=== PATIENT | female | born 1965 | race Caucasian/White ===

== ENCOUNTER 2023-02-23 15:08 | Emergency (ER) | payer OTHER, SELFPAY ==
[2023-02-23 15:14] VITALS: BP 124/83; PULSE 71; RESP 16; TEMP 36.9; O2SAT 97
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
[2023-02-23 16:08] LABS: Internal Control Within Normal Limits; Strep A Antigen Screen Negative
[2023-02-23 16:13] LABS: SARS-CoV-2 Ag NEGATIVE (NEGATIVE)
[2023-02-23 17:42] VITALS: BP 152/71; PULSE 68; RESP 16; TEMP 36.9; O2SAT 96
[2023-02-25 15:36] LABS: SARS-CoV-2 NAA NOT DETECTED (NOT DETECTE)
== END 2023-02-23 17:51 | disposition home or self-care (01) ==
PROVIDERS: Emergency Provider Emergency Medicine Emergency Medical Services; PCP Family Medicine
DX: J02.9 Acute pharyngitis, unspecified (principal); Z20.822 Contact with and (suspected) exposure to COVID-19
CPT/HCPCS: 87070; 87635; 87811; 87880; 99285; U0003

== ENCOUNTER 2023-03-25 10:05 | Outpatient (OUT) | payer OTHER, SELFPAY ==
--- NOTE | 2023-03-25 10:11 | US_ITS ---
The [address] [address] Patient Name: SHIRAZ HENSON MRN: [id number] date: 1965 Sex: F Assigned Patient Location: [place] Current Patient Location: [place] Accession/Order Number: [id number] Exam Date: 03/25/2023 10:20 Report Date: 03/25/2023 12:19 At the request of: SHARAN HERNDON Procedure: US pelvis w/ transvaginal EXAMINATION: US pelvis w/ transvaginal HISTORY: Ovarian Cyst N83.209 COMPARISON: No relevant comparison available. FINDINGS: The uterus is normal in size, contour and echotexture measuring 8.7 x 5.4 x 4.0 cm. Area of hypoechogenicity in the anterior myometrium measuring 1.7 cm. Anteverted. Endometrium measures 1.2 cm The ovaries are not visualized No free fluid US/US pelvis w/ transvaginal IMPRESSION: 1.7 cm anterior myometrial mass, a fibroid is favored The endometrial stripe measures 1.2 cm, thickened for postmenopausal patient Electronically authenticated by: MARIA DE JESUS MARSH Date: 03/25/2023 12:19
== END 2023-03-25 10:06 | disposition home or self-care (01) ==
LOC: US 10:05
PROVIDERS: PCP Family Medicine; Visit Provider Family Medicine
DX: N83.209 Unspecified ovarian cyst, unspecified side (principal); N85.8 Other specified noninflammatory disorders of uterus; R93.89 Abnormal findings on diagnostic imaging of other specified body structures
CPT/HCPCS: 76830; 76856

== ENCOUNTER 2023-03-25 10:58 | Outpatient (OUT) | payer OTHER, SELFPAY ==
[2023-03-26 05:07] LABS: Cancer Antigen (CA) 125 13.2 U/mL (0.0-38.1)
== END 2023-03-25 10:59 | disposition home or self-care (01) ==
LOC: LAB 10:59
PROVIDERS: PCP Family Medicine; Visit Provider Family Medicine
DX: N83.209 Unspecified ovarian cyst, unspecified side (principal)
CPT/HCPCS: 36415; 76830; 76856; 86304

== ENCOUNTER 2023-07-02 13:20 | Outpatient (OUT) | payer OTHER, SELFPAY ==
[2023-07-02 13:41] LABS: Basophils Percent Auto 0.7 % (0.2-2.0); Eosinophils Absolute Auto 0.2 10^3/uL (0.0-0.7); Eosinophils Percent Auto 2.5 % (0.9-7.0); Hematocrit 40.9 % (36.0-48.0); Immature Granulocytes Abs Auto 0.01 10^3/uL (0.00-0.03); Immature Granulocytes Pct Auto 0.2 % (0.0-0.5); Lymphocytes Absolute Auto 1.3 10^3/uL (1.2-3.8); Mean Corpuscular HGB Conc 31.8 g/dL (29.9-35.2); Mean Corpuscular Volume 91.3 fL (81.0-99.0); Mean Platelet Volume 11.9 fL (9.5-13.5); Monocytes Absolute Auto 0.5 10^3/uL (0.3-0.8); Monocytes Percent Auto 7.9 % (1.7-12.0); Neutrophils Percent Auto 66.7 % (43.0-75.0); Platelet Count 164 10^3/uL (150-450); Red Blood Count 4.48 10^6/uL (4.20-5.40); Red Cell Distribution Width 13.1 % (11.0-15.0)
[2023-07-02 14:04] LABS: Estimated Average Glucose 126 mg/dL
[2023-07-02 14:35] LABS: Alanine Aminotransferase 32 U/L (14-59); Albumin Globulin Ratio 0.9; Albumin Level 3.7 g/dL (3.4-5.0); Alkaline Phosphatase 74 U/L (46-116); Anion Gap 9.5; Aspartate Amino Transferase 18 U/L (15-37); BUN Creatinine Ratio 30.8; Bilirubin Direct 0.1 mg/dL (0.0-0.2); Bilirubin Total 0.5 mg/dL (0.2-1.0); Calcium 8.9 mg/dL (8.5-10.1); Carbon Dioxide 31.5 mmol/L (21.0-32.0); Chloride 106 mmol/L (98-107); Chol HDL Ratio 3.4; Cholesterol 171 mg/dL (<=200); Estimated GFR (African America >60 (>=60); Estimated GFR (Non-African Ame >60 (>=60); Globulin 3.9 g/dL; Glucose 139 mg/dL (74-106); HDL Cholesterol 51 mg/dL (40-60); LDL Cholesterol Calculated 108.2 mg/dL; Sodium 143 mmol/L (136-145); Thyroid Stimulating Hormone 2.365 uIU/mL (0.358-3.740); Total Protein 7.6 g/dL (6.4-8.2); Triglycerides 59 mg/dL (<=150); VLDL CHOLESTEROL 11.8 mg/dL
== END 2023-07-02 13:21 | disposition home or self-care (01) ==
LOC: LAB 13:23
PROVIDERS: PCP Family Medicine; Visit Provider Family Medicine
DX: Z00.00 Encounter for general adult medical examination without abnormal findings (principal)
CPT/HCPCS: 36415; 80048; 80061; 80076; 83036; 84443; 85025

== ENCOUNTER 2023-12-10 13:46 | Outpatient (OUT) | payer BC, SELFPAY ==
[2023-12-10 14:48] LABS: Microalbumin Urine Random 5.4 mg/dL (<=30.0)
[2023-12-10 16:09] LABS: Estimated Average Glucose 134 mg/dL; Glycohemoglobin A1C 6.3 % (4.5-6.2)
== END 2023-12-10 13:47 | disposition home or self-care (01) ==
LOC: LAB 13:48
PROVIDERS: PCP Family Medicine; Visit Provider Family Medicine
DX: E11.65 Type 2 diabetes mellitus with hyperglycemia (principal)
CPT/HCPCS: 36415; 82043; 83036

== ENCOUNTER 2024-06-16 14:06 | Outpatient (OUT) | payer BC, SELFPAY ==
[2024-06-16 14:23] LABS: Basophils Percent Auto 0.8 % (0.2-2.0); Eosinophils Absolute Auto 0.2 10^3/uL (0.0-0.7); Eosinophils Percent Auto 2.9 % (0.9-7.0); Hematocrit 43.1 % (36.0-48.0); Hemoglobin 13.9 g/dL (12.0-16.0); Immature Granulocytes Abs Auto 0.02 10^3/uL (0.00-0.03); Immature Granulocytes Pct Auto 0.4 % (0.0-0.5); Lymphocytes Percent Auto 19.5 % (20.5-60.0); Mean Corpuscular HGB Conc 32.3 g/dL (29.9-35.2); Mean Corpuscular Hemoglobin 29.3 pg (26.7-34.0); Mean Corpuscular Volume 90.7 fL (81.0-99.0); Mean Platelet Volume 12.1 fL (9.5-13.5); Monocytes Absolute Auto 0.4 10^3/uL (0.3-0.8); Monocytes Percent Auto 6.9 % (1.7-12.0); Neutrophils Absolute Auto 3.7 10^3/uL (1.4-6.5); Neutrophils Percent Auto 69.5 % (43.0-75.0); Platelet Count 172 10^3/uL (150-450); Red Blood Count 4.75 10^6/uL (4.20-5.40); Red Cell Distribution Width 13.3 % (11.0-15.0); White Blood Count 5.2 10^3/uL (4.0-11.0)
--- OUTSIDE RECORDS SUMMARY | 2024-06-16 14:25 | XMS_ITS | CCD ---
Author Organization [facility] Care Team Providers Care Play Reader Name Role Phone KATHERYN MICHELLE Unavailable Unavailable BRENNAN, ALISHA Unavailable Unavailable BRENNAN, ALISHA Unavailable Unavailable BRENNAN, ALISHA Unavailable Unavailable BRENNAN, ALISHA Unavailable Unavailable BRENNAN, ALISHA Unavailable Unavailable VIMAL SCHULTZ Unavailable Unavaila ble BRENNAN, ALISHA Unavailable Unavailable BRENNAN, ALISHA Unavailable Unavailable BRENNAN, ALISHA Unavailable Unavailable SHANTELLEASHANTI Unavailable Unavailable JOSEKAREN HAMPTON Unavailable Unavailable BRENNAN, ALISHA Unavailable Unavailable SITA JERRY Unavailable Unavailable YONLEY, RACHEL L Unavailable Unavailable HAY ., DR PAIGE Admitting Unavailable NADERER, DR SHARAN Rizvi Primary Care Unavailable HAY ., DR PAIGE Attending Unavailable HAY ., DR PAIGE Consulting Unavailable NADERER, DR SHARAN Rizvi Primary Care Unavailable NICOLE JOSEPH Consulting Unavailable KATTODD CLARKE Admitting Unavailable KATTODD CLARKE Attending Unavailable EUFEMIA GARBER Consulting Unavailable NADERER, DR SHARAN Rizvi Attending Unavailable NADERER, DR SHARAN Rizvi Consulting Unavailable NADERER, DR SHARAN Rizvi Primary Care Unavailable NADERER, DR SHARAN Rizvi Admitting Unavailable NADERER, DR SHARAN Rizvi Admitting Unavailable NADERER, DR SHARAN Rizvi Attending Unavailable NADERER, DR SHARAN Rizvi Primary Care Unavailable MAXIMO, DR MARIA DE JESUS Christensen Consulting Unavailable NADEREJamal, DR SHARAN Rizvi Consulting Unavailable WEST, DR MARIA DE JESUS Christensen Admitting Unavailable NADERER, DR SHARAN Rizvi Primary Care Unavailable WEST, DR MARIA DE JESUS Christensen Attending Unavailable WEST, DR MARIA DE JESUS Christensen Consulting Unavailable MARKER ., DR PRECIADO Admitting Unavailable NADERER, DR SHARAN Rizvi Primary Care Unavailable GRECHNY ., STAR MENJIVAR Consulting Unavailabl e MARKER ., DR PRECIADO Attending Unavailable MARKER ., DR PRECIADO Consulting Unavailable ROX APARICIO Consulting Unavailable DR DON CHACON Admitting Unavailable DR SHARAN HERNDON Primary Care Unavailable NICOLE JOSEPH Consulting Unavailable DR DON CHACON Attending Unavailable DR SHARAN HERNDON Primary Care Unavailable GABRIELLA DELANEY Admitting Unavailable GABRIELLA DELANEY Attending Unavailable GABRIELLA DELANEY Consulting Unavailable Jimmy VELASCO Attending Unavailable SHARAN HERNDON Attending Unavailable Problems Active Problems Problem Classification Problem Date Documented Da te Episodic/Chronic Diabetes mellitus without complication (1 source) Type 2 diabetes mellitus without complications; Translations: [TYPE 2 DM WITHOUT COMPLICATIONS] Onset: 08-10-2022 Chronic Gout and other crystal arthropathies (1 source) Gout, unspecified; Translations: [Gout, unspecified] Onset: 05-26-2017 Chronic Menstrual disorders (3 sources) Irregular menstruation, unspecified; Translations: [Irregular menstruation, unspecified] Onset: 10-02-2017 Chronic Nonspecific chest pain (4 sources) Chest pain, unspecified; Translations: [Other chest pain] Onset: 12-23-2022 Episodic Nutritional deficiencies (1 source) Vitamin D deficiency, unspecified; Translations: [VITAMIN D DEFICIENCY UNSPECIFIED] Onset: 08-10-2022 Chronic Other aftercare (1 source) Other termite treater helper (current) drug therapy; Translations: [OTH ALF CURRENT DRUG THERAPY] Onset: 11-18-2022 Episodic Other ear and sense organ disorders (1 source) Unspecified otitis externa, right ear; Translations: [UNS OTITIS EXTERNA RT EAR] Onset: 11-18-2022 Chronic Other ear and sense organ disorders (3 sources) Otalgia, right ear; Translations: [OTALGIA RIGHT EAR] Onset: 11-16-2022 Episodic Spondylosis; intervertebral disc disorders; other back problems (1 source) Spondylosis without myelopathy or radiculopathy, cervical region; Translations: [SPONDYLS W/O MYELO-/RADICULOP CERV] Onset: 10-18-2022 Chronic Spondylosis; intervertebral disc disorders; other back problems (1 source) Cervicalgia; Translations: [CERVICALGIA] Onset: 10-18-2022 Episodic Thyroid disorders (4 sources) Hypothyroidism, unspecified; Translations: [HYPOTHYROIDISM UNSPECIFIED] Onset: 10-16-2022 Chronic Unclassified (1 source) LOW BACK PAIN, UNSPECIFIED; Translations: [LOW BACK PAIN, UNSPECIFIED] Onset: 10-18-2022 Unclassified (1 source) CONTACT W/AND (SUSP) EXPOS COVID-19; Translations: [CONTACT W/AND (SUSP) EXPOS COVID-19] Onset: 08-15-2022 Unclassified (2 sources) COUGH, UNSPECIFIED; Translations: [COUGH, UNSPECIFIED] Onset: 05-14-2022 Varicose veins of lower extremity (4 sources) Varicose veins of bilateral lower extremities with pain; Translations: [VARICOSE VNS JAJA LOW EXTREM W/PAIN] Onset: 10-04-2022 Episodic Past or Other Problems Problem Classification Problem Date Documented Da te Episodic/Chronic Abdominal pain (1 source) Unspecified abdominal pain; Translations: [UNSPECIFIED ABDOMINAL PAIN] Onset: 08-15-2022 Episodic Contraceptive and procreative management (1 source) Tubal ligation status; Translations: [TUBAL LIGATION STATUS] Onset: 08-15-2022 Episodic Inflammation, infection of eye (1 source) Allergic dermatitis of left eye, unspecified eyelid; Translations: [Allergic dermatitis of left eye, unspecified eyelid] Onset: 04-26-2017 Episodic Nausea and vomiting (1 source) Vomiting, unspecified; Translations: [VOMITING UNSPECIFIED] Onset: 08-15-2022 Episodic Other gastrointestinal disorders (4 sources) Diarrhea, unspecified; Translations: [DIARRHEA UNSPECIFIED] Onset: 08-13-2022 Episodic Other skin disorders (3 sources) Localized swelling, mass and lump, right upper limb; Translations: [Localized swelling, mass and lump, right upper limb] Onset: 04-30-2017 Episodic Other upper respiratory infections (2 sources) Acute upper respiratory infection, unspecified; Translations: [Acute upper respiratory infection, unspecified] Onset: 05-08-2017 Episodic Poisoning by nonmedicinal substances (4 sources) Toxic effect of venom of bees, accidental (unintentional), initial encounter; Translations: [TOXIC EFF VENOM BEES ACC INIT ENC] Onset: 04-18-2022 Episodic Residual codes; unclassified (1 source) Acquired absence of other specified parts of digestive tract; Translations: [ACQ ABSENCE OTH PART DIGESTV TRACT] Onset: 08-15-2022 Episodic Superficial injury; contusion (1 source) Contusion of left lesser toe(s) with damage to nail, initial encounter; Translations: [Contusion of left lesser toe(s) with damage to nail, initial encounter] Onset: 09-29-2017 Episodic Unclassified (2 sources) Encounter for screening for nutritional disorder; Translations: [Encounter for screening for nutritional disorder] Onset: 10-02-2017 Episodic Unclassified (1 source) COUGH, UNSPECIFIED; Translations: [COUGH, UNSPECIFIED] Onset: 05-13-2022 Urinary tract infections (1 source) Urinary tract infection, site not specified; Translations: [UTI SITE NOT SPECIFIED] Onset: 08-15-2022 Episodic Viral infection (1 source) Other viral agents as the cause of diseases classified elsewhere; Translations: [Other viral agents as the cause of diseases classified elsewhere] Onset: 05-08-2017 Episodic Results Test Name Value Interpretation Reference Range Facility [facility] 11-28-2023 Consent [id number] Normal [facility] Registrationon 11-28-2023 Registration [id number] Normal [facility] CBC AUTO DIFFon 12-23-2022 BASO # 0.0 103/ul Normal 0.0-0.1 [facility] Comment on above: Performed By: #### L IPA, CMP #### [facility] [address] [place] [address] Dr. Chantel Rand Basophils/100 WBC (Bld) 0.5 % Normal 0.2-2.0 [facility] Comment on above: Performed By: #### L IPA, CMP #### [facility] [address] [place] [address] Dr. Chantel Rand EO # 0.2 103/ul Normal 0.0-0.7 [facility] Comment on above: Performed By: #### L IPA, CMP #### [facility] [address] [place] [address] Dr. Chantel Rand Eosinophils/100 WBC (Bld) 3.5 % Normal 0.9-7.0 [facility] Comment on above: Performed By: #### L IPA, CMP #### [facility] [address] [place] [address] Dr. Chantel Rand Erythrocyte distribution width (RBC) [Ratio] 13.1 % Normal 11.0-15.0 [facility] Comment on above: Performed By: #### L IPA, CMP #### [facility] [address] [place] [address] Dr. Chantel Rand Hematocrit (Bld) [Volume fraction] 42.6 % Normal 36.0-48.0 [facility] Comment on above: Performed By: #### L IPA, CMP #### [facility] [address] [place] [address] Dr. Chantel Rand Hemoglobin (Bld) [Mass/Vol] 14.0 g/dL Normal 12.0-16.0 [facility] Comment on above: Performed By: #### L IPA, CMP #### [facility] [address] [place] [address] Dr. Chantel Rand IG # 0.02 10e3/ul Normal 0.00-0.03 [facility] Comment on above: Performed By: #### L IPA, CMP #### [facility] [address] [place] [address] Dr. Chantel Rand IG % 0.4 % Normal 0.0-0.5 [facility] Comment on above: Performed By: #### L IPA, CMP #### [facility] [address] [place] [address] Dr. Chantel Rand LYMPH # 1.4 103/ul Normal 1.2-3.8 [facility] Comment on above: Performed By: #### L IPA, CMP #### [facility] [address] [place] [address] Dr. Chantel Rand Lymphocytes/100 WBC (Bld) 23.7 % Normal 20.5-60.0 [facility] Comment on above: Performed By: #### L IPA, CMP #### [facility] [address] [place] [address] Dr. Chantel Rand MANUAL DIFF REQ NO Normal [facility] Comment on above: Performed By: #### L IPA, CMP #### [facility] [address] [address] [address] Chantel Rand MCH (RBC) [Entitic mass] 28.6 pg Normal 26.7-34.0 [facility] Comment on above: Performed By: #### L IPA, CMP #### [facility] [address] [place] [address] Dr. Chantel Rand MCHC (RBC) [Mass/Vol] 32.9 g/dL Normal 29.9-35.2 [facility] Comment on above: Performed By: #### L IPA, CMP #### [facility] [address] [place] [address] Dr. Chantel Rand MCV (RBC) [Entitic vol] 86.9 fL Normal 81.0-99.0 [facility] Comment on above: Performed By: #### L IPA, CMP #### [facility] [address] [place] [address] Dr. Chantel Rand MONO # 0.5 103/ul Normal 0.3-0.8 [facility] Comment on above: Performed By: #### L IPA, CMP #### [facility] [address] [place] [address] Dr. Chantel Rand Monocytes/100 WBC (Bld) 7.9 % Normal 1.7-12.0 [facility] Comment on above: Performed By: #### L IPA, CMP #### [facility] [address] [place] [address] Dr. Chantel Rand NEUT # 3.6 103/ul Normal 1.4-6.5 [facility] Comment on above: Performed By: #### L IPA, CMP #### [facility] [address] [place] [address] Dr. Chantel Rand Neutrophils/100 WBC (Bld) 64.0 % Normal 43.0-75.0 [facility] Comment on above: Performed By: #### L IPA, CMP #### [facility] [address] [place] [address] Dr. Chantel Rand Platelet mean volume (Bld) [Entitic vol] 11.5 fL Normal 9.5-13.5 [facility] Comment on above: Performed By: #### L IPA, CMP #### [facility] [address] [address] [address] Chantel Rand PLT 179 103/ul Normal 150-450 [facility] Comment on above: Performed By: #### L IPA, CMP #### [facility] [address] [address] [address] Chantel Rand RBC 4.90 106/ul Normal 4.20-5.40 [facility] Comment on above: Performed By: #### L IPA, CMP #### [facility] [address] [address] [address] Chantel Rand WBC 5.7 103/ul Normal 4.0-11.0 [facility] Comment on above: Performed By: #### L IPA, CMP #### [facility] [address] [place] [address] Dr. Chantel Rand LIPASEon 12-23-2022 Lipase [Catalytic activity/Vol] 150.0 U/L Normal 73.0-393.0 [facility] Comment on above: Performed By: #### L IPA, LIVER, HSTROPN, BMP #### [facility] [address] [address] [address] Chantel Rand LIVER PROFILEon 12-23-2022 Albumin [Mass/Vol] 3.8 g/dL Normal 3.4-5.0 [facility] Comment on above: Performed By: #### L IPA, CMP #### [facility] [address] [place] [address] Dr. Chantel Rand Albumin/Globulin [Mass ratio] 0.9 {ratio} Normal [facility] Comment on above: Performed By: #### L IPA, CMP #### [facility] [address] [place] [address] Dr. Chantel Rand ALP [Catalytic activity/Vol] 76 U/L Normal 46-116 [facility] Comment on above: Performed By: #### L IPA, CMP #### [facility] [address] [address] [address] Chantel Rand ALT [Catalytic activity/Vol] 31 U/L Normal 14-59 [facility] Comment on above: Performed By: #### L IPA, CMP #### [facility] [address] [place] [address] Dr. Chantel Rand AST [Catalytic activity/Vol] 17 U/L Normal 15-37 [facility] Comment on above: Performed By: #### L IPA, CMP #### [facility] [address] [place] [address] Dr. Chantel Rand BILI, CONJUGATED 0.1 mg/dL Normal 0.0-0.2 [facility] Comment on above: Performed By: #### L IPA, CMP #### [facility] [address] [place] [address] Dr. Chantel Rand Bilirubin [Mass/Vol] 0.4 mg/dL Normal 0.2-1.0 [facility] Comment on above: Performed By: #### L IPA, CMP #### [facility] [address] [place] [address] Dr. Chantel Rand Globulin (S) [Mass/Vol] 4.0 g/dL Normal [facility] Comment on above: Performed By: #### L IPA, CMP #### [facility] [address] [place] [address] Dr. Chantel Rand Protein [Mass/Vol] 7.8 g/dL Normal 6.4-8.2 [facility] Comment on above: Performed By: #### L IPA, CMP #### [facility] [address] [place] [address] Dr. Chantel Rand PROF CHEM 8 (BAS METB)on Anion gap [Moles/Vol] 13.1 mmol/L Normal [facility] Comment on above: Performed By: #### L IPA, CMP #### [facility] [address] [place] [address] Dr. Chantel Rand Calcium [Mass/Vol] 9.3 mg/dL Normal 8.5-10.1 [facility] Comment on above: Performed By: #### L IPA, CMP #### [facility] [address] [place] [address] Dr. Chantel Rand Chloride [Moles/Vol] 104 mmol/L Normal 98-107 [facility] Comment on above: Performed By: #### L IPA, CMP #### [facility] [address] [place] [address] Dr. Chantel Rand CO2 [Moles/Vol] 28.9 mmol/L Normal 21.0-32.0 [facility] Comment on above: Performed By: #### L IPA, CMP #### [facility] [address] [address] [address] Chantel Rand Creatinine [Mass/Vol] 0.70 mg/dL Normal 0.55-1.02 [facility] Comment on above: Performed By: #### L IPA, CMP #### [facility] [address] [place] [address] Dr. Chantel Rand EGFR-AF DOMINICAN >60 Normal >=60 [facility] Comment on above: Performed By: #### L IPA, CMP #### [facility] [address] [place] [address] Dr. Chantel Rand EGFR-NON AF DOMINICAN >60 Normal >=60 [facility] Comment on above: Performed By: #### L IPA, CMP #### [facility] [address] [place] [address] Dr. Chantel Rand Glucose [Mass/Vol] 148 mg/dL Critically high 74-106 [facility] Comment on above: Performed By: #### L IPA, CMP #### [facility] [address] [place] [address] Dr. Chantel Rand Potassium [Moles/Vol] 4.0 mmol/L Normal 3.5-5.1 [facility] Comment on above: Performed By: #### L IPA, CMP #### [facility] [address] [place] [address] Dr. Chantel Rand Sodium [Moles/Vol] 142 mmol/L Normal 136-145 [facility] Comment on above: Performed By: #### L IPA, CMP #### [facility] [address] [place] [address] Dr. Chantel Rand Urea nitrogen [Mass/Vol] 17.0 mg/dL Normal 7.0-18.0 [facility] Comment on above: Performed By: #### L IPA, CMP #### [facility] [address] [place] [address] Dr. Chantel Rand Urea nitrogen/Creatinine [Mass ratio] 24.3 mg/mg Normal [facility] Comment on above: Performed By: #### L IPA, CMP #### [facility] [address] [place] [address] Dr. Chantel Rand TROPONIN, HIGH SENSITIVITYon 12-23-2022 HSTROP 6.6 pg/mL Normal 4.0-51.3 [facility] Comment on above: Result Comment: CUT- OFF POINTS HAVE BEEN ESTABLISHED BASED ON THE FOURTH UNIVERSAL DEFINITIONS OF MYOCARDIAL INFARCTION. THE UPPER REFERENCE LIMIT (URL) OF TROPONIN, DEFINED THE 99TH PERCENTILE OF cTnI DISTRIBUTION IN A REFERENCE POPULATION, HAS BEEN CONFIRMED THE DECISION THRESHOLD FOR HI DIAGNOSIS. Performed By: #### L IPA, CMP #### [facility] [address] [place] [address] Dr. Chantel Rand XR CSPINE 2_3 VIEWSon 2022 XR CSPINE 2_3 VIEWS EXAMINATION: XR CSPI NE 2_3 VIEWS HISTORY: Neck pain COMPARISON: No relevant comparison available. FINDINGS: BONES: Normal alignment with no acute fracture or spondylolisthesis. Moderate to severe degenerative spondylosis. [id number] facet osteoarthropathy. DISC SPACES: Normal. No significant disc height narrowing, subluxation, or endplate abnormality. PARASPINOUS: Negative. No paraspinous abnormality is seen. OTHER: C7 is not visualized on the lateral projection IMPRESSION: Moderate to severe degenerative spondylosis Electronically authenticated by: MARIA DE JESUS MARSH Date: 2022-10-17 07:42 Normal [facility] XR LSPINE 2_3 VIEWSon 2022 XR LSPINE 2_3 VIEWS EXAMINATION: XR LSPI NE 2_3 VIEWS HISTORY: Low back pain COMPARISON: No relevant comparison available. FINDINGS: BONES: 2 mm anterolisthesis of L4 in relation L5. Mild spondylosis. Moderate facet osteoarthropathy most significant L4-S1 DISC SPACES: Mild multilevel disc space narrowing PARASPINOUS: Negative. No paraspinous abnormality is seen. OTHER: Negative. IMPRESSION: Mild to moderate degenerative changes Electronically authenticated by: MARIA DE JESUS MARSH Date: 2022-10-17 07:49 Normal [facility] FREE T3on 10-16-2022 FREE T3 3.25 pg/mlL Normal 2.18-3.98 [facility] Comment on above: Performed By: #### L IPA, CMP #### [facility] [address] [place] [address] Dr. Chantel Rand FREE T4on 10-16-2022 Free T4 [Mass/Vol] 0.96 ng/dL Normal 0.76-1.46 [facility] Comment on above: Performed By: #### F T4 #### [facility] [address] [place] [address] Dr. Chantel Rand TSHon 10-16-2022 TSH 2.190 uIU/mL Normal 0.358-3.740 [facility] Comment on above: Performed By: #### L IPA, CMP #### [facility] [address] [place] [address] Dr. Chantel Rand CULTURE URINEon 08-16-2022 CULTURE URINE Isolate 1 Klebsiella pneumoniae 15,000 cfu/mL of ORGANISM 1 Klebsiella pneumoniae ANTIBIOTIC M.I.C RX STATUS Ampicillin 16 R F Ampicillin/Sulbactam 4 S F Piperacillin/Tazobacta m <=4 S F Cefazolin <=4 S F Ceftazidime <=1 S F Ceftriaxone <=1 S F Ertapenem <=0.5 S F Imipenem <=0.25 S F Amikacin <=2 S F Gentamicin <=1 S F Tobramycin <=1 S F Ciprofloxacin <=0.25 S F Levofloxacin <=0.12 S F Nitrofurantoin 64 I F Trimethoprim/Sulfameth oxazole <=20 S F Normal [facility] Comment on above: Performed By: #### L IPA, CMP #### [facility] [address] [place] [address] Dr. Chantel Rand CBC W MANUAL DIFFon 08-13-20 22 ATYPICAL LYMPH # 0.07 103/ul Normal [facility] Comment on above: Performed By: #### L IPA, CMP #### [facility] [address] [place] [address] Dr. Chantel Rand ATYPICAL LYMPH % 1 % Normal [facility] Comment on above: Performed By: #### L IPA, CMP #### [facility] [address] [place] [address] Dr. Chantel Rand BAND # 0.0 103/ul Normal 0.0-0.3 [facility] Comment on above: Performed By: #### L IPA, CMP #### [facility] [address] [place] [address] Dr. Chantel Rand BAND % 0 % Normal 0-5 [facility] Comment on above: Performed By: #### L IPA, CMP #### [facility] [address] [place] [address] Dr. Chantel Rand BASOM # 0.00 103/ul Normal 0.00-0.10 [facility] Comment on above: Performed By: #### L IPA, CMP #### [facility] [address] [place] [address] Dr. Chantel Rand BASOM % 0.0 % Critically low 0.2-2.0 [facility] Comment on above: Performed By: #### L IPA, CMP #### [facility] [address] [place] [address] Dr. Chantel Rand BLAST # Normal [facility] Comment on above: Performed By: #### L IPA, CMP #### [facility] [address] [place] [address] Dr. Chantel Rand BLAST % Normal [facility] Comment on above: Performed By: #### L IPA, CMP #### [facility] [address] [place] [address] Dr. Chantel Rand CORRECTED WBC Normal 4.0-11.0 [facility] Comment on above: Performed By: #### L IPA, CMP #### [facility] [address] [place] [address] Dr. Chantel Rand EOS # 0.00 103/ul Normal 0.00-0.70 [facility] Comment on above: Performed By: #### L IPA, CMP #### [facility] [address] [address] [address] Chantel Rand EOS% 0.0 % Critically low 0.9-7.0 [facility] Comment on above: Performed By: #### L IPA, CMP #### [facility] [address] [place] [address] Dr. Chantel Rand HCT 43.5 % Normal 36.0-48.0 [facility] Comment on above: Performed By: #### L IPA, CMP #### [facility] [address] [place] [address] Dr. Chantel Rand HGB 14.0 g/dl Normal 12.0-16.0 [facility] Comment on above: Performed By: #### L IPA, CMP #### [facility] [address] [place] [address] Dr. Chantel Rand LYMPHM # 0.47 103/ul Critically low 1.20-3.80 [facility] Comment on above: Performed By: #### L IPA, CMP #### [facility] [address] [place] [address] Dr. Chantel Rand LYMPHM% 7.0 % Critically low 20.5-60.0 [facility] Comment on above: Performed By: #### L IPA, CMP #### [facility] [address] [place] [address] Dr. Chantel Rand MCH 28.5 pg Normal 26.7-34.0 [facility] Comment on above: Performed By: #### L IPA, CMP #### [facility] [address] [place] [address] Dr. Chantel Rand MCHC 32.2 g/dl Normal 29.9-35.2 [facility] Comment on above: Performed By: #### L IPA, CMP #### [facility] [address] [place] [address] Dr. Chantel Rand MCV 88.4 fL Normal 81.0-99.0 [facility] Comment on above: Performed By: #### L IPA, CMP #### [facility] [address] [place] [address] Dr. Chantel Rand METAMYELOCYTE # Normal [facility] Comment on above: Performed By: #### L IPA, CMP #### [facility] [address] [address] [address] Chantel Rand METAMYELOCYTE % Normal [facility] Comment on above: Performed By: #### L IPA, CMP #### [facility] [address] [address] [address] Chantel Rand MONOM# 0.67 103/ul Normal 0.30-0.80 [facility] Comment on above: Performed By: #### L IPA, CMP #### [facility] [address] [address] [address] Chantel Rand MONOM% 10.0 % Normal 1.7-12.0 [facility] Comment on above: Performed By: #### L IPA, CMP #### [facility] [address] [place] [address] Dr. Chantel Rand MPV 11.4 fL Normal 9.5-13.5 [facility] Comment on above: Performed By: #### L IPA, CMP #### [facility] [address] [address] [address] Chantel Rand MYELOCYTE # Normal [facility] Comment on above: Performed By: #### L IPA, CMP #### [facility] [address] [address] [address] Chantel Rand MYELOCYTE % Normal [facility] Comment on above: Performed By: #### L IPA, CMP #### [facility] [address] [address] [address] Chantel Rand NRBC Normal [facility] Comment on above: Performed By: #### L IPA, CMP #### [facility] [address] [address] [address] Chantel Rand PLT 142 103/ul Critically low 150-450 [facility] Comment on above: Performed By: #### L IPA, CMP #### [facility] [address] [address] [address] Chantel Rand RBC 4.92 106/ul Normal 4.20-5.40 [facility] Comment on above: Performed By: #### L IPA, CMP #### [facility] [address] [address] [address] Chantel Rand RDW 12.9 % Normal 11.0-15.0 [facility] Comment on above: Performed By: #### L IPA, CMP #### [facility] [address] [place], [place] [address] Dr. Chantel Rand SEG # 5.49 103/ul Normal 1.40-6.50 [facility] Comment on above: Performed By: #### L IPA, CMP #### [facility] [address] [address] [address] Chantel Rand SEG % 82.0 % Critically high 43.0-75.0 [facility] Comment on above: Performed By: #### L IPA, CMP #### [facility] [address] [address] [address] Chantel Rand WBC 6.7 103/ul Normal 4.0-11.0 [facility] Comment on above: Performed By: #### L IPA, CMP #### [facility] [address] [place], [place] [address] Dr. Chantel Rand Covid-19 PCR ([facility])on SARS-CoV-2 (COVID-19) RNA ROMANA+probe Ql (Unsp spec) Not detected Normal NOT DETECTED [facility] Comment on above: Result Comment: When diagnostic testing is negative, the possibility of a false negative should be considered in the context of a patient's recent exposures and the presence of clinical signs and symptoms consistent with SARS-CoV-2. This test is not yet approved or cleared by the [place] FDA. When there are no FDA-approved or cleared tests available, and other criteria are met, FDA can make tests available under an emergency access mechanism called an Emergency Use Authorization (EUA). The EUA for this test is supported by the [employer] Operator of Health and Human Service's declaration that circumstances exist to justify the emergency use of in vitro diagnostics for the detection and/or diagnosis of the virus that causes COVID-19. This EUA will remain in effect for the duration of the COVID-19 declaration justifying emergency of IVDs, unless it is terminated or revoked by the FDA (after which the test may no longer be used). Performed By: #### L IPA, CMP #### [facility] [address] [place] [address] Dr. Chantel IGLESIAS URINE PROFILEon 2 Bilirubin Ql (U) SMALL Abnormal NEGATIVE [facility] Comment on above: Performed By: #### L IPA, CMP #### [facility] [address] [place] [address] Dr. Chantel Rand Clarity (U) CLEAR Normal CLEAR [facility] Comment on above: Performed By: #### L IPA, CMP #### [facility] [address] [place] [address] Dr. Chantel Rand Color (U) DK. YELLOW Normal YELLOW [facility] Comment on above: Performed By: #### L IPA, CMP #### [facility] [address] [place] [address] Dr. Chantel Rand ERUAHTayla A micrscopic examination will be performed if indicated. Normal [facility] Comment on above: Performed By: #### L IPA, CMP #### [facility] [address] [place] [address] Dr. Chantel Rand Glucose Ql (U) Negative Normal NEGATIVE [facility] Comment on above: Performed By: #### L IPA, CMP #### [facility] [address] [place] [address] Dr. Chantel Rand Hemoglobin Ql (U) Negative Normal NEGATIVE [facility] Comment on above: Performed By: #### L IPA, CMP #### [facility] [address] [place] [address] Dr. Chantel Rand Ketones Ql (U) TRACE Abnormal NEGATIVE [facility] Comment on above: Performed By: #### L IPA, CMP #### [facility] [address] [place] [address] Dr. Chantel Rand LEUKOCYTES Negative Normal NEGATIVE [facility] Comment on above: Performed By: #### L IPA, CMP #### [facility] [address] [place] [address] Dr. Chantel Rand Nitrite Ql (U) Negative Normal NEGATIVE [facility] Comment on above: Performed By: #### L IPA, CMP #### [facility] [address] [place] [address] Dr. Chantel Rand pH (U) 5.0 [pH] Normal 5-9 [facility] Comment on above: Performed By: #### L IPA, CMP #### [facility] [address] [place] [address] Dr. Chantel Rand Protein (U) [Mass/Vol] 30 mg/dL Abnormal NEGATIVE/ TRACE [facility] Comment on above: Performed By: #### L IPA, CMP #### [facility] [address] [place] [address] Dr. Chantel Rand SPEC GRAVITY >=1.030 Abnormal 1.005-<=1.025 [facility] Comment on above: Performed By: #### L IPA, CMP #### [facility] [address] [place] [address] Dr. Chantel Rand UR MICRO IND INDICATED Normal [facility] Comment on above: Performed By: #### L IPA, CMP #### [facility] [address] [place] [address] Dr. Chantel Rand Urobilinogen Qn (U) 1.0 {Nahun'U}/dL Normal 0.2 - 1. 0 [facility] Comment on above: Performed By: #### L IPA, CMP #### [facility] [address] [place] [address] Dr. Chantel Rand INFLUENZA A AND B AGon 08-13 INFLUANEGH SEE BELOW Normal [facility] Comment on above: Result Comment: Nega tive for Flu A protein angiten. Infection due to Flu A cannot be ruled out. Flu A angiten in the sample may be below the detection limit of the test. Performed By: #### L IPA, CMP #### [facility] [address] [place] [address] Dr. Chantel Rand INFLUBNEGH SEE BELOW Normal [facility] Comment on above: Result Comment: Nega tive for Flu B protein antigen. Infection due to Flu B cannot be ruled out. Flu B antigen in the sample may be below the detection limit of the test. Performed By: #### L IPA, CMP #### [facility] [address] [place] [address] Dr. Chantel Rand INFLUENZA A AG Negative Normal NEGATIVE SEE COMMENT [facility] Comment on above: Performed By: #### L IPA, CMP #### [facility] [address] [place] [address] Dr. Chantel Rand INFLUENZA B AG Negative Normal NEGATIVE SEE COMMENT [facility] Comment on above: Performed By: #### L IPA, CMP #### [facility] [address] [place] [address] Dr. Chantel Rand INTERNAL CONTROLS Within Normal Limits Normal Wi thin Normal Limits [facility] Comment on above: Performed By: #### L IPA, CMP #### [facility] [address] [place] [address] Dr. Chantel Rand LACTATE/LACTIC ACIDon 2021 Lactate [Moles/Vol] 0.9 mmol/L Normal 0.4-1.[address] [facility] Comment on above: Performed By: #### L ACT #### [facility] [address] [place] [address] Dr. Chantel Rand LIPASEon 08-13-2022 Lipase [Catalytic activity/Vol] 294.0 U/L Normal 73.0-393.0 [facility] Comment on above: Performed By: #### L IPA, CMP #### [facility] [address] [place] [address] Dr. Chantel Rand PROF 14(COMP METB)on 022 Albumin [Mass/Vol] 3.5 g/dL Normal 3.4-5.0 [facility] Comment on above: Performed By: #### L IPA, CMP #### [facility] [address] [place] [address] Dr. Chantel Rand Albumin/Globulin [Mass ratio] 0.8 {ratio} Normal [facility] Comment on above: Performed By: #### L IPA, CMP #### [facility] [address] [address] [address] Chantel Rand ALP [Catalytic activity/Vol] 89 U/L Normal 46-116 [facility] Comment on above: Performed By: #### L IPA, CMP #### [facility] [address] [address] [address] Chantel Rand ALT [Catalytic activity/Vol] 54 U/L Normal 14-59 [facility] Comment on above: Performed By: #### L IPA, CMP #### [facility] [address] [address] [address] Chantel Rand Anion gap [Moles/Vol] 8.1 mmol/L Normal [facility] Comment on above: Performed By: #### L IPA, CMP #### [facility] [address] [place] [address] Dr. Chantel Rand AST [Catalytic activity/Vol] 64 U/L Critically high 15-37 [facility] Comment on above: Performed By: #### L IPA, CMP #### [facility] [address] [place] [address] Dr. Chantel Rand Bilirubin [Mass/Vol] 0.6 mg/dL Normal 0.2-1.0 [facility] Comment on above: Performed By: #### L IPA, CMP #### [facility] [address] [place] [address] Dr. Chantel Rand Calcium [Mass/Vol] 8.7 mg/dL Normal 8.5-10.1 [facility] Comment on above: Performed By: #### L IPA, CMP #### [facility] [address] [place] [address] Dr. Chantel Rand Chloride [Moles/Vol] 102 mmol/L Normal 98-107 [facility] Comment on above: Performed By: #### L IPA, CMP #### [facility] [address] [address] [address] Chantel Rand CO2 [Moles/Vol] 31.6 mmol/L Normal 21.0-32.0 [facility] Comment on above: Performed By: #### L IPA, CMP #### [facility] [address] [place], [place] [id number] Dr. Chantel Rand Creatinine [Mass/Vol] 0.71 mg/dL Normal 0.55-1.02 [facility] Comment on above: Performed By: #### L IPA, CMP #### [facility] [address] [place] [address] Dr. Chantel Rand EGFR-AF DOMINICAN >60 Normal >=60 [facility] Comment on above: Performed By: #### L IPA, CMP #### [facility] [address] [place] [address] Dr. Chantel Rand EGFR-NON AF DOMINICAN >60 Normal >=60 [facility] Comment on above: Performed By: #### L IPA, CMP #### [facility] [address] [place] [address] Dr. Chantel Rand Globulin (S) [Mass/Vol] 4.2 g/dL Normal [facility] Comment on above: Performed By: #### L IPA, CMP #### [facility] [address] [place] [address] Dr. Chantel Rand Glucose [Mass/Vol] 165 mg/dL Critically high 74-106 [facility] Comment on above: Performed By: #### L IPA, CMP #### [facility] [address] [place] [address] Dr. Chantel Rand Potassium [Moles/Vol] 3.7 mmol/L Normal 3.5-5.1 [facility] Comment on above: Performed By: #### L IPA, CMP #### [facility] [address] [place] [address] Dr. Chantel Rand Protein [Mass/Vol] 7.7 g/dL Normal 6.4-8.2 [facility] Comment on above: Performed By: #### L IPA, CMP #### [facility] [address] [place] [address] Dr. Chantel Rand Sodium [Moles/Vol] 138 mmol/L Normal 136-145 [facility] Comment on above: Performed By: #### L IPA, CMP #### [facility] [address] [place] [address] Dr. Chantel Rand Urea nitrogen [Mass/Vol] 26.0 mg/dL Critically high 7.0-18.0 [facility] Comment on above: Performed By: #### L IPA, CMP #### [facility] [address] [place] [address] Dr. Chantel Rand Urea nitrogen/Creatinine [Mass ratio] 36.6 mg/mg Normal [facility] Comment on above: Performed By: #### L IPA, CMP #### [facility] [address] [address] [address] Chantel Rand URINE MICROSCOPIC ONLYon BACTERIA MODERATE Abnormal NONE SEEN [facility] Comment on above: Performed By: #### L IPA, CMP #### [facility] [address] [place] [address] Dr. Cahntel Rand Bacteria identified Cx Nom (U) INDICATED Normal [facility] Comment on above: Performed By: #### L IPA, CMP #### [facility] [address] [place] [address] Dr. Chantel Rand CA OX CRYSTALS MANY Normal [facility] Comment on above: Performed By: #### L IPA, CMP #### [facility] [address] [place] [address] Dr. Chantel Rand CAST NONE SEEN Normal NONE SEEN [facility] Comment on above: Performed By: #### L IPA, CMP #### [facility] [address] [place] [address] Dr. Chantel Rand Crystals LM Nom (Urine sed) SEEN Abnormal NONE SEEN [facility] Comment on above: Performed By: #### L IPA, CMP #### [facility] [address] [place] [address] Dr. Chantel Rand Epithelial cells LM Ql (Urine sed) MODERATE Abnormal NONE SEEN /RARE [facility] Comment on above: Performed By: #### L IPA, CMP #### [facility] [address] [place] [address] Dr. Chantel Rand MUCOUS NONE SEEN Normal NONE SEEN [facility] Comment on above: Performed By: #### L IPA, CMP #### [facility] [address] [place], [place] [id number] Dr. Chantel Rand RBC 0-2 Normal 0-2 [facility] Comment on above: Performed By: #### L IPA, CMP #### [facility] [address] [place] [address] Dr. Chantel Rand WBC 5-10 Abnormal NONE SEEN [facility] Comment on above: Performed By: #### L IPA, CMP #### [facility] [address] [place] [address] Dr. Chantel Rand XR ABD FLAT UP_PA Jayden 08-13 XR ABD FLAT UP_PA CH EXAM: XR ABD FLAT UP_PA CH HISTORY: Nausea, vomiting and diarrhea beginning this morning. COMPARISON: CT abdomen pelvis, 12/10/2011. TECHNIQUE: PA chest with supine and upright frontal views of the abdomen. FINDINGS: The heart, mediastinum and pulmonary vascularity are within normal limits. The lungs and pleural spaces appear clear. The bowel gas pattern is unremarkable. A normal volume of stool is seen throughout the colon. No urinary tract calculi are identified. Cholecystectomy clips are noted. The imaged axial skeleton appears intact. IMPRESSION: 1. No acute findings in the chest or abdomen. 2. Normal volume of formed stool throughout the colon, with no air-fluid levels to correlate with the patient's provided history of diarrhea. Negative for bowel obstruction. Electronically authenticated by: ROX APARICIO Date: 2022-08-13 19:54 Normal [facility] CBC AUTO DIFFon 08-07-2022 BASO # 0.0 103/ul Normal 0.0-0.1 [facility] Comment on above: Performed By: #### L IPA, CMP #### [facility] [address] [place] [address] Dr. Chantel Rand Basophils/100 WBC (Bld) 0.4 % Normal 0.2-2.0 [facility] Comment on above: Performed By: #### L IPA, CMP #### [facility] [address] [place] [address] Dr. Chantel Rand EO # 0.2 103/ul Normal 0.0-0.7 [facility] Comment on above: Performed By: #### L IPA, CMP #### [facility] [address] [place] [address] Dr. Chantel Rand Eosinophils/100 WBC (Bld) 3.0 % Normal 0.9-7.0 [facility] Comment on above: Performed By: #### L IPA, CMP #### [facility] [address] [place] [address] Dr. Chantel Rand Erythrocyte distribution width (RBC) [Ratio] 12.9 % Normal 11.0-15.0 [facility] Comment on above: Performed By: #### L IPA, CMP #### [facility] [address] [place] [address] Dr. Chantel Rand Hematocrit (Bld) [Volume fraction] 44.4 % Normal 36.0-48.0 [facility] Comment on above: Performed By: #### L IPA, CMP #### [facility] [address] [place] [address] Dr. Chantel Rand Hemoglobin (Bld) [Mass/Vol] 14.0 g/dL Normal 12.0-16.0 [facility] Comment on above: Performed By: #### L IPA, CMP #### [facility] [address] [place] [address] Dr. Chantel Rand IG # 0.02 10e3/ul Normal 0.00-0.03 [facility] Comment on above: Performed By: #### L IPA, CMP #### [facility] [address] [place] [address] Dr. Chantel Rand IG % 0.3 % Normal 0.0-0.5 [facility] Comment on above: Performed By: #### L IPA, CMP #### [facility] [address] [place] [address] Dr. Chantel Rand LYMPH # 1.9 103/ul Normal 1.2-3.8 [facility] Comment on above: Performed By: #### L IPA, CMP #### [facility] [address] [place] [address] Dr. Chantel Rand Lymphocytes/100 WBC (Bld) 25.8 % Normal 20.5-60.0 [facility] Comment on above: Performed By: #### L IPA, CMP #### [facility] [address] [place] [address] Dr. Chantel Rand MANUAL DIFF REQ NO Normal [facility] Comment on above: Performed By: #### L IPA, CMP #### [facility] [address] [place] [address] Dr. Chantel Rand MCH (RBC) [Entitic mass] 28.2 pg Normal 26.7-34.0 [facility] Comment on above: Performed By: #### L IPA, CMP #### [facility] [address] [place] [address] Dr. Chantel Rand MCHC (RBC) [Mass/Vol] 31.5 g/dL Normal 29.9-35.2 [facility] Comment on above: Performed By: #### L IPA, CMP #### [facility] [address] [place] [address] Dr. Chantel Rand MCV (RBC) [Entitic vol] 89.3 fL Normal 81.0-99.0 [facility] Comment on above: Performed By: #### L IPA, CMP #### [facility] [address] [place] [address] Dr. Chantel Rand MONO # 0.6 103/ul Normal 0.3-0.8 [facility] Comment on above: Performed By: #### L IPA, CMP #### [facility] [address] [place] [address] Dr. Chantel Rand Monocytes/100 WBC (Bld) 7.7 % Normal 1.7-12.0 [facility] Comment on above: Performed By: #### L IPA, CMP #### [facility] [address] [place] [address] Dr. Chantel Rand NEUT # 4.6 103/ul Normal 1.4-6.5 [facility] Comment on above: Performed By: #### L IPA, CMP #### [facility] [address] [place] [address] Dr. Chantel Rand Neutrophils/100 WBC (Bld) 62.8 % Normal 43.0-75.0 [facility] Comment on above: Performed By: #### L IPA, CMP #### [facility] [address] [address] [address] Chantel Rand Platelet mean volume (Bld) [Entitic vol] 13.0 fL Normal 9.5-13.5 [facility] Comment on above: Performed By: #### L IPA, CMP #### [facility] [address] [address] [address] Chantel Rand PLT 190 103/ul Normal 150-450 [facility] Comment on above: Performed By: #### L IPA, CMP #### [facility] [address] [address] [address] Chantel Rand RBC 4.97 106/ul Normal 4.20-5.40 [facility] Comment on above: Performed By: #### L IPA, CMP #### [facility] [address] [place] [address] Dr. Chantel Rand WBC 7.4 103/ul Normal 4.0-11.0 [facility] Comment on above: Performed By: #### L IPA, CMP #### [facility] [address] [place] [address] Dr. Chantel Rand GLYCOHEMOGLOBIN A1Con 2021 ADA RECOMMENDATION SEE BELOW Normal [facility] Comment on above: Result Comment: ADA RECOMMENDED LIMIT 4.0 - 6.0 ADA THERAPEUTIC TARGET < 7.0 ACTION SUGGESTED > 7.0 Performed By: #### A 1C #### [facility] [address] [place] [address] Dr. Chantel Rand Glucose [Mass/Vol] 123 mg/dL Normal [facility] Comment on above: Performed By: #### A 1C #### [facility] [address] [address] [address] Chantel Rand HbA1c (Bld) [Mass fraction] 5.9 % Normal 4.5-6.2 [facility] Comment on above: Performed By: #### A 1C #### [facility] [address] [place] [address] Dr. Chantel Rand LIPID PROFILEon 08-07-2022 CHOL-HDL RATIO NORM SEE BELOW Normal [facility] Comment on above: Result Comment: 3.3 - 4.4 LOW RISK 4.4 - 7.1 AVERAGE RISK 7.1 - 11.0 MODERATE RISK >11.0 HIGH RISK Performed By: #### B MP, LIVER, TSH, LIPID #### [facility] [address] [address] [address] Chantel Rand Cholesterol [Mass/Vol] 161 mg/dL Normal <=200 [facility] Comment on above: Performed By: #### B MP, LIVER, TSH, LIPID #### [facility] [facility] [address] [address] [address] Chantel Rand Cholesterol in HDL [Mass/Vol] 52 mg/dL Normal 40-60 [facility] Comment on above: Performed By: #### B MP, LIVER, TSH, LIPID #### [facility] [address] [address] [address] Chantel Rand Cholesterol in LDL [Mass/Vol] 92.8 mg/dL Normal [facility] Comment on above: Performed By: #### B MP, LIVER, TSH, LIPID #### [facility] [address] [address] [address] Chantel Rand Cholesterol.total/Ch olesterol in HDL [Mass ratio] 3.1 {ratio} Normal [facility] Comment on above: Performed By: #### B MP, LIVER, TSH, LIPID #### [facility] [address] [address] [address] Chantel Rand HDL NORMAL > or = 60 mg/dl - LO W CARDIOVASCULAR RISK <40 mg/dl - HIGH CARDIOVASCULAR RISK Normal [facility] Comment on above: Performed By: #### B MP, LIVER, TSH, LIPID #### [facility] [address] [address] [address] Chantel Rand LDL CALC NORMAL SEE BELOW Normal [facility] Comment on above: Result Comment: <100 mg/dl OPTIMAL 100 - 129 mg/dl NEAR OR ABOVE OPTIMAL 130 - 159 mg/dl BORDERLINE HIGH 160 - 189 mg/dl HIGH >190 mg/dl VERY HIGH Performed By: #### B MP, LIVER, TSH, LIPID #### [facility] [address] [address] [address] Chantel Rand Triglyceride [Mass/Vol] 81 mg/dL Normal <=150 [facility] Comment on above: Performed By: #### B MP, LIVER, TSH, LIPID #### [facility] [address] [address] [address] Chantel Rand VLDL CALC 16.2 mg/dL Normal [facility] Comment on above: Performed By: #### B MP, LIVER, TSH, LIPID #### [facility] [address] [address] [address] Chantel Rand LIVER PROFILEon 08-07-2022 Albumin [Mass/Vol] 4.0 g/dL Normal 3.4-5.0 [facility] Comment on above: Performed By: #### B MP, LIVER, TSH, LIPID #### [facility] [address] [address] [address] Chantel Rand Albumin/Globulin [Mass ratio] 0.9 {ratio} Normal [facility] Comment on above: Performed By: #### B MP, LIVER, TSH, LIPID #### [facility] [address] [address] [address] Chantel Rand ALP [Catalytic activity/Vol] 65 U/L Normal 46-116 [facility] Comment on above: Performed By: #### B MP, LIVER, TSH, LIPID #### [facility] [address] [address] [address] Chantel Rand ALT [Catalytic activity/Vol] 23 U/L Normal 14-59 [facility] Comment on above: Performed By: #### B MP, LIVER, TSH, LIPID #### [facility] [address] [address] [address] Chantel Rand AST [Catalytic activity/Vol] 12 U/L Critically low 15-37 [facility] Comment on above: Performed By: #### B MP, LIVER, TSH, LIPID #### [facility] [address] [address] [address] Chantel Rand BILI, CONJUGATED 0.1 mg/dL Normal 0.0-0.2 [facility] Comment on above: Performed By: #### B MP, LIVER, TSH, LIPID #### [facility] [address] [address] [address] Chantel Rand Bilirubin [Mass/Vol] 0.4 mg/dL Normal 0.2-1.0 [facility] Comment on above: Performed By: #### B MP, LIVER, TSH, LIPID #### [facility] [address] [address] [address] Chantel Rand Globulin (S) [Mass/Vol] 4.3 g/dL Normal [facility] Comment on above: Performed By: #### B MP, LIVER, TSH, LIPID #### [facility] [address] [place] [address] Dr. Chantel Rand Protein [Mass/Vol] 8.3 g/dL Critically high 6.4-8.2 [facility] Comment on above: Performed By: #### B MP, LIVER, TSH, LIPID #### [facility] [address] [place] [address] Dr. Chantel Rand MICROALBUMIN, RAND URon 11-3 mALB 3.5 mg/L Normal <=30.0 [facility] Comment on above: Performed By: #### L IPA, CMP #### [facility] [address] [place] [address] Dr. Chantel Rand PROF CHEM 8 (BAS METB)on Anion gap [Moles/Vol] 12.7 mmol/L Normal [facility] Comment on above: Performed By: #### B MP, LIVER, TSH, LIPID #### [facility] [address] [place] [address] Dr. Chantel Rand Calcium [Mass/Vol] 9.7 mg/dL Normal 8.5-10.1 [facility] Comment on above: Performed By: #### B MP, LIVER, TSH, LIPID #### [facility] [address] [address] [address] Chantel Rand Chloride [Moles/Vol] 103 mmol/L Normal 98-107 [facility] Comment on above: Performed By: #### B MP, LIVER, TSH, LIPID #### [facility] [address] [address] [address] Chantel Rand CO2 [Moles/Vol] 29.7 mmol/L Normal 21.0-32.0 [facility] Comment on above: Performed By: #### B MP, LIVER, TSH, LIPID #### [facility] [address] [address] [address] Chantel Rand Creatinine [Mass/Vol] 0.64 mg/dL Normal 0.55-1.02 [facility] Comment on above: Performed By: #### B MP, LIVER, TSH, LIPID #### [facility] [address] [address] [address] Chantel Rand EGFR-AF DOMINICAN >60 Normal >=60 [facility] Comment on above: Performed By: #### B MP, LIVER, TSH, LIPID #### [facility] [address] [address] [address] Chantel Rand EGFR-NON AF DOMINICAN >60 Normal >=60 [facility] Comment on above: Performed By: #### B MP, LIVER, TSH, LIPID #### [facility] [address] [address] [address] Chantel Rand Glucose [Mass/Vol] 165 mg/dL Critically high 74-106 [facility] Comment on above: Performed By: #### B MP, LIVER, TSH, LIPID #### [facility] [address] [address] [address] Chantel Rand Potassium [Moles/Vol] 4.4 mmol/L Normal 3.5-5.1 [facility] Comment on above: Performed By: #### B MP, LIVER, TSH, LIPID #### [facility] [address] [address] [address] Chantel Rand Sodium [Moles/Vol] 141 mmol/L Normal 136-145 [facility] Comment on above: Performed By: #### B MP, LIVER, TSH, LIPID #### [facility] [address] [address] [address] Chantel Rand Urea nitrogen [Mass/Vol] 27.0 mg/dL Critically high 7.0-18.0 [facility] Comment on above: Performed By: #### B MP, LIVER, TSH, LIPID #### [facility] [address] [place] [address] Dr. Chantel Rand Urea nitrogen/Creatinine [Mass ratio] 42.2 mg/mg Normal [facility] Comment on above: Performed By: #### B MP, LIVER, TSH, LIPID #### [facility] [address] [place] [address] Dr. Chantel Rand TSHon 08-07-2022 TSH 4.404 uIU/mL Critically high 0.358-3.740 [facility] Comment on above: Performed By: #### B MP, LIVER, TSH, LIPID #### [facility] [address] [place] [address] Dr. Chantel Rand VITAMIN D 25 OHon 08-07-2022 VIT D 25-OH 27.0 ng/mL Normal [facility] Comment on above: Performed By: #### L IPA, CMP #### [facility] [address] [place] [address] Dr. Chantel Rand VIT D RANGES SEE BELOW Normal [facility] Comment on above: Result Comment: <20 ng/mL Vit D deficient 20 - <30 ng/mL Vit D insufficient 30 - 100 ng/mL Vit D sufficient >100 ng/mL Potential Toxicity Performed By: #### L IPA, CMP #### [facility] [address] [place] [address] Dr. Chantel Rand Coding Summaryon 01-24-2020 Coding Summary CODING DATE: 01/24/2020 [facility] STATUS: Home PAYOR: Workers Compensation ADMIT DX: REASON FOR VISIT DX: M25.522 Pain in left elbow FINAL DX: PRINCIPAL: S52.125A Nondisplaced fracture of head of left radius, initial encounter for closed fracture SECONDARY: W01.0XXA Fall on same level from slipping, tripping and stumbling without subsequent striking against object, initial encounter PYMT PROC APC STAT DESCRIPTION DOCTOR NAME DATE NOTE: The code number assigned matches the documented diagnosis and / or procedure in the patient's chart. However, the narrative phrase printed from the coding software may appear abbreviated, or result in slightly different terminology. Coded By: Leandra Whitlock Date Saved: 01/24/2020 02:36 pm [facility] Coding Summary CODING DATE: 01/24/2020 [facility] STATUS: Home PAYOR: Workers Compensation APC DESCRIPTION 5521 Level 1 Imaging without Contrast ADMIT DX: REASON FOR VISIT DX: M25.522 Pain in left elbow FINAL DX: PRINCIPAL: S52.125A Nondisplaced fracture of head of left radius, initial encounter for closed fracture SECONDARY: W01.0XXA Fall on same level from slipping, tripping and stumbling without subsequent striking against object, initial encounter PYMT PROC APC STAT DESCRIPTION DOCTOR NAME DATE NOTE: The code number assigned matches the documented diagnosis and / or procedure in the patient's chart. However, the narrative phrase printed from the coding software may appear abbreviated, or result in slightly different terminology. Coded By: Leandra Whitlock Date Saved: 01/24/2020 02:35 pm [facility] Consent Formson 01-24-2020 Consent Forms [id number] [facility] Discharge Instructions [id number] [facility] 2019 ED Clinical Summary [facility] - Emergency Department [address] [place], [place] [id number] ED Clinical Summary PERSON INFORMATION Name: SHIRAZ HENSON Age: 54 Years Sex: FEMALE : 1965 MRN: Acct#: Visit Reason: Arm pain-swelling; Elbow injury - Minor; LEFT ARM PAIN Arrival: 01/22/2020 00:18:40 Discharge: 01/22/2020 02:19:00 LOS: 000 02:01 Check In: 01/22/2020 00:18:40 Checkout:01/22/2020 02:19:00 Address: [address] [place] [id number] PCP: Provider, None PROVIDER INFORMATION Provider Role Assigned Unassigned Vimal Dewitt DO ED Provider 01/22/2020 00:27:27 Amanda Gonzales [employer] Nurse 01/22/2020 00:30:45 VITALS INFORMATION Vital Sign Triage Latest Temperature Tympanic Temperature Temporal Artery Pulse Rate 94 bpm 94 bpm O2 Sat 100 % 100 % Respiratory Rate 16 br/min 16 br/min Blood Pressure /92 mmHg /92 mmHg MEDICAL INFORMATION Medications Given: Medication Dose Route ibuprofen 800 mg PO Allergy Information: No known allergies PHYSICIAN DOCUMENTATION Patient: SHIRAZ HENSON Age: 54 years Sex: FEMALE : 1965 Associated Diagnoses: Arm pain-swelling; Elbow injury - Minor; Strain of left elbow; Radial head fracture Author: Vimal Dewitt DO Basic Information Time seen: Date & time 01/22/2020 00:37:00. History source: Patient. Arrival mode: Private vehicle, walking. History limitation: None. 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 She states that she tripped on something and fell forward injuring her elbow. She has no other injuries. She denies previous elbow problems, she took no medications for this, the discomfort is dull, non-radiating, worse if she tries to straighten up her elbow but she can hold a somewhat flexed and its not so uncomfortable. She denies discomfort to her*hand, she denies numbness or tingling to the hands on the left, she denies any shoulder discomfort. She denies any shortness of breath chest discomfort cough congestion any COVID exposures. She states overall health is good. On exam, she is pleasant alert, sitting at the bedside, holding her elbow flexed about 30 degrees, there appears to be no induration to the elbow, the elbow tissue was normally pliant, the neurovascular distal is normal good pulses good liya distal, she moves her fingers well, no discomfort about her shoulders, skin is closed around the elbow. No no ecchymosis no abrasion: The elbow is uncomfortable if the patient extends it fully. Otherwise, the lungs are clear, there is no expiratory wheeze rales rhonchi Chest motion, heart rate and rhythm regular murmur PMI left wrist.. Medical Decision Making Orders Launch Orders Pharmacy: ibuprofen (Order): 800 mg, PO, Once Radiology: XR Elbow Complete Left (Order): 01/22/2020 0:44 EDT Stat, left elbow trauma, Allow Modification Per Radiologist, Transport Mode: Wheelchair, Launch Orders Radiology: CT Upper Extremity w/o Contrast Left (Order): 01/22/2020 1:21 EDT Stat, Elbow trauma, initial exam, Allow Modification Per Radiologist, Transport Mode: Wheelchair, No, Launch Orders Patient Care: Brace/Splint ED (Order): 01/22/2020 1:32 EDT, Sling. Elbow x-ray findings (+) sts, ant fat pad, and rad dx non-displaced radial head fx. . Reexamination/ Reevaluation Time: 01/22/2020 01:20:00 . Vital signs ER Reading: Plain images shows ant fat pad, non-displaced fx. TRACY Impression and Plan Diagnosis Arm pain-swelling (PNED [id number], Reason For Visit, Emergency medicine, Medical) Strain of left elbow (ARD51-CQ S46.912A, Discharge, Medical) Radial head fracture (GYA99-WU S52.123A, Discharge, Medical) Complaint of Elbow injury - Minor (PNED [id number], Reason For Visit, Medical) Plan Condition: Improved. Disposition: Discharged: time 01/22/2020 01:32:00. Prescriptions: Launch prescriptions Pharmacy: traMADol (Order): 200 mg, PO, Once traMADol 50 mg oral tablet (Prescribe): 50 mg = 1 tab(s), PO, q6hr (int), PRN: as needed for pain, 10 tab(s), 0 Refill(s) Miscellaneous Request: Excuse from Work/School (Order): 01/22/2020 1:42 EDT, Launch prescriptions Miscellaneous Request: Excuse from Work/School (Order): 01/22/2020 1:44 EDT, No work , 23 Jan 2020, and light duty starting 24 Jan 2020. Patient was given the following educational materials: Elbow Sprain, Elbow Sprain, Radial Head Elbow Fracture Rehab-SportsMed. Follow up with: ; Karen Sibley In 3 days 01/25/2020 home cool compresses Tramadol for pain for a couple days ok to work, but light duty, no use of left arm till ok by DR SIBLEY Call Dr Sibley's office on Friday, for a recheck apt this will be sore and tender for several weeks. No cast is required, but rest will be needed cool compresses tonight, tomorrow, and the next day as needed, 20-30 min every couple hours. When you do not feel the cool compresses are helpful, you do not need to use them TRAMADOL: For pain You are welcomed to return anytime. Wiley DEWITT< ER PHYSICIAN< Neema Liao . Counseled: Patient, Regarding diagnosis, Regarding diagnostic results, Regarding treatment plan, Regarding prescription, Patient indicated understanding of instructions. DISCHARGE INFORMATION: Discharge Disposition: Home Discharge Location: Home PATIENT EDUCATION INFORMATION Instructions: Radial Head Elbow Fracture Rehab-SportsMed; Elbow Sprain Follow-Up: With: Address: When: Karen Sibley [address] [place] [address] [employer] In 3 days 01/25/2020 Comments: home cool compresses Tramadol for pain for a couple days ok to work, but light duty, no use of left arm till ok by DR SIBLEY Call Dr Sibley's office on Friday, for a recheck apt this will be sore and tender for several weeks. No cast is required, but rest will be needed cool compresses tonight, tomorrow, and the next day as needed, 20-30 min every couple hours. When you do not feel the cool compresses are helpful, you do not need to use them TRAMADOL: For pain You are welcomed to return anytime. Wiley DEWITT< ER PHYSICIAN< Neema Liao DIAGNOSIS: Radial head fracture; Strain of left elbow Patient Understands: Yes - Patient/family/caregiv er verbalizes understanding of instructions given Comment: [facility] ED Note - Physicianon 2019 ED Note - Physician Patient: SHIRAZ HENSON Age: 54 years Sex: FEMALE : 1965 Associated Diagnoses: Arm pain-swelling; Elbow injury - Minor; Strain of left elbow; Radial head fracture Author: Vimal Dewitt DO Basic Information Time seen: Date & time 01/22/2020 00:37:00. History source: Patient. Arrival mode: Private vehicle, walking. History limitation: None. 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 She states that she tripped on something and fell forward injuring her elbow. She has no other injuries. She denies previous elbow problems, she took no medications for this, the discomfort is dull, non-radiating, worse if she tries to straighten up her elbow but she can hold a somewhat flexed and its not so uncomfortable. She denies discomfort to her*hand, she denies numbness or tingling to the hands on the left, she denies any shoulder discomfort. She denies any shortness of breath chest discomfort cough congestion any COVID exposures. She states overall health is good. On exam, she is pleasant alert, sitting at the bedside, holding her elbow flexed about 30 degrees, there appears to be no induration to the elbow, the elbow tissue was normally pliant, the neurovascular distal is normal good pulses good liya distal, she moves her fingers well, no discomfort about her shoulders, skin is closed around the elbow. No no ecchymosis no abrasion: The elbow is uncomfortable if the patient extends it fully. Otherwise, the lungs are clear, there is no expiratory wheeze rales rhonchi Chest motion, heart rate and rhythm regular murmur PMI left wrist.. Medical Decision Making Orders Launch Orders Pharmacy: ibuprofen (Order): 800 mg, PO, Once Radiology: XR Elbow Complete Left (Order): 01/22/2020 0:44 EDT Stat, left elbow trauma, Allow Modification Per Radiologist, Transport Mode: Wheelchair, Launch Orders Radiology: CT Upper Extremity w/o Contrast Left (Order): 01/22/2020 1:21 EDT Stat, Elbow trauma, initial exam, Allow Modification Per Radiologist, Transport Mode: Wheelchair, No, Launch Orders Patient Care: Brace/Splint ED (Order): 01/22/2020 1:32 EDT, Sling. Elbow x-ray findings (+) sts, ant fat pad, and rad dx non-displaced radial head fx. . Reexamination/ Reevaluation Time: 01/22/2020 01:20:00 . Vital signs ER Reading: Plain images shows ant fat pad, non-displaced fxSusie DEWITT Impression and Plan Diagnosis Arm pain-swelling (PNED [id number], Reason For Visit, Emergency medicine, Medical) Strain of left elbow (QRB04-ZQ S46.912A, Discharge, Medical) Radial head fracture (ZBH51-QD S52.123A, Discharge, Medical) Complaint of Elbow injury - Minor (PNED [id number], Reason For Visit, Medical) Plan Condition: Improved. Disposition: Discharged: time 01/22/2020 01:32:00. Prescriptions: Launch prescriptions Pharmacy: traMADol (Order): 200 mg, PO, Once traMADol 50 mg oral tablet (Prescribe): 50 mg = 1 tab(s), PO, q6hr (int), PRN: as needed for pain, 10 tab(s), 0 Refill(s) Miscellaneous Request: Excuse from Work/School (Order): 01/22/2020 1:42 EDT, Launch prescriptions Miscellaneous Request: Excuse from Work/School (Order): 01/22/2020 1:44 EDT, No work , 23 Jan 2020, and light duty starting 24 Jan 2020. Patient was given the following educational materials: Elbow Sprain, Elbow Sprain, Radial Head Elbow Fracture Rehab-SportsMed. Follow up with: ; Karen Sibley In 3 days 01/25/2020 home cool compresses Tramadol for pain for a couple days ok to work, but light duty, no use of left arm till ok by DR SIBLEY Call Dr Sibley's office on Friday, for a recheck apt this will be sore and tender for several weeks. No cast is required, but rest will be needed cool compresses tonight, tomorrow, and the next day as needed, 20-30 min every couple hours. When you do not feel the cool compresses are helpful, you do not need to use them TRAMADOL: For pain You are welcomed to return anytime. Wiley DEWITT< ER PHYSICIAN< Neema Liao . Counseled: Patient, Regarding diagnosis, Regarding diagnostic results, Regarding treatment plan, Regarding prescription, Patient indicated understanding of instructions. [Electronically Signed on: 01/22/2020 01:57 EDT] Vimal Dewitt DO [Verified on: 01/22/2020 01:57 EDT] Vimal Dewitt DO [facility] ED Note-Nursingon 01-22-2020 ED Note-Nursing Patient presents for left elbow pain after she tripped and fell on a bed post while working. States it happened around 1530 today. 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 Pain worsens with movement. MSP intact [facility] ED Patient Education Noteon 01-22-2020 ED Patient Education Note Education Materials Orthopedics Radial Head Elbow Fracture Rehab Ask your health care provider which exercises are safe for you. Do exercises exactly as told by your health care provider and adjust them as directed. It is normal to feel mild stretching, pulling, tightness, or discomfort as you do these exercises, but you should stop right away if you feel sudden pain or your pain gets worse. Do not begin these exercises until told by your health care provider. Range of motion exercises These exercises warm up your muscles and joints and improve the movement and flexibility of your injured elbow. These exercises also help to relieve pain, numbness, and tingling. These exercises are done using the muscles in your injured elbow. Exercise A: Elbow flexion, active 1. Hold your left / right arm at your side, and bend your elbow as far as you can using your left / right arm muscles. 2. Hold this position for seconds. 3. Slowly return to the starting position. Repeat times. Complete this exercise times a day. Exercise B: Elbow extension, active 1. Hold your left / right arm at your side, and straighten your elbow as much as you can using your left / right arm muscles. 2. Hold this position for seconds. 3. Slowly return to the starting position. Repeat times. Complete this exercise times a day. Exercise C: Forearm rotation, supination, active 1. Stand or sit with your elbows at your sides. 2. Bend your left / right elbow to an L shape (90 degrees). 3. Turn your palm upward until you feel a gentle stretch on the inside of your forearm. 4. Hold this position for seconds. 5. Slowly release, and return to the starting position. Repeat times. Complete this exercise times a day. Exercise D: Forearm rotation, pronation, active 1. Stand or sit with your elbows at your sides. 2. Bend your left / right elbow to an L shape (90 degrees). 3. Turn your left / right palm downward until you feel a gentle stretch on the top of your forearm. 4. Hold this position for seconds. 5. Slowly release, and return to the starting position. Repeat times. Complete this exercise times a day. Stretching exercises These exercises warm up your muscles and joints and improve the movement and flexibility of your injured elbow. These exercises also help to relieve pain, numbness, and tingling. These exercises are done using your healthy elbow to help stretch the muscles in your injured elbow. Exercise E: Elbow flexion, active-assisted 1. Hold your left / right arm at your side, and bend your elbow as much as you can using your left / right arm muscles. 2. Use your other hand to bend your left / right elbow farther. Do this by gently pushing up on your forearm until you feel a gentle stretch on the back of your elbow. 3. Hold this position for seconds. 4. Slowly return to the starting position. Repeat times. Complete this exercise times a day. Exercise F: Elbow extension, active-assisted 1. Hold your left / right arm at your side, and straighten your elbow as much as you can using your left / right arm muscles. 2. Use your other hand to straighten the left / right elbow farther. Do this by gently pushing down on your forearm until you feel a gentle stretch on the inside of your elbow. 3. Hold this position for seconds. 4. Slowly return to the starting position. Repeat times. Complete this exercise times a day. Exercise G: Forearm rotation, supination, active-assisted 1. Sit with your left / right elbow bent to an L shape (90 degrees), with your forearm resting on a table. 2. Keeping your upper body and shoulder still, rotate your forearm so your left / right palm faces upward. 3. Use your other hand to help rotate your forearm further until you feel a gentle to moderate stretch. 4. Hold this position for seconds. 5. Slowly release the stretch and return to the starting position. Repeat times. Complete this exercise times a day. Exercise H: Forearm rotation, pronation, active-assisted 1. Sit with your left / right elbow bent to an L shape (90 degrees), with your forearm resting on a table. 2. Keeping your upper body and shoulder still, rotate your forearm so your palm faces the tabletop. 3. Use your other hand to help rotate your forearm further until you feel a gentle to moderate stretch. 4. Hold this position for seconds. 5. Slowly release the stretch and return to the starting position. Repeat times. Complete this exercise times a day. Exercise I: Elbow flexion, supine, passive 1. Lie on your back. 2. Extend your left / right arm up in the air, bracing it with your other hand. 3. Let your left / right your hand slowly lower toward your shoulder, while your elbow stays pointed toward the ceiling. You should feel a gentle stretch along the back of your upper arm and elbow. 4. If told by your health care provider, you may increase the intensity of your stretch by adding a small wrist weight or hand weight. 5. Hold this position for seconds. 6. Slowly return to the starting position. Repeat times. Complete this exercise times a day. Exercise J: Elbow extension, passive 1. Lie on your back. Make sure that you are in a comfortable position that lets you relax your arm muscles. 2. Place a folded towel under your left / right upper arm so your elbow and shoulder are at the same height. Straighten your left / right arm so your elbow does not rest on the bed or towel. 3. Let the weight of your hand stretch your elbow. Keep your arm and chest muscles relaxed. You should feel a stretch on the inside of your elbow. 4. If told by your health care provider, you may increase the intensity of your stretch by adding a small wrist weight or hand weight. 5. Hold this position for seconds. 6. Slowly release the stretch. Repeat times. Complete this exercise times a day. Strengthening exercises These exercises build strength and endurance in your elbow. Endurance is the ability to use your muscles for a long time, even after they get tired. Exercise K: Elbow flexion, isometric 1. Stand or sit up straight. 2. Bend your left / right elbow to an L shape (90 degrees), and turn your palm up so your forearm is at the height of your waist. 3. Place your other hand on top of your forearm. Gently push down as your left / right arm resists. Push as hard as you can with both arms without causing any pain or movement at your left / right elbow. 4. Hold this position for seconds. 5. Slowly release the tension in both arms. Let your muscles relax completely before repeating. Repeat times. Complete this exercise times a day. Exercise L: Elbow extensors, isometric 1. Stand or sit up straight. 2. Place your left / right arm so your palm faces your abdomen and is at the height of your waist. 3. Place your other hand on the underside of your forearm. Gently push up as your left / right arm resists. Push as hard as you can with both arms, without causing any pain or movement at your left / right elbow. 4. Hold this position for seconds. 5. Slowly release the tension in both arms. Let your muscles relax completely before repeating. Repeat times. Complete this exercise times a day. Exercise M: Elbow flexion with forearm palm up 1. Sit upright on a firm chair without armrests, or stand. 2. Place your left / right arm at your side with your palm facing forward. 3. Holding a weight or gripping a rubber exercise band or tubing, bend your elbow to bring your hand toward your shoulder. 4. Hold this position for seconds. 5. Slowly return to the starting position. Repeat times. Complete this exercise times a day. Exercise N: Elbow extension 1. Sit on a firm chair without armrests, or stand. 2. Keeping your upper arms at your sides, bring both hands up toward your left / right shoulder while gripping a rubber exercise band or tubing. Your left / right hand should be just below the other hand. 3. Straighten your left / right elbow. 4. Hold this position for seconds. 5. Control the resistance as your hand returns to your side. Repeat times. Complete this exercise times a day. Exercise O: Forearm rotation, supination 1. Sit with your left / right forearm supported on a table. Keep your elbow at waist height. 2. Rest your hand over the edge of the table with your palm facing down. 3. Gently hold a lightweight hammer. 4. Without moving your elbow, slowly rotate your forearm to turn your palm and hand upward to a thumbs-up position. 5. Hold this position for seconds. 6. Slowly return to the starting position. Repeat times. Complete this exercise times a day. Exercise P: Forearm rotation, pronation 1. Sit with your left / right forearm supported on a table. Keep your elbow below shoulder height. 2. Rest your hand over the edge of the table with your palm facing up. 3. Gently hold a lightweight hammer. 4. Without moving your elbow, slowly rotate your forearm to turn your palm and hand upward to a thumbs-up position. 5. Hold this position for seconds. 6. Slowly return to the starting position. Repeat times. Complete this exercise times a day. This information is not intended to replace advice given to you by your health care provider. Make sure you discuss any questions you have with your health care provider. Document Released: 08/25/2006 Document Revised: 12/29/2018 Document Reviewed: 05/19/2016 [employer] Patient Education ? 2019 [employer] Elbow Sprain An elbow sprain is an injury to one of the strong bands of tissue (ligaments) that connect the bones of the elbow. Ligaments connect the three bones that make up the elbow joint. This injury usually occurs on the inside of the elbow and rarely on the outside. There are three types of elbow sprains: ? A grade 1 sprain is a stretching of a ligament. This injury causes minor pain and swelling, but the joint remains stable. ? A grade 2 sprain is a partial ligament tear. This injury may cause moderate pain and swelling, and a looseness in the joint that causes it to move more than normal (laxity). ? A grade 3 sprain is a complete ligament tear. This injury will cause severe pain and swelling, and the joint will become unstable. What are the causes? This condition may be caused by: ? A sudden injury (acute sprain). This may result from falling on an outstretched arm or severely twisting or straining your elbow joint. ? An overuse injury. This injury occurs gradually over time from doing activities that involve the same elbow movements over and over again. This type of injury is common in activities that require overhand throwing. What are the signs or symptoms? Symptoms of this condition include: ? Pain. ? Pain that gets worse with elbow movement. ? Swelling. ? Bruising. ? Stiffness of the elbow joint. ? Laxity of the elbow joint. ? Inability to use the elbow joint. ? Tingling or numbness. ? Hearing a pop or feeling a tear at the time of the injury. How is this diagnosed? This condition may be diagnosed based on: ? Your symptoms and history of an injury or activity that puts stress on the elbow. ? A physical exam. The health care provider will check the movement and stability of your elbow. ? Imaging tests, such as an X-ray or MRI. These tests can show how severe the sprain is and can be used to rule out a broken bone or stress fracture. How is this treated? At first, this condition may be treated by protecting, resting, icing, applying pressure (compression), and raising (elevating) the injured elbow above the level of your heart. This is known as BRENNAN therapy. Your health care provider may also recommend taking a nonsteroidal anti-inflammatory drug (NSAID) to reduce pain and swelling. Additional treatment depends on the severity of the sprain. ? A grade 1 sprain may need only BRENNAN therapy. ? A grade 2 sprain may be treated with BRENNAN therapy and an elbow brace. ? A grade 3 sprain usually requires surgery to repair the ligament. You may also need to do certain exercises to maintain full movement and to strengthen the muscles of the shoulder, forearm, and elbow (physical therapy). Follow these instructions at home: If you have a brace: ? Wear the brace as told by your health care provider. Remove it only as told by your health care provider. ? Loosen the brace if your fingers tingle, become numb, or turn cold and blue. ? Keep the brace clean. ? If the brace is not waterproof: ? Do not let it get wet. ? Cover it with a watertight covering when you take a bath or shower. Managing pain, stiffness, and swelling ? If directed, put ice on your elbow: ? Put ice in a plastic bag. ? Place a towel between your skin and the bag. ? Leave the ice on for 20 minutes, 2?3 times a day. ? Move your fingers often to reduce stiffness and swelling. ? Elevate your elbow above the level of your heart while you are sitting or lying down. Activity ? Avoid activities that cause elbow pain. ? Return to your normal activities as told by your health care provider. Ask your health care provider what activities are safe for you. ? Ask your health care provider when it is safe to drive if you have an elbow brace. ? Do exercises as told by your health care provider. General instructions ? Wear an elastic bandage or compression wrap only as told by your health care provider. ? Take czaf-vvl-dhvince and prescription medicines only as told by your health care provider. ? Do not use any products that contain nicotine or tobacco, such as cigarettes, e-cigarettes, and chewing tobacco. These can delay healing. If you need help quitting, ask your health care provider. ? Keep all follow-up visits as told by your health care provider. This is important. Contact a health care provider if: ? Your symptoms get worse. ? You develop new symptoms. ? Your symptoms have not improved with home care after two weeks. Get help right away if: ? You have severe pain. ? Your fingers turn white, very red, or cold and blue. Summary ? An elbow sprain is an injury to a ligament in the elbow. ? An elbow sprain can be from an acute injury or repetitive stress. ? Symptoms include pain, swelling, loss of movement, and bruising. ? At first, this condition may be treated by protecting, resting, icing, applying pressure (compression), and elevating the injured elbow above the level of your heart. This is known as BRENNAN therapy. ? Other treatments depend on the severity of the sprain. This information is not intended to replace advice given to you by your health care provider. Make sure you discuss any questions you have with your health care provider. Document Released: 04/08/2019 Document Revised: 04/08/2019 Document Reviewed: 04/08/2019 [employer] Patient Education ? 2019 [employer] Normal [facility] ED Patient Summaryon 020 ED Patient Summary [facility] - Emergency Department [address] [place] [id number] PATIENT DISCHARGE INSTRUCTIONS Patient Information Name: SHIRAZ HENSON Age: 54 Years Date of : 1965 Reason For Visit: Arm pain-swelling; Elbow injury - Minor; LEFT ARM PAIN Arrival Time: 01/22/2020 00:18:40 Primary Care Physician: Provider, None Attending Physician: Vimal Dewitt DO Comment: Visit Diagnosis: Diagnoses This Visit Arm pain-swelling ([id number]) Elbow injury - Minor ([id number]) Radial head fracture (S52.123A) Strain of left elbow (S46.912A) Prescription Information: If you have been given a prescription for narcotics, seek immediate medical attention if you have any difficulty breathing or any sudden status changes such as confusion and sleepiness. If you or anyone you know is experiencing suicidal thoughts, mental health, alcohol and/or drug addiction problems; contact the [facility] 31/03 Crisis Hotline -Text 4HDIG vp 700601. If you received any narcotics, sedation, or any other medication that causes drowsiness for the next 24 hours, unless otherwise directed: ? Do not drive a car. ? Do not operate machinery such as power tools, lawn mowers, drills, sewing machines, or stoves ? Avoid alcoholic beverages and drugs for allergies, nerves, or sleep ? Do not make important personal or business decisions or sign any legal documents With: Address: When: Karen Sibley [address] [place] [address], [address] [place], [place] Business (2) In 3 days 01/25/2020 Comments: home cool compresses Tramadol for pain for a couple days ok to work, but light duty, no use of left arm till ok by DR SIBLEY Call Dr Sibley's office on Friday, for a recheck apt this will be sore and tender for several weeks. No cast is required, but rest will be needed cool compresses tonight, tomorrow, and the next day as needed, 20-30 min every couple hours. When you do not feel the cool compresses are helpful, you do not need to use them TRAMADOL: For pain You are welcomed to return anytime. T H TRACY< ER PHYSICIAN< H B Keshawn Medication Information: The exam and treatment you received today in the [facility] Emergency Department were for an urgent problem and are not intended as complete care. It is important for you to follow up with a doctor, nurse practitioner, or physician?s clinical trials assistant for ongoing care. If your symptoms become worse or you do not improve as expected and you are unable to reach your usual health care provider, you should return to the Emergency Department, we are available 24 hours a day. For those patients who have received Radiology results, the interpretation of your X-ray as given to you by our Emergency Department physician is only a preliminary report. The Radiologist will review your films and if there is a change in the diagnosis you will be notified by phone. Please make sure you have provided a working phone number so we can reach you if necessary. In the event that you had a lab culture while you were a patient in the Emergency Department, you will be notified by phone if there is a need to change your antibiotic. Please make sure you have provided a working phone number so we can reach you if necessary. [facility] Emergency Department has provided you with a complete list of medications post discharge. Please inform your science center display builder/provider of your visit and for further instruction on these medications. Any specific questions regarding your chronic medications and dosages should be discussed with your primary care physician(s) and/or pharmacist. New Medications Printed Prescriptions traMADol (traMADol 50 mg oral tablet) 1 tab(s) Oral every 6 hours as needed as needed for pain. Refills: 0. Visit Information Allergies: Substance Reaction Symptoms Type Comments No known allergies Drug Vital Signs: Vitals and Measurements this Visit (last charted value for your 01/22/2020 visit) Vital Signs This Visit Temperature Oral: 36.8 DegC Peripheral Pulse Rate: 94 bpm Respiratory Rate: 16 br/min Systolic Blood Pressure: 142 mmHg Diastolic Blood Pressure: 92 mmHg SpO2: 100 % Oxygen Therapy: Room air Measurements This Visit Height/Length Dosin.000 cm Height/Length Estimated: 157.000 cm Weight Dosin.800 kg Weight Estimated: 99.800 kg Problems List: Problem Onset Comments No Problems found Patient Education Radial Head Elbow Fracture Rehab Ask your health care provider which exercises are safe for you. Do exercises exactly as told by your health care provider and adjust them as directed. It is normal to feel mild stretching, pulling, tightness, or discomfort as you do these exercises, but you should stop right away if you feel sudden pain or your pain gets worse. Do not begin these exercises until told by your health care provider. Range of motion exercises These exercises warm up your muscles and joints and improve the movement and flexibility of your injured elbow. These exercises also help to relieve pain, numbness, and tingling. These exercises are done using the muscles in your injured elbow. Exercise A: Elbow flexion, active 1. Hold your left / right arm at your side, and bend your elbow as far as you can using your left / right arm muscles. 2. Hold this position for seconds. 3. Slowly return to the starting position. Repeat times. Complete this exercise times a day. Exercise B: Elbow extension, active 1. Hold your left / right arm at your side, and straighten your elbow as much as you can using your left / right arm muscles. 2. Hold this position for seconds. 3. Slowly return to the starting position. Repeat times. Complete this exercise times a day. Exercise C: Forearm rotation, supination, active 1. Stand or sit with your elbows at your sides. 2. Bend your left / right elbow to an L shape (90 degrees). 3. Turn your palm upward until you feel a gentle stretch on the inside of your forearm. 4. Hold this position for seconds. 5. Slowly release, and return to the starting position. Repeat times. Complete this exercise times a day. Exercise D: Forearm rotation, pronation, active 1. Stand or sit with your elbows at your sides. 2. Bend your left / right elbow to an L shape (90 degrees). 3. Turn your left / right palm downward until you feel a gentle stretch on the top of your forearm. 4. Hold this position for seconds. 5. Slowly release, and return to the starting position. Repeat times. Complete this exercise times a day. Stretching exercises These exercises warm up your muscles and joints and improve the movement and flexibility of your injured elbow. These exercises also help to relieve pain, numbness, and tingling. These exercises are done using your healthy elbow to help stretch the muscles in your injured elbow. Exercise E: Elbow flexion, active-assisted 1. Hold your left / right arm at your side, and bend your elbow as much as you can using your left / right arm muscles. 2. Use your other hand to bend your left / right elbow farther. Do this by gently pushing up on your forearm until you feel a gentle stretch on the back of your elbow. 3. Hold this position for seconds. 4. Slowly return to the starting position. Repeat times. Complete this exercise times a day. Exercise F: Elbow extension, active-assisted 1. Hold your left / right arm at your side, and straighten your elbow as much as you can using your left / right arm muscles. 2. Use your other hand to straighten the left / right elbow farther. Do this by gently pushing down on your forearm until you feel a gentle stretch on the inside of your elbow. 3. Hold this position for seconds. 4. Slowly return to the starting position. Repeat times. Complete this exercise times a day. Exercise G: Forearm rotation, supination, active-assisted 1. Sit with your left / right elbow bent to an L shape (90 degrees), with your forearm resting on a table. 2. Keeping your upper body and shoulder still, rotate your forearm so your left / right palm faces upward. 3. Use your other hand to help rotate your forearm further until you feel a gentle to moderate stretch. 4. Hold this position for seconds. 5. Slowly release the stretch and return to the starting position. Repeat times. Complete this exercise times a day. Exercise H: Forearm rotation, pronation, active-assisted 1. Sit with your left / right elbow bent to an L shape (90 degrees), with your forearm resting on a table. 2. Keeping your upper body and shoulder still, rotate your forearm so your palm faces the tabletop. 3. Use your other hand to help rotate your forearm further until you feel a gentle to moderate stretch. 4. Hold this position for seconds. 5. Slowly release the stretch and return to the starting position. Repeat times. Complete this exercise times a day. Exercise I: Elbow flexion, supine, passive 1. Lie on your back. 2. Extend your left / right arm up in the air, bracing it with your other hand. 3. Let your left / right your hand slowly lower toward your shoulder, while your elbow stays pointed toward the ceiling. You should feel a gentle stretch along the back of your upper arm and elbow. 4. If told by your health care provider, you may increase the intensity of your stretch by adding a small wrist weight or hand weight. 5. Hold this position for seconds. 6. Slowly return to the starting position. Repeat times. Complete this exercise times a day. Exercise J: Elbow extension, passive 1. Lie on your back. Make sure that you are in a comfortable position that lets you relax your arm muscles. 2. Place a folded towel under your left / right upper arm so your elbow and shoulder are at the same height. Straighten your left / right arm so your elbow does not rest on the bed or towel. 3. Let the weight of your hand stretch your elbow. Keep your arm and chest muscles relaxed. You should feel a stretch on the inside of your elbow. 4. If told by your health care provider, you may increase the intensity of your stretch by adding a small wrist weight or hand weight. 5. Hold this position for seconds. 6. Slowly release the stretch. Repeat times. Complete this exercise times a day. Strengthening exercises These exercises build strength and endurance in your elbow. Endurance is the ability to use your muscles for a long time, even after they get tired. Exercise K: Elbow flexion, isometric 1. Stand or sit up straight. 2. Bend your left / right elbow to an L shape (90 degrees), and turn your palm up so your forearm is at the height of your waist. 3. Place your other hand on top of your forearm. Gently push down as your left / right arm resists. Push as hard as you can with both arms without causing any pain or movement at your left / right elbow. 4. Hold this position for seconds. 5. Slowly release the tension in both arms. Let your muscles relax completely before repeating. Repeat times. Complete this exercise times a day. Exercise L: Elbow extensors, isometric 1. Stand or sit up straight. 2. Place your left / right arm so your palm faces your abdomen and is at the height of your waist. 3. Place your other hand on the underside of your forearm. Gently push up as your left / right arm resists. Push as hard as you can with both arms, without causing any pain or movement at your left / right elbow. 4. Hold this position for seconds. 5. Slowly release the tension in both arms. Let your muscles relax completely before repeating. Repeat times. Complete this exercise times a day. Exercise M: Elbow flexion with forearm palm up 1. Sit upright on a firm chair without armrests, or stand. 2. Place your left / right arm at your side with your palm facing forward. 3. Holding a weight or gripping a rubber exercise band or tubing, bend your elbow to bring your hand toward your shoulder. 4. Hold this position for seconds. 5. Slowly return to the starting position. Repeat times. Complete this exercise times a day. Exercise N: Elbow extension 1. Sit on a firm chair without armrests, or stand. 2. Keeping your upper arms at your sides, bring both hands up toward your left / right shoulder while gripping a rubber exercise band or tubing. Your left / right hand should be just below the other hand. 3. Straighten your left / right elbow. 4. Hold this position for seconds. 5. Control the resistance as your hand returns to your side. Repeat times. Complete this exercise times a day. Exercise O: Forearm rotation, supination 1. Sit with your left / right forearm supported on a table. Keep your elbow at waist height. 2. Rest your hand over the edge of the table with your palm facing down. 3. Gently hold a lightweight hammer. 4. Without moving your elbow, slowly rotate your forearm to turn your palm and hand upward to a thumbs-up position. 5. Hold this position for seconds. 6. Slowly return to the starting position. Repeat times. Complete this exercise times a day. Exercise P: Forearm rotation, pronation 1. Sit with your left / right forearm supported on a table. Keep your elbow below shoulder height. 2. Rest your hand over the edge of the table with your palm facing up. 3. Gently hold a lightweight hammer. 4. Without moving your elbow, slowly rotate your forearm to turn your palm and hand upward to a thumbs-up position. 5. Hold this position for seconds. 6. Slowly return to the starting position. Repeat times. Complete this exercise times a day. This information is not intended to replace advice given to you by your health care provider. Make sure you discuss any questions you have with your health care provider. Document Released: 08/25/2006 Document Revised: 12/29/2018 Document Reviewed: 05/19/2016 [employer] Patient Education ? 2019 [employer] Elbow Sprain An elbow sprain is an injury to one of the strong bands of tissue (ligaments) that connect the bones of the elbow. Ligaments connect the three bones that make up the elbow joint. This injury usually occurs on the inside of the elbow and rarely on the outside. There are three types of elbow sprains: ? A grade 1 sprain is a stretching of a ligament. This injury causes minor pain and swelling, but the joint remains stable. ? A grade 2 sprain is a partial ligament tear. This injury may cause moderate pain and swelling, and a looseness in the joint that causes it to move more than normal (laxity). ? A grade 3 sprain is a complete ligament tear. This injury will cause severe pain and swelling, and the joint will become unstable. What are the causes? This condition may be caused by: ? A sudden injury (acute sprain). This may result from falling on an outstretched arm or severely twisting or straining your elbow joint. ? An overuse injury. This injury occurs gradually over time from doing activities that involve the same elbow movements over and over again. This type of injury is common in activities that require overhand throwing. What are the signs or symptoms? Symptoms of this condition include: ? Pain. ? Pain that gets worse with elbow movement. ? Swelling. ? Bruising. ? Stiffness of the elbow joint. ? Laxity of the elbow joint. ? Inability to use the elbow joint. ? Tingling or numbness. ? Hearing a pop or feeling a tear at the time of the injury. How is this diagnosed? This condition may be diagnosed based on: ? Your symptoms and history of an injury or activity that puts stress on the elbow. ? A physical exam. The health care provider will check the movement and stability of your elbow. ? Imaging tests, such as an X-ray or MRI. These tests can show how severe the sprain is and can be used to rule out a broken bone or stress fracture. How is this treated? At first, this condition may be treated by protecting, resting, icing, applying pressure (compression), and raising (elevating) the injured elbow above the level of your heart. This is known as BRENNAN therapy. Your health care provider may also recommend taking a nonsteroidal anti-inflammatory drug (NSAID) to reduce pain and swelling. Additional treatment depends on the severity of the sprain. ? A grade 1 sprain may need only BRENNAN therapy. ? A grade 2 sprain may be treated with BRENNAN therapy and an elbow brace. ? A grade 3 sprain usually requires surgery to repair the ligament. You may also need to do certain exercises to maintain full movement and to strengthen the muscles of the shoulder, forearm, and elbow (physical therapy). Follow these instructions at home: If you have a brace: ? Wear the brace as told by your health care provider. Remove it only as told by your health care provider. ? Loosen the brace if your fingers tingle, become numb, or turn cold and blue. ? Keep the brace clean. ? If the brace is not waterproof: ? Do not let it get wet. ? Cover it with a watertight covering when you take a bath or shower. Managing pain, stiffness, and swelling ? If directed, put ice on your elbow: ? Put ice in a plastic bag. ? Place a towel between your skin and the bag. ? Leave the ice on for 20 minutes, 2?3 times a day. ? Move your fingers often to reduce stiffness and swelling. ? Elevate your elbow above the level of your heart while you are sitting or lying down. Activity ? Avoid activities that cause elbow pain. ? Return to your normal activities as told by your health care provider. Ask your health care provider what activities are safe for you. ? Ask your health care provider when it is safe to drive if you have an elbow brace. ? Do exercises as told by your health care provider. General instructions ? Wear an elastic bandage or compression wrap only as told by your health care provider. ? Take twno-zdx-[id number] and prescription medicines only as told by your health care provider. ? Do not use any products that contain nicotine or tobacco, such as cigarettes, e-cigarettes, and chewing tobacco. These can delay healing. If you need help quitting, ask your health care provider. ? Keep all follow-up visits as told by your health care provider. This is important. Contact a health care provider if: ? Your symptoms get worse. ? You develop new symptoms. ? Your symptoms have not improved with home care after two weeks. Get help right away if: ? You have severe pain. ? Your fingers turn white, very red, or cold and blue. Summary ? An elbow sprain is an injury to a ligament in the elbow. ? An elbow sprain can be from an acute injury or repetitive stress. ? Symptoms include pain, swelling, loss of movement, and bruising. ? At first, this condition may be treated by protecting, resting, icing, applying pressure (compression), and elevating the injured elbow above the level of your heart. This is known as BRENNAN therapy. ? Other treatments depend on the severity of the sprain. This information is not intended to replace advice given to you by your health care provider. Make sure you discuss any questions you have with your health care provider. Document Released: 04/08/2019 Document Revised: 04/08/2019 Document Reviewed: 04/08/2019 [employer] Interactive Patient Education ? 2019 [employer]. Viruses or Bacteria What?s got you sick? Antibiotics only treat bacterial infections. Viral illnesses cannot be treated with antibiotics. When an antibiotic is not prescribed, ask your healthcare professional for tips on how to relieve symptoms and feel better. Usual Cause Illness Viruses Bacteria Antibiotic Needed Cold/Runny Nose NO Bronchitis/Chest Cold (in otherwise healthy children and adults) NO Whooping Cough Yes Flu NO Strep Throat Yes Sore Throat (except strep) NO Fluid in the middle ear (otitis media with effusion) NO Urinary Tract Infection Yes Antibiotics Aren?t Always the Answer www.cdc.gov/getsmart GET SMART Know When Antibiotics Work U.S. Department of Health and Human Services Centers for Disease Control and Prevention May 2014 [facility] XR Elbow Complete Lefton XR Elbow Complete Left EXAM: XR Elbow Complete Left HISTORY: Left elbow trauma. COMPARISON: None. TECHNIQUE: 3 views of the left elbow were obtained. FINDINGS: There is a nondisplaced radial head fracture. Elbow joint effusion is present. Osseous structures are well mineralized. There is a small olecranon enthesophyte. No radio opaque foreign body. IMPRESSION: Nondisplaced radial head fracture with elbow joint effusion. Final Dictated by: Gabe Oswald Dictated DT/TM: 01/22/20 1:26 Signed (Electronic Signature): Gabe Oswald 01/22/20 1:34 am Technologist: GUERA [facility] US NON OB TRANSVAGINALon US NON OB TRANSVAGINAL COMPARISON: CT abdomen and pelvis 12/10/2011.HISTORY: Irregular menstrual cycles, 52-year-old female.TECHNIQUE: Transabdominal and transvaginal scan pelvis.FINDINGS: Dominant follicle left ovary 2.4 cm in greatest diameter with no internal septation or nodularity. Left ovary 2.4 x 1.7 x 1.9 cm.Right ovary: 1.7 x 1.5 x 1.7 cm.Uterus 11.3 cm longitudinal by 4.5 x 4.9 cm with endometrial thickness 7 mm.Anterior intramural fibroid 2.6 x 1.4 x 2.3 cm.IMPRESSION: Dominant follicle left ovary, physiologic.2.6 cm in greatest diameter intramural anterior fundic uterine fibroid.Interpreted by:MATILDA Aguilar Jr.igned by:Shun Rojas Jr., MD6/8/18Final result [facility] US PELVIS COMPLETEon 018 US PELVIS COMPLETE COMPARISON: CT abdom en and pelvis 12/10/2011.HISTORY: Irregular menstrual cycles, 52-year-old female.TECHNIQUE: Transabdominal and transvaginal scan pelvis.FINDINGS: Dominant follicle left ovary 2.4 cm in greatest diameter with no internal septation or nodularity. Left ovary 2.4 x 1.7 x 1.9 cm.Right ovary: 1.7 x 1.5 x 1.7 cm.Uterus 11.3 cm longitudinal by 4.5 x 4.9 cm with endometrial thickness 7 mm.Anterior intramural fibroid 2.6 x 1.4 x 2.3 cm.IMPRESSION: Dominant follicle left ovary, physiologic.2.6 cm in greatest diameter intramural anterior fundic uterine fibroid.Interpreted by:MATILDA Aguilar Jr.igned by:Shun Rojas Jr., MD02/13/18Edited Result - FINAL Normal [facility] Progress Noteon 02-09-2018 HIM IP Note OR Emergency Preparedness Manager Normal [facility] Follicle Stim. Hormon 2017 Follicle Stim. Horm 48.9 U/L High 1.7-21.5 [facility] Comment on above: Result Comment: Refe rence Range:Male: 1.5-12.4Ovulating Female: Follicular Phase 3.5-12.5 Ovulation Phase 4.7-21.5 Luteal Phase 1.7-7.7Postmenopausal Female: 25.8-134.8Performed at [address] [id number] ([phone] Performed By: #### Z FAST, GLU, LIPR, FT4, TSH ####[address] [address] #### FSH, LH ####[address] [address] Glucoseon 10-02-2017 Glucose mass conc 106 mg/dL High 70-99 [facility] Comment on above: Result Comment: Perf ormed at [facility] [address] [place], [place] [id number] ([phone] Performed By: #### Z FAST, GLU, LIPR, FT4, TSH ####[address] [place] [address] #### FSH, LH ####[address] [address] Lipid Profileon 10-02-2017 Cholesterol 167 mg/dL Normal <200 [facility] Comment on above: Result Comment: Chol esterol Guidelines: <200 Desirable 200-240 Borderline >240 Undesirable Performed By: #### Z FAST, GLU, LIPR, FT4, TSH ####[address] [place] [address] #### FSH, LH ####[facility] [place] [address] Cholesterol to HDL Ratio 3.2 {ratio} Normal <5 [facility] Comment on above: Performed By: #### Z FAST, GLU, LIPR, FT4, TSH ####[facility] [place] [address] #### FSH, LH ####[address] [address] HDL Cholesterol 53 mg/dL Normal >[address] [facility] [place] [facility] Comment on above: Result Comment: HDL Guidelines: <40 Undesirable 40-59 Borderline >59 Desirable Performed By: #### Z FAST, GLU, LIPR, FT4, TSH ####[address] [place], [place] [id number] #### FSH, LH ####[address] [address] LDL Cholesterol 103 mg/dL Normal 0-[address] [facility] [place] [facility] Comment on above: Result Comment: LDL Guidelines: <100 Desirable 100-129 Near to/above Desirable 130-159 Borderline >159 UndesirableDirect (measured) LDL and calculated LDL are not interchangeable tests. Performed By: #### Z FAST, GLU, LIPR, FT4, TSH ####[facility] [place] [address] #### FSH, LH ####[facility] [place] [address] Triglyceride 53 mg/dL Normal <150 [facility] Comment on above: Result Comment: Trig lyceride Guidelines: <150 Desirable 150- 199 Borderline 200-499 High >499 Very high Based on AHA Guidelines for fasting triglyceride, June 2012.Performed at [facility] [address] [place] [address] Performed By: #### Z FAST, GLU, LIPR, FT4, TSH ####[facility] [place] [address] #### FSH, LH ####[address] [address] Cholesterol in VLDL mass conc NOT REPORTED Normal 10-07 [facility] Comment on above: Performed By: #### Z FAST, GLU, LIPR, FT4, TSH ####[address] [place] [address] #### FSH, LH ####[address] [address] Luteinizing Hormoneon 2017 Luteinizing Hormone 40.8 U/L Normal 1.0-95.6 [facility] Comment on above: Result Comment: Refe rence Range:Male: 1.7-8.6Ovulating Female: Follicular Phase 2.4-12.6 Ovulation Phase 14.0-95.6 Luteal Phase 1.0-11.4Postmenopausal Female: 7.7-58.5Performed at [address] [place] [address] Performed By: #### Z FAST, GLU, LIPR, FT4, TSH ####[address] [place] [address] #### FSH, LH ####[address] [address] Patient fasting?on 8 Patient fasting? YES Normal [facility] Comment on above: Result Comment: Perf ormed at [facility] [address] [place] [address] Performed By: #### Z FAST, GLU, LIPR, FT4, TSH ####[address] [place] [address] #### FSH, LH ####[address] [address] Thyroid Stim. Horm.on 2017 Thyroid stimulating hormone (TSH) 2.42 m[IU]/L Normal 0.30-5.00 [facility] Comment on above: Result Comment: Perf ormed at [facility] [address] [place] [address] Performed By: #### Z FAST, GLU, LIPR, FT4, TSH ####[facility] [place] [address] #### FSH, LH ####[facility] [id number] [place] [address] Thyroxine, Freeon 10-02-2017 Thyroxine, Free 1.01 ng/dL Normal 0.93-1.[address] [facility] [place] [facility] Comment on above: Result Comment: Perf ormed at [facility] [address] [facility] [place] [address] Performed By: #### Z FAST, GLU, LIPR, FT4, TSH ####[facility] [place] [address] #### FSH, LH ####[facility] [id number] [place] [address] XR FOOT RIGHT STANDARDon XR FOOT RIGHT STANDARD IMAGES REVIEWED: XR FOOT RIGHT STANDARDCOMPARISON: None available.CLINICAL INDICATION: Right foot pain after an injury.FINDINGS: No acute fracture or dislocation of the right foot is seen. There are mild scattered degenerative changes. There are moderate Achilles and small plantar calcaneal enthesophytes. There is no significant right ankle joint effusion.IMPRESSION: No acute fracture or dislocation of the right foot is seen. If pain persists, repeat radiographs are recommended in 7 to 10 days.Interpreted by:MATILDA Dennisigned by:Chad Malave MD09/30/17inal result Normal [facility] ED Provider Noteon 8 HIM IP Note OR Emergency Preparedness Manager Normal [facility] Uric Acidon 05-26-2017 Urate 5.9 mg/dL High 2.4-5.7 [facility] Comment on above: Result Comment: Perf ormed at [facility] [address] [place] [address] ([phone] Performed By: #### U RI ####[address] [address] Group A Strep DNAon 05-09-20 17 Group A Strep DNA Specimen Description .THROAT SWAB Performed at [facility] [address] [place] [address] ([phone] Special Requests NOT REPORTEDDirect Exam Negative: Specimen negative for Streptococcus pyogenes by DNA amplification. Performed at [address] [address] Report Status FINAL 05/09/2017 Normal [facility] Comment on above: Performed By: #### G ASDNA ####[address] [phone] [address] ED Noteon 05-08-2017 HIM IP Note OR Emergency Preparedness Manager Normal [facility] ED Provider Noteon 7 HIM IP Note OR Emergency Preparedness Manager Normal [facility] Strep Gr A Direct Agon 05-08 Rapid strep test Specimen Description .THROATSpecial Requests NOT REPORTEDDirect Exam Rapid Strep A negative. A negative Rapid Group A Strep Screen result does not rule out the possibility of Group A Streptococci in the specimen. A Group A strep DNA test will be performed. Performed at [facility] [address] [place] [address] ([phone] Report Status FINAL 05/08/2017 [facility] Comment on above: Performed By: #### S GPA ####[address] [address] XR FINGER RIGHT STANDARDon 0 04-30-2017 INR Coag RelTime (Bld) EXAMINATION: 3 views of the right small finger.CLINICAL INFORMATION: Mass in right fifth digit proximal interphalangeal joint, pain.COMPARISON: None.FINDINGS: On the oblique view, there appears to be mild periarticular erosion at the distal aspect of the fifth proximal fillings. This may be related to gout. No additional acute bony abnormality is present. Degenerative changes are present at the proximal interphalangeal joint. Mild soft tissue swelling is present. The bones are osteopenic.IMPRESSION: There appears to the mild periarticular erosion at the distal aspect of the proximal fifth phalanx, which may be related to gout. Correlation with history and uric acid level would be beneficial.Degenerativ e changes at the proximal interphalangeal joint.Interpreted by:MATILDA Mckeonigned by:Kwasi Cantu MD04/30/17Final result Normal [facility] ED Provider Noteon 7 HIM IP Note OR Emergency Preparedness Manager Normal [facility] Encounters Encounter Date Encounter Type Care Provider Facility Start: 12-10-2023 End: 12-10-2023 ambulatory SHARAN HERNDON Not Available Start: 11-28-2023 End: 11-29-2023 ambulatory Jimmy VELASCO Facility:[facility] Start: 12-23-2022 End: 12-23-[address] SHARAN HERNDON Facility:[facility] Start: 11-16-2022 End: 11-17-[address] GRECIA SY . Facility:[facility] Start: 10-16-2022 End: 10-17-[address] SHARAN HERNDON Facility:[facility] Start: 10-04-2022 End: 10-05-[address] MARIA DE JESUS MARSH Facility:[facility] Start: 08-13-2022 End: 08-13-[address] OZZY PECK . Facility:[facility] Start: 08-10-2022 Encounter for genera l adult medical examination without abnormal findings DR SHARAN HERNDON [facility] Start: 08-07-2022 End: 08-08-[address] SHARAN HERNDON Facility:[facility] Start: 08-07-2022 End: 08-08-2022 Encounter for general adult medical examination without abnormal findings DR SHARAN HERNDON Facility:[facility] Start: 05-13-2022 End: 05-13-[address] SHARAN HERNDON Facility:[facility] Start: 04-18-2022 End: 04-18-[address] DON CHACON Facility:[facility] Start: 02-13-2018 End: 02-16-2018 Ambulatory SITA JERRY [facility] Start: 10-02-2017 End: 10-03-2017 Ambulatory KAREN GARCIA [facility] Start: 09-29-2017 End: 09-29-2017 Emergency department patient visit [facility] Start: 05-26-2017 End: 05-27-2017 [facility] Start: 05-08-2017 End: 05-08-2017 Emergency department patient visit [facility] Start: 04-30-2017 End: 05-01-2017 [facility] Start: 04-26-2017 End: 04-26-2017 Emergency department patient visit KATHERYN MICHELLE [facility] Procedures Date Procedure Procedure Detail Performing Clinician Start: 02-13-2018 Us pelvic nonobstetr ic real-time image complete KATHERYN MICHELLE Start: 02-13-2018 Us transvaginal KATHERYN MICHELLE Start: 10-02-2017 FOLLICLE STIMULATING HORMONE KATHERYN MICHELLE Start: 10-02-2017 GLUCOSE, RANDOM KATHERYN MICHELLE Start: 10-02-2017 Lipid panel KATHERYN [facility] Start: 10-02-2017 LUTEINIZING HORMONE THORSachin KAY VIVIANA Start: 10-02-2017 PATIENT FASTING? KATHERYN MICHELLE Start: 10-02-2017 T4, FREE KATHERYN HITCHCOCK Start: 10-02-2017 TSH WITHOUT REFLEX [facility] Start: 09-29-2017 BANDAGE ALFREDO 4 KATHERYN MUSTAFA Start: 09-29-2017 Radex foot complete minimum 3 views KATHERYN MICHELLE Start: 05-26-2017 URIC ACID KATHERYN HITCHCOCK Start: 05-08-2017 STREP A DNA PROBE, AMPLIFICATION [facility] Start: 05-08-2017 STREP SCREEN GROUP A THROAT KATHERYN MICHELLE Start: 04-30-2017 Radex fingr minimum 2 views KATHERYN MICHELLE Payers Date Payer Category Payer Unknown [id number] 2017 Unknown [id number] 2017 Self-pay 2014 Unknown [id number] 1967 Unknown [id number] 2.16.84 [id number] 1967 Unknown [id number] 2.16.84 [id number] 1967 Unknown [id number] 2.16.84 [id number] 1967 Unknown [id number] 2.16.84 [id number] 1967 Unknown [id number] 2.16.84 [id number] 1967 Unknown [id number] 2.16.84 [id number] 1967 Unknown [id number] 2.16.84 [id number] 1967 Unknown [id number] 2.16.84 [id number] 1967 Unknown [id number] 2.16.8 [id number] 1967 Unknown [id number] 2.16.84 [id number] 1959 Unknown [id number] Unknown [id number] Clinical Note 12-23-2022 Note Date & Type Note Facility 12-23-2022 Note PROCEDURE: XR CHEST 1 V DATE: 12/23/2022 12:48 PM CDT COMPARISONS: 05/27/2019 CLINICAL INDICATION: 57 years Female CHEST PAIN, UNSPECIFIED FINDINGS: The heart is upper normal and stable. The pulmonary vasculature is upper normal and stable. There is slight scattered increased interstitial markings possibly representing a small amount of interstitial fluid with the lungs otherwise clear. No consolidating infiltrates to suggest pneumonia. There is no evidence of pleural effusion or pneumothorax. IMPRESSION: Stable chest. Electronically authenticated by: EUFEMIA GARBER Date: 2022-12-23 14:47 [facility] Summary Purpose Family History No Family History Records FoundNo Family History Records FoundNo Family History Records FoundNo Family History Records FoundNo Family History Records FoundNo Family History Records Found Advance Directives No Advanced Directives Records FoundNo Advanced Directives Records FoundNo Advanced Directives Records FoundNo Advanced Directives Records FoundNo Advanced Directives Records FoundNo Advanced Directives Records Found Additional Source Comments INFORMATION SOURCE (unrecogn ized section and content) DATE CREATED AUTHOR 02/24/2018 [facility] DATE CREATED AUTHOR AUTHOR'S ORGANIZ ATION 02/25/2018 [facility] DATE CREATED AUTHOR AUTHOR'S ORGANIZ ATION [facility] DATE CREATED AUTHOR AUTHOR'S ORGANIZ ATION 12/25/2022 [facility] DATE CREATED AUTHOR AUTHOR'S ORGANIZ ATION 11/30/2023 [facility] DATE CREATED AUTHOR AUTHOR'S ORGANIZ ATION 12/11/2023 [facility] FOR RECORDS PERTAINING TO PATIENTS WHO ARE OR HAVE BEEN ENROLLED IN A CHEMICAL DEPENDENCY/SUBSTANCEABUSE PROGRAM, SOME INFORMATION MAY BE OMITTED. This clinical summary was aggregated from multiple sources. Caution should be exercised in using it in the provision of clinical care. This summary normalizes information from multiple sources, and as a consequence, information in this document may materially change the coding, format and clinical context of patient data. In addition, data may be omitted in some cases. CLINICAL DECISIONS SHOULD BE BASED ON THE PRIMARY CLINICAL RECORDS. [facility] [address] [facility]. provides no warranty or guarantee of the accuracy or completeness of information in this document.
[2024-06-16 14:30] LABS: Estimated Average Glucose 134 mg/dL; Glycohemoglobin A1C 6.3 % (4.5-6.2)
[2024-06-16 15:23] LABS: Free T4 1.02 ng/dL (0.76-1.46)
[2024-06-16 15:29] LABS: Alanine Aminotransferase 36 U/L (14-59); Albumin Globulin Ratio 0.9; Albumin Level 3.7 g/dL (3.4-5.0); Alkaline Phosphatase 79 U/L (46-116); Anion Gap 9.5; Aspartate Amino Transferase 17 U/L (15-37); BUN Creatinine Ratio 22.9; Bilirubin Direct 0.1 mg/dL (0.0-0.2); Bilirubin Total 0.4 mg/dL (0.2-1.0); Calcium 9.7 mg/dL (8.5-10.1); Carbon Dioxide 31.6 mmol/L (21.0-32.0); Chloride 101 mmol/L (98-107); Chol HDL Ratio 2.8; Cholesterol 147 mg/dL (<=200); Estimated GFR (African America >60 (>=60 mL/min/1.73m^2); Estimated GFR (Non-African Ame >60 (>=60 mL/min/1.73m^2); Free T3 2.67 pg/mL (2.18-3.98); Globulin 3.9 g/dL; Glucose 160 mg/dL (74-106); HDL Cholesterol 52 mg/dL (40-60); Potassium 4.1 mmol/L (3.5-5.1); Sodium 138 mmol/L (136-145); Thyroid Stimulating Hormone 1.397 uIU/mL (0.358-3.740); Total Protein 7.6 g/dL (6.4-8.2); Triglycerides 85 mg/dL (<=150)
== END 2024-06-16 14:07 | disposition home or self-care (01) ==
LOC: LAB 14:07
PROVIDERS: PCP Family Medicine; Visit Provider Family Medicine
DX: Z00.00 Encounter for general adult medical examination without abnormal findings (principal); E03.9 Hypothyroidism, unspecified
CPT/HCPCS: 36415; 80048; 80061; 80076; 83036; 84439; 84443; 84481; 85025

== ENCOUNTER 2024-07-07 19:41 | Outpatient (OUT) | payer BC, SELFPAY ==
--- OUTSIDE RECORDS SUMMARY | 2024-07-07 19:52 | XMS_ITS | CCD ---
Author Organization [facility] Care Team Providers Care Farm Rancher Name Role Phone KATHERYN MICHELLE Unavailable Unavailable BRENNAN, ALISHA Unavailable Unavailable BRENNAN, ALISHA Unavailable Unavailable BRENNAN, ALISHA Unavailable Unavailable BRENNAN, ALISHA Unavailable Unavailable BRENNAN, ALISHA Unavailable Unavailable VIMAL SCUHLTZ Unavailable Unavaila ble BRENNAN, ALISHA Unavailable Unavailable BRENNAN, ALISHA Unavailable Unavailable BRENNAN, ALISHA Unavailable Unavailable SHANTELLE, VESDARRELL Unavailable Unavailable JOSEKAREN HAMPTON Unavailable Unavailable BRENNAN, ALISHA Unavailable Unavailable SITA JERRY Unavailable Unavailable YONLEY, RACHEL L Unavailable Unavailable HAY ., DR PAIGE Admitting Unavailable NADERER, DR JORGE LUIS Rizvi Primary Care Unavailable HAY ., DR PAIGE Attending Unavailable HAY ., DR PAIGE Consulting Unavailable NADERER, DR JORGE LUIS Rizvi Primary Care Unavailable OPALNICOLE NI Consulting Unavailable KATKOTODD Admitting Unavailable KATTODD CLARKE Attending Unavailable EUFEMIA GARBER Consulting Unavailable NADERER, DR JORGE LUIS Rizvi Attending Unavailable NADERER, DR JORGE LUIS Rizvi Consulting Unavailable NADERER, DR JORGE LUIS Rizvi Primary Care Unavailable NADERER, DR JORGE LUIS Rizvi Admitting Unavailable NADERER, DR JORGE LUIS Rizvi Admitting Unavailable NADERER, DR JORGE LUIS Rizvi Attending Unavailable NADERER, DR JORGE LUIS Rizvi Primary Care Unavailable MAXIMO, DR MARIA DE JESUS Christensen Consulting Unavailable NADEREJamal, DR JORGE LUIS Rizvi Consulting Unavailable WEST, DR MARIA DE JESUS Christensen Admitting Unavailable NADERER, DR JORGE LUIS Rizvi Primary Care Unavailable WEST, DR MARIA DE JESUS Christensen Attending Unavailable WEST, DR MARIA DE JESUS Christensen Consulting Unavailable MARKER ., DR PRECIADO Admitting Unavailable NADERER, DR JORGE LUIS Rizvi Primary Care Unavailable GRECHNY ., STAR MENJIVAR Consulting Unavailabl e MARKER ., DR PRECIADO Attending Unavailable MARKER ., DR PRECIADO Consulting Unavailable ROX APARICIO Consulting Unavailable DR DON CHACON Admitting Unavailable DR JORGE LUIS HERNDON Primary Care Unavailable NICOLE JOSEPH Consulting Unavailable DR DON CHACON Attending Unavailable KATRINA, DR JORGE LUIS Rizvi Primary Care Unavailable GABRIELLA DELANEY Admitting Unavailable GABRIELLA DELANEY Attending Unavailable GABRIELLA DELANEY Consulting Unavailable Jimmy VELASCO Attending Unavailable JORGE LUIS HERNDON Attending Unavailable JORGE LUIS HERNDON Attending Unavailable Jorge Luis Herndon MD Primary Care Provider Jorge Luis Herndon MD Unavailable Medications Current Medications Medication Drug Class(es) Dates Sig (Normalized) Sig (Original) atorvastatin 20 mg oral tablet (4 sources) HMG-CoA Reductase Inhibitor Start: 12-10-2023 take 1 tablet by mouth at bedtime atorvastatin (Lipitor) 20 MG tablet Indications: Type 2 diabetes mellitus with hyperglycemia, without long-term current use of insulin (CMS/HCC) Take 1 tablet (20 mg) by mouth at bedtime 30 tablet 5 12/10/2023 Active Blood Glucose Monitoring Suppl (Blood Glucose Monitor System) w/Device kit (3 sources) Start: 06-16-2024 Blood Glucose Monitoring Suppl (Blood Glucose Monitor System) w/Device kit Indications: Type 2 diabetes mellitus with hyperglycemia, without long-term current use of insulin (CMS/HCC) 1 each Daily 1 kit 06/16/2024 Active cholecalciferol 0.025 mg oral tablet (4 sources) Vitamin D take 1 tablet by mouth once daily cholecalciferol 25 MCG (1000 UT) tablet Take 50 mcg by mouth Daily Active gabapentin 300 mg oral capsule (3 sources) Anti-epileptic Agent Start: 06-16-2024 take 1 capsule by mouth once at bedtime gabapentin (Neurontin) 300 MG capsule Indications: Diabetic polyneuropathy associated with type 2 diabetes mellitus (CMS/HCC) 1 PO at bedtime on day #1, then 1 PO BID on day #2, then 1 PO TID 90 capsule 2 06/16/2024 Active levothyroxine sodium 0.05 mg oral tablet (4 sources) l-Thyroxine Start: 12-10-2023 take 1 tablet by mouth in the morning levothyroxine (Synthroid, Levoxyl) 50 MCG tablet Indications: Adult hypothyroidism (CMS/HCC) Take 1 tablet (50 mcg) by mouth in the morning. 30 tablet 5 12/10/2023 Active omeprazole 40 mg delayed release oral capsule (4 sources) Proton Pump Inhibitor Start: 03-29-2024 take 1 capsule by mouth once daily omeprazole (PriLOSEC) [address] capsule Indications: Gastro-esophageal reflux disease without esophagitis TAKE 1 CAPSULE BY MOUTH DAILY 30 capsule 5 03/29/2024 Active rifAXIMin 550 mg oral tablet (3 sources) Rifamycin Antibacterial Start: 06-16-2024 End: 06-30-2024 take 1 tablet by mouth in the morning, then take 1 tablet by mouth in the evening, then take 1 tablet by mouth at bedtime rifAXIMin (Xifaxan) 550 MG tablet Indications: Irritable bowel syndrome with diarrhea Take 1 tablet (550 mg) by mouth in the morning and 1 tablet (550 mg) in the evening and 1 tablet (550 mg) before bedtime. Do all this for 14 days. 42 tablet 06/16/2024 06/30/2024 Active 0.25 mg, 0.5 mg dose 1.5 ml semaglutide 1.34 mg/ml pen injector (3 sources) Start: 06-16-2024 semaglutide (Ozempic, 0.25 or 0.5 MG/DOSE,) 2 MG/1.5ML solution pen-injector Indications: Type 2 diabetes mellitus with hyperglycemia, without long-term current use of insulin (CMS/HCC) 0.25 mg SC weekly x 4 weeks, then 0.5 mg weekly 1 each 3 06/16/2024 Active sertraline 50 mg oral tablet (4 sources) Serotonin Reuptake Inhibitor Start: 06-08-2024 take 1 tablet by mouth once daily sertraline (Zoloft) 50 MG tablet Indications: Generalized anxiety disorder (CMS/HCC) TAKE 1 TABLET BY MOUTH ONCE DAILY 30 tablet 2 06/08/2024 Active traZODone hydrochloride 50 mg oral tablet (4 sources) Serotonin Reuptake Inhibitor Start: 12-10-2023 take 1 tablet by mouth at bedtime traZODone (Desyrel) 50 MG tablet Indications: Primary insomnia Take 1 tablet (50 mg) by mouth at bedtime 30 tablet 5 12/10/2023 Active Problems Active Problems Problem Classification Problem Date Documented Da te Episodic/Chronic Anxiety disorders (4 sources) Generalized anxiety disorder; Translations: [Generalized anxiety disorder] Onset: 4 12-10-2023 Chronic Diabetes mellitus with complications (11 sources) Hyperglycemia due to type 2 diabetes mellitus; Translations: [Type 2 diabetes mellitus with hyperglycemia] Onset: 4 12-10-2023 Chronic Diabetes mellitus without complication (1 source) Type 2 diabetes mellitus without complications; Translations: [TYPE 2 DM WITHOUT COMPLICATIONS] Onset: 2 Chronic Esophageal disorders (4 sources) Gastroesophageal reflux disease; Translations: [Gastro-esophageal reflux disease without esophagitis] Onset: 4 12-10-2023 Chronic Gout and other crystal arthropathies (1 source) Gout, unspecified; Translations: [Gout, unspecified] Onset: 7 Chronic Menstrual disorders (3 sources) Irregular menstruation, unspecified; Translations: [Irregular menstruation, unspecified] Onset: 8 Chronic Miscellaneous mental health disorders (4 sources) Primary insomnia; Translations: [Primary insomnia] Onset: 4 12-10-2023 Chronic Mood disorders (4 sources) Recurrent major depressive episodes, mild ; Translations: [Major depressive disorder, recurrent, mild] Onset: 4 12-10-2023 Chronic Nonspecific chest pain (4 sources) Chest pain, unspecified; Translations: [Other chest pain] Onset: 3 Episodic Nutritional deficiencies (5 sources) Vitamin D deficiency, unspecified; Translations: [Vitamin D deficiency] Onset: 2 12-10-2023 Chronic Osteoarthritis (4 sources) Primary gonarthrosis, bilateral; Translations: [Bilateral primary osteoarthritis of knee] Onset: 4 12-10-2023 Chronic Other aftercare (1 source) Other halfway (current) drug therapy; Translations: [OTH SPEECH LANGUAGE PATHOLOGIST PRN CURRENT DRUG THERAPY] Onset: 3 Episodic Other ear and sense organ disorders (1 source) Unspecified otitis externa, right ear; Translations: [UNS OTITIS EXTERNA RT EAR] Onset: 3 Chronic Other ear and sense organ disorders (3 sources) Otalgia, right ear; Translations: [OTALGIA RIGHT EAR] Onset: 3 Episodic Other gastrointestinal disorders (6 sources) Irritable bowel syndrome with diarrhea; Translations: [Irritable bowel syndrome with diarrhea] Onset: 4 12-10-2023 Chronic Other nutritional; endocrine; and metabolic disorders (6 sources) Morbid obesity; Translations: [Morbid (severe) obesity due to excess calories] Onset: 4 12-10-2023 Chronic Other nutritional; endocrine; and metabolic disorders (2 sources) Body mass index 40+ - severely obese; Translations: [Body mass index (BMI) 40.0-44.9, adult] 06-16-2024 Chronic Residual codes; unclassified (6 sources) Obstructive sleep apnea syndrome; Translations: [Obstructive sleep apnea (adult) (pediatric)] Onset: 4 12-10-2023 Chronic Spondylosis; intervertebral disc disorders; other back problems (9 sources) Spondylosis without myelopathy or radiculopathy, cervical region; Translations: [Cervical spondylosis] Onset: 3 12-10-2023 Chronic Spondylosis; intervertebral disc disorders; other back problems (1 source) Cervicalgia; Translations: [CERVICALGIA] Onset: 3 Episodic Thyroid disorders (10 sources) Hypothyroidism, unspecified; Translations: [Hypothyroidism] Onset: 3 Chronic Unclassified (4 sources) Encounter for screening for nutritional disorder; Translations: [Patient encounter status] Onset: 8 06-16-2024 Episodic Unclassified (1 source) LOW BACK PAIN, UNSPECIFIED; Translations: [LOW BACK PAIN, UNSPECIFIED] Onset: 3 Unclassified (1 source) CONTACT W/AND (SUSP) EXPOS COVID-19; Translations: [CONTACT W/AND (SUSP) EXPOS COVID-19] Onset: 2 Unclassified (2 sources) COUGH, UNSPECIFIED; Translations: [COUGH, UNSPECIFIED] Onset: 2 Past or Other Problems Problem Classification Problem [...] Translations: [VOMITING UNSPECIFIED] Onset: 08-15-2022 Episodic Other circulatory disease (4 sources) Elevated blood-pressure reading without diagnosis of hypertension; Translations: [Elevated blood-pressure reading, without diagnosis of hypertension] Onset: 12-10-2023 12-10-2023 Episodic Other gastrointestinal disorders (4 sources) Diarrhea, [...] OTH PART DIGESTV TRACT] Onset: 08-15-2022 Episodic Residual codes; unclassified (4 sources) Bilateral lower limb edema; Translations: [Localized edema] Onset: 12-10-2023 12-10-2023 Episodic Superficial injury; contusion (1 source) Contusion of left lesser toe(s) with damage to nail, initial encounter; Translations: [Contusion of left lesser toe(s) with damage to nail, initial encounter] Onset: 09-29-2017 Episodic Unclassified (1 source) COUGH, UNSPECIFIED; Translations: [COUGH, UNSPECIFIED] Onset: 05-13-2022 Urinary tract infections (1 source) Urinary tract infection, site not specified; Translations: [UTI SITE NOT SPECIFIED] Onset: 08-15-2022 Episodic Varicose veins of lower extremity (8 sources) Varicose veins of bilateral lower extremities with pain; Translations: [Varicose veins of lower extremity] Onset: 10-04-2022 Episodic Viral infection (1 source) Other viral agents as the cause of diseases classified elsewhere; Translations: [Other viral agents as the cause of diseases classified elsewhere] Onset: 05-08-2017 Episodic Results Test Name Value Interpretation Reference Range Facility ALL CBC WITH AUTO DIFFon BASOPHILS ABSOLUTE AUTO 0.0 [facility] Basophils/100 WBC (Bld) 0.8 % 0.2 - 2.0 % [facility] Eosinophils/100 WBC (Bld) 2.9 % 0.9 - 7.0 % [facility] Erythrocyte distribution width (RBC) [Ratio] 13.3 % 11.0 - 15.0 % [facility] Hematocrit (Bld) [Volume fraction] 43.1 % 36.0 - 48.0 % [facility] Hemoglobin (Bld) [Mass/Vol] 13.9 g/dL 12.0 - 16.0 g/dL [facility] IMMATURE GRANULOCYTES ABS AUTO 0.02 [facility] Immature granulocytes/100 WBC (Bld) 0.4 % 0.0 - 0.5 % [facility] Interpretation and review of laboratory results Abnormal [facility] LYMPHOCYTES ABSOLUTE AUTO 1.0 Low [facility] Lymphocytes/100 WBC (Bld) 19.5 % Low 20.5 - 60.0 % [facility] MCH (RBC) [Entitic mass] 29.3 pg 26.7 - 34.0 pg [facility] MCHC (RBC) [Mass/Vol] 32.3 g/dL 29.9 - 35.2 g/dL [facility] MCV (RBC) [Entitic vol] 90.7 fL 81.0 - 99.0 fL [facility] MONOCYTES ABSOLUTE AUTO 0.4 [facility] Monocytes/100 WBC (Bld) 6.9 % 1.7 - 12.0 % [facility] NEUTROPHILS ABSOLUTE AUTO 3.7 [facility] Neutrophils/100 WBC (Bld) 69.5 % 43.0 - 75.0 % [facility] Platelet mean volume (Bld) [Entitic vol] 12.1 fL 9.5 - 13.5 fL [facility] TBH EO # 0.2 [facility] TB PLT 172 [facility] RBC 4.75 [facility] WBC 5.2 [facility] Consenton 11-28-2023 Consent [id number] .[id number] Normal [facility] Registrationon 11-28-2023 Registration [id number] .[id number] Normal [facility] CBC AUTO DIFFon 12-23-2022 BASO # 0.0 103/ul Normal 0.0-0.1 [facility] Comment on above: Performed By: #### L IPA, CMP #### [facility] [address] [place] [address] Dr. Chantel Rand Basophils/100 WBC (Bld) 0.5 % Normal 0.2-2.0 [facility] Comment on above: Performed By: #### L IPA, CMP #### [facility] [address] [place] [address] Dr. Chantel Rand EO # 0.2 103/ul Normal 0.0-0.7 [facility] Comment on above: Performed By: #### L IPA, CMP #### [facility] [address] [place] [address] Dr. Chantel Rand Eosinophils/100 WBC (Bld) 3.5 % Normal 0.9-7.0 [facility] Comment on above: Performed By: #### L IPA, CMP #### [facility] [address] [place] [address] Dr. Chantel Rand Erythrocyte distribution width (RBC) [Ratio] 13.1 % Normal 11.0-15.0 [facility] Comment on above: Performed By: #### L IPA, CMP #### [facility] [address] [place] [address] Dr. Chantel Rand Hematocrit (Bld) [Volume fraction] 42.6 % Normal 36.0-48.0 [facility] Comment on above: Performed By: #### L IPA, CMP #### [facility] [address] [place] [address] Dr. Chantel Rand Hemoglobin (Bld) [Mass/Vol] 14.0 g/dL Normal 12.0-16.0 [facility] Comment on above: Performed By: #### L IPA, CMP #### [facility] [address] [place] [address] Dr. Chantel Rand IG # 0.02 10e3/ul Normal 0.00-0.03 [facility] Comment on above: Performed By: #### L IPA, CMP #### [facility] [address] [place] [address] Dr. Chantel Rand IG % 0.4 % Normal 0.0-0.5 [facility] Comment on above: Performed By: #### L IPA, CMP #### [facility] [address] [place] [address] Dr. Chantel Rand LYMPH # 1.4 103/ul Normal 1.2-3.8 [facility] Comment on above: Performed By: #### L IPA, CMP #### [facility] [address] [place] [address] Dr. Chantel Rand Lymphocytes/100 WBC (Bld) 23.7 % Normal 20.5-60.0 [facility] Comment on above: Performed By: #### L IPA, CMP #### [facility] [address] [place] [address] Dr. Chantel Rand MANUAL DIFF REQ NO Normal [facility] Comment on above: Performed By: #### L IPA, CMP #### [facility] [address] [place] [address] Dr. Chantel Rand MCH (RBC) [Entitic mass] 28.6 pg Normal 26.7-34.0 [facility] Comment on above: Performed By: #### L IPA, CMP #### [facility] [address] [place] [address] Dr. Chantel Rand MCHC (RBC) [Mass/Vol] 32.9 g/dL Normal 29.9-35.2 [facility] Comment on above: Performed By: #### L IPA, CMP #### [facility] [address] [place] [address] Dr. Chantel Rand MCV (RBC) [Entitic vol] 86.9 fL Normal 81.0-99.0 [facility] Comment on above: Performed By: #### L IPA, CMP #### [facility] [address] [place] [address] Dr. Chantel Rand MONO # 0.5 103/ul Normal 0.3-0.8 [facility] Comment on above: Performed By: #### L IPA, CMP #### [facility] [address] [place] [address] Dr. Chantel Rand Monocytes/100 WBC (Bld) 7.9 % Normal 1.7-12.0 [facility] Comment on above: Performed By: #### L IPA, CMP #### [facility] [address] [place] [address] Dr. Chantel Rand NEUT # 3.6 103/ul Normal 1.4-6.5 [facility] Comment on above: Performed By: #### L IPA, CMP #### [facility] [address] [place] [address] Dr. Chantel Rand Neutrophils/100 WBC (Bld) 64.0 % Normal 43.0-75.0 [facility] Comment on above: Performed By: #### L IPA, CMP #### [facility] [address] [place] [address] Dr. Chantel Rand Platelet mean volume (Bld) [Entitic vol] 11.5 fL Normal 9.5-13.5 [facility] Comment on above: Performed By: #### L IPA, CMP #### [facility] [address] [place] [address] Dr. Chantel Rand PLT 179 103/ul Normal 150-450 [facility] Comment on above: Performed By: #### L IPA, CMP #### [facility] [address] [place] [address] Dr. Chantel Rand RBC 4.90 106/ul Normal 4.20-5.40 [facility] Comment on above: Performed By: #### L IPA, CMP #### [facility] [address] [place] [address] Dr. Chantel Rand WBC 5.7 103/ul Normal 4.0-11.0 [facility] Comment on above: Performed By: #### L IPA, CMP #### [facility] [address] [place] [address] Dr. Chantel Rand LIPASEon 12-23-2022 Lipase [Catalytic activity/Vol] 150.0 U/L Normal 73.0-393.0 [facility] Comment on above: Performed By: #### L IPA, LIVER, HSTROPN, BMP #### [facility] [address] [address] [address] Chantel Rand LIVER PROFILEon 12-23-2022 Albumin [Mass/Vol] 3.8 g/dL Normal 3.4-5.0 [facility] Comment on above: Performed By: #### L IPA, CMP #### [facility] [address] [address] [address] Chantel Rand Albumin/Globulin [Mass ratio] 0.9 {ratio} Normal [facility] Comment on above: Performed By: #### L IPA, CMP #### [facility] [address] [place] [address] Dr. Chantel Rand ALP [Catalytic activity/Vol] 76 U/L Normal 46-116 [facility] Comment on above: Performed By: #### L IPA, CMP #### [facility] [address] [place] [address] Dr. Chantel Rand ALT [Catalytic activity/Vol] 31 U/L Normal 14-59 [facility] Comment on above: Performed By: #### L IPA, CMP #### [facility] [address] [place] [address] Dr. Chantel Rand AST [Catalytic activity/Vol] 17 U/L Normal 15-37 [facility] Comment on above: Performed By: #### L IPA, CMP #### [facility] [address] [place] [address] Dr. Chantel Rand BILI, CONJUGATED 0.1 mg/dL Normal 0.0-0.2 [facility] Comment on above: Performed By: #### L IPA, CMP #### [facility] [address] [address] [address] Chantel Rand Bilirubin [Mass/Vol] 0.4 mg/dL Normal 0.2-1.0 [facility] Comment on above: Performed By: #### L IPA, CMP #### [facility] [address] [address] [address] Chantel Rand Globulin (S) [Mass/Vol] 4.0 g/dL Normal [facility] Comment on above: Performed By: #### L IPA, CMP #### [facility] [address] [place] [address] Dr. Chantel Rand Protein [Mass/Vol] 7.8 g/dL Normal 6.4-8.2 [facility] Comment on above: Performed By: #### L IPA, CMP #### [facility] [address] [place] [address] Dr. Chantel Rand PROF CHEM 8 (BAS METB)on Anion gap [Moles/Vol] 13.1 mmol/L Normal [facility] Comment on above: Performed By: #### L IPA, CMP #### [facility] [address] [place] [address] Dr. Chantel Rand Calcium [Mass/Vol] 9.3 mg/dL Normal 8.5-10.1 [facility] Comment on above: Performed By: #### L IPA, CMP #### [facility] [address] [place] [address] Dr. Chantel Rand Chloride [Moles/Vol] 104 mmol/L Normal 98-107 [facility] Comment on above: Performed By: #### L IPA, CMP #### [facility] [address] [place] [address] Dr. Chantel Rand CO2 [Moles/Vol] 28.9 mmol/L Normal 21.0-32.0 [facility] Comment on above: Performed By: #### L IPA, CMP #### [facility] [address] [place] [address] Dr. Chantel Rand Creatinine [Mass/Vol] 0.70 mg/dL Normal 0.55-1.02 [facility] Comment on above: Performed By: #### L IPA, CMP #### [facility] [address] [place] [address] Dr. Chantel Rand EGFR-AF [place] >60 Normal >=60 [facility] Comment on above: Performed By: #### L IPA, CMP #### [facility] [address] [address] [address] Chantel Rand EGFR-NON AF [place] >60 Normal >=60 [facility] Comment on above: Performed By: #### L IPA, CMP #### [facility] [address] [address] [address] Chantel Rand Glucose [Mass/Vol] 148 mg/dL Critically high 74-106 [facility] Comment on above: Performed By: #### L IPA, CMP #### [facility] [address] [address] [address] Chantel Rand Potassium [Moles/Vol] 4.0 mmol/L Normal 3.5-5.1 [facility] Comment on above: Performed By: #### L IPA, CMP #### [facility] [address] [address] [address] Chantel Rand Sodium [Moles/Vol] 142 mmol/L Normal 136-145 [facility] Comment on above: Performed By: #### L IPA, CMP #### [facility] [address] [address] [address] Chantel Rand Urea nitrogen [Mass/Vol] 17.0 mg/dL Normal 7.0-18.0 [facility] Comment on above: Performed By: #### L IPA, CMP #### [facility] [address] [address] [address] Chantel Rand Urea nitrogen/Creatinine [Mass ratio] 24.3 mg/mg Normal [facility] Comment on above: Performed By: #### L IPA, CMP #### [facility] [address] [address] [address] Chantel Rand TROPONIN, HIGH SENSITIVITYon 12-23-2022 HSTROP 6.6 pg/mL Normal 4.0-51.3 [facility] Comment on above: Result Comment: CUT- OFF POINTS HAVE BEEN ESTABLISHED BASED ON THE FOURTH UNIVERSAL DEFINITIONS OF MYOCARDIAL INFARCTION. THE UPPER REFERENCE LIMIT (URL) OF TROPONIN, DEFINED THE 99TH PERCENTILE OF cTnI DISTRIBUTION IN A REFERENCE POPULATION, HAS BEEN CONFIRMED THE DECISION THRESHOLD FOR VA DIAGNOSIS. Performed By: #### L IPA, CMP #### [facility] [address] [address] [address] Chantel Rand XR CSPINE 2_3 VIEWSon 2022 XR CSPINE 2_3 VIEWS EXAMINATION: XR CSPI NE 2_3 VIEWS HISTORY: Neck pain COMPARISON: No relevant comparison available. FINDINGS: BONES: Normal alignment with no acute fracture or spondylolisthesis. Moderate to severe degenerative spondylosis. [id number] facet osteoarthropathy. DISC SPACES: Normal. No significant disc height narrowing, subluxation, or endplate abnormality. PARASPINOUS: Negative. No paraspinous abnormality is seen. OTHER: C7 is not visualized on the lateral projection IMPRESSION: Moderate to severe degenerative spondylosis Electronically authenticated by: MARIA DE JESUS MARSH Date: 2022-10-17 07:42 Normal [facility] XR LSPINE 2_3 VIEWSon 2022 XR [...] DE JESUS MARSH Date: 2022-10-17 07:49 Normal [facility] FREE T3on 10-16-2022 FREE T3 3.25 pg/mlL Normal 2.18-3.98 [facility] Comment on above: Performed By: #### L IPA, CMP #### [facility] [address] [address] [address] Chantel Rand FREE T4on 10-16-2022 Free T4 [Mass/Vol] 0.96 ng/dL Normal 0.76-1.46 [facility] Comment on above: Performed By: #### F T4 #### [facility] [address] [address] [address] Chantel Rand TSHon 10-16-2022 TSH 2.190 uIU/mL Normal 0.358-3.740 [facility] Comment on above: Performed By: #### L IPA, CMP #### [facility] [address] [place] [address] Dr. Chantel Rand CULTURE URINEon 08-16-2022 CULTURE [...] F Trimethoprim/Sulfameth oxazole <=20 S F Normal [facility] Comment on above: Performed By: #### L IPA, CMP #### [facility] [address] [place] [address] Dr. Chantel Rand CBC W MANUAL DIFFon 08-13-20 22 ATYPICAL LYMPH # 0.07 103/ul Normal [facility] Comment on above: Performed By: #### L IPA, CMP #### [facility] [address] [place] [address] Dr. Chantel Rand ATYPICAL LYMPH % 1 % Normal [facility] Comment on above: Performed By: #### L IPA, CMP #### [facility] [address] [place] [address] Dr. Chantel Rand BAND # 0.0 103/ul Normal 0.0-0.3 [facility] Comment on above: Performed By: #### L IPA, CMP #### [facility] [address] [place] [address] Dr. Chantel Rand BAND % 0 % Normal 0-5 [facility] Comment on above: Performed By: #### L IPA, CMP #### [facility] [address] [place] [address] Dr. Chantel Rand BASOM # 0.00 103/ul Normal 0.00-0.10 [facility] Comment on above: Performed By: #### L IPA, CMP #### [facility] [address] [place] [address] Dr. Chantel Rand BASOM % 0.0 % Critically low 0.2-2.0 [facility] Comment on above: Performed By: #### L IPA, CMP #### [facility] [address] [place] [address] Dr. Chantel Rand BLAST # Normal [facility] Comment on above: Performed By: #### L IPA, CMP #### [facility] [address] [place] [address] Dr. Chantel Rand BLAST % Normal [facility] Comment on above: Performed By: #### L IPA, CMP #### [facility] [address] [place] [address] Dr. Chantel Rand CORRECTED WBC Normal 4.0-11.0 [facility] Comment on above: Performed By: #### L IPA, CMP #### [facility] [address] [place] [address] Dr. Chantel Rand EOS # 0.00 103/ul Normal 0.00-0.70 [facility] Comment on above: Performed By: #### L IPA, CMP #### [facility] [address] [place] [address] Dr. Chantel Rand EOS% 0.0 % Critically low 0.9-7.0 [facility] Comment on above: Performed By: #### L IPA, CMP #### [facility] [address] [place] [address] Dr. Chantel Rand HCT 43.5 % Normal 36.0-48.0 [facility] Comment on above: Performed By: #### L IPA, CMP #### [facility] [address] [place] [address] Dr. Chantel Rand HGB 14.0 g/dl Normal 12.0-16.0 [facility] Comment on above: Performed By: #### L IPA, CMP #### [facility] [address] [place] [address] Dr. Chantel Rand LYMPHM # 0.47 103/ul Critically low 1.20-3.80 [facility] Comment on above: Performed By: #### L IPA, CMP #### [facility] [address] [place] [address] Dr. Chantel Rand LYMPHM% 7.0 % Critically low 20.5-60.0 [facility] Comment on above: Performed By: #### L IPA, CMP #### [facility] [address] [place] [address] Dr. Chantel Rand MCH 28.5 pg Normal 26.7-34.0 [facility] Comment on above: Performed By: #### L IPA, CMP #### [facility] [address] [place] [address] Dr. Chantel Rand MCHC 32.2 g/dl Normal 29.9-35.2 [facility] Comment on above: Performed By: #### L IPA, CMP #### [facility] [address] [place] [address] Dr. Chantel Rand MCV 88.4 fL Normal 81.0-99.0 [facility] Comment on above: Performed By: #### L IPA, CMP #### [facility] [address] [place] [address] Dr. Chantel Rand METAMYELOCYTE # Normal [facility] Comment on above: Performed By: #### L IPA, CMP #### [facility] [address] [place] [address] Dr. Chantel Rand METAMYELOCYTE % Normal [facility] Comment on above: Performed By: #### L IPA, CMP #### [facility] [address] [place] [address] Dr. Chantel Rand MONOM# 0.67 103/ul Normal 0.30-0.80 [facility] Comment on above: Performed By: #### L IPA, CMP #### [facility] [address] [place] [address] Dr. Chantel Rand MONOM% 10.0 % Normal 1.7-12.0 [facility] Comment on above: Performed By: #### L IPA, CMP #### [facility] [address] [address] [address] Chantel Rand MPV 11.4 fL Normal 9.5-13.5 [facility] Comment on above: Performed By: #### L IPA, CMP #### [facility] [address] [address] [address] Chantel Rand MYELOCYTE # Normal [facility] Comment on above: Performed By: #### L IPA, CMP #### [facility] [address] [address] [address] Chantel Rand MYELOCYTE % Normal [facility] Comment on above: Performed By: #### L IPA, CMP #### [facility] [address] [place] [address] Dr. Chantel Rand NRBC Normal [facility] Comment on above: Performed By: #### L IPA, CMP #### [facility] [address] [address] [address] Chantel Rand PLT 142 103/ul Critically low 150-450 [facility] Comment on above: Performed By: #### L IPA, CMP #### [facility] [address] [address] [address] Chantel Rand RBC 4.92 106/ul Normal 4.20-5.40 [facility] Comment on above: Performed By: #### L IPA, CMP #### [facility] [address] [place] [address] Dr. Chantel Rand RDW 12.9 % Normal 11.0-15.0 [facility] Comment on above: Performed By: #### L IPA, CMP #### [facility] [address] [place] [address] Dr. Chantel Rand SEG # 5.49 103/ul Normal 1.40-6.50 [facility] Comment on above: Performed By: #### L IPA, CMP #### [facility] [address] [address] [address] Chantel Rand SEG % 82.0 % Critically high 43.0-75.0 [facility] Comment on above: Performed By: #### L IPA, CMP #### [facility] [address] [place] [address] Dr. Chantel Rand WBC 6.7 103/ul Normal 4.0-11.0 [facility] Comment on above: Performed By: #### L IPA, CMP #### [facility] [address] [place] [address] Dr. Chantel Rand Covid-19 PCR ([facility])on SARS-CoV-2 (COVID-19) RNA ROMANA+probe Ql (Unsp spec) Not detected Normal NOT DETECTED [facility] Comment on above: Result Comment: When [...] for this test is supported by the [place] of Health and Human Service's declaration that [...] Performed By: #### L IPA, CMP #### [facility] [address] [place] [address] Dr. Chantel Rand ER URINE PROFILEon 2 Bilirubin Ql (U) SMALL Abnormal NEGATIVE [facility] Comment on above: Performed By: #### L IPA, CMP #### [facility] [address] [place] [address] Dr. Chantel Rand Clarity (U) CLEAR Normal CLEAR [facility] Comment on above: Performed By: #### L IPA, CMP #### [facility] [address] [place] [address] Dr. Chantel Rand Color (U) DK. YELLOW Normal YELLOW [facility] Comment on above: Performed By: #### L IPA, CMP #### [facility] [address] [place] [address] Dr. Chantel MCINTYRE A micrscopic examination will be performed if indicated. Normal [facility] Comment on above: Performed By: #### L IPA, CMP #### [facility] [address] [place] [address] Dr. Chantel Rand Glucose Ql (U) Negative Normal NEGATIVE [facility] Comment on above: Performed By: #### L IPA, CMP #### [facility] [address] [place] [address] Dr. Chantel Rand Hemoglobin Ql (U) Negative Normal NEGATIVE [facility] Comment on above: Performed By: #### L IPA, CMP #### [facility] [address] [place] [address] Dr. Chantel Rand Ketones Ql (U) TRACE Abnormal NEGATIVE [facility] Comment on above: Performed By: #### L IPA, CMP #### [facility] [address] [place] [address] Dr. Chanetl Rand LEUKOCYTES Negative Normal NEGATIVE [facility] Comment on above: Performed By: #### L IPA, CMP #### [facility] [address] [place] [address] Dr. Chantel Rand Nitrite Ql (U) Negative Normal NEGATIVE [facility] Comment on above: Performed By: #### L IPA, CMP #### [facility] [address] [place] [address] Dr. Chantel Rand pH (U) 5.0 [pH] Normal 5-9 [facility] Comment on above: Performed By: #### L IPA, CMP #### [facility] [address] [place] [address] Dr. Chantel Rand Protein (U) [Mass/Vol] 30 mg/dL Abnormal NEGATIVE/ TRACE [facility] Comment on above: Performed By: #### L IPA, CMP #### [facility] [address] [place] [address] Dr. Chantel Rand SPEC GRAVITY >=1.030 Abnormal 1.005-<=1.025 [facility] Comment on above: Performed By: #### L IPA, CMP #### [facility] [address] [address] [address] Chantel Rand UR MICRO IND INDICATED Normal [facility] Comment on above: Performed By: #### L IPA, CMP #### [facility] [address] [place] [address] Dr. Chantel Rand Urobilinogen Qn (U) 1.0 {Nahun'U}/dL Normal 0.2 - 1. 0 [facility] Comment on above: Performed By: #### L IPA, CMP #### [facility] [address] [place] [address] Dr. Chantel Rand INFLUENZA A AND B AGon 08-13 [facility] SEE BELOW Normal [facility] Comment on above: Result Comment: Nega tive for Flu A protein angiten. Infection due to Flu A cannot be ruled out. Flu A angiten in the sample may be below the detection limit of the test. Performed By: #### L IPA, CMP #### [facility] [address] [place] [address] Dr. Chantel Rand INFLUBNEGH SEE BELOW Normal [facility] Comment on above: Result Comment: Nega tive for Flu B protein antigen. Infection due to Flu B cannot be ruled out. Flu B antigen in the sample may be below the detection limit of the test. Performed By: #### L IPA, CMP #### [facility] [address] [place] [address] Dr. Chantel Rand INFLUENZA A AG Negative Normal NEGATIVE SEE COMMENT [facility] Comment on above: Performed By: #### L IPA, CMP #### [facility] [address] [place] [address] Dr. Chantel Rand INFLUENZA B AG Negative Normal NEGATIVE SEE COMMENT [facility] Comment on above: Performed By: #### L IPA, CMP #### [facility] [address] [place] [address] Dr. Chantel Rand INTERNAL CONTROLS Within Normal Limits Normal Wi thin Normal Limits [facility] Comment on above: Performed By: #### L IPA, CMP #### [facility] [address] [place] [address] Dr. Chantel Rand LACTATE/LACTIC ACIDon 2021 Lactate [Moles/Vol] 0.9 mmol/L Normal 0.4-1.9 [facility] Comment on above: Performed By: #### L ACT #### [facility] [address] [place] [address] Dr. Chantel Rand LIPASEon 08-13-2022 Lipase [Catalytic activity/Vol] 294.0 U/L Normal 73.0-393.0 [facility] Comment on above: Performed By: #### L IPA, CMP #### [facility] [address] [place] [address] Dr. Chantel Rand PROF 14(COMP METB)on 022 Albumin [Mass/Vol] 3.5 g/dL Normal 3.4-5.0 [facility] Comment on above: Performed By: #### L IPA, CMP #### [facility] [address] [place] [address] Dr. Chantel Rand Albumin/Globulin [Mass ratio] 0.8 {ratio} Normal [facility] Comment on above: Performed By: #### L IPA, CMP #### [facility] [address] [place] [address] Dr. Chantel Rand ALP [Catalytic activity/Vol] 89 U/L Normal 46-116 [facility] Comment on above: Performed By: #### L IPA, CMP #### [facility] [address] [place] [address] Dr. Chantel Rand ALT [Catalytic activity/Vol] 54 U/L Normal 14-59 [facility] Comment on above: Performed By: #### L IPA, CMP #### [facility] [address] [place] [address] Dr. Chantel Rand Anion gap [Moles/Vol] 8.1 mmol/L Normal [facility] Comment on above: Performed By: #### L IPA, CMP #### [facility] [address] [place] [address] Dr. Chantel Rand AST [Catalytic activity/Vol] 64 U/L Critically high 15-37 [facility] Comment on above: Performed By: #### L IPA, CMP #### [facility] [address] [address] [address] Chantel Rand Bilirubin [Mass/Vol] 0.6 mg/dL Normal 0.2-1.0 [facility] Comment on above: Performed By: #### L IPA, CMP #### [facility] [address] [place] [address] Dr. Chantel Rand Calcium [Mass/Vol] 8.7 mg/dL Normal 8.5-10.1 [facility] Comment on above: Performed By: #### L IPA, CMP #### [facility] [address] [place] [address] Dr. Chantel Rand Chloride [Moles/Vol] 102 mmol/L Normal 98-107 [facility] Comment on above: Performed By: #### L IPA, CMP #### [facility] [address] [place] [address] Dr. Chantel Rand CO2 [Moles/Vol] 31.6 mmol/L Normal 21.0-32.0 [facility] Comment on above: Performed By: #### L IPA, CMP #### [facility] [address] [place] [address] Dr. Chantel Rand Creatinine [Mass/Vol] 0.71 mg/dL Normal 0.55-1.02 [facility] Comment on above: Performed By: #### L IPA, CMP #### [facility] [address] [place] [address] Dr. Chantel Rand EGFR-AF [place] >60 Normal >=60 [facility] Comment on above: Performed By: #### L IPA, CMP #### [facility] [address] [place] [address] Dr. Chantel Rand EGFR-NON AF [place] >60 Normal >=60 [facility] Comment on above: Performed By: #### L IPA, CMP #### [facility] [address] [place] [address] Dr. Chantel Rand Globulin (S) [Mass/Vol] 4.2 g/dL Normal [facility] Comment on above: Performed By: #### L IPA, CMP #### [facility] [address] [address] [address] Chantel Rand Glucose [Mass/Vol] 165 mg/dL Critically high 74-106 [facility] Comment on above: Performed By: #### L IPA, CMP #### [facility] [address] [address] [address] Chantel Rand Potassium [Moles/Vol] 3.7 mmol/L Normal 3.5-5.1 [facility] Comment on above: Performed By: #### L IPA, CMP #### [facility] [address] [place] [address] Dr. Chantel Rand Protein [Mass/Vol] 7.7 g/dL Normal 6.4-8.2 [facility] Comment on above: Performed By: #### L IPA, CMP #### [facility] [address] [place] [address] Dr. Chantel Rand Sodium [Moles/Vol] 138 mmol/L Normal 136-145 [facility] Comment on above: Performed By: #### L IPA, CMP #### [facility] [address] [place] [address] Dr. Chantel Rand Urea nitrogen [Mass/Vol] 26.0 mg/dL Critically high 7.0-18.0 [facility] Comment on above: Performed By: #### L IPA, CMP #### [facility] [address] [place] [address] Dr. Chantel Rand Urea nitrogen/Creatinine [Mass ratio] 36.6 mg/mg Normal [facility] Comment on above: Performed By: #### L IPA, CMP #### [facility] [address] [place] [address] Dr. Chantel Rand URINE MICROSCOPIC ONLYon BACTERIA MODERATE Abnormal NONE SEEN [facility] Comment on above: Performed By: #### L IPA, CMP #### [facility] [address] [place] [address] Dr. Chantel Rand Bacteria identified Cx Nom (U) INDICATED Normal [facility] Comment on above: Performed By: #### L IPA, CMP #### [facility] [address] [place] [address] Dr. Chantel Rand CA OX CRYSTALS MANY Normal [facility] Comment on above: Performed By: #### L IPA, CMP #### [facility] [address] [place] [address] Dr. Chantel Rand CAST NONE SEEN Normal NONE SEEN [facility] Comment on above: Performed By: #### L IPA, CMP #### [facility] [address] [place] [address] Dr. Chantel Rand Crystals LM Nom (Urine sed) SEEN Abnormal NONE SEEN [facility] Comment on above: Performed By: #### L IPA, CMP #### [facility] [address] [place] [address] Dr. Chantel Rand Epithelial cells LM Ql (Urine sed) MODERATE Abnormal NONE SEEN /RARE [facility] Comment on above: Performed By: #### L IPA, CMP #### [facility] [address] [place] [address] Dr. Chantel Rand MUCOUS NONE SEEN Normal NONE SEEN [facility] Comment on above: Performed By: #### L IPA, CMP #### [facility] [address] [place] [address] Dr. Chantel Rand RBC 0-2 Normal 0-2 [facility] Comment on above: Performed By: #### L IPA, CMP #### [facility] [address] [place] [address] Dr. Chantel Rand WBC 5-10 Abnormal NONE SEEN [facility] Comment on above: Performed By: #### L IPA, CMP #### [facility] [address] [place] [address] Dr. Chantel Rand XR ABD FLAT UP_PA [...] ROX APARICIO Date: 2022-08-13 19:54 Normal [facility] CBC AUTO DIFFon 08-07-2022 BASO # 0.0 103/ul Normal 0.0-0.1 [facility] Comment on above: Performed By: #### L IPA, CMP #### [facility] [address] [place] [address] Dr. Chantel Rand Basophils/100 WBC (Bld) 0.4 % Normal 0.2-2.0 [facility] Comment on above: Performed By: #### L IPA, CMP #### [facility] [address] [address] [address] Chantel Rand EO # 0.2 103/ul Normal 0.0-0.7 [facility] Comment on above: Performed By: #### L IPA, CMP #### [facility] [address] [place] [address] Dr. Chantel Rand Eosinophils/100 WBC (Bld) 3.0 % Normal 0.9-7.0 [facility] Comment on above: Performed By: #### L IPA, CMP #### [facility] [address] [address] [address] Chantel Rand Erythrocyte distribution width (RBC) [Ratio] 12.9 % Normal 11.0-15.0 [facility] Comment on above: Performed By: #### L IPA, CMP #### [facility] [address] [place] [address] Dr. Chantel Rand Hematocrit (Bld) [Volume fraction] 44.4 % Normal 36.0-48.0 [facility] Comment on above: Performed By: #### L IPA, CMP #### [facility] [address] [place], [place] [id number] Dr. Chantel Rand Hemoglobin (Bld) [Mass/Vol] 14.0 g/dL Normal 12.0-16.0 [facility] Comment on above: Performed By: #### L IPA, CMP #### [facility] [address] [place] [address] Dr. Chantel Rand IG # 0.02 10e3/ul Normal 0.00-0.03 [facility] Comment on above: Performed By: #### L IPA, CMP #### [facility] [address] [place] [address] Dr. Chantel Rand IG % 0.3 % Normal 0.0-0.5 [facility] Comment on above: Performed By: #### L IPA, CMP #### [facility] [address] [place] [address] Dr. Chantel Rand LYMPH # 1.9 103/ul Normal 1.2-3.8 [facility] Comment on above: Performed By: #### L IPA, CMP #### [facility] [address] [place] [address] Dr. Chantel Rand Lymphocytes/100 WBC (Bld) 25.8 % Normal 20.5-60.0 [facility] Comment on above: Performed By: #### L IPA, CMP #### [facility] [address] [place] [address] Dr. Chantel Rand MANUAL DIFF REQ NO Normal [facility] Comment on above: Performed By: #### L IPA, CMP #### [facility] [address] [place] [address] Dr. Chantel Rand MCH (RBC) [Entitic mass] 28.2 pg Normal 26.7-34.0 [facility] Comment on above: Performed By: #### L IPA, CMP #### [facility] [address] [place] [address] Dr. Chantel Rand MCHC (RBC) [Mass/Vol] 31.5 g/dL Normal 29.9-35.2 [facility] Comment on above: Performed By: #### L IPA, CMP #### [facility] [address] [address] [address] Chantel Rand MCV (RBC) [Entitic vol] 89.3 fL Normal 81.0-99.0 [facility] Comment on above: Performed By: #### L IPA, CMP #### [facility] [address] [place] [address] Dr. Chantel Rand MONO # 0.6 103/ul Normal 0.3-0.8 [facility] Comment on above: Performed By: #### L IPA, CMP #### [facility] [address] [place] [address] Dr. Chantel Rand Monocytes/100 WBC (Bld) 7.7 % Normal 1.7-12.0 [facility] Comment on above: Performed By: #### L IPA, CMP #### [facility] [address] [place] [address] Dr. Chantel Rand NEUT # 4.6 103/ul Normal 1.4-6.5 [facility] Comment on above: Performed By: #### L IPA, CMP #### [facility] [address] [place] [address] Dr. Chantel Rand Neutrophils/100 WBC (Bld) 62.8 % Normal 43.0-75.0 [facility] Comment on above: Performed By: #### L IPA, CMP #### [facility] [address] [place] [address] Dr. Chantel Rand Platelet mean volume (Bld) [Entitic vol] 13.0 fL Normal 9.5-13.5 [facility] Comment on above: Performed By: #### L IPA, CMP #### [facility] [address] [place] [address] Dr. Chantel Rand PLT 190 103/ul Normal 150-450 [facility] Comment on above: Performed By: #### L IPA, CMP #### [facility] [address] [place] [address] Dr. Chantel Rand RBC 4.97 106/ul Normal 4.20-5.40 [facility] Comment on above: Performed By: #### L IPA, CMP #### [facility] [address] [address] [address] Chantel Rand WBC 7.4 103/ul Normal 4.0-11.0 [facility] Comment on above: Performed By: #### L IPA, CMP #### [facility] [address] [place] [address] Dr. Chantel Rand GLYCOHEMOGLOBIN A1Con 2021 ADA RECOMMENDATION SEE BELOW Normal [facility] Comment on above: Result Comment: ADA RECOMMENDED LIMIT 4.0 - 6.0 ADA THERAPEUTIC TARGET < 7.0 ACTION SUGGESTED > 7.0 Performed By: #### A 1C #### [facility] [address] [place] [address] Dr. Chantel Rand Glucose [Mass/Vol] 123 mg/dL Normal [facility] Comment on above: Performed By: #### A 1C #### [facility] [address] [place] [address] Dr. Chantel Rand HbA1c (Bld) [Mass fraction] 5.9 % Normal 4.5-6.2 [facility] Comment on above: Performed By: #### A 1C #### [facility] [address] [place] [address] Dr. Chantel Rand LIPID PROFILEon 08-07-2022 CHOL-HDL RATIO NORM SEE BELOW Normal [facility] Comment on above: Result Comment: 3.3 - 4.4 LOW RISK 4.4 - 7.1 AVERAGE RISK 7.1 - 11.0 MODERATE RISK >11.0 HIGH RISK Performed By: #### B MP, LIVER, TSH, LIPID #### [facility] [address] [place] [address] Dr. Chantel Rand Cholesterol [Mass/Vol] 161 mg/dL Normal <=200 [facility] Comment on above: Performed By: #### B MP, LIVER, TSH, LIPID #### [facility] [address] [place] [address] Dr. Chantel Rand Cholesterol in HDL [Mass/Vol] 52 mg/dL Normal 40-60 [facility] Comment on above: Performed By: #### B MP, LIVER, TSH, LIPID #### [facility] [address] [address] [address] Chantel Rand Cholesterol in LDL [Mass/Vol] 92.8 mg/dL Normal [facility] Comment on above: Performed By: #### B MP, LIVER, TSH, LIPID #### [facility] [address] [place] [address] Dr. Chantel Rand Cholesterol.total/Ch olesterol in HDL [Mass ratio] 3.1 {ratio} Normal [facility] Comment on above: Performed By: #### B MP, LIVER, TSH, LIPID #### [facility] [address] [address] [address] Chantel Rand HDL NORMAL > or = 60 mg/dl - LO W CARDIOVASCULAR RISK <40 mg/dl - HIGH CARDIOVASCULAR RISK Normal [facility] Comment on above: Performed By: #### B MP, LIVER, TSH, LIPID #### [facility] [address] [place] [address] Dr. Chantel Rand LDL CALC NORMAL SEE BELOW Normal [facility] Comment on above: Result Comment: <100 mg/dl OPTIMAL 100 - 129 mg/dl NEAR OR ABOVE OPTIMAL 130 - 159 mg/dl BORDERLINE HIGH 160 - 189 mg/dl HIGH >190 mg/dl VERY HIGH Performed By: #### B MP, LIVER, TSH, LIPID #### [facility] [address] [place] [address] Dr. Chantel Rand Triglyceride [Mass/Vol] 81 mg/dL Normal <=150 [facility] Comment on above: Performed By: #### B MP, LIVER, TSH, LIPID #### [facility] [address] [place] [address] Dr. Chantel Rand VLDL CALC 16.2 mg/dL Normal [facility] Comment on above: Performed By: #### B MP, LIVER, TSH, LIPID #### [facility] [address] [place] [address] Dr. Chantel Rand LIVER PROFILEon 08-07-2022 Albumin [Mass/Vol] 4.0 g/dL Normal 3.4-5.0 [facility] Comment on above: Performed By: #### B MP, LIVER, TSH, LIPID #### [facility] [address] [address] [address] Chantel Rand Albumin/Globulin [Mass ratio] 0.9 {ratio} Normal [facility] Comment on above: Performed By: #### B MP, LIVER, TSH, LIPID #### [facility] [address] [address] [address] Chantel Rand ALP [Catalytic activity/Vol] 65 U/L Normal 46-116 [facility] Comment on above: Performed By: #### B MP, LIVER, TSH, LIPID #### [facility] [address] [place] [address] Dr. Chantel Rand ALT [Catalytic activity/Vol] 23 U/L Normal 14-59 [facility] Comment on above: Performed By: #### B MP, LIVER, TSH, LIPID #### [facility] [address] [place] [address] Dr. Chantel Rand AST [Catalytic activity/Vol] 12 U/L Critically low 15-37 [facility] Comment on above: Performed By: #### B MP, LIVER, TSH, LIPID #### [facility] [address] [place] [address] Dr. Chnatel Rand BILI, CONJUGATED 0.1 mg/dL Normal 0.0-0.2 [facility] Comment on above: Performed By: #### B MP, LIVER, TSH, LIPID #### [facility] [address] [place] [address] Dr. Chantel Rand Bilirubin [Mass/Vol] 0.4 mg/dL Normal 0.2-1.0 [facility] Comment on above: Performed By: #### B MP, LIVER, TSH, LIPID #### [facility] [address] [place] [address] Dr. Chantel Rand Globulin (S) [Mass/Vol] 4.3 g/dL Normal [facility] Comment on above: Performed By: #### B MP, LIVER, TSH, LIPID #### [facility] [address] [place] [address] Dr. Chantel Rand Protein [Mass/Vol] 8.3 g/dL Critically high 6.4-8.2 [facility] Comment on above: Performed By: #### B MP, LIVER, TSH, LIPID #### [facility] [address] [address] [address] Chantel Rand MICROALBUMIN, RAND URon 11-3 mALB 3.5 mg/L Normal <=30.0 [facility] Comment on above: Performed By: #### L IPA, CMP #### [facility] [address] [address] [address] Chantel Rand PROF CHEM 8 (BAS METB)on Anion gap [Moles/Vol] 12.7 mmol/L Normal [facility] Comment on above: Performed By: #### B MP, LIVER, TSH, LIPID #### [facility] [address] [place] [address] Dr. Chantel Rand Calcium [Mass/Vol] 9.7 mg/dL Normal 8.5-10.1 [facility] Comment on above: Performed By: #### B MP, LIVER, TSH, LIPID #### [facility] [address] [address] [address] Chantel Rand Chloride [Moles/Vol] 103 mmol/L Normal 98-107 [facility] Comment on above: Performed By: #### B MP, LIVER, TSH, LIPID #### [facility] [address] [place] [address] Dr. Chantel Rand CO2 [Moles/Vol] 29.7 mmol/L Normal 21.0-32.0 [facility] Comment on above: Performed By: #### B MP, LIVER, TSH, LIPID #### [facility] [address] [place] [address] Dr. Chantel Rand Creatinine [Mass/Vol] 0.64 mg/dL Normal 0.55-1.02 [facility] Comment on above: Performed By: #### B MP, LIVER, TSH, LIPID #### [facility] [address] [address] [address] Chantel Rand EGFR-AF [place] >60 Normal >=60 [facility] Comment on above: Performed By: #### B MP, LIVER, TSH, LIPID #### [facility] [address] [address] [address] Chantel Rand EGFR-NON AF [place] >60 Normal >=60 [facility] Comment on above: Performed By: #### B MP, LIVER, TSH, LIPID #### [facility] [address] [address] [address] Chantel Rand Glucose [Mass/Vol] 165 mg/dL Critically high 74-106 [facility] Comment on above: Performed By: #### B MP, LIVER, TSH, LIPID #### [facility] [address] [address] [address] Chantel Rand Potassium [Moles/Vol] 4.4 mmol/L Normal 3.5-5.1 [facility] Comment on above: Performed By: #### B MP, LIVER, TSH, LIPID #### [facility] [address] [address] [address] Chantel Rand Sodium [Moles/Vol] 141 mmol/L Normal 136-145 [facility] Comment on above: Performed By: #### B MP, LIVER, TSH, LIPID #### [facility] [address] [address] [address] Chantel Rand Urea nitrogen [Mass/Vol] 27.0 mg/dL Critically high 7.0-18.0 [facility] Comment on above: Performed By: #### B MP, LIVER, TSH, LIPID #### [facility] [address] [address] [address] Chantel Rand Urea nitrogen/Creatinine [Mass ratio] 42.2 mg/mg Normal [facility] Comment on above: Performed By: #### B MP, LIVER, TSH, LIPID #### [facility] [address] [address] [address] Chantel Rand TSHon 08-07-2022 TSH 4.404 uIU/mL Critically high 0.358-3.740 [facility] Comment on above: Performed By: #### B MP, LIVER, TSH, LIPID #### [facility] [address] [address] [address] Chantel Rand VITAMIN D 25 OHon 11-30-2022 VIT D 25-OH 27.0 ng/mL Normal [facility] Comment on above: Performed By: #### L IPA, CMP #### [facility] [address] [place], [place] [address] Dr. Chantel Rand VIT D RANGES SEE BELOW Normal [facility] Comment on above: Result Comment: <20 ng/mL Vit D deficient 20 - <30 ng/mL Vit D insufficient 30 - 100 ng/mL Vit D sufficient >100 ng/mL Potential Toxicity Performed By: #### L IPA, CMP #### [facility] [address] [place], [place] [address] Dr. Chantel Rand Coding Summaryon 01-24-2020 Coding Summary CODING DATE: 01/24/2020 [facility] STATUS: Home PAYOR: Workers Compensation ADMIT DX: [...] result in slightly different terminology. Coded By: Geovanny Whitlock' Date Saved: 01/24/2020 02:36 pm [facility] Coding Summary CODING DATE: 01/24/2020 [facility] STATUS: Home PAYOR: Workers Compensation APC DESCRIPTION [...] Leandra Whitlock Date Saved: 01/24/2020 02:35 pm [facility] Consent Formson 01-24-2020 Consent Forms [id number] [facility] Discharge Instructions [id number] [facility] Summary[facility] 2019 ED Clinical Summary [facility] - Emergency Department [address] [place], [place] [id number] ED Clinical Summary PERSON INFORMATION Name: TALYA OJEDA Age: 54 Years Sex: FEMALE : 1965 MRN: Acct#: Visit Reason: Arm pain-swelling; Elbow injury - Minor; LEFT ARM PAIN Arrival: 01/22/2020 00:18:40 Discharge: 01/22/2020 02:19:00 LOS: 000 02:01 Check In: 01/22/2020 00:18:40 Checkout:01/22/2020 02:19:00 Address: [address] [place] [address] PCP: Provider, None PROVIDER INFORMATION Provider Role Assigned Unassigned Vimal Dewitt DO ED Provider 01/22/2020 00:27:27 Amanda Gonzales UTILITY TECH Nurse 01/22/2020 00:30:45 VITALS INFORMATION Vital Sign Triage Latest Temperature Tympanic Temperature Temporal Artery Pulse Rate 94 bpm 94 bpm O2 Sat 100 % 100 % Respiratory Rate 16 br/min 16 br/min Blood Pressure /92 mmHg /92 mmHg MEDICAL INFORMATION Medications Given: Medication Dose Route ibuprofen 800 mg PO Allergy Information: No known allergies PHYSICIAN DOCUMENTATION Patient: TALYA OJEDA Age: 54 years Sex: FEMALE : 1965 [...] Impression and Plan Diagnosis Arm pain-swelling (PNED [id number], Reason For Visit, Emergency medicine, Medical) Strain of left elbow (MKY27-JE S46.912A, Discharge, Medical) Radial head fracture (EDC30-PQ S52.123A, Discharge, Medical) Complaint of Elbow injury - Minor (PNED [id number], Reason For Visit, Medical) Plan Condition: Improved. [...] You are welcomed to return anytime. T Neema DEWITT< ER PHYSICIAN< Neema Liao . Counseled: Patient, Regarding diagnosis, Regarding diagnostic results, Regarding treatment plan, Regarding prescription, Patient indicated understanding of instructions. DISCHARGE INFORMATION: Discharge Disposition: Home Discharge Location: Home PATIENT EDUCATION INFORMATION Instructions: Radial Head Elbow Fracture Rehab-SportsMed; Elbow Sprain Follow-Up: With: Address: When: Karen Sibley [address] [place] [address], [address] [place], [place] Business (2) In 3 days 01/25/2020 [...] return anytime. Wiley DEWITT< ER PHYSICIAN< Neema Dietrich Keshawn DIAGNOSIS: Radial head fracture; Strain of left elbow Patient Understands: Yes - Patient/family/caregiv er verbalizes understanding of instructions given Comment: [facility] ED Note - Physicianon 2019 ED Note - Physician Patient: TALYA OJEDA Age: 54 years Sex: FEMALE : 1965 [...] Impression and Plan Diagnosis Arm pain-swelling (PNED [id number], Reason For Visit, Emergency medicine, Medical) Strain of left elbow (KJC61-VC S46.912A, Discharge, Medical) Radial head fracture (ZZC01-VQ S52.123A, Discharge, Medical) Complaint of Elbow injury - Minor (PNED [id number], Reason For Visit, Medical) Plan Condition: Improved. [...] on: 01/22/2020 01:57 EDT] Vimal Dewitt DO [facility] ED Note-Nursingon 01-22-2020 ED Note-Nursing Patient presents for left elbow pain after she tripped and fell on a bed post while working. States it happened around 1530 today. 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 MSP intact Normal [facility] ED Patient Education Noteon 01-22-2020 ED [...] 08/25/2006 Document Revised: 12/29/2018 Document Reviewed: 05/19/2016 [employer] Patient Education ? 2019 [employer] Elbow Sprain An elbow sprain is [...] by your health care provider. ? Take zzcm-acn-fwaqzhz and prescription medicines only as told by [...] 04/08/2019 Document Revised: 04/08/2019 Document Reviewed: 04/08/2019 [employer] Patient Education ? 2019 [employer]. Normal [facility] ED Patient Summaryon 020 ED Patient Summary [facility] - Emergency Department [address] [place] [address] PATIENT DISCHARGE INSTRUCTIONS Patient Information Name: TALYA OJEDA Age: 54 Years Date of : 1965 Reason For Visit: Arm pain-swelling; Elbow injury - Minor; LEFT ARM PAIN Arrival Time: 01/22/2020 00:18:40 Primary Care Physician: Provider, None Attending Physician: Vimal Dewitt DO Comment: Visit Diagnosis: Diagnoses This Visit Arm pain-swelling ([id number]) Elbow injury - Minor ([id number]) Radial head fracture (S52.123A) Strain of left elbow (S42.859D) Prescription Information: If you have been given a prescription for narcotics, seek immediate medical attention if you have any difficulty breathing or any sudden status changes such as confusion and sleepiness. If you or anyone you know is experiencing suicidal thoughts, mental health, alcohol and/or drug addiction problems; contact the [facility] 31/03 Crisis Hotline -Text 4HZZN to 932436. If you received any narcotics, sedation, or [...] legal documents With: Address: When: Karen Sibley [address] [place] [address], [address] [place], [place] Business (2) In 3 days 01/25/2020 [...] T H TRACY< ER PHYSICIAN< H B [facility] Medication Information: The exam and treatment you received today in the [facility] Emergency Department were for an urgent problem and are not intended as complete care. It is important for you to follow up with a doctor, nurse practitioner, or physician?s speech and language assistant for ongoing care. If your symptoms [...] so we can reach you if necessary. [facility] Emergency Department has provided you with a complete list of medications post discharge. Please inform your record press supervisor/provider of your visit and for further instruction [...] 08/25/2006 Document Revised: 12/29/2018 Document Reviewed: 05/19/2016 [employer] Interactive Patient Education ? 2019 [employer] Elbow Sprain An elbow sprain is [...] by your health care provider. ? Take xiug-pjn-tukwjal and prescription medicines only as told by [...] 04/08/2019 Document Revised: 04/08/2019 Document Reviewed: 04/08/2019 [employer] Patient Education ? 2019 [employer] Viruses or Bacteria What?s got you sick? [...] for Disease Control and Prevention May 2014 [facility] XR Elbow Complete Lefton XR Elbow [...] Gabe Oswald 01/22/20 1:34 am Technologist: GUERA [facility] US NON OB TRANSVAGINALon US NON [...] greatest diameter intramural anterior fundic uterine fibroid.Interpreted by:Shun Rojas Jr. MDSigned by:Shun Rojas Jr., MD02/13/18inal result Normal [facility] US PELVIS COMPLETEon 018 US PELVIS COMPLETE [...] greatest diameter intramural anterior fundic uterine fibroid.Interpreted by:Shun Rojas Jr. MDSigned by:Shun Rojas Jr., MD02/13/18Edited Result - FINAL Normal [facility] Progress Noteon 02-09-2018 HIM IP Note OR Aircraft Servicer Normal [facility] Follicle Stim. Hormon 2017 Follicle Stim. Horm 48.9 U/L High 1.7-21.5 [facility] Comment on above: Result Comment: Refe rence Range:Male: 1.5-12.4Ovulating Female: Follicular Phase 3.5-12.5 Ovulation Phase 4.7-21.5 Luteal Phase 1.7-7.7Postmenopausal Female: 25.8-134.8Performed at [facility] [address] [place] [phone] ([phone] Performed By: #### Z FAST, GLU, LIPR, FT4, TSH ####[facility] [facility] [place] [address] #### FSH, LH ####[facility] [address] [place] [address] Glucoseon 2018 Glucose mass conc 106 mg/dL High 70-99 [facility] Comment on above: Result Comment: Perf ormed at [facility] [address] [facility] [place] [address] ([phone]) Performed By: #### Z FAST, GLU, LIPR, FT4, TSH ####[address] [address] #### FSH, LH ####[address] [address] Lipid Profileon 2018 Cholesterol 167 mg/dL Normal <200 [facility] Comment on above: Result Comment: Chol esterol Guidelines: <200 Desirable 200-240 Borderline >240 Undesirable Performed By: #### Z FAST, GLU, LIPR, FT4, TSH ####[address] [address] #### FSH, LH ####[address] [address] Cholesterol to HDL Ratio 3.2 {ratio} Normal <5 [facility] Comment on above: Performed By: #### Z FAST, GLU, LIPR, FT4, TSH ####[address] [place] [address] #### FSH, LH ####[facility] [address] [place] [address] HDL Cholesterol 53 mg/dL Normal >40 [facility] Comment on above: Result Comment: HDL Guidelines: <40 Undesirable 40-59 Borderline >59 Desirable Performed By: #### Z FAST, GLU, LIPR, FT4, TSH ####[address] [place] [address] #### FSH, LH ####[facility] [address] [place] [address] LDL Cholesterol 103 mg/dL Normal 0-130 [facility] Comment on above: Result Comment: LDL Guidelines: <100 Desirable 100-129 Near to/above Desirable 130-159 Borderline >159 UndesirableDirect (measured) LDL and calculated LDL are not interchangeable tests. Performed By: #### Z FAST, GLU, LIPR, FT4, TSH ####[address] [address] #### FSH, LH ####[address] [place] [address] Triglyceride 53 mg/dL Normal <150 [facility] Comment on above: Result Comment: Trig lyceride Guidelines: <150 Desirable 150- 199 Borderline 200-499 High >499 Very high Based on AHA Guidelines for fasting triglyceride, June 2012.Performed at [facility] [address] [place] [address] Performed By: #### Z FAST, GLU, LIPR, FT4, TSH ####[address] [address] #### FSH, LH ####[address] [place] [address] Cholesterol in VLDL mass conc NOT REPORTED Normal 10-07 [facility] Comment on above: Performed By: #### Z FAST, GLU, LIPR, FT4, TSH ####[address] [place] [address] #### FSH, LH ####[address] [place] [address] Luteinizing Hormoneon 2017 Luteinizing Hormone 40.8 U/L Normal 1.0-95.6 [facility] Comment on above: Result Comment: Refe rence Range:Male: 1.7-8.6Ovulating Female: Follicular Phase 2.4-12.6 Ovulation Phase 14.0-95.6 Luteal Phase 1.0-11.4Postmenopausal Female: 7.7-58.5Performed at [address] [address] Performed By: #### Z FAST, GLU, LIPR, FT4, TSH ####[address] [address] #### FSH, LH ####[address] [address] Patient fasting?on 8 Patient fasting? YES Normal [facility] Comment on above: Result Comment: Perf ormed at [facility] [address] [place] [address] Performed By: #### Z FAST, GLU, LIPR, FT4, TSH ####[address] [address] #### FSH, LH ####[address] [address] Thyroid Stim. Horm.on 2017 Thyroid stimulating hormone (TSH) 2.42 m[IU]/L Normal 0.30-5.00 [facility] Comment on above: Result Comment: Perf ormed at [facility] [address] [place] [address] Performed By: #### Z FAST, GLU, LIPR, FT4, TSH ####[address] [address] #### FSH, LH ####[address] [address] Thyroxine, Freeon 10-02-2017 Thyroxine, Free 1.01 ng/dL Normal 0.93-1.70 [facility] Comment on above: Result Comment: Perf ormed at [facility] [address] [facility] [place] [address] ([phone] Performed By: #### Z FAST, GLU, LIPR, FT4, TSH ####[facility] [facility] [place] [phone] #### FSH, LH ####[address] [id number] XR FOOT RIGHT STANDARDon XR FOOT RIGHT [...] by:MATILDA Dennisigned by:Chad Malave MD09/30/17inal result Normal [facility] ED Provider Noteon 8 HIM IP Note OR Aircraft Servicer Normal [facility] Uric Acidon 05-26-2017 Urate 5.9 mg/dL High 2.4-5.7 [facility] Comment on above: Result Comment: Perf ormed at [facility] [address] [place] [address] ([phone]) Performed By: #### U RI ####[address] [place] [address]([phone]) Group A Strep DNAon 05-09-20 17 Group A Strep DNA Specimen Description .THROAT SWAB Performed at [facility] [address] [place] [address] [phone] Special Requests NOT REPORTEDDirect Exam Negative: Specimen negative for Streptococcus pyogenes by DNA amplification. Performed at [address] [place] [address] Report Status FINAL 05/09/2017 Normal [facility] Comment on above: Performed By: #### G ASDNA ####[facility] [place] [address] [facility] [place] [address] ED Noteon 05-08-2017 HIM IP Note OR Aircraft Servicer Normal [facility] ED Provider Noteon 7 HIM IP Note OR Aircraft Serv[employer] Normal [facility] Strep Gr A Direct Agon 05-08 Rapid strep test Specimen Description .THROATSpecial Requests NOT REPORTEDDirect Exam Rapid Strep A negative. A negative Rapid Group A Strep Screen result does not rule out the possibility of Group A Streptococci in the specimen. A Group A strep DNA test will be performed. Performed at [facility] [address] [place] [address] ([phone] Report Status FINAL 05/08/2017 [facility] Comment on above: Performed By: #### S GPA ####[facility] [place] [address] XR FINGER RIGHT STANDARDon 0 04-30-2017 [...] by:MATILDA Mckeonigned by:Kwasi Cantu MD04/30/17Final result Normal [facility] ED Provider Noteon 7 HIM IP Note OR Aircraft Serv[employer] Normal [facility] Vital Signs Date Time Vital Sign Value Performing Clinician Roel dela cruz 06-16-2024 13:27-0400 Body height 157.5 cm Jorge Luis Herndon MD Work Phone: [facility] 06-16-2024 13:27-0400 Body mass index (BMI) [Ratio] 43.35 kg/m2 Jorge Luis Herndon MD Work Phone: [facility] 06-16-2024 13:27-0400 Body temperature 97.81 [degF] Jorge Luis Herndon MD Work Phone: [facility] 06-16-2024 13:27-0400 Body weight 107.5 kg Jorge Luis Herndon MD Work Phone: [facility] 06-16-2024 13:27-0400 Diastolic blood pressure 68 mm[Hg] Jorge Luis Herndon MD Work Phone: [facility] 06-16-2024 13:27-0400 Heart rate 90 /min Jorge Luis Herndon MD Work Phone: [facility] 06-16-2024 13:27-0400 Respiratory rate 22 /min Jorge Luis Herndon MD Work Phone: [facility] 06-16-2024 13:27-0400 SaO2% (BldA) [Mass fraction] 98 % Jorge Luis Herndon MD Work Phone: [facility] 06-16-2024 13:27-0400 Systolic blood pressure 132 mm[Hg] Jorge Luis Herndon MD Work Phone: [facility] Healthcare Encounters Encounter Date Encounter Type Care Provider Facility Start: 06-16-2024 End: 06-16-2024 Bamboo flowsheet Jorge Luis Herndon MD Work Phone: [facility] Start: 06-16-2024 End: 06-16-2024 Bamboo flowsheet Jorge Luis Herndon MD Work Phone: [facility] Start: 06-16-2024 End: 06-16-2024 Clinisync Result Encounter Jorge Luis Herndon MD Work Phone: [facility] External Department Unsolicited Start: 06-16-2024 End: 06-16-2024 Patient encounter procedure Jorge Luis Herndon MD Work Phone: [facility] Healthcare Start: 06-16-2024 End: 06-16-2024 Periodic preventive med est patient 40-64yrs Jorge Luis Herndon MD Work Phone: [facility] Comment on above: Annual physical exam (Primary Dx); Type 2 diabetes mellitus with hyperglycemia, without long-term current use of insulin (CMS/HCC); Irritable bowel syndrome with diarrhea; Diabetic polyneuropathy associated with type 2 diabetes mellitus (CMS/HCC); Adult hypothyroidism (CMS/HCC); Obstructive sleep apnea; Breast cancer screening by mammogram; Morbid obesity due to excess calories (CMS/HCC); Body mass index (BMI) 40.0-44.9, adult (CMS/HCC) Start: 06-16-2024 End: 06-16-2024 ambulatory JORGE LUIS HERNDON Not Available Start: 12-10-2023 End: 12-10-2023 ambulatory JORGE LUIS HERNDON Not Available Start: 11-28-2023 End: 11-29-2023 ambulatory Jimmy VELASCO Facility:[facility] Start: 12-23-2022 End: 12-23-[address] JORGE LUIS HERNDON Facility:[facility] Start: 11-16-2022 End: 11-17-[address] GRECIA SY . Facility:[facility] Start: 10-16-2022 End: 10-17-[address] JORGE LUIS HERNDON Facility:[facility] Start: 10-04-2022 End: 10-05-[address] MARIA DE JESUS MARSH Facility:[facility] Start: 08-13-2022 End: 08-13-[address] OZZY PECK . Facility:[facility] Start: 08-10-2022 Encounter for genera l adult medical examination without abnormal findings DR JORGE LUIS HERNDON [facility] Start: 08-07-2022 End: 08-08-[address] JORGE LUIS HERNDON Facility:[facility] Start: 08-07-2022 End: 08-08-2022 Encounter for general adult medical examination without abnormal findings DR JORGE LUIS HERNDON Facility:[facility] Start: 05-13-2022 End: 05-13-[address] JORGE LUIS HERNDON Facility:[facility] Start: 04-18-2022 End: 04-18-[address] DON CHACON Facility:[facility] Start: 02-13-2018 End: 02-16-2018 Ambulatory SITA JERRY [facility] Start: 10-02-2017 End: 10-03-2017 Ambulatory KAREN GARCIA [facility] Start: 09-29-2017 End: 09-29-2017 Emergency department patient visit [facility] Start: 05-26-2017 End: 05-27-[address] [facility] Start: 05-08-2017 End: 05-08-2017 Emergency department patient visit [facility] Start: 04-30-2017 End: 05-01-2017 [facility] Start: 04-26-2017 End: 04-26-2017 Emergency department patient visit KATHERYN Rizvi [facility] Procedures Date Procedure Procedure Detail Performing Clinician Start: 06-16-2024 ALL CBC WITH AUTO DIFF Jorge Luis Herndon MD Work Phone: Start: 07-16-2023 Colonoscopy Jorge Luis montes MD Work Phone: Start: 04-30-2023 Mammography Jorge Luis montes MD Work Phone: Start: 02-13-2018 Us pelvic nonobstetr ic real-time image complete KATHERYN MICHELLE Start: 02-13-2018 Us transvaginal KATHERYN MICHELLE Start: 10-02-2017 FOLLICLE STIMULATING HORMONE KATHERYN LYNCHRAIZA Start: 10-02-2017 GLUCOSE, RANDOM KATHERYN MICHELLE Start: 10-02-2017 Lipid panel KATHERYN ANTONIOJim Start: 10-02-2017 LUTEINIZING HORMONE THOR EPH VIVIANA Start: 10-02-2017 PATIENT FASTING? KATHERYN MICHELLE Start: 10-02-2017 T4, FREE KATHERYN ANTONIOJim Start: 10-02-2017 TSH WITHOUT REFLEX MISTI IVORY CRISRAIZA Start: 09-29-2017 BANDAGE ALFREDO 4 KATHERYN ROMINA MUSTAFA Start: 09-29-2017 Radex foot complete minimum 3 views KATHERYN RADERNALDO Start: 05-26-2017 URIC ACID KATHERYN RADER NALDO Start: 05-08-2017 STREP A DNA PROBE, AMPLIFICATION KATHERYN MICHELLE Start: 05-08-2017 STREP SCREEN GROUP A THROAT KATHERYN MICHELLE Start: 04-30-2017 Radex fingr minimum 2 views KATHERYN MICHELLE Plan of Treatment Date Care Activity Detail Author Start: 07-16-2033 Screening for malign ant neoplasm of colon [facility] Start: 04-23-2028 Screening for malign ant neoplasm of cervix [facility] Start: 12-18-2026 Screening for malign ant neoplasm of colon FIT-DNA [facility] Start: 12-09-2024 Urine screening for protein Diabetes: Urine Protein Screening [facility] Start: 09-16-2024 End: 09-16-2024 Patient encounter procedure 09/16/2024 1:30 PM EST Office Visit [facility] [address] [place] [id number] Jorge Luis Herndon MD [address] [place] [phone] [facility] Start: 06-16-2024 End: 06-16-2025 Basic metabolic 1998 panel - Serum or Plasma Basic metabolic panel Lab Routine Annual physical exam Expected: 06/16/2024 (Approximate), Expires: 06/16/2025 [facility] Comment on above: Expected: 06/16/2024 (Approximate), Expires: 06/16/2025 Start: 06-16-2024 End: 06-16-2025 CBC W Auto Differential panel - Blood CBC and differential Lab Routine Annual physical exam Expected: 06/16/2024 (Approximate), Expires: 06/16/2025 [facility] Comment on above: Expected: 06/16/2024 (Approximate), Expires: 06/16/2025 Start: 06-16-2024 End: 06-16-2025 Hemoglobin A1c/Hemoglobin.total in Blood Hemoglobin A1c Lab Routine Annual physical exam Expected: 06/16/2024 (Approximate), Expires: 06/16/2025 [facility] Work Phone: Comment on above: Expected: 06/16/2024 (Approximate), Expires: 06/16/2025 Start: 06-16-2024 End: 06-16-2025 Hepatic function 2000 panel - Serum or Plasma Hepatic function panel Lab Routine Annual physical exam Expected: 06/16/2024 (Approximate), Expires: 06/16/2025 [facility] Comment on above: Expected: 06/16/2024 (Approximate), Expires: 06/16/2025 Start: 06-16-2024 End: 06-16-2025 Lipid 1996 panel - Serum or Plasma Lipid panel Lab Routine Annual physical exam Expected: 06/16/2024 (Approximate), Expires: 06/16/2025 [facility] Comment on above: Expected: 06/16/2024 (Approximate), Expires: 06/16/2025 Start: 06-16-2024 End: 08-16-2025 MG Breast - bilateral Screening Bilateral screening mammogram Imaging Routine Breast cancer screening by mammogram Expected: 06/16/2024, Expires: 08/16/2025 [facility] Comment on above: Expected: 06/16/2024 , Expires: 08/16/2025 Start: 06-16-2024 End: 06-16-2025 Thyrotropin [Units/volume] in Serum or Plasma TSH Lab Routine Adult hypothyroidism (CMS/HCC) Expected: 06/16/2024 (Approximate), Expires: 06/16/2025 [facility] Comment on above: Expected: 06/16/2024 (Approximate), Expires: 06/16/2025 Start: 06-16-2024 End: 06-16-2025 Thyroxine (T4) free [Mass/volume] in Serum or Plasma T4, free Lab Routine Adult hypothyroidism (CMS/HCC) Expected: 06/16/2024 (Approximate), Expires: 06/16/2025 [facility] Comment on above: Expected: 06/16/2024 (Approximate), Expires: 06/16/2025 Start: 06-16-2024 End: 06-16-2025 Triiodothyronine (T3) Free [Mass/volume] in Serum or Plasma T3, free Lab Routine Adult hypothyroidism (CMS/HCC) Expected: 06/16/2024 (Approximate), Expires: 06/16/2025 [facility] Comment on above: Expected: 06/16/2024 (Approximate), Expires: 06/16/2025 Start: 06-16-2024 End: 06-16-2024 Patient encounter procedure 06/16/2024 1:30 PM EDT Office Visit [facility] [address] [place] [address] Jorge Luis Herndon MD [address] [place] [phone] Arrived [facility] Comment on above: Arrived Start: 06-10-2024 Hemoglobin A1c measurement Bridget betes: Hemoglobin A1C [facility] Start: 05-09-2024 Influenza vaccination Influenza Vacc ine (#1) [facility] Start: 04-30-2024 Screening for malign ant neoplasm of breast Mammogram [facility] Start: 1988 Screening for malign ant neoplasm of cervix Pap Smear [facility] Start: 1986 Urine screening for protein Diabetes: Urine Protein Screening [facility] Start: 1977 Glaucoma screening Diabetes: R etinopathy Screening [facility] Start: 1967 Hemoglobin A1c measurement Bridget betes: Hemoglobin A1C [facility] Start: 1967 Screening for malign ant neoplasm of colon [facility] Payers Date Payer Category Payer Unknown BCBS BCBS xxxxxx [id number] 2023-Present [phone] [address] [place] [address] [id number] 2023 Unknown [id number] 2017 Unknown [id number] 2017 Self-pay 2014 Unknown [id number] 1967 Unknown [id number] 1967 Unknown [id number] 1967 Unknown [id number] 1967 Unknown [id number] 1967 Unknown [id number] 1967 Unknown [id number] [id number] 1967 Unknown [id number] 1967 Unknown [id number] [id number] 1967 Unknown [id number] [id number] 1967 Unknown [id number] [id number] 1967 Unknown [id number] 1959 Unknown [id number] Unknown [id number] Social History Date Type Detail Facility Start: 12-10-2023 Tobacco smoking stat [facility] Never smoked tobacco [facility] Start: 12-10-2023 Tobacco use and exposure Smokeless t obacco non-user [facility] Start: 12-10-2023 End: 06-16-2024 History of Social function [facility] Start: 12-10-2023 End: 06-16-[address] [facility] Start: 1965 Sex assigned at Not on file [facility] Medical Equipment Procedure Code Equipment Code Equipment Origin al Text Equipment Identifier Dates 1 each by In Vit ro route Daily [id number] Start: 06-16-2024 1 each Daily [id number] Start: 06-16-2024 History of Present illness Narrative 06-16-2024 Jorge Luis Herndon MD - 06/16/2024 2:30 PM Nancy Herndon MD - 06/16/2024 1:55 PM Nancy Herndon MD - 06/16/2024 1:55 PM Nancy Herndon MD - 06/16/2024 1:52 PM EDT Note Date & Type Note Facility 06-16-2024 History of Presen t illness Narrative Associated Problem(s): Morbid obesity due to excess calories ([facility]) Weight loss indicated. Associated Problem(s): Type 2 diabetes mellitus with hyperglycemia, without long-term current use of insulin ([facility]) Not checking BS and due for A1C. Stick to ADA diet and limit carbs. Associated Problem(s): Obstructive sleep apnea Over 5 years since last sleep study and machine not working properly. Refer for CPAP titration study. Associated Problem(s): Diabetic polyneuropathy associated with type 2 diabetes mellitus ([facility]/HCC) Increased symptoms and start neurontin. Associated Problem(s): Annual physical exam Due for labs. Discussed proper diet and regular aerobic exercise. Need aerobic exercise 5-6 days a week for 30 minutes at a time. Smaller portions and limit total calories. Colonoscopy every 10 years. Tetanus every 10 years. Advised not to smoke. Discussed daily Aspirin therapy. Images from the original note were not included. Subjective Patient ID: Talya Ojeda is a 59 y.o. female who presents for Follow-up (6m) and Leg Pain (Numbness/ tingling). Presents for annual PE. Weight up 9 pounds in past year. Active at work but no regular exercise. Tries to watch diet and eat healthy. Increased fruits and vegetables. Smaller portions and limits snacking. Tries to limit total daily calories. Due for labs. Not checking BS away from office and needs machine. Tries to eat well and stick to ADA diet. Denies signs of elevated BS such as polyuria, polyphagia or polydipsia. C/o numbness and tingling in right leg and foot. Increased pain with walking and standing. Pain worse at bedtime. Requests sleep study. Last sleep study years ago and machine no longer working properly. Snores loudly and wakes up frequently. Not rested in am and tired all day. Leg Pain Review of Systems Respiratory: Negative for cough, shortness of breath and wheezing. Cardiovascular: Negative for chest pain and palpitations. Gastrointestinal: Negative for abdominal pain, diarrhea, nausea and vomiting. Genitourinary: Negative for dysuria. Objective Physical Exam Constitutional: General: She is not in acute distress. Appearance: Normal appearance. HENT: Head: Normocephalic. Right Ear: Tympanic membrane normal. Left Ear: Tympanic membrane normal. Eyes: Extraocular Movements: Extraocular movements intact. Pupils: Pupils are equal, round, and reactive to light. Cardiovascular: Rate and Rhythm: Normal rate and regular rhythm. Heart sounds: No murmur heard. No friction rub. No gallop. Pulmonary: Effort: Pulmonary effort is normal. Breath sounds: Normal breath sounds. No wheezing, rhonchi or rales. Abdominal: General: Bowel sounds are normal. There is no distension. Palpations: Abdomen is soft. Tenderness: There is no abdominal tenderness. There is no guarding or rebound. Musculoskeletal: General: No swelling or tenderness. Cervical back: Neck supple. Right lower leg: No edema. Left lower leg: No edema. Skin: Findings: No erythema or rash. Neurological: General: No focal deficit present. Mental Status: She is alert and oriented to person, place, and time. Cranial Nerves: No cranial nerve deficit. Motor: No weakness. Gait: Gait normal. Assessment/Plan Problem List Items Addressed This Visit Adult hypothyroidism (CMS/HCC) Relevant Orders TSH T4, free T3, free Irritable bowel syndrome with diarrhea Relevant Medications rifAXIMin (Xifaxan) 550 MG tablet Obstructive sleep apnea Over 5 years since last sleep study and machine not working properly. Refer for CPAP titration study. Type 2 diabetes mellitus with hyperglycemia, without long-term current use of insulin ([facility]) Not checking BS and due for A1C. Stick to ADA diet and limit carbs. Relevant Medications semaglutide (Ozempic, 0.25 or 0.5 MG/DOSE,) 2 MG/1.5ML solution pen-injector Blood Glucose Monitoring Suppl (Blood Glucose Monitor System) w/Device kit Glucose Blood (Blood Glucose Test Strips 333) strip Lancets Micro Thin 33G misc Morbid obesity due to excess calories (CMS/HCC) Weight loss indicated. Annual physical exam - Primary Due for labs. Discussed proper diet and regular aerobic exercise. Need aerobic exercise 5-6 days a week for 30 minutes at a time. Smaller portions and limit total calories. Colonoscopy every 10 years. Tetanus every 10 years. Advised not to smoke. Discussed daily Aspirin therapy. Relevant Orders Hemoglobin A1c Basic metabolic panel CBC and differential Hepatic function panel Lipid panel Diabetic polyneuropathy associated with type 2 diabetes mellitus (CMS/HCC) Increased symptoms and start neurontin. Relevant Medications gabapentin (Neurontin) 300 MG capsule Other Visit Diagnoses Breast cancer screening by mammogram Relevant Orders Bilateral screening mammogram documented in this encounter [facility] Clinical Note 12-23-2022 Note Date & Type [...] by: EUFEMIA GARBER Date: 2022-12-23 14:47 [facility] Evaluation note Note Date & Type Note Facility Evaluation note Diagnosis Annual physical exam- Primary Routine general medical examination at a health care facility Type 2 diabetes mellitus with hyperglycemia, without long-term current use of insulin (CMS/HCC) Irritable bowel syndrome with diarrhea Irritable bowel syndrome Diabetic polyneuropathy associated with type 2 diabetes mellitus (CMS/HCC) Adult hypothyroidism (CMS/HCC) Unspecified hypothyroidism Obstructive sleep apnea Obstructive sleep apnea (adult) (pediatric) Breast cancer screening by mammogram Morbid obesity due to excess calories (CMS/HCC) Body mass index (BMI) 40.0-44.9, adult (CMS/HCC) documented in this encounter [facility] Summary Purpose Family History No Family History [...] section and content) DATE CREATED AUTHOR 02/24/2018 [facility] DATE CREATED AUTHOR AUTHOR'S ORGANIZ ATION 02/25/2018 [facility] DATE CREATED AUTHOR AUTHOR'S ORGANIZ ATION 01/24/2020 [facility] DATE CREATED AUTHOR AUTHOR'S ORGANIZ ATION 12/25/2022 [facility] DATE CREATED AUTHOR AUTHOR'S ORGANIZ ATION 11/30/2023 [facility] DATE CREATED AUTHOR AUTHOR'S ORGANIZ ATION 06/18/2024 [facility] EPIC Care Teams (unrecognized sec tion and content) [employer] Relationship Specialty Start Date End Date Jorge Luis Herndon MD [address] [place] [phone] PCP - General Family Medicine 10/30/23 Jorge Luis Herndon MD [address] [place] [phone] PCP [facility] 02/07/24 [employer] Relationship Specialty Start Date End Date Jorge Luis Herndon MD [address] [place] [phone] PCP - General Family Medicine 10/30/23 Jorge Luis Herndon MD [address] [place] [phone] PCP - [employer] 02/07/24 [employer] Relationship Specialty Start Date End Date Jorge Luis Herndon MD [address] [place] [address] PCP - General Family Medicine 10/30/23 Jorge Luis Herndon MD [address] [place] [address] PCP - [employer] 02/07/24 Reason for Visit (unrecogniz ed section and content) Reason Comments Follow-up 6m Leg Pain Numbness/ tingling FOR RECORDS PERTAINING TO PATIENTS WHO ARE [...] BE BASED ON THE PRIMARY CLINICAL RECORDS. [employer] provides no warranty or guarantee of the accuracy or completeness of information in this document.
== END 2024-07-07 19:42 | disposition home or self-care (01) ==
LOC: SLEEP 19:49
PROVIDERS: PCP Family Medicine; Visit Provider Family Medicine
DX: G47.33 Obstructive sleep apnea (adult) (pediatric) (principal)
CPT/HCPCS: 95811

== ENCOUNTER 2025-01-03 13:25 | Outpatient (OUT) | payer OTHER, SELFPAY ==
--- NOTE | 2025-01-03 13:41 | XR_ITS ---
The [address] [address] Patient Name: SHIRAZ HENSON MRN: [id number] date: 1965 Sex: F Assigned Patient Location: LAB Current Patient Location: LAB Accession/Order Number: [id number] Exam Date: 01/03/2025 16:01 Report Date: 01/03/2025 16:02 At the request of: SHARAN HERNDON MD Procedure: XR cervical spine 2-3V CERVICAL SPINE 5 views: CLINICAL HISTORY: Chronic Neck Pain COMPARISON: Cervical spine 10/16/2022 FINDINGS: Vertebral body heights appear maintained. Moderate spondylosis C4-C7. No prevertebral soft tissue swelling. XR/XR cervical spine 2-3V IMPRESSION: MODERATE SPONDYLOSIS C4-C7. Impression dictated by: Jamari Pagan Jr., D.OSusie 01/03/2025 4:02 PM Dictation Location: [place] [address] Electronically authenticated by: [id number] Date: 01/03/2025 16:02
[2025-01-03 14:50] LABS: Creatinine Urine Random 235.31 mg/dL (20.00-300.00); Microalbum Creatinine Ratio Ur 22.5 mg/g (0.0-29.9); Microalbumin Urine Random 5.3 mg/dL (<=30.0)
[2025-01-03 15:31] LABS: Estimated Average Glucose 143 mg/dL; Glycohemoglobin A1C 6.6 % (4.5-6.2)
== END 2025-01-03 13:26 | disposition home or self-care (01) ==
PROVIDERS: PCP Family Medicine; Visit Provider Family Medicine
DX: M54.2 Cervicalgia (principal); E11.65 Type 2 diabetes mellitus with hyperglycemia; G89.29 Other chronic pain; M47.812 Spondylosis without myelopathy or radiculopathy, cervical region
CPT/HCPCS: 36415; 72040; 82043; 82570; 83036

== ENCOUNTER 2025-05-04 18:37 | Emergency (ER) | payer OTHER, SELFPAY ==
[2025-05-04 18:42] VITALS: BP 135/101; PULSE 97; TEMP 36.9; O2SAT 88; BMI 43.9
[2025-05-04 18:48] VITALS: O2SAT 86
[2025-05-04 18:50] VITALS: O2SAT 92
--- OUTSIDE RECORDS SUMMARY | 2025-05-04 18:52 | XMS_ITS | CCD ---
Author Organization [facility] Care Team Providers Care Senior Director Creative Services Name Role Phone JAMARI MICHELLE Belkys Unavailable Unavailable BRENNAN, ALISHA Unavailable Unavailable BRENNAN, ALISHA Unavailable Unavailable BRENNAN, ALISHA Unavailable Unavailable BRENNAN, ALISHA Unavailable Unavailable BRENNAN, ALISHA Unavailable Unavailable KIAN SCHULTZ Unavailable Unavaila ble BRENNAN, ALISHA Unavailable Unavailable BRENNAN, ALISHA Unavailable Unavailable BRENNAN, ALISHA Unavailable Unavailable SHANTELLE, VESELIN Unavailable Unavailable JOSEKAREN HAMPTON Unavailable Unavailable BRENNAN, ALISHA Unavailable Unavailable ROSALINO, SITA J Unavailable Unavailable YONLEY, RACHEL L Unavailable Unavailable HAY ., DR PAIGE Admitting Unavailable NADERER, DR JORGE LUIS Rizvi Primary Care Unavailable HAY ., DR PAIGE Attending Unavailable HAY ., DR PAIGE Consulting Unavailable NADERER, DR JORGE LUIS Rizvi Primary Care Unavailable OPALNICOLE Consulting Unavailable KATKOTODD Admitting Unavailable KATKO, TODD Bourne Attending Unavailable EUFEMIA GARBER Consulting Unavailable NADERER, DR JORGE LUIS Rizvi Attending Unavailable NADERER, DR JORGE LUIS Rizvi Consulting Unavailable NADERER, DR JORGE LUIS Rizvi Primary Care Unavailable NADERER, DR JORGE LUIS Rizvi Admitting Unavailable NADERER, DR JORGE LUIS Rizvi Admitting Unavailable NADERER, DR JORGE LUIS Rizvi Attending Unavailable NADERER, DR JORGE LUIS Rizvi Primary Care Unavailable MAIXMO, DR MARIA DE JESUS Christensen Consulting Unavailable NADRACHEL, DR JORGE LUIS Rizvi Consulting Unavailable MAXIMO, DR MARIA DE JESUS Christensen Admitting Unavailable [...] Unavailable MARKER ., DR PRECIADO Consulting Unavailable MARKUSROX Jama Consulting Unavailable DR DON CHACON Admitting Unavailable KATRINA, DR JORGE LUIS Rizvi Primary Care Unavailable NICOLE JOSEPH Consulting Unavailable DR DON CHACON Attending Unavailable KATRINA, DR JORGE LUIS Rizvi Primary Care Unavailable GABRIELLA DELANEY Admitting Unavailable GABRIELLA DELANEY Attending Unavailable ODILIA Richards, GABRIELLA Consulting Unavailable Jimmy VELASCO Attending Unavailable Jorge Luis Herndon MD Primary Care Provider Jorge Luis Herndon MD Unavailable JORGE LUIS HERNDON Attending Unavailable JORGE LUIS HERNDON Attending Unavailable JORGE LUIS HERNDON Attending Unavailable JORGE LUIS HERNDON Primary Care Unavailable MARTY CARTER Attending Unavailable Allergies Allergy Classification Reported Allergen(s) Allergy Type Date of Onset Reaction(s) Facility (1 source) BEE VENOM PROTEIN (HONEY BEE); Translations: [BEE VENOM PROTEIN (HONEY BEE)] Propensity to adverse reactions to drug (disorder) 3 [facility] Rep[facility] Medications Current Medications Medication Drug Class(es) Dates Sig (Normalized) Sig (Original) atorvastatin 20 mg oral tablet (12 sources) HMG-CoA Reductase Inhibitor Start: 07-29-2024 take 1 tablet by mouth at bedtime atorvastatin (Lipitor) 20 MG tablet Indications: Type 2 diabetes mellitus with hyperglycemia, without long-term current use of insulin ([facility]) TAKE 1 TABLET BY MOUTH AT BEDTIME 30 tablet 5 07/29/2024 Active Start: 12-10-2023 take 1 tablet by laura th at bedtime atorvastatin (Lipitor) 20 MG tablet Indications: Type 2 diabetes mellitus with hyperglycemia, without long-term current use of insulin ([facility]) Take 1 tablet (20 mg) by mouth at bedtime 30 tablet 5 12/10/2023 Active Blood Glucose Monitoring Suppl (Blood Glucose Monitor System) w/Device kit (11 sources) Start: 06-16-2024 Blood Glucose Monitoring Suppl (Blood Glucose Monitor System) w/Device kit Indications: Type 2 diabetes mellitus with hyperglycemia, without long-term current use of insulin ([facility]) 1 each Daily 1 kit 06/16/2024 Active cholecalciferol 0.025 mg oral tablet (12 sources) Vitamin D Start: 08-23-2024 End: 08-23-2025 take 2 tablets by mouth once daily cholecalciferol (Vitamin D-3) 25 MCG (1000 UT) tablet Indications: Vitamin D deficiency Take 2 tablets (50 mcg) by mouth Daily 60 tablet 11 08/23/2024 08/23/2025 Active take 1 tablet by mouth once mora y cholecalciferol 25 MCG (1000 UT) tablet Take 50 mcg by mouth Daily Active gabapentin 300 mg oral capsule (11 sources) Anti-epileptic Agent Start: 06-16-2024 take 1 capsule by mouth once at bedtime gabapentin (Neurontin) 300 MG capsule Indications: Diabetic polyneuropathy associated with type 2 diabetes mellitus (CMS/HCC) 1 PO at bedtime on day #1, then 1 PO BID on day #2, then 1 PO TID 90 capsule 2 06/16/2024 Active levothyroxine sodium 0.05 mg oral tablet (12 sources) l-Thyroxine Start: 08-18-2024 take 1 tablet by mouth in the morning levothyroxine (Synthroid, Levoxyl) 50 MCG tablet Indications: Adult hypothyroidism (CMS/HCC) TAKE 1 TABLET BY MOUTH IN THE MORNING 30 tablet 5 08/18/2024 Active Start: 12-10-2023 take 1 tablet by laura th in the morning levothyroxine (Synthroid, Levoxyl) 50 MCG tablet Indications: Adult hypothyroidism (CMS/HCC) Take 1 tablet (50 mcg) by mouth in the morning. 30 tablet 5 12/10/2023 Active losartan potassium 25 mg oral tablet (7 sources) Angiotensin 2 Receptor Ayush Start: 09-16-2024 take 1 tablet by mouth once daily losartan (Cozaar) 25 MG tablet Indications: Benign essential hypertension (CMS/HCC) Take 1 tablet (25 mg) by mouth Daily 30 tablet 5 09/16/2024 Active methocarbamol 750 mg oral tablet (4 sources) Muscle Relaxant Start: 12-30-2024 take 1 tablet by mouth four times daily as needed for muscle spasms methocarbamol (Robaxin) 750 MG tablet Indications: Cervical spondylosis Take 1 tablet (750 mg) by mouth 4 (four) times a day as needed for muscle spasms 60 tablet 2 12/30/2024 Active nabumetone 500 mg oral tablet (4 sources) Nonsteroidal Anti-inflammatory Drug Start: 12-30-2024 take 1 tablet by mouth twice daily as needed for pain nabumetone (Relafen) 500 MG tablet Indications: Cervical spondylosis Take 1 tablet (500 mg) by mouth 2 (two) times a day as needed for moderate pain 60 tablet 3 12/30/2024 Active omeprazole 40 mg delayed release oral capsule (12 sources) Proton Pump Inhibitor Start: 11-22-2024 take 1 capsule by mouth once daily omeprazole (PriLOSEC) [address] capsule Indications: Gastro-esophageal reflux disease without esophagitis Take 1 capsule (40 mg) by mouth Daily 30 capsule 5 11/22/2024 Active Start: 03-29-2024 take 1 capsule by [facility] once daily omeprazole (PriLOSEC) [address] capsule Indications: Gastro-esophageal reflux disease without esophagitis TAKE 1 CAPSULE BY MOUTH DAILY 30 capsule 5 03/29/2024 Active rifAXIMin 200 mg oral tablet (9 sources) Rifamycin Antibacterial Start: 12-30-2024 End: 01-13-2025 take 1 tablet by mouth in the morning, then take 1 tablet by mouth in the evening, then take 1 tablet by mouth at bedtime rifAXIMin (Xifaxan) 200 MG tablet Indications: Irritable bowel syndrome with diarrhea Take 1 tablet (200 mg) by mouth in the morning and 1 tablet (200 mg) in the evening and 1 tablet (200 mg) before bedtime. Do all this for 14 days. 42 tablet 12/30/2024 01/13/2025 Active Start: 06-16-2024 End: 06-30-2024 take 1 tablet [...] 1.5 ml semaglutide 1.34 mg/ml pen injector (8 sources) Start: 09-16-2024 End: 12-30-2024 semaglutide (Ozempic, 0.25 o r 0.5 MG/DOSE,) 2 MG/1.5ML solution pen-injector Indications: Type 2 diabetes mellitus with hyperglycemia, without long-term current use of insulin ([facility]/HCC) 0.25 mg SC weekly x 4 weeks, then 0.5 mg weekly 1 each 5 09/16/2024 12/30/2024 Discontinued Start: 06-16-2024 semaglutide (O zempic, 0.25 or 0.5 MG/DOSE,) 2 MG/1.5ML solution pen-injector Indications: Type 2 diabetes mellitus with hyperglycemia, without long-term current use of insulin (CMS/HCC) 0.25 mg SC weekly x 4 weeks, then 0.5 mg weekly 1 each 3 06/16/2024 Active sertraline 50 mg oral tablet (12 sources) Serotonin Reuptake Inhibitor Start: 10-21-2024 take 1 tablet by mouth once daily sertraline (Zoloft) 50 MG tablet Indications: Generalized anxiety disorder (CMS/HCC) TAKE 1 TABLET BY MOUTH ONCE DAILY 30 tablet 2 10/21/2024 Active Start: 06-08-2024 take 1 tablet by laura th once daily sertraline (Zoloft) 50 MG tablet Indications: Generalized anxiety disorder (CMS/HCC) TAKE 1 TABLET BY MOUTH ONCE DAILY 30 tablet 2 06/08/2024 Active traZODone hydrochloride 50 mg oral tablet (12 sources) Serotonin Reuptake Inhibitor Start: 12-10-2023 take 1 tablet by mouth at bedtime traZODone (Desyrel) 50 MG tablet Indications: Primary insomnia Take 1 tablet (50 mg) by mouth at bedtime 30 tablet 5 12/10/2023 Active Completed/Discontinued Medications Medication Drug Class(es) Dates Sig (Normalized) Sig (Original) Ozempic, 0.25 or 0.5 MG/DOSE, 2 MG/3ML solution pen-injector (3 sources) Start: 06-17-2024 End: 09-16-2024 inject 0.25 mg by subcutaneous injection every week, then inject 0.5 mg by subcutaneous injection every week Ozempic, 0.25 or 0.5 MG/DOSE, 2 MG/3ML solution pen-injector Indications: Type 2 diabetes mellitus with hyperglycemia, without long-term current use of insulin (CMS/HCC) INJECT 0.25mg SUBCUTANEOUSLY (UNDER THE SKIN) every week for FOUR weeks, then increase to 0.5mg SUBCUTANEOUSLY (UNDER THE SKIN) every week thereafter 3 mL 3 06/17/2024 09/16/2024 Discontinued Start: 06-17-2024 inject 0.25 mg by argueta bcutaneous injection every week, then inject 0.5 mg by subcutaneous injection every week Ozempic, 0.25 or 0.5 MG/DOSE, 2 MG/3ML solution pen-injector Indications: Type 2 diabetes mellitus with hyperglycemia, without long-term current use of insulin (CMS/HCC) INJECT 0.25mg SUBCUTANEOUSLY (UNDER THE SKIN) every week for FOUR weeks, then increase to 0.5mg SUBCUTANEOUSLY (UNDER THE SKIN) every week thereafter 3 mL 3 06/17/2024 Active Problems Active Problems Problem Classification Problem Date Documented Da te Episodic/Chronic Anxiety disorders (16 sources) Generalized anxiety disorder; Translations: [Generalized anxiety disorder] Onset: 4 12-10-2023 Chronic Diabetes mellitus with complications (20 sources) Hyperglycemia due to type 2 diabetes mellitus; Translations: [Type 2 diabetes mellitus with hyperglycemia] Onset: 4 12-10-2023 Chronic Diabetes mellitus without complication (1 source) Type 2 diabetes mellitus without complications; Translations: [TYPE 2 DM WITHOUT COMPLICATIONS] Onset: 2 Chronic Esophageal disorders (12 sources) Gastroesophageal reflux disease; Translations: [Gastro-esophageal reflux disease without esophagitis] Onset: 4 12-10-2023 Chronic Essential hypertension (11 sources) Benign essential hypertension; Translations: [Essential (primary) hypertension] Onset: 4 09-16-2024 Chronic Gout and other crystal arthropathies (1 source) Gout, unspecified; Translations: [Gout, unspecified] Onset: 7 Chronic Menstrual disorders (3 sources) Irregular menstruation, unspecified; Translations: [Irregular menstruation, unspecified] Onset: 8 Chronic Miscellaneous mental health disorders (16 sources) Primary insomnia; Translations: [Primary insomnia] Onset: 4 12-10-2023 Chronic Mood disorders (16 sources) Recurrent major depressive episodes, mild ; Translations: [Major depressive disorder, recurrent, mild] Onset: 4 12-10-2023 Chronic Nonspecific chest pain (8 sources) Chest pain, unspecified; Translations: [Other chest pain] Onset: 3 Episodic Nutritional deficiencies (13 sources) Vitamin D deficiency, unspecified; Translations: [Vitamin D deficiency] Onset: 2 12-10-2023 Chronic Osteoarthritis (12 sources) Primary gonarthrosis, bilateral; Translations: [Bilateral primary osteoarthritis of knee] Onset: 4 12-10-2023 Chronic Other aftercare (1 source) Other [place] (current) drug therapy; Translations: [OTH [facility] CURRENT DRUG THERAPY] Onset: 3 Episodic Other ear and sense organ disorders (1 source) Unspecified otitis externa, right ear; Translations: [UNS OTITIS EXTERNA RT EAR] Onset: 3 Chronic Other ear and sense organ disorders (3 sources) Otalgia, right ear; Translations: [OTALGIA RIGHT EAR] Onset: 3 Episodic Other gastrointestinal disorders (16 sources) Irritable bowel syndrome with diarrhea; Translations: [Irritable bowel syndrome with diarrhea] Onset: 4 12-10-2023 Chronic Other nutritional; endocrine; and metabolic disorders (7 sources) Morbid obesity; Translations: [Morbid (severe) obesity due to excess calories] Onset: 4 12-10-2023 Chronic Other nutritional; endocrine; and metabolic disorders (2 sources) Body mass index 40+ - severely obese; Translations: [Body mass index (BMI) 40.0-44.9, adult] 06-16-2024 Chronic Other nutritional; endocrine; and metabolic disorders (11 sources) Severe obesity; Translations: [Class 3 severe obesity due to excess calories with serious comorbidity and body mass index (BMI) of 40.0 to 44.9 in adult (CMS/[facility])] Onset: 4 09-16-2024 Chronic Residual codes; unclassified (14 sources) Obstructive sleep apnea syndrome; Translations: [Obstructive sleep apnea (adult) (pediatric)] Onset: 4 12-10-2023 Chronic Spondylosis; intervertebral disc disorders; other back problems (20 sources) Spondylosis without myelopathy or radiculopathy, cervical region; Translations: [Cervical spondylosis] Onset: 3 12-10-2023 Chronic Spondylosis; intervertebral disc disorders; other back problems (1 source) Cervicalgia; Translations: [CERVICALGIA] Onset: 3 Episodic Thyroid disorders (18 sources) Hypothyroidism, unspecified; Translations: [Hypothyroidism] Onset: 3 [...] UNSPECIFIED] Onset: 08-15-2022 Episodic Other circulatory disease (5 sources) Elevated blood-pressure reading without diagnosis of [...] TRACT] Onset: 08-15-2022 Episodic Residual codes; unclassified (12 sources) Bilateral lower limb edema; Translations: [Localized [...] 08-15-2022 Episodic Varicose veins of lower extremity (16 sources) Varicose veins of bilateral lower extremities with pain; Translations: [Varicose veins of lower extremity] Onset: 10-04-2022 Episodic Viral infection (1 source) Other viral agents as the cause of diseases classified elsewhere; Translations: [Other viral agents as the cause of diseases classified elsewhere] Onset: 05-08-2017 Episodic Results Test Name Value Interpretation Reference Range Facility BASIC METABOLIC PANELon 08-0 Anion gap [Moles/Vol] 6 mmol/L Normal 5-15 [facility] Comment on above: Performed By: #### B MP #### [facility] ([address] [address] VIR Calcium [Mass/Vol] 8.5 mg/dL Normal 8.5-10.5 [facility] Comment on above: Performed By: #### B MP #### [facility] ([address] [address] VIR Chloride [Moles/Vol] 105 mmol/L Normal 98-109 [facility] Comment on above: Performed By: #### B MP #### [facility] ([address] [place] [address] VIR CO2 [Moles/Vol] 27 mmol/L Normal 22-32 [facility] Comment on above: Performed By: #### B MP #### [facility] ([facility]) [address] [place], [place] [address] [address] VIR Creatinine [Mass/Vol] 0.46 mg/dL Normal 0.40-1.00 [facility] Comment on above: Result Comment: METH OD TRACEABLE TO IDMS STANDARD Performed By: #### B MP #### [facility] ([address] [place] [place] [address] VIR EGFR (CKD-EPI) NON-RACE DEPENDENT >^90 Normal >=60 [facility] Comment on above: Result Comment: eGFR not reported due to non-numeric value for Creatinine. Reported eGFR is based on the CKD-EPI 2020 equation that does not use a race coefficient. Performed By: #### B MP #### [facility] ([address] [place] [address] VIR Glucose [Mass/Vol] 161 mg/dL High 65-99 [facility] Comment on above: Performed By: #### B MP #### [facility] ([address] [place] [address] VIR Potassium [Moles/Vol] 3.9 mmol/L Normal 3.5-5.0 [facility] Comment on above: Performed By: #### B MP #### [facility] ([address] [place] [address] VIR Sodium [Moles/Vol] 138 mmol/L Normal 134-146 [facility] Comment on above: Performed By: #### B MP #### [facility] ([address] [place] [address] VIR Urea nitrogen [Mass/Vol] 20 mg/dL Normal 5-23 [facility] Comment on above: Performed By: #### B MP #### [facility] ([address] [address] VIR CBC WITH AUTO DIFFERENTIALon 04-10-2025 BASOPHILS ABSOLUTE COUNT (10*3/UL) BY AUTOMATED COUNT 0.0 10*3/uL Normal 0.0-0.2 [facility] Comment on above: Performed By: #### C BCA #### [facility] ([address] [address] VIR BASOPHILS RELATIVE PERCENT BY AUTOMATED COUNT 0.2 % Normal [facility] Comment on above: Performed By: #### C BCA #### [facility] ([address] [address] VIR CELLAVISION DIFFERENTIAL TYPE AUTOMATED DIFFERENTIAL Normal [facility] Comment on above: Performed By: #### C BCA #### [facility] ([address] [address] VIR Eosinophils (Bld) [#/Vol] 0.2 10*3/uL Normal 0.0-0.4 [facility] Comment on above: Performed By: #### C BCA #### [address] [address] VIR EOSINOPHILS RELATIVE PERCENT BY AUTOMATED COUNT 2.2 % Normal [facility] Comment on above: Performed By: #### C BCA #### [address] [address] VIR Erythrocyte distribution width (RBC) [Ratio] 13.5 % Normal 11.5-15 [facility] Comment on above: Performed By: #### C BCA #### [address] [address] VIR Hematocrit (Bld) [Volume fraction] 40.6 % Normal 35-47 [facility] Comment on above: Performed By: #### C BCA #### [facility] ([address] [address] VIR Hemoglobin (Bld) [Mass/Vol] 13.7 g/dL Normal 11.7-15.5 [facility] Comment on above: Performed By: #### C BCA #### [facility] ([address] [address] VIR LYMPHOCYTES ABSOLUTE COUNT (10*3/UL) BY AUTOMATED COUNT 1.5 10*3/uL Normal 1.0-3.5 [facility] Comment on above: Performed By: #### C BCA #### [facility] ([address] [address] VIR LYMPHOCYTES RELATIVE PERCENT BY AUTOMATED COUNT 21.6 % Normal [facility] Comment on above: Performed By: #### C BCA #### [facility] ([address] [address] VIR MCH (RBC) [Entitic mass] 29.1 pg Normal 27-34 [facility] Comment on above: Performed By: #### C BCA #### [facility] ([address] [address] VIR MCHC (RBC) [Mass/Vol] 33.7 g/dL Normal 32-36 [facility] Comment on above: Performed By: #### C BCA #### [facility] ([address] [address] VIR MCV (RBC) [Entitic vol] 86 fL Normal 80-100 [facility] Comment on above: Performed By: #### C BCA #### [facility] ([address] [address] VIR MONOCYTES ABSOLUTE COUNT (10*3/UL) BY AUTOMATED COUNT 0.6 10*3/uL Normal 0.0-0.9 [facility] Comment on above: Performed By: #### C BCA #### [facility] ([address] [place] [address] VIR MONOCYTES RELATIVE PERCENT BY AUTOMATED COUNT 8.5 % Normal [facility] Comment on above: Performed By: #### C BCA #### [facility] ([address] [place] [address] VIR NEUTROPHILS ABSOLUTE COUNT BY AUTOMATED COUNT 4.7 10*3/uL Normal 1.5-6.6 [facility] Comment on above: Performed By: #### C BCA #### [facility] ([address] [place] [address] VIR NEUTROPHILS RELATIVE PERCENT BY AUTOMATED COUNT 67.5 % Normal [facility] Comment on above: Performed By: #### C BCA #### [facility] ([address] [place] [address] VIR Platelet mean volume (Bld) [Entitic vol] 10.5 fL Normal 7-12 [facility] Comment on above: Performed By: #### C BCA #### [facility] ([address] [place] [address] VIR Platelets (Bld) [#/Vol] 165 10*3/uL Normal 150-450 [facility] Comment on above: Performed By: #### C BCA #### [facility] ([address] [place] [address] VIR RBC COUNT 4.70 X10E12/L Normal 3.8-5.2 [facility] Comment on above: Performed By: #### C BCA #### [facility] ([address] [place] [address] VIR WBC (Bld) [#/Vol] 6.9 10*3/uL Normal 4-11 [facility] Comment on above: Performed By: #### C BCA #### [facility] ([address] [place] [address] CHEST W CONTon 04-10-[address]25 CT CHEST W CONT CT CHEST W CONT CT CHEST W CONT HISTORY: Right-sided chest pain, elevation of the right hemidiaphragm, follow-up airspace opacity identified on prior chest x-ray. COMPARISON: Chest radiograph 04/10/2025. TECHNIQUE: Multidetector axial CT Chest performed with 100 mL of Omnipaque 300 IV contrast. Sagittal and coronal 2-D reconstructed images were also obtained. Automated exposure control was utilized. All CT scans at this facility use dose modulation, iterative reconstruction, and/or weight based dosing when appropriate to reduce radiation dose to as low as reasonably achievable. FINDINGS: LUNGS/PLEURA: The airways are patent. No pneumothorax or pleural effusion. No focal consolidation or other air space process correlating to prior chest radiograph finding. Minimal bibasilar atelectasis. HEART/VESSELS/MEDIASTI NUM: No cardiomegaly or pericardial effusion. The thoracic aorta is nonaneurysmal. Mild dilatation of the pulmonary trunk up to 3.3 cm. No pulmonary embolus visualized in large branches, within limits of non-dedicated study. Mild coronary artery calcifications. No enlarged mediastinal or hilar lymph nodes. LOWER NECK AND UPPER ABDOMEN: The visualized thyroid is unremarkable. Diffuse hepatic steatosis. Hepatic calcifications, likely sequela of prior granulomatous disease. MUSCULOSKELETAL: No acute osseous abnormality. Multilevel degenerative changes of the thoracic spine. DISH. IMPRESSION: * No air space process corresponding to prior chest radiograph finding or other acute intrathoracic abnormality. * Hepatic steatosis. Approved by Resident Zaid Giraldo MD on 04/10/2025 8:28 PM Payton Good MD have personally reviewed the image(s) and agree with and/or edited the report Finalized by Payton Way MD on 04/10/2025 8:41 PM Normal [facility] D-DIMERon 04-10-2025 D DIMER <^150 Normal 1-255 [facility] Comment on above: Result Comment: Resu lts <255 ng/mL DDU: The presensence of a VTE can safely be excluded with a negative D-Dimer result and Wells score. A negative result doesn't exclude the possibility of DIC. The test should be repeated along with other diagnostic tests if the patient's symptoms persist or worsen. Performed By: #### D DMR #### [facility] ([address] [address] VIR TROP I, HIGH SENSITIVITY 1 H OURon 04-10-2025 TROPONIN I, HIGH SENSITIVITY 3 ng/L Normal <16 [facility] Comment on above: Performed By: #### T [id number] #### [facility] ([address] [place] [address] VIR TROPONIN I, HIGH SENSITIVITY 0 HOURon 04-10-2025 TROPONIN I, HIGH SENSITIVITY 3 ng/L Normal <16 [facility] Comment on above: Performed By: #### T [id number] #### [facility] ([address] [address] VIR XR CHEST 2 VWSon 04-10-2025 XR CHEST 2 VWS XR CHEST 2 VWS PA and lateral chest, 2 views, dated 04/10/2025 at 6:35 PM INDICATION: Chest pain, right-sided. FINDINGS: No comparisons available. Mild elevation of the right hemidiaphragm. Subtle linear opacity in the right midlung, the rest of the lungs are clear. No effusions. No pneumothorax. Cardiac silhouette is at the upper limits of normal. IMPRESSION: 1. Subtle linear opacity in the right midlung, and mild elevation of the right hemidiaphragm. Short-term follow-up recommended. 2. No other abnormality seen. Finalized by Payton Way MD on 04/10/2025 6:49 PM Normal [facility] MICROALB CREAT RATIO RAN DOMon 01-03-2025 CREATININE URINE RANDOM 235.31 mg/dL 20.00 - 300.00 mg/dL [facility] MICROALBUM CREATININE RATIO UR 22.5 mg/g 0.0 - 29.9 mg/g [facility] Comment on above: NO MICROALBUMINURIA 0-29 MG/G CLINICAL MICROALBUMINURIA 30-300 MG/G MACROALBUMINURIA >300 MG/G MICROALBUMIN URINE RANDOM 5.3 mg/dL NINF - 30.0 mg/dL [facility] XR CERVICAL SPINE 2-3Von The [address] [address] XRay Report Signed Patient: TALYA OJEDA MR#: [id number] : 1965 Acct:[id number] Age/Sex: 59 / F ADM Date: 01/03/25 Loc: LAB Attending Dr: Jorge Luis Herndon M.D. Ordering Physician: Jorge Luis Herndon M.D. Date of Service: 01/03/25 Procedure(s): XR cervical spine 2-3V Accession Number(s): [id number] cc: Jorge Luis Herndon M.D. The [address] [address] Patient Name: TALYA OJEDA MRN: [facility]:[id number] date: 1965 Sex: F Assigned Patient Location: LAB Current Patient Location: LAB Accession/Order Number: [id number] Exam Date: 01/03/2025 16:01 Report Date: 01/03/2025 16:02 At the request of: JORGE LUIS HERNDON MD Procedure: XR cervical spine 2-3V CERVICAL SPINE 5 views: CLINICAL HISTORY: Chronic Neck Pain COMPARISON: Cervical spine 10/16/2022 FINDINGS: Vertebral body heights appear maintained. Moderate spondylosis C4-C7. No prevertebral soft tissue swelling. XR/XR cervical spine 2-3V IMPRESSION: MODERATE SPONDYLOSIS C4-C7. Impression dictated by: Jamari Pagan Jr., D.O. 01/03/2025 4:02 PM Dictation Location: [place] [address] Electronically authenticated by: [id number] Y Date: 01/03/2025 16:02 Dictated By: Jamari Pagan M.D. Signed By: 01/03/25 1604 DD/ 160 TD/TT: Machine Plaster Mixer: [facility] Radiology, Radiologist, MD - 01/03/2025 The [place] [id number] XRay Report Signed Patient: TALYA OJEDA MR#: [id number] : 1965 Acct:[id number] Age/Sex: 59 / F ADM Date: 01/03/25 Loc: LAB Attending Dr: Jorge Luis Herndon M.D. Ordering Physician: Jorge Luis Herndon M.D. Date of Service: 01/03/25 Procedure(s): XR cervical spine 2-3V Accession Number(s): [id number] cc: Jorge Luis Herndon M.D. [place] [address] Patient Name: TALYA OJEDA MRN: [id number] date: 1965 Sex: F Assigned Patient Location: LAB Current Patient Location: LAB Accession/Order Number: [id number] Exam Date: 01/03/2025 16:01 Report Date: 01/03/2025 16:02 At the request of: JORGE LUIS HERNDON MD Procedure: XR cervical spine 2-3V CERVICAL SPINE 5 views: CLINICAL HISTORY: Chronic Neck Pain COMPARISON: Cervical spine 10/16/2022 FINDINGS: Vertebral body heights appear maintained. Moderate spondylosis C4-C7. No prevertebral soft tissue swelling. XR/XR cervical spine 2-3V IMPRESSION: MODERATE SPONDYLOSIS C4-C7. Impression dictated by: Jamari Pagan Jr., DSusieOSusie 01/03/2025 4:02 PM Dictation Location: [place] [address] Electronically authenticated by: [id number] Y Date: 01/03/2025 16:02 Dictated By: Jamari Pagan M.D. Signed By: 01/03/25 1604 DD/ 1602 TD/TT: Machine Plaster Mixer: [facility] Radiology Study observation (narrative) [facility] XR CERVICAL SPINE 2-3VOrdere d By: Radiologist Radiology on 01-03-2025 [facility] Work Phone: ALL CBC WITH AUTO DIFFon BASOPHILS ABSOLUTE AUTO 0.0 [facility] Basophils/100 WBC (Bld) 0.8 % 0.2 - 2.0 % [facility] Eosinophils/100 WBC (Bld) 2.9 % 0.9 - 7.0 % [facility] Erythrocyte distribution width (RBC) [Ratio] 13.3 % 11.0 - 15.0 % [facility] Hematocrit (Bld) [Volume fraction] 43.1 % 36.0 - 48.0 % [facility] Hemoglobin (Bld) [Mass/Vol] 13.9 g/dL 12.0 - 16.0 g/dL [facility] IMMATURE GRANULOCYTES ABS AUTO 0.02 [facility] Immature granulocytes/100 WBC (Bld) 0.4 % 0.0 - 0.5 % [facility] Interpretation and review of laboratory results Abnormal [facility] LYMPHOCYTES ABSOLUTE AUTO 1.0 Low [facility] Lymphocytes/100 WBC (Bld) 19.5 % Low 20.5 - 60.0 % [facility] MCH (RBC) [Entitic mass] 29.3 pg 26.7 - 34.0 pg [facility] MCHC (RBC) [Mass/Vol] 32.3 g/dL 29.9 - 35.2 g/dL [facility] MCV (RBC) [Entitic vol] 90.7 fL 81.0 - 99.0 fL [facility] MONOCYTES ABSOLUTE AUTO 0.4 [facility] Monocytes/100 WBC (Bld) 6.9 % 1.7 - 12.0 % [facility] NEUTROPHILS ABSOLUTE AUTO 3.7 [facility] Neutrophils/100 WBC (Bld) 69.5 % 43.0 - 75.0 % [facility] Platelet mean volume (Bld) [Entitic vol] 12.1 fL 9.5 - 13.5 fL [facility] EO # 0.2 [facility] PLT 172 [facility] RBC 4.75 [facility] WBC 5.2 [facility] Consenton 11-28-2023 Consent [id number] .[id number] Normal [facility] Registrationon 11-28-2023 Registration [id number] .[id number] Normal [facility] CBC AUTO DIFFon 12-23-2022 BASO # 0.0 103/ul Normal 0.0-0.1 [facility] Comment on above: Performed By: #### L IPA, CMP #### [facility] [address] [place] [address] Dr. Chantel Rand Basophils/100 WBC (Bld) 0.5 % Normal 0.2-2.0 [facility] Comment on above: Performed By: #### L IPA, CMP #### [facility] [address] [place] [address] Dr. Chantel Rand EO # 0.2 103/ul Normal 0.0-0.7 [facility] Comment on above: Performed By: #### L IPA, CMP #### [facility] [address] [place] [address] Dr. Chantel Rand Eosinophils/100 WBC (Bld) 3.5 % Normal 0.9-7.0 [facility] Comment on above: Performed By: #### L IPA, CMP #### [facility] [address] [place] [address] Dr. Chantel Rand Erythrocyte distribution width (RBC) [Ratio] 13.1 % Normal 11.0-15.0 [facility] Comment on above: Performed By: #### L IPA, CMP #### [facility] [address] [place] [address] Dr. Chantel Rand Hematocrit (Bld) [Volume fraction] 42.6 % Normal 36.0-48.0 [facility] Comment on above: Performed By: #### L IPA, CMP #### [facility] [address] [place] [address] Dr. Chantel Rand Hemoglobin (Bld) [Mass/Vol] 14.0 g/dL Normal 12.0-16.0 [facility] Comment on above: Performed By: #### L IPA, CMP #### [facility] [address] [place] [address] Dr. Chantel Rand IG # 0.02 10e3/ul Normal 0.00-0.03 [facility] Comment on above: Performed By: #### L IPA, CMP #### [facility] [address] [place] [address] Dr. Chantel Rand IG % 0.4 % Normal 0.0-0.5 [facility] Comment on above: Performed By: #### L IPA, CMP #### [facility] [address] [place] [address] [address] Chantel Rand LYMPH # 1.4 103/ul Normal 1.2-3.8 [facility] Comment on above: Performed By: #### L IPA, CMP #### [facility] [address] [place] [address] [address] Chantel Rand Lymphocytes/100 WBC (Bld) 23.7 % Normal 20.5-60.0 [facility] Comment on above: Performed By: #### L IPA, CMP #### [facility] [address] [place] [address] [address] Chantel Rand MANUAL DIFF REQ NO Normal [facility] Comment on above: Performed By: #### L IPA, CMP #### [facility] [address] [place] [address] [address] Chantel Rand MCH (RBC) [Entitic mass] 28.6 pg Normal 26.7-34.0 [facility] Comment on above: Performed By: #### L IPA, CMP #### [facility] [address] [place] [address] [address] Chantel Rand MCHC (RBC) [Mass/Vol] 32.9 g/dL Normal 29.9-35.2 [facility] Comment on above: Performed By: #### L IPA, CMP #### [facility] [address] [place] [address] [address] Chantel Rand MCV (RBC) [Entitic vol] 86.9 fL Normal 81.0-99.0 [facility] Comment on above: Performed By: #### L IPA, CMP #### [facility] [address] [place] [address] [address] Chantel Rand MONO # 0.5 103/ul Normal 0.3-0.8 [facility] Comment on above: Performed By: #### L IPA, CMP #### [facility] [address] [place] [address] [address] Chantel Rand Monocytes/100 WBC (Bld) 7.9 % Normal 1.7-12.0 [facility] Comment on above: Performed By: #### L IPA, CMP #### [facility] [address] [place] [address] Dr. Chantel Rand NEUT # 3.6 103/ul Normal 1.4-6.5 [facility] Comment on above: Performed By: #### L IPA, CMP #### [facility] [address] [place] [address] Dr. Chantel Rand Neutrophils/100 WBC (Bld) 64.0 % Normal 43.0-75.0 [facility] Comment on above: Performed By: #### L IPA, CMP #### [facility] [address] [place] [address] Dr. Chantel Rand Platelet mean volume (Bld) [Entitic vol] 11.5 fL Normal 9.5-13.5 [facility] Comment on above: Performed By: #### L IPA, CMP #### [facility] [address] [place] [address] Dr. Chantel Rand PLT 179 103/ul Normal 150-450 [facility] Comment on above: Performed By: #### L IPA, CMP #### [facility] [address] [place] [address] Dr. Chantel Rand RBC 4.90 106/ul Normal 4.20-5.40 [facility] Comment on above: Performed By: #### L IPA, CMP #### [facility] [address] [place] [address] Dr. Chantel Rand WBC 5.7 103/ul Normal 4.0-11.0 [facility] Comment on above: Performed By: #### L IPA, CMP #### [facility] [address] [place] [address] Dr. Chantel Rand LIPASEon 12-23-2022 Lipase [Catalytic activity/Vol] 150.0 U/L Normal 73.0-393.0 [facility] Comment on above: Performed By: #### L IPA, LIVER, HSTROPN, BMP #### [facility] [address] [place] [address] Dr. Chantel Rand LIVER PROFILEon 12-23-2022 Albumin [Mass/Vol] 3.8 g/dL Normal 3.4-5.0 [facility] Comment on above: Performed By: #### L IPA, CMP #### [facility] [address] [place] [address] Dr. Chantel Rand Albumin/Globulin [Mass ratio] 0.9 {ratio} Normal [facility] Comment on above: Performed By: #### L IPA, CMP #### [facility] [address] [place] [address] Dr. Chantel Rand ALP [Catalytic activity/Vol] 76 U/L Normal 46-116 [facility] Comment on above: Performed By: #### L IPA, CMP #### [facility] [address] [place] [address] Dr. Chantel Rand ALT [Catalytic activity/Vol] 31 U/L Normal 14-59 [facility] Comment on above: Performed By: #### L IPA, CMP #### [facility] [address] [place] [address] Dr. Chantel Rand AST [Catalytic activity/Vol] 17 U/L Normal 15-37 [facility] Comment on above: Performed By: #### L IPA, CMP #### [facility] [address] [place] [address] Dr. Chantel Rand BILI, CONJUGATED 0.1 mg/dL Normal 0.0-0.2 [facility] Comment on above: Performed By: #### L IPA, CMP #### [facility] [address] [place] [address] Dr. Chantel Rand Bilirubin [Mass/Vol] 0.4 mg/dL Normal 0.2-1.0 [facility] Comment on above: Performed By: #### L IPA, CMP #### [facility] [address] [place] [address] Dr. Chantel Rand Globulin (S) [Mass/Vol] 4.0 g/dL Normal [facility] Comment on above: Performed By: #### L IPA, CMP #### [facility] [address] [place] [address] Dr. Chantel Rand Protein [Mass/Vol] 7.8 g/dL Normal 6.4-8.2 [facility] Comment on above: Performed By: #### L IPA, CMP #### [facility] [address] [place] [address] [address] Chantel Rand PROF CHEM 8 (BAS METB)on Anion gap [Moles/Vol] 13.1 mmol/L Normal [facility] Comment on above: Performed By: #### L IPA, CMP #### [facility] [address] [place] [address] [address] Chantel Rand Calcium [Mass/Vol] 9.3 mg/dL Normal 8.5-10.1 [facility] Comment on above: Performed By: #### L IPA, CMP #### [facility] [address] [place] [address] Dr. Chantel Rand Chloride [Moles/Vol] 104 mmol/L Normal 98-107 [facility] Comment on above: Performed By: #### L IPA, CMP #### [facility] [address] [place] [address] Dr. Chantel Rand CO2 [Moles/Vol] 28.9 mmol/L Normal 21.0-32.0 [facility] Comment on above: Performed By: #### L IPA, CMP #### [facility] [address] [place] [address] Dr. Chantel Rand Creatinine [Mass/Vol] 0.70 mg/dL Normal 0.55-1.02 [facility] Comment on above: Performed By: #### L IPA, CMP #### [facility] [address] [place] [address] Dr. Chantel Rand EGFR-AF BANGLADESHI >60 Normal >=60 [facility] Comment on above: Performed By: #### L IPA, CMP #### [facility] [address] [place] [address] Dr. Chantel Rand EGFR-NON AF BANGLADESHI >60 Normal >=60 [facility] Comment on above: Performed By: #### L IPA, CMP #### [facility] [address] [place] [address] [address] Chantel Rand Glucose [Mass/Vol] 148 mg/dL Critically high 74-106 [facility] Comment on above: Performed By: #### L IPA, CMP #### [facility] [address] [place] [address] [address] Chantel Rand Potassium [Moles/Vol] 4.0 mmol/L Normal 3.5-5.1 [facility] Comment on above: Performed By: #### L IPA, CMP #### [facility] [address] [place] [address] [address] Chantel Rand Sodium [Moles/Vol] 142 mmol/L Normal 136-145 [facility] Comment on above: Performed By: #### L IPA, CMP #### [facility] [address] [place] [address] Dr. Chantel Rand Urea nitrogen [Mass/Vol] 17.0 mg/dL Normal 7.0-18.0 [facility] Comment on above: Performed By: #### L IPA, CMP #### [facility] [address] [place] [address] Dr. Chantel Rand Urea nitrogen/Creatinine [Mass ratio] 24.3 mg/mg Normal [facility] Comment on above: Performed By: #### L IPA, CMP #### [facility] [address] [place] [address] Dr. Chantel Rand TROPONIN, HIGH SENSITIVITYon 12-23-2022 HSTROP 6.6 pg/mL Normal 4.0-51.3 [facility] Comment on above: Result Comment: CUT- OFF POINTS HAVE BEEN ESTABLISHED BASED ON THE FOURTH UNIVERSAL DEFINITIONS OF MYOCARDIAL INFARCTION. THE UPPER REFERENCE LIMIT (URL) OF TROPONIN, DEFINED THE 99TH PERCENTILE OF cTnI DISTRIBUTION IN A REFERENCE POPULATION, HAS BEEN CONFIRMED THE DECISION THRESHOLD FOR GA DIAGNOSIS. Performed By: #### L IPA, CMP #### [facility] [address] [place] [address] Dr. Chantel Rand XR CSPINE 2_3 VIEWSon 2022 XR CSPINE 2_3 VIEWS EXAMINATION: XR CSPI NE 2_3 VIEWS HISTORY: Neck pain COMPARISON: No relevant comparison available. FINDINGS: BONES: Normal alignment with no acute fracture or spondylolisthesis. Moderate to severe degenerative spondylosis. Wzcp-[id number] facet osteoarthropathy. DISC SPACES: Normal. No significant disc height narrowing, subluxation, or endplate abnormality. PARASPINOUS: Negative. No paraspinous abnormality is seen. OTHER: C7 is not visualized on the lateral projection IMPRESSION: Moderate to severe degenerative spondylosis Electronically authenticated by: MARIA DE JESUS MARSH Date: 2022-10-17 07:42 Normal [facility] XR LSPINE 2_3 VIEWSon 2022 XR [...] DE JESUS MARSH Date: 2022-10-17 07:49 Normal [facility] FREE T3on 10-16-2022 FREE T3 3.25 pg/mlL Normal 2.18-3.98 [facility] Comment on above: Performed By: #### L IPA, CMP #### [facility] [address] [place] [address] Dr. Chantel Rand FREE T4on 10-16-2022 Free T4 [Mass/Vol] 0.96 ng/dL Normal 0.76-1.46 [facility] Comment on above: Performed By: #### F T4 #### [facility] [address] [place] [address] Dr. Chantel Rand TSHon 10-16-2022 TSH 2.190 uIU/mL Normal 0.358-3.740 [facility] Comment on above: Performed By: #### L IPA, CMP #### [facility] [address] [place] [address] Dr. Chantel Rand CULTURE URINEon 08-16-2022 CULTURE [...] F Trimethoprim/Sulfameth oxazole <=20 S F Normal [facility] Comment on above: Performed By: #### L IPA, CMP #### [facility] [address] [place] [address] Dr. Chantel Rand CBC W MANUAL DIFFon 08-13-20 22 ATYPICAL LYMPH # 0.07 103/ul Normal [facility] Comment on above: Performed By: #### L IPA, CMP #### [facility] [address] [place] [address] Dr. Chantel Rand ATYPICAL LYMPH % 1 % Normal [facility] Comment on above: Performed By: #### L IPA, CMP #### [facility] [address] [place] [address] Dr. Chantel Rand BAND # 0.0 103/ul Normal 0.0-0.3 [facility] Comment on above: Performed By: #### L IPA, CMP #### [facility] [address] [place] [address] Dr. Chantel Rand BAND % 0 % Normal 0-5 [facility] Comment on above: Performed By: #### L IPA, CMP #### [facility] [address] [place] [address] Dr. Chantel Rand BASOM # 0.00 103/ul Normal 0.00-0.10 [facility] Comment on above: Performed By: #### L IPA, CMP #### [facility] [address] [place] [address] Dr. Chantel Rand BASOM % 0.0 % Critically low 0.2-2.0 [facility] Comment on above: Performed By: #### L IPA, CMP #### [facility] [address] [place] [address] [address] Chantel Rand BLAST # Normal [facility] Comment on above: Performed By: #### L IPA, CMP #### [facility] [address] [place] [address] [address] Chantel Rand BLAST % Normal [facility] Comment on above: Performed By: #### L IPA, CMP #### [facility] [address] [place] [address] [address] Chantel Rand CORRECTED WBC Normal 4.0-11.0 [facility] Comment on above: Performed By: #### L IPA, CMP #### [facility] [address] [place] [address] [address] Chantel Rand EOS # 0.00 103/ul Normal 0.00-0.70 [facility] Comment on above: Performed By: #### L IPA, CMP #### [facility] [address] [place] [address] Dr. Chantel Rand EOS% 0.0 % Critically low 0.9-7.0 [facility] Comment on above: Performed By: #### L IPA, CMP #### [facility] [address] [place] [address] Dr. Chantel Rand HCT 43.5 % Normal 36.0-48.0 [facility] Comment on above: Performed By: #### L IPA, CMP #### [facility] [address] [place] [address] Dr. Chantel Rand HGB 14.0 g/dl Normal 12.0-16.0 [facility] Comment on above: Performed By: #### L IPA, CMP #### [facility] [address] [place] [address] Dr. Chantel Rand LYMPHM # 0.47 103/ul Critically low 1.20-3.80 [facility] Comment on above: Performed By: #### L IPA, CMP #### [facility] [address] [place] [address] Dr. Chantel Rand LYMPHM% 7.0 % Critically low 20.5-60.0 [facility] Comment on above: Performed By: #### L IPA, CMP #### [facility] [address] [place] [address] Dr. Chantel Rand MCH 28.5 pg Normal 26.7-34.0 [facility] Comment on above: Performed By: #### L IPA, CMP #### [facility] [address] [place] [address] Dr. Chantel Rand MCHC 32.2 g/dl Normal 29.9-35.2 [facility] Comment on above: Performed By: #### L IPA, CMP #### [facility] [address] [place] [address] Dr. Chantel Rand MCV 88.4 fL Normal 81.0-99.0 [facility] Comment on above: Performed By: #### L IPA, CMP #### [facility] [address] [place] [address] Dr. Chantel Rand METAMYELOCYTE # Normal [facility] Comment on above: Performed By: #### L IPA, CMP #### [facility] [address] [place] [address] Dr. Chantel Rand METAMYELOCYTE % Normal [facility] Comment on above: Performed By: #### L IPA, CMP #### [facility] [address] [place] [address] Dr. Chantel Rand MONOM# 0.67 103/ul Normal 0.30-0.80 [facility] Comment on above: Performed By: #### L IPA, CMP #### [facility] [address] [place] [address] Dr. Chantel Rand MONOM% 10.0 % Normal 1.7-12.0 [facility] Comment on above: Performed By: #### L IPA, CMP #### [facility] [address] [place] [address] Dr. Chantel Rand MPV 11.4 fL Normal 9.5-13.5 [facility] Comment on above: Performed By: #### L IPA, CMP #### [facility] [address] [place] [address] Dr. Chantel Rand MYELOCYTE # Normal [facility] Comment on above: Performed By: #### L IPA, CMP #### [facility] [address] [place] [address] [address] Chantel Rand MYELOCYTE % Normal [facility] Comment on above: Performed By: #### L IPA, CMP #### [facility] [address] [place] [address] [address] Chantel Rand NRBC Normal [facility] Comment on above: Performed By: #### L IPA, CMP #### [facility] [address] [place] [address] Dr. Chantel Rnad PLT 142 103/ul Critically low 150-450 [facility] Comment on above: Performed By: #### L IPA, CMP #### [facility] [address] [place] [address] Dr. Chantel Rand RBC 4.92 106/ul Normal 4.20-5.40 [facility] Comment on above: Performed By: #### L IPA, CMP #### [facility] [address] [place] [address] Dr. Chantel Rand RDW 12.9 % Normal 11.0-15.0 [facility] Comment on above: Performed By: #### L IPA, CMP #### [facility] [address] [place] [address] Dr. Chantel Rand SEG # 5.49 103/ul Normal 1.40-6.50 [facility] Comment on above: Performed By: #### L IPA, CMP #### [facility] [address] [place] [address] Dr. Chantel Rand SEG % 82.0 % Critically high 43.0-75.0 [facility] Comment on above: Performed By: #### L IPA, CMP #### [facility] [address] [place] [address] Dr. Chantel Rand WBC 6.7 103/ul Normal 4.0-11.0 [facility] Comment on above: Performed By: #### L IPA, CMP #### [facility] [address] [place] [address] Dr. Chantel Rand Covid-19 PCR (CVDTB)on SARS-CoV-2 (COVID-19) RNA ROMANA+probe Ql (Unsp spec) Not detected Normal NOT DETECTED [facility] Comment on above: Result Comment: When [...] for this test is supported by the [place] of Health and Human Service's declaration that [...] Performed By: #### L IPA, CMP #### [facility] [address] [place] [address] Dr. Chantel Rand ER URINE PROFILEon 2 Bilirubin Ql (U) SMALL Abnormal NEGATIVE [facility] Comment on above: Performed By: #### L IPA, CMP #### [facility] [address] [place] [address] Dr. Chantel Rand Clarity (U) CLEAR Normal CLEAR [facility] Comment on above: Performed By: #### L IPA, CMP #### [facility] [address] [place] [address] Dr. Chantel Rand Color (U) DK. YELLOW Normal YELLOW [facility] Comment on above: Performed By: #### L IPA, CMP #### [facility] [address] [place] [address] Dr. Chantel Rand ERUAHD A micrscopic examination will be performed if indicated. Normal [facility] Comment on above: Performed By: #### L IPA, CMP #### [facility] [address] [place] [address] Dr. Chantel Rand Glucose Ql (U) Negative Normal NEGATIVE [facility] Comment on above: Performed By: #### L IPA, CMP #### [facility] [address] [address] [address] Chantel Rand Hemoglobin Ql (U) Negative Normal NEGATIVE [facility] Comment on above: Performed By: #### L IPA, CMP #### [facility] [address] [address] [address] Chantel Rand Ketones Ql (U) TRACE Abnormal NEGATIVE [facility] Comment on above: Performed By: #### L IPA, CMP #### [facility] [address] [place] [address] Dr. Chantel Rand LEUKOCYTES Negative Normal NEGATIVE [facility] Comment on above: Performed By: #### L IPA, CMP #### [facility] [address] [place] [address] Dr. Chantel Rand Nitrite Ql (U) Negative Normal NEGATIVE [facility] Comment on above: Performed By: #### L IPA, CMP #### [facility] [address] [place] [address] Dr. Chantel Rand pH (U) 5.0 [pH] Normal 5-9 [facility] Comment on above: Performed By: #### L IPA, CMP #### [facility] [address] [place] [address] Dr. Chantel Rand Protein (U) [Mass/Vol] 30 mg/dL Abnormal NEGATIVE/ TRACE [facility] Comment on above: Performed By: #### L IPA, CMP #### [facility] [address] [place] [address] Dr. Chantel Rand SPEC GRAVITY >=1.030 Abnormal 1.005-<=1.[address] [facility] Comment on above: Performed By: #### L IPA, CMP #### [facility] [address] [place] [address] Dr. Chantel Rand UR MICRO IND INDICATED Normal [facility] Comment on above: Performed By: #### L IPA, CMP #### [facility] [address] [place] [address] Dr. Chantel Rand Urobilinogen Qn (U) 1.0 {Nahun'U}/dL Normal 0.2 - 1. 0 [facility] Comment on above: Performed By: #### L IPA, CMP #### [facility] [address] [place] [address] Dr. Chantel Rand INFLUENZA A AND B AGon 08-13 INFLUANE SEE BELOW Normal [facility] Comment on above: Result Comment: Nega tive for Flu A protein angiten. Infection due to Flu A cannot be ruled out. Flu A angiten in the sample may be below the detection limit of the test. Performed By: #### L IPA, CMP #### [facility] [address] [place] [address] Dr. Chantel Rand INFLUBNEGH SEE BELOW Normal [facility] Comment on above: Result Comment: Nega tive for Flu B protein antigen. Infection due to Flu B cannot be ruled out. Flu B antigen in the sample may be below the detection limit of the test. Performed By: #### L IPA, CMP #### [facility] [address] [place] [address] Dr. Chantel Rand INFLUENZA A AG Negative Normal NEGATIVE SEE COMMENT [facility] Comment on above: Performed By: #### L IPA, CMP #### [facility] [address] [place] [address] Dr. Chantel Rand INFLUENZA B AG Negative Normal NEGATIVE SEE COMMENT [facility] Comment on above: Performed By: #### L IPA, CMP #### [facility] [address] [place] [address] Dr. Chantel Radn INTERNAL CONTROLS Within Normal Limits Normal Wi thin Normal Limits [facility] Comment on above: Performed By: #### L IPA, CMP #### [facility] [address] [place] [address] Dr. Chantel Rand LACTATE/LACTIC ACIDon 2021 Lactate [Moles/Vol] 0.9 mmol/L Normal 0.4-1.9 [facility] Comment on above: Performed By: #### L ACT #### [facility] [address] [place], [place] [id number] Dr. Chantel Rand LIPASEon 08-13-2022 Lipase [Catalytic activity/Vol] 294.0 U/L Normal 73.0-393.0 [facility] Comment on above: Performed By: #### L IPA, CMP #### [facility] [address] [place] [address] Dr. Chantel Rand PROF 14(COMP METB)on 022 Albumin [Mass/Vol] 3.5 g/dL Normal 3.4-5.0 [facility] Comment on above: Performed By: #### L IPA, CMP #### [facility] [address] [place] [address] Dr. Chantel Rand Albumin/Globulin [Mass ratio] 0.8 {ratio} Normal [facility] Comment on above: Performed By: #### L IPA, CMP #### [facility] [address] [place] [address] Dr. Chantel Rand ALP [Catalytic activity/Vol] 89 U/L Normal 46-116 [facility] Comment on above: Performed By: #### L IPA, CMP #### [facility] [address] [place] [address] Dr. Chantel Rand ALT [Catalytic activity/Vol] 54 U/L Normal 14-59 [facility] Comment on above: Performed By: #### L IPA, CMP #### [facility] [address] [place] [address] Dr. Chantel Rand Anion gap [Moles/Vol] 8.1 mmol/L Normal [facility] Comment on above: Performed By: #### L IPA, CMP #### [facility] [address] [place] [address] Dr. Chantel Rand AST [Catalytic activity/Vol] 64 U/L Critically high 15-37 [facility] Comment on above: Performed By: #### L IPA, CMP #### [facility] [address] [place] [address] Dr. Chantel Rand Bilirubin [Mass/Vol] 0.6 mg/dL Normal 0.2-1.0 [facility] Comment on above: Performed By: #### L IPA, CMP #### [facility] [address] [address] [address] Chantel Rand Calcium [Mass/Vol] 8.7 mg/dL Normal 8.5-10.1 [facility] Comment on above: Performed By: #### L IPA, CMP #### [facility] [address] [address] [address] Chantel Rand Chloride [Moles/Vol] 102 mmol/L Normal 98-107 [facility] Comment on above: Performed By: #### L IPA, CMP #### [facility] [address] [address] [address] Chantel Rand CO2 [Moles/Vol] 31.6 mmol/L Normal 21.0-32.0 [facility] Comment on above: Performed By: #### L IPA, CMP #### [facility] [address] [address] [address] Chantel Rand Creatinine [Mass/Vol] 0.71 mg/dL Normal 0.55-1.02 [facility] Comment on above: Performed By: #### L IPA, CMP #### [facility] [address] [address] [address] Chantel Rand EGFR-AF BANGLADESHI >60 Normal >=60 [facility] Comment on above: Performed By: #### L IPA, CMP #### [facility] [address] [address] [address] Chantel Rand EGFR-NON AF BANGLADESHI >60 Normal >=60 [facility] Comment on above: Performed By: #### L IPA, CMP #### [facility] [address] [address] [address] Chantel Rand Globulin (S) [Mass/Vol] 4.2 g/dL Normal [facility] Comment on above: Performed By: #### L IPA, CMP #### [facility] [address] [address] [address] Chantel Rand Glucose [Mass/Vol] 165 mg/dL Critically high 74-106 [facility] Comment on above: Performed By: #### L IPA, CMP #### [facility] [address] [address] [address] Chantel Rand Potassium [Moles/Vol] 3.7 mmol/L Normal 3.5-5.1 [facility] Comment on above: Performed By: #### L IPA, CMP #### [facility] [address] [place] [address] Dr. Chantel Rand Protein [Mass/Vol] 7.7 g/dL Normal 6.4-8.2 [facility] Comment on above: Performed By: #### L IPA, CMP #### [facility] [address] [place] [address] Dr. Chantel Rand Sodium [Moles/Vol] 138 mmol/L Normal 136-145 [facility] Comment on above: Performed By: #### L IPA, CMP #### [facility] [address] [place] [address] Dr. Chantel Rand Urea nitrogen [Mass/Vol] 26.0 mg/dL Critically high 7.0-18.0 [facility] Comment on above: Performed By: #### L IPA, CMP #### [facility] [address] [place] [address] Dr. Chantel Rand Urea nitrogen/Creatinine [Mass ratio] 36.6 mg/mg Normal [facility] Comment on above: Performed By: #### L IPA, CMP #### [facility] [address] [place] [address] Dr. Chantel Rand URINE MICROSCOPIC ONLYon BACTERIA MODERATE Abnormal NONE SEEN [facility] Comment on above: Performed By: #### L IPA, CMP #### [facility] [address] [place] [address] Dr. Chantel Rand Bacteria identified Cx Nom (U) INDICATED Normal [facility] Comment on above: Performed By: #### L IPA, CMP #### [facility] [address] [place] [address] Dr. Chantel Rand CA OX CRYSTALS MANY Normal [facility] Comment on above: Performed By: #### L IPA, CMP #### [facility] [address] [place] [address] Dr. Chantel Rand CAST NONE SEEN Normal NONE SEEN [facility] Comment on above: Performed By: #### L IPA, CMP #### [facility] [address] [place] [address] Dr. Chantel Rand Crystals LM Nom (Urine sed) SEEN Abnormal NONE SEEN [facility] Comment on above: Performed By: #### L IPA, CMP #### [facility] [address] [place] [address] Dr. Chantel Rand Epithelial cells LM Ql (Urine sed) MODERATE Abnormal NONE SEEN /RARE [facility] Comment on above: Performed By: #### L IPA, CMP #### [facility] [address] [place] [address] Dr. Chantel Rand MUCOUS NONE SEEN Normal NONE SEEN [facility] Comment on above: Performed By: #### L IPA, CMP #### [facility] [address] [place] [address] Dr. Chantel Rand RBC 0-2 Normal 0-2 [facility] Comment on above: Performed By: #### L IPA, CMP #### [facility] [address] [place] [address] Dr. Chantel Rand WBC 5-10 Abnormal NONE SEEN [facility] Comment on above: Performed By: #### L IPA, CMP #### [facility] [address] [place] [address] Dr. Chantel Rand XR ABD FLAT UP_PA [...] ROX APARICIO Date: 2022-08-13 19:54 Normal [facility] CBC AUTO DIFFon 08-07-2022 BASO # 0.0 103/ul Normal 0.0-0.1 [facility] Comment on above: Performed By: #### L IPA, CMP #### [facility] [address] [address] [address] Chantel Rand Basophils/100 WBC (Bld) 0.4 % Normal 0.2-2.0 [facility] Comment on above: Performed By: #### L IPA, CMP #### [facility] [address] [address] [address] Chantel Rand EO # 0.2 103/ul Normal 0.0-0.7 [facility] Comment on above: Performed By: #### L IPA, CMP #### [facility] [address] [address] [address] Chantel Rand Eosinophils/100 WBC (Bld) 3.0 % Normal 0.9-7.0 [facility] Comment on above: Performed By: #### L IPA, CMP #### [facility] [address] [address] [address] Chantel Rand Erythrocyte distribution width (RBC) [Ratio] 12.9 % Normal 11.0-15.0 [facility] Comment on above: Performed By: #### L IPA, CMP #### [facility] [address] [address] [address] Chantel Rand Hematocrit (Bld) [Volume fraction] 44.4 % Normal 36.0-48.0 [facility] Comment on above: Performed By: #### L IPA, CMP #### [facility] [address] [address] [address] Chantel Rand Hemoglobin (Bld) [Mass/Vol] 14.0 g/dL Normal 12.0-16.0 [facility] Comment on above: Performed By: #### L IPA, CMP #### [facility] [address] [address] [address] Chantel Rand IG # 0.02 10e3/ul Normal 0.00-0.03 [facility] Comment on above: Performed By: #### L IPA, CMP #### [facility] [address] [place] [address] Dr. Chantel Rand IG % 0.3 % Normal 0.0-0.5 [facility] Comment on above: Performed By: #### L IPA, CMP #### [facility] [address] [address] [address] Chantel Rand LYMPH # 1.9 103/ul Normal 1.2-3.8 [facility] Comment on above: Performed By: #### L IPA, CMP #### [facility] [address] [place] [address] Dr. Chantel Rand Lymphocytes/100 WBC (Bld) 25.8 % Normal 20.5-60.0 [facility] Comment on above: Performed By: #### L IPA, CMP #### [facility] [address] [place] [address] Dr. Chantel Rand MANUAL DIFF REQ NO Normal [facility] Comment on above: Performed By: #### L IPA, CMP #### [facility] [address] [place] [address] Dr. Chantel Rand MCH (RBC) [Entitic mass] 28.2 pg Normal 26.7-34.0 [facility] Comment on above: Performed By: #### L IPA, CMP #### [facility] [address] [place] [address] Dr. Chantel Rand MCHC (RBC) [Mass/Vol] 31.5 g/dL Normal 29.9-35.2 [facility] Comment on above: Performed By: #### L IPA, CMP #### [facility] [address] [place] [address] Dr. Chantel Rand MCV (RBC) [Entitic vol] 89.3 fL Normal 81.0-99.0 [facility] Comment on above: Performed By: #### L IPA, CMP #### [facility] [address] [place] [address] Dr. Chantel Radn MONO # 0.6 103/ul Normal 0.3-0.8 [facility] Comment on above: Performed By: #### L IPA, CMP #### [facility] [address] [place] [address] Dr. Chantel Rand Monocytes/100 WBC (Bld) 7.7 % Normal 1.7-12.0 [facility] Comment on above: Performed By: #### L IPA, CMP #### [facility] [address] [place] [address] Dr. Chantel Rand NEUT # 4.6 103/ul Normal 1.4-6.5 [facility] Comment on above: Performed By: #### L IPA, CMP #### [facility] [address] [place] [address] Dr. Chantel Rand Neutrophils/100 WBC (Bld) 62.8 % Normal 43.0-75.0 [facility] Comment on above: Performed By: #### L IPA, CMP #### [facility] [address] [place] [address] Dr. Chantel Rand Platelet mean volume (Bld) [Entitic vol] 13.0 fL Normal 9.5-13.5 [facility] Comment on above: Performed By: #### L IPA, CMP #### [facility] [address] [place] [address] Dr. Chantel Rand PLT 190 103/ul Normal 150-450 [facility] Comment on above: Performed By: #### L IPA, CMP #### [facility] [address] [place] [address] Dr. Chantel Rand RBC 4.97 106/ul Normal 4.20-5.40 [facility] Comment on above: Performed By: #### L IPA, CMP #### [facility] [address] [place] [address] Dr. Chantel Rand WBC 7.4 103/ul Normal 4.0-11.0 [facility] Comment on above: Performed By: #### L IPA, CMP #### [facility] [address] [place] [address] Dr. Chantel Rand GLYCOHEMOGLOBIN A1Con 2021 ADA RECOMMENDATION SEE BELOW Normal [facility] Comment on above: Result Comment: ADA RECOMMENDED LIMIT 4.0 - 6.0 ADA THERAPEUTIC TARGET < 7.0 ACTION SUGGESTED > 7.0 Performed By: #### A 1C #### [facility] [address] [place] [address] Dr. Chantel Rand Glucose [Mass/Vol] 123 mg/dL Normal [facility] Comment on above: Performed By: #### A 1C #### [facility] [address] [address] [address] Chantel Rand HbA1c (Bld) [Mass fraction] 5.9 % Normal 4.5-6.2 [facility] Comment on above: Performed By: #### A 1C #### [facility] [address] [place] [address] Dr. Chantel Rand LIPID PROFILEon 08-07-2022 CHOL-HDL RATIO NORM SEE BELOW Normal [facility] Comment on above: Result Comment: 3.3 - 4.4 LOW RISK 4.4 - 7.1 AVERAGE RISK 7.1 - 11.0 MODERATE RISK >11.0 HIGH RISK Performed By: #### B MP, LIVER, TSH, LIPID #### [facility] [address] [place] [address] Dr. Chantel Rand Cholesterol [Mass/Vol] 161 mg/dL Normal <=200 [facility] Comment on above: Performed By: #### B MP, LIVER, TSH, LIPID #### [facility] [address] [place] [address] Dr. Chantel Rand Cholesterol in HDL [Mass/Vol] 52 mg/dL Normal 40-60 [facility] Comment on above: Performed By: #### B MP, LIVER, TSH, LIPID #### [facility] [address] [address] [address] Chantel Rand Cholesterol in LDL [Mass/Vol] 92.8 mg/dL Normal [facility] Comment on above: Performed By: #### B MP, LIVER, TSH, LIPID #### [facility] [address] [place] [address] Dr. Chantel Rand Cholesterol.total/Ch olesterol in HDL [Mass ratio] 3.1 {ratio} Normal [facility] Comment on above: Performed By: #### B MP, LIVER, TSH, LIPID #### [facility] [address] [address] [address] Chantel Rand HDL NORMAL > or = 60 mg/dl - LO W CARDIOVASCULAR RISK <40 mg/dl - HIGH CARDIOVASCULAR RISK Normal [facility] Comment on above: Performed By: #### B MP, LIVER, TSH, LIPID #### [facility] [address] [address] [address] Chantel Rand LDL CALC NORMAL SEE BELOW Normal [facility] Comment on above: Result Comment: <100 mg/dl OPTIMAL 100 - 129 mg/dl NEAR OR ABOVE OPTIMAL 130 - 159 mg/dl BORDERLINE HIGH 160 - 189 mg/dl HIGH >190 mg/dl VERY HIGH Performed By: #### B MP, LIVER, TSH, LIPID #### [facility] [address] [address] [address] Chantel Rand Triglyceride [Mass/Vol] 81 mg/dL Normal <=150 [facility] Comment on above: Performed By: #### B MP, LIVER, TSH, LIPID #### [facility] [address] [address] [address] Chantel Rand VLDL CALC 16.2 mg/dL Normal [facility] Comment on above: Performed By: #### B MP, LIVER, TSH, LIPID #### [facility] [address] [address] [address] Chantel Rand LIVER PROFILEon 08-07-2022 Albumin [Mass/Vol] 4.0 g/dL Normal 3.4-5.0 [facility] Comment on above: Performed By: #### B MP, LIVER, TSH, LIPID #### [facility] [address] [address] [address] Chantel Rand Albumin/Globulin [Mass ratio] 0.9 {ratio} Normal [facility] Comment on above: Performed By: #### B MP, LIVER, TSH, LIPID #### [facility] [address] [address] [address] Chantel Rand ALP [Catalytic activity/Vol] 65 U/L Normal 46-116 [facility] Comment on above: Performed By: #### B MP, LIVER, TSH, LIPID #### [facility] [address] [address] [address] Chantel Rand ALT [Catalytic activity/Vol] 23 U/L Normal 14-59 [facility] Comment on above: Performed By: #### B MP, LIVER, TSH, LIPID #### [facility] [address] [place] [address] Dr. Chantel Rand AST [Catalytic activity/Vol] 12 U/L Critically low 15-37 [facility] Comment on above: Performed By: #### B MP, LIVER, TSH, LIPID #### [facility] [address] [place] [address] Dr. Chantel Rand BILI, CONJUGATED 0.1 mg/dL Normal 0.0-0.2 [facility] Comment on above: Performed By: #### B MP, LIVER, TSH, LIPID #### [facility] [address] [place] [address] Dr. Chantel Rand Bilirubin [Mass/Vol] 0.4 mg/dL Normal 0.2-1.0 [facility] Comment on above: Performed By: #### B MP, LIVER, TSH, LIPID #### [facility] [address] [place] [address] Dr. Chantel Rand Globulin (S) [Mass/Vol] 4.3 g/dL Normal [facility] Comment on above: Performed By: #### B MP, LIVER, TSH, LIPID #### [facility] Laboratory [address] [place] [address] Dr. Chantel Rand Protein [Mass/Vol] 8.3 g/dL Critically high 6.4-8.2 [facility] Comment on above: Performed By: #### B MP, LIVER, TSH, LIPID #### [facility] [address] [place] [address] Dr. Chantel Rand MICROALBUMIN, RAND URon 11-3 0-2021 mALB 3.5 mg/L Normal <=30.0 [facility] Comment on above: Performed By: #### L IPA, CMP #### [facility] [address] [place] [address] Dr. Chantel Rand PROF CHEM 8 (BAS METB)on Anion gap [Moles/Vol] 12.7 mmol/L Normal [facility] Comment on above: Performed By: #### B MP, LIVER, TSH, LIPID #### [facility] [address] [place] [address] Dr. Chantel Rand Calcium [Mass/Vol] 9.7 mg/dL Normal 8.5-10.1 [facility] Comment on above: Performed By: #### B MP, LIVER, TSH, LIPID #### [facility] [address] [place] [address] Dr. Chantel Rand Chloride [Moles/Vol] 103 mmol/L Normal 98-107 [facility] Comment on above: Performed By: #### B MP, LIVER, TSH, LIPID #### [facility] [address] [place] [address] Dr. Chantel Rand CO2 [Moles/Vol] 29.7 mmol/L Normal 21.0-32.0 [facility] Comment on above: Performed By: #### B MP, LIVER, TSH, LIPID #### [facility] [address] [place] [address] Dr. Chantle Rand Creatinine [Mass/Vol] 0.64 mg/dL Normal 0.55-1.02 [facility] Comment on above: Performed By: #### B MP, LIVER, TSH, LIPID #### [facility] [address] [place] [address] Dr. Chantel Rand EGFR-AF BANGLADESHI >60 Normal >=60 [facility] Comment on above: Performed By: #### B MP, LIVER, TSH, LIPID #### [facility] [address] [place] [address] Dr. Chantel Rand EGFR-NON AF BANGLADESHI >60 Normal >=60 [facility] Comment on above: Performed By: #### B MP, LIVER, TSH, LIPID #### [facility] [address] [place] [address] Dr. Chantel Rand Glucose [Mass/Vol] 165 mg/dL Critically high 74-106 [facility] Comment on above: Performed By: #### B MP, LIVER, TSH, LIPID #### [facility] [address] [address] [address] Chantel Rand Potassium [Moles/Vol] 4.4 mmol/L Normal 3.5-5.1 [facility] Comment on above: Performed By: #### B MP, LIVER, TSH, LIPID #### [facility] [address] [address] [address] Chantel Rand Sodium [Moles/Vol] 141 mmol/L Normal 136-145 [facility] Comment on above: Performed By: #### B MP, LIVER, TSH, LIPID #### [facility] [address] [place] [address] Dr. Chantel Rand Urea nitrogen [Mass/Vol] 27.0 mg/dL Critically high 7.0-18.0 [facility] Comment on above: Performed By: #### B MP, LIVER, TSH, LIPID #### [facility] [address] [place] [address] Dr. Chantel Rand Urea nitrogen/Creatinine [Mass ratio] 42.2 mg/mg Normal [facility] Comment on above: Performed By: #### B MP, LIVER, TSH, LIPID #### [facility] [address] [place] [address] Dr. Chantel Rand TSHon 08-07-2022 TSH 4.404 uIU/mL Critically high 0.358-3.740 [facility] Comment on above: Performed By: #### B MP, LIVER, TSH, LIPID #### [facility] [address] [place] [address] Dr. Chantel Rand VITAMIN D 25 OHon 08-07-2022 VIT D 25-OH 27.0 ng/mL Normal [facility] Comment on above: Performed By: #### L IPA, CMP #### [facility] [address] [place] [address] Dr. Chantel Rand VIT D RANGES SEE BELOW Normal [facility] Comment on above: Result Comment: <20 ng/mL Vit D deficient 20 - <30 ng/mL Vit D insufficient 30 - 100 ng/mL Vit D sufficient >100 ng/mL Potential Toxicity Performed By: #### L IPA, CMP #### [facility] [address] [address] [address] Chantel Rand Coding Summaryon 01-24-2020 Coding Summary CODING DATE: 01/24/2020 [facility] STATUS: Home PAYOR: Workers Compensation ADMIT [...] Geovanny Whitlock' Date Saved: 01/24/2020 02:36 pm [facility] Coding Summary CODING DATE: 01/24/2020 [facility] STATUS: Home PAYOR: Workers Compensation APC [...] Leandra Whitlock Date Saved: 01/24/2020 02:35 pm [facility] Consent Formson 01-24-2020 Consent Forms [id number] 0OTGTIFF [facility] Discharge Instructionson Discharge Instructions [id number] OTGTIFF Normal [facility] ED Clinical Summaryon 2019 ED Clinical Summary [facility] - Emergency Department [address] [place] [id number] ED Clinical Summary PERSON INFORMATION Name: TALYA OJEDA Age: 54 Years Sex: FEMALE : 1965 MRN: Acct#: Visit Reason: Arm pain-swelling; Elbow injury - Minor; LEFT ARM PAIN Arrival: 01/22/2020 00:18:40 Discharge: 01/22/2020 02:19:00 LOS: 000 02:01 Check In: 01/22/2020 00:18:40 Checkout:01/22/2020 02:19:00 Address: [address] [place] [id number] PCP: Provider, None PROVIDER INFORMATION Provider Role Assigned Unassigned Kian Dewitt DO ED Provider 01/22/2020 00:27:27 Amanda Gonzales RN ED Nurse 01/22/2020 00:30:45 VITALS INFORMATION Vital Sign [...] of left elbow; Radial head fracture Author: Kian Dewitt DO Basic Information Time seen: Date [...] Impression and Plan Diagnosis Arm pain-swelling (PNED [id number], Reason For Visit, Emergency medicine, Medical) Strain of left elbow (LNB52-NV S46.912A, Discharge, Medical) Radial head fracture (SCQ18-PU S52.123A, Discharge, Medical) Complaint of Elbow injury - Minor (PNED [id number], Reason For Visit, Medical) Plan Condition: Improved. [...] Sprain Follow-Up: With: Address: When: Karen Sibley [address] [place] [address], [place], [place] Business (2) In 3 days 01/25/2020 [...] to return anytime. Wiley DEWITT< ER PHYSICIAN< H B [facility] DIAGNOSIS: Radial head fracture; Strain of left elbow Patient Understands: Yes - Patient/family/caregiv er verbalizes understanding of instructions given Comment: Normal [facility] ED Note - Physicianon 2019 ED Note - Physician Patient: TALYA OJEDA Age: 54 years Sex: FEMALE : 1965 Associated Diagnoses: Arm pain-swelling; Elbow injury - Minor; Strain of left elbow; Radial head fracture Author: Kian Dewitt DO Basic Information Time seen: Date [...] Impression and Plan Diagnosis Arm pain-swelling (PNED [id number], Reason For Visit, Emergency medicine, Medical) Strain of left elbow (UXD45-PL S46.912A, Discharge, Medical) Radial head fracture (LIS83-CP S52.123A, Discharge, Medical) Complaint of Elbow injury - Minor (PNED [id number], Reason For Visit, Medical) Plan Condition: Improved. [...] instructions. [Electronically Signed on: 01/22/2020 01:57 EDT] Kian Dewitt DO [Verified on: 01/22/2020 01:57 EDT] Kian Dewitt DO [facility] ED Note-Nursingon 01-22-2020 ED Note-Nursing Patient presents for left elbow pain after she tripped and fell on a bed post while working. States it happened around 1530 today. 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 Pain worsens with movement. MSP intact [facility] ED Patient Education Noteon 01-22-2020 ED [...] 08/25/2006 Document Revised: 12/29/2018 Document Reviewed: 05/19/2016 [employer] Patient Education ? 2019 [employer] Elbow Sprain An elbow sprain is [...] by your health care provider. ? Take dqqp-xhz-nvcdbnw and prescription medicines only as told by [...] 04/08/2019 Document Revised: 04/08/2019 Document Reviewed: 04/08/2019 [employer] Patient Education ? 2018 [employer]. Normal [facility] ED Patient Summaryon 020 ED Patient Summary [facility] - Emergency Department [address] [place], [place] [id number] PATIENT DISCHARGE INSTRUCTIONS Patient Information Name: TALYA OJEDA Age: 54 Years Date of : 1965 Reason For Visit: Arm pain-swelling; Elbow injury - Minor; LEFT ARM PAIN Arrival Time: 01/22/2020 00:18:40 Primary Care Physician: Provider, None Attending Physician: Kian Dewitt DO Comment: Visit Diagnosis: Diagnoses This Visit Arm pain-swelling ([id number]) Elbow injury - Minor ([id number]) Radial head fracture (S52.123A) Strain of left elbow (S46.912A) Prescription Information: If you have been given a prescription for narcotics, seek immediate medical attention if you have any difficulty breathing or any sudden status changes such as confusion and sleepiness. If you or anyone you know is experiencing suicidal thoughts, mental health, alcohol and/or drug addiction problems; contact the Mental Health & Recovery Board [facility] 31/03 Crisis Hotline -Text 4HIRI ak 690956. If you received any narcotics, sedation, or [...] legal documents With: Address: When: Karen Sibley [address] [place] [address], [address] [place], [place] Business (2) In 3 days 01/25/2020 [...] to return anytime. Wiley DEWITT< ER PHYSICIAN< H [facility] Medication Information: The exam and treatment you received today in the [facility] Emergency Department were for an urgent problem and are not intended as complete care. It is important for you to follow up with a doctor, nurse practitioner, or physician?s radiology assistant for ongoing care. If your symptoms [...] so we can reach you if necessary. [facility] Emergency Department has provided you with a complete list of medications post discharge. Please inform your energy assistant/provider of your visit and for further instruction [...] 08/25/2006 Document Revised: 12/29/2018 Document Reviewed: 05/19/2016 [employer] Patient Education ? 2019 [employer] Elbow Sprain An elbow sprain is [...] by your health care provider. ? Take bxui-sib-rqcubuj and prescription medicines only as told by [...] 04/08/2019 Document Revised: 04/08/2019 Document Reviewed: 04/08/2019 [employer] Patient Education ? 2019 [employer] Viruses or Bacteria What?s got you [...] for Disease Control and Prevention May 2014 [facility] XR Elbow Complete Lefton XR Elbow [...] Gabe Oswald 01/22/20 1:34 am Technologist: GUERA [facility] US NON OB TRANSVAGINALon US NON [...] MDSigned by:Shun Rojas Jr., MD02/13/18inal result Normal [facility] US PELVIS COMPLETEon 018 US PELVIS [...] Rojas Jr., MD02/13/18Edited Result - FINAL Normal [facility] Progress Noteon 02-09-2018 HIM IP Note OR Driver Service Technician Normal [facility] Follicle Stim. Hormon 2017 Follicle Stim. Horm 48.9 U/L High 1.7-21.5 [facility] Comment on above: Result Comment: Refe rence Range:Male: 1.5-12.4Ovulating Female: Follicular Phase 3.5-12.5 Ovulation Phase 4.7-21.5 Luteal Phase 1.7-7.7Postmenopausal Female: 25.8-134.8Performed at [address] [place] [address] Performed By: #### Z FAST, GLU, LIPR, FT4, TSH ####[facility] [place] [address] #### FSH, LH ####[address] [place] [address] Glucoseon 10-02-2017 Glucose mass conc 106 mg/dL High 70-99 [facility] Comment on above: Result Comment: Perf ormed at [facility] [address] [place] [address] Performed By: #### Z FAST, GLU, LIPR, FT4, TSH ####[facility] [place] [address] #### FSH, LH ####[address] [address] Lipid Profileon 10-02-2017 Cholesterol 167 mg/dL Normal <200 [facility] Comment on above: Result Comment: Chol esterol Guidelines: <200 Desirable 200-240 Borderline >240 Undesirable Performed By: #### Z FAST, GLU, LIPR, FT4, TSH ####[address] [place] [address] #### FSH, LH ####[address] [address] Cholesterol to HDL Ratio 3.2 {ratio} Normal <5 [facility] Comment on above: Performed By: #### Z FAST, GLU, LIPR, FT4, TSH ####[address] [place] [address] #### FSH, LH ####[address] [address] HDL Cholesterol 53 mg/dL Normal >[address] [facility] Comment on above: Result Comment: HDL Guidelines: <40 Undesirable 40-59 Borderline >59 Desirable Performed By: #### Z FAST, GLU, LIPR, FT4, TSH ####[place] [address] #### FSH, LH ####[address] [place] [address] LDL Cholesterol 103 mg/dL Normal 0-[address] [facility] Comment on above: Result Comment: LDL Guidelines: <100 Desirable 100-129 Near to/above Desirable 130-159 Borderline >159 UndesirableDirect (measured) LDL and calculated LDL are not interchangeable tests. Performed By: #### Z FAST, GLU, LIPR, FT4, TSH ####[facility] [place] [address] #### FSH, LH ####[address] [address] Triglyceride 53 mg/dL Normal <150 [facility] Comment on above: Result Comment: Trig lyceride Guidelines: <150 Desirable 150- 199 Borderline 200-499 High >499 Very high Based on AHA Guidelines for fasting triglyceride, June 2012.Performed at [facility] [address] [place] [address] Performed By: #### Z FAST, GLU, LIPR, FT4, TSH ####[address] [place] [address] #### FSH, LH ####[address] [address] Cholesterol in VLDL mass conc NOT REPORTED Normal 10-07 [facility] Comment on above: Performed By: #### Z FAST, GLU, LIPR, FT4, TSH ####[address] [place] [address] #### FSH, LH ####[address] [address] Luteinizing Hormoneon 2017 Luteinizing Hormone 40.8 U/L Normal 1.0-95.6 [facility] Comment on above: Result Comment: Refe rence Range:Male: 1.7-8.6Ovulating Female: Follicular Phase 2.4-12.6 Ovulation Phase 14.0-95.6 Luteal Phase 1.0-11.4Postmenopausal Female: 7.7-58.5Performed at [address] [address] Performed By: #### Z FAST, GLU, LIPR, FT4, TSH ####[address] [place] [address] #### FSH, LH ####[address] [id number] Patient fasting?on 8 Patient fasting? YES Normal [facility] Comment on above: Result Comment: Perf ormed at [facility] [address] [place] [address] Performed By: #### Z FAST, GLU, LIPR, FT4, TSH ####[address] [id number] #### FSH, LH ####[address] [id number] Thyroid Stim. Horm.on 2017 Thyroid stimulating hormone (TSH) 2.42 m[IU]/L Normal 0.30-5.00 [facility] Comment on above: Result Comment: Perf ormed at [facility] [address] [place], [place] [phone]) Performed By: #### Z FAST, GLU, LIPR, FT4, TSH ####[address] [address] #### FSH, LH ####[address] [address] Thyroxine, Freeon 10-02-2017 Thyroxine, Free 1.01 ng/dL Normal 0.93-1.[address] [facility] Comment on above: Result Comment: Perf ormed at [facility] [address] [place] [address] Performed By: #### Z FAST, GLU, LIPR, FT4, TSH ####[address] [place] [address] #### FSH, LH ####[address] [address] XR FOOT RIGHT STANDARDon XR FOOT RIGHT [...] by:MATILDA Dennisigned by:Chad Malave MD09/30/17inal result Normal [facility] ED Provider Noteon 8 HIM IP Note OR Driver Service Technician Normal [facility] Uric Acidon 05-26-2017 Urate 5.9 mg/dL High 2.4-5.7 [facility] Comment on above: Result Comment: Perf ormed at [facility] [address] [place] [address] ([phone] Performed By: #### U RI ####[address] [place], [place] [phone] Group A Strep DNAon 05-09-20 17 Group A Strep DNA Specimen Description .THROAT SWAB Performed at [facility] [address] [place] [address] ([phone] Special Requests NOT REPORTEDDirect Exam Negative: Specimen negative for Streptococcus pyogenes by DNA amplification. Performed at [address] [address] Report Status FINAL 05/09/2017 [facility] Comment on above: Performed By: #### G ASDNA ####[address] [address] [facility] [facility] [place] [address] ED Noteon 05-08-2017 HIM IP Note OR Driver Service Technician Normal [facility] ED Provider Noteon 7 HIM IP Note OR Driver Service Technician Normal [facility] Strep Gr A Direct Agon 05-08 Rapid strep test Specimen Description .THROATSpecial Requests NOT REPORTEDDirect Exam Rapid Strep A negative. A negative Rapid Group A Strep Screen result does not rule out the possibility of Group A Streptococci in the specimen. A Group A strep DNA test will be performed. Performed at [facility] [address] [place], [place] [id number] ([phone] Report Status FINAL 05/08/2017 Normal [facility] Comment on above: Performed By: #### S GPA ####[facility], [place] [id number] XR FINGER RIGHT STANDARDon 0 04-30-2017 INR [...] by:MATILDA Mckeonigned by:Kwasi Cantu MD04/30/17Final result Normal [facility] ED Provider Noteon 7 HIM IP Note OR Driver Service Technician Normal [facility] Vital Signs Date Time Vital Sign Value Performing Clinician Faci lity 12-30-2024 13:22-040 Body height 157.5 cm Jorge Luis Herndon MD Work Phone: [facility] 12-30-2024 13:22-0400 Body mass index (BMI) [Ratio] 43.71 kg/m2 Jorge Luis Herndon MD Work Phone: [facility] 12-30-2024 13:22-0400 Body temperature 97.5 [degF] Jorge Luis Herndon MD Work Phone: [facility] 12-30-2024 13:22-0400 Body weight 108.41 kg Jorge Luis Herndon MD Work Phone: [facility] 12-30-2024 13:22-0400 Diastolic blood pressure 70 mm[Hg] Jorge Luis Herndon MD Work Phone: [facility] 12-30-2024 13:22-0400 Heart rate 98 /min Jorge Luis Herndon MD Work Phone: [facility] 12-30-2024 13:22-0400 Respiratory rate 22 /min Jorge Luis Herndon MD Work Phone: [facility] 12-30-2024 13:22-0400 SaO2% (BldA) [Mass fraction] 94 % Jorge Luis Herndon MD Work Phone: [facility] 12-30-2024 13:22-0400 Systolic blood pressure 130 mm[Hg] Jorge Luis Herndon MD Work Phone: [facility] 09-16-2024 13:44-0500 Body mass index (BMI) [Ratio] 44.15 kg/m2 Jorge Luis Herndon MD Work Phone: [facility] 09-16-2024 13:44-0500 Body temperature 97.3 [degF] Jorge Luis Herndon MD Work Phone: [facility] 09-16-2024 13:44-0500 Body weight 109.5 kg Jorge Luis Herndon MD Work Phone: [facility] 09-16-2024 13:44-0500 Diastolic blood pressure 88 mm[Hg] Jorge Luis Herndon MD Work Phone: [facility] 09-16-2024 13:44-0500 Heart rate 74 /min Jorge Luis eHrndon MD Work Phone: [facility] 09-16-2024 13:44-0500 SaO2% (BldA) [Mass fraction] 95 % Jorge Luis Herndon MD Work Phone: [facility] 09-16-2024 13:44-0500 Systolic blood pressure 172 mm[Hg] Jorge Luis Herndon MD Work Phone: [facility] 06-16-2024 13:27-0400 Body height 157.5 cm Jorge Luis Herndon MD Work Phone: [facility] 06-16-2024 13:27-0400 Body mass index (BMI) [Ratio] 43.35 kg/m2 Jorge Luis Herndon MD Work Phone: [facility] 06-16-2024 13:27-0400 Body temperature 97.81 [degF] Jorge Luis Herndon MD Work Phone: [facility] 06-16-2024 13:27-0400 Body weight 107.5 kg Jorge Luis Herndon MD Work Phone: [facility] 06-16-2024 13:27-0400 Diastolic blood pressure 68 mm[Hg] Jorge Luis Herndon MD Work Phone: [facility] 06-16-2024 13:27-0400 Heart rate 90 /min Jorge Luis Herndon MD Work Phone: [facility] 06-16-2024 13:27-0400 Respiratory rate 22 /min Jorge Luis Herndon MD Work Phone: [facility] 06-16-2024 13:27-0400 SaO2% (BldA) [Mass fraction] 98 % Jorge Luis Herndon MD Work Phone: [facility] 06-16-2024 13:27-0400 Systolic blood pressure 132 mm[Hg] Jorge Luis Herndon MD Work Phone: [facility] Healthcare Encounters Encounter Date Encounter Type Care Provider Facility Start: 04-10-2025 End: 04-10-2025 Emergency department patient visit JORGE LUIS HERNDON [facility] Start: 01-03-2025 End: 01-03-2025 Clinisync Result Encounter Jorge Luis Herndon MD Work Phone: [facility] External Department Unsolicited Start: 01-03-2025 End: 01-03-2025 Clinisync Result Encounter Jorge Luis Herndon MD Work Phone: [facility] External Department Unsolicited Start: 12-30-2024 End: 12-30-2024 Bamboo flowsheet Jorge Luis Herndon MD Work Phone: [facility] Start: 12-30-2024 End: 12-30-2024 Bamboo flowsheet Jorge Luis Herndon MD Work Phone: [facility] Start: 12-30-2024 End: 12-30-2024 Office outpatient visit 25 minutes Jorge Luis Herndon MD Work Phone: [facility] Comment on above: Type 2 diabetes santiago itus with hyperglycemia, without long-term current use of insulin (CMS/HCC) (Primary Dx); Benign essential hypertension (CMS/HCC); Major depressive disorder, recurrent episode, mild (HCC) (CMS/HCC); Generalized anxiety disorder (CMS/HCC); Primary insomnia; Cervical spondylosis; Class 3 severe obesity due to excess calories with serious comorbidity and body mass index (BMI) of 40.0 to 44.9 in adult; Irritable bowel syndrome with diarrhea Start: 12-30-2024 End: 12-30-2024 ambulatory JORGE LUIS HERNDON Not Available Start: 09-16-2024 End: 09-16-2024 Bamboo flowsheet Jorge Luis Herndon MD Work Phone: [facility] Start: 09-16-2024 End: 09-16-2024 Bamboo flowsheet Jorge Luis Herndon MD Work Phone: [facility] Start: 09-16-2024 End: 09-16-2024 Office outpatient visit 25 minutes Jorge Luis Herndon MD Work Phone: [facility] Comment on above: Type 2 diabetes santiago itus with hyperglycemia, without long-term current use of insulin (CMS/HCC) (Primary Dx); Benign essential hypertension (CMS/HCC); Major depressive disorder, recurrent episode, mild (HCC) (CMS/HCC); Generalized anxiety disorder (CMS/HCC); Primary insomnia; Class 3 severe obesity due to excess calories with serious comorbidity and body mass index (BMI) of 40.0 to 44.9 in adult ([facility]); Diabetic polyneuropathy associated with type 2 diabetes mellitus ([facility]/HCC) Start: 09-16-2024 End: 09-16-2024 ambulatory JORGE LUIS HERNDON Not Available Start: 06-16-2024 End: 06-16-2024 Bamboo flowsheet Jorge Luis Herndon MD Work Phone: [facility] Start: 06-16-2024 End: 06-16-2024 Bamboo flowsheet Jorge Luis Herndon MD Work Phone: [facility] Start: 06-16-2024 End: 06-16-2024 Clinisync Result Encounter Jorge Luis Herndon MD Work Phone: [facility] External Department Unsolicited Start: 06-16-2024 End: 06-16-2024 Patient encounter procedure Jorge Luis Herndon MD Work Phone: [facility] Healthcare Start: 06-16-2024 End: 06-16-2024 Periodic preventive med est patient 40-64yrs Jorge Luis Herndon MD Work Phone: [facility] Comment on above: Annual physical exam (Primary Dx); Type 2 diabetes mellitus with hyperglycemia, without long-term current use of insulin ([facility]); Irritable bowel syndrome with diarrhea; Diabetic polyneuropathy associated with type 2 diabetes mellitus ([facility]); Adult hypothyroidism ([facility]); Obstructive sleep apnea; Breast cancer screening by mammogram; Morbid obesity due to excess calories ([facility]); Body mass index (BMI) 40.0-44.9, adult ([facility]) Start: 06-16-2024 End: 06-16-2024 ambulatory JORGE LUIS HERNDON Not Available Start: 11-28-2023 End: 11-29-2023 ambulatory Jimmy VELASCO Facility:[facility] Start: 12-23-2022 End: 12-23-[address] JORGE LUIS HERNDON Facility: Start: 11-16-2022 End: 11-17-[address] GRECIA SY . Facility:[facility] Start: 10-16-2022 End: 10-17-[address] JORGE LUIS HERNDON Facility:[facility] Start: 10-04-2022 End: 10-05-[address] MARIA DE JESUS MARSH Facility:[facility] Start: 08-13-2022 End: 08-13-[address] OZZY Richards Facility:[facility] Start: 08-10-2022 Encounter for genera l adult medical examination without abnormal findings DR JORGE LUIS HERNDON [facility] Start: 08-07-2022 End: 08-08-[address] JORGE LUIS HERNDON Facility:[facility] Start: 08-07-2022 End: 08-08-2022 Encounter for general adult medical examination without abnormal findings DR JORGE LUIS HERNDON Facility:[facility] Start: 05-13-2022 End: 05-13-[address] JORGE LUIS HERNDON Facility:[facility] Start: 04-18-2022 End: 04-18-[address] DON CHACON Facility:[facility] Start: 02-13-2018 End: 02-16-2018 Ambulatory SITA JERRY [facility] Start: 10-02-2017 End: 10-03-2017 Ambulatory KAREN Tayla GARCIA [facility] Start: 09-29-2017 End: 09-29-2017 Emergency department patient visit [facility] Start: 05-26-2017 End: 05-27-2017 Ambulatory [facility] Start: 05-08-2017 End: 05-08-2017 Emergency department patient visit [facility] Start: 04-30-2017 End: 05-01-2017 Ambulatory [facility] Start: 04-26-2017 End: 04-26-2017 Emergency department patient visit JAMARI Rizvi [facility] Procedures Date Procedure Procedure Detail Performing Clinician Start: 01-03-2025 XR CERVICAL SPINE 2-3V Jorge Luis Herndon MD Work Phone: Start: 01-03-2025 TBH MICROALB CREAT R ATIO RANDOM Jorge Luis Herndon MD Work Phone: Start: 06-16-2024 ALL CBC WITH AUTO DIFF Jorge Luis Herndon MD Work Phone: Start: 07-16-2023 Colonoscopy Jorge Luis montes MD Work Phone: Start: 04-30-2023 Mammography Jorge Luis montes MD Work Phone: Start: 02-13-2018 Us pelvic nonobstetr ic real-time image complete JAMARI MICHELLE Start: 02-13-2018 Us transvaginal JAMARI MICHELLE Start: 10-02-2017 FOLLICLE STIMULATING HORMONE JAMARI MICHELLE Start: 10-02-2017 GLUCOSE, RANDOM JAMARI MICHELLE Start: 10-02-2017 Lipid panel JAMARI HITCHCOCK Start: 10-02-2017 LUTEINIZING HORMONE THOR ELIZA MICHELLE Start: 10-02-2017 PATIENT FASTING? JAMARI MICHELLE Start: 10-02-2017 T4, FREE JAMARI HITCHCOCK Start: 10-02-2017 TSH WITHOUT REFLEX MISTI DIANELYS VIVIANA Start: 09-29-2017 BANDAGE ALFREDO 4 JAMARI MUSTAFA Start: 09-29-2017 Radex foot complete minimum 3 views JAMARI MICHELLE Start: 05-26-2017 URIC ACID JAMARI HITCHCOCK Start: 05-08-2017 STREP A DNA PROBE, AMPLIFICATION JAMARI MICHELLE Start: 05-08-2017 STREP SCREEN GROUP A THROAT JAMARI MICHELLE Start: 04-30-2017 Radex fingr minimum 2 views JAMARI MICHELLE Plan of Treatment Date Care Activity Detail Author Start: 07-16-2033 Screening for malign ant neoplasm of colon [facility] Start: 04-23-2028 Screening for malign ant neoplasm of cervix [facility] Start: 12-18-2026 Screening for malign ant neoplasm of colon FIT-DNA [facility] Start: 05-09-2025 Influenza vaccination Influenz a Vaccine (Season Ended) [facility] Start: 03-31-2025 End: 03-31-2025 Patient encounter procedure 03/31/2025 1:30 PM EDT Office Visit [facility] [address] [place] [id number] Jorge Luis Herndon MD [address] [place] [address] [facility] Start: 12-30-2024 End: 12-30-2025 Hemoglobin A1c/Hemoglobin.total in Blood Hemoglobin A1c Lab Routine Type 2 diabetes mellitus with hyperglycemia, without long-term current use of insulin ([facility]) Expected: 12/30/2024 (Approximate), Expires: 12/30/2025 [facility] Comment on above: Expected: 12/30/2024 (Approximate), Expires: 12/30/2025 Start: 12-30-2024 End: 12-30-2025 Microalbumin/Creatinine panel in random Urine Microalbumin / creatinine, urine ratio Lab Routine Type 2 diabetes mellitus with hyperglycemia, without long-term current use of insulin ([facility]) Expected: 12/30/2024 (Approximate), Expires: 12/30/2025 [facility] Work Phone: Comment on above: Expected: 12/30/2024 (Approximate), Expires: 12/30/2025 Start: 12-30-2024 End: 12-30-2024 Patient encounter procedure [facility] Comment on above: Arrived Start: 12-15-2024 Hemoglobin A1c measurement Bridget betes: Hemoglobin A1C [facility] Start: 12-09-2024 Urine screening for protein Diabetes: Urine Protein Screening [facility] Start: 09-16-2024 End: 09-16-2024 Patient encounter procedure [facility] Comment on above: Arrived Start: 06-16-2024 End: 06-16-2025 Basic metabolic 1998 panel - Serum or Plasma Basic metabolic panel Lab Routine Annual physical exam Expected: 06/16/2024 (Approximate), Expires: 06/16/2025 [facility] Comment on above: Expected: 06/16/2024 (Approximate), Expires: 06/16/2025 Start: 06-16-2024 End: 06-16-2025 CBC W Auto Differential panel - Blood CBC and differential Lab Routine Annual physical exam Expected: 06/16/2024 (Approximate), Expires: 06/16/2025 [facility] Comment on above: Expected: 06/16/2024 (Approximate), Expires: 06/16/2025 Start: 06-16-2024 End: 06-16-2025 Hemoglobin A1c/Hemoglobin.total in Blood Hemoglobin A1c Lab Routine Annual physical exam Expected: 06/16/2024 (Approximate), Expires: 06/16/2025 [facility] Work Phone: Comment on above: Expected: 06/16/2024 (Approximate), Expires: 06/16/2025 Start: 06-16-2024 End: 06-16-2025 Hepatic function 2000 panel - Serum or Plasma Hepatic function panel Lab Routine Annual physical exam Expected: 06/16/2024 (Approximate), Expires: 06/16/2025 [facility] Comment on above: Expected: 06/16/2024 (Approximate), Expires: 06/16/2025 Start: 06-16-2024 End: 06-16-2025 Lipid 1996 panel - Serum or Plasma Lipid panel Lab Routine Annual physical exam Expected: 06/16/2024 (Approximate), Expires: 06/16/2025 [facility] Comment on above: Expected: 06/16/2024 (Approximate), Expires: 06/16/2025 Start: 06-16-2024 End: 08-16-2025 MG Breast - bilateral Screening Bilateral screening mammogram Imaging Routine Breast cancer screening by mammogram Expected: 06/16/2024, Expires: 08/16/2025 [facility] Comment on above: Expected: 06/16/2024 , Expires: 08/16/2025 Start: 06-16-2024 End: 06-16-2025 Thyrotropin [Units/volume] in Serum or Plasma TSH Lab Routine Adult hypothyroidism (CMS/HCC) Expected: 06/16/2024 (Approximate), Expires: 06/16/2025 [facility] Comment on above: Expected: 06/16/2024 (Approximate), Expires: 06/16/2025 Start: 06-16-2024 End: 06-16-2025 Thyroxine (T4) free [Mass/volume] in Serum or Plasma T4, free Lab Routine Adult hypothyroidism (CMS/HCC) Expected: 06/16/2024 (Approximate), Expires: 06/16/2025 [facility] Comment on above: Expected: 06/16/2024 (Approximate), Expires: 06/16/2025 Start: 06-16-2024 End: 06-16-2025 Triiodothyronine (T3) Free [Mass/volume] in Serum or Plasma T3, free Lab Routine Adult hypothyroidism (CMS/HCC) Expected: 06/16/2024 (Approximate), Expires: 06/16/2025 [facility] Comment on above: Expected: 06/16/2024 (Approximate), Expires: 06/16/2025 Start: 06-16-2024 End: 06-16-2024 Patient encounter procedure 06/16/2024 1:30 PM EDT [facility] [address] [place] [id number] Jorge Luis Herndon MD [address] [place] [phone] Arrived [facility] Comment on above: Arrived Start: 06-10-2024 Hemoglobin A1c measurement Bridget betes: Hemoglobin A1C [facility] Start: 05-09-2024 Influenza vaccination Influenza Vacc ine (#1) [facility] Start: 04-30-2024 Screening for malign ant neoplasm of breast Mammogram [facility] Start: 1988 Screening for malign ant neoplasm of cervix Pap Smear [facility] Start: 1986 Urine screening for protein Diabetes: Urine Protein Screening [facility] Start: 1977 Glaucoma screening Diabetes: R etinopathy Screening [facility] Start: 1967 Hemoglobin A1c measurement Bridget betes: Hemoglobin A1C [facility] Start: 1967 Screening for malign ant neoplasm of colon [facility] Payers Date Payer Category Payer Unknown [id number] 2024 Private Health Insurance [employer] [id number] 2024 Unknown [id number] 2023 Unknown BCBS BCBS xxxxxx [id number] 2023-Present [phone] [address] [place] [address] [id number] 2023 Unknown [id number] 2017 Unknown [id number] 2017 Self-pay 2014 Unknown [id number] 1967 Unknown [id number]. 593 1967 Unknown [id number] [id number]. 593 1967 Unknown [id number] [id number]. 593 1967 Unknown [id number] 2.16.840.1.115581.3.579.2. 593 1967 Unknown [id number] 2.16.840.1.011610.3.579.2. 593 1967 Unknown [id number] 2.16.840.1.844350.3.579.2. 593 1967 Unknown [id number] 2.16.840.1.585261.3.579.2. 593 1967 Unknown [id number] 2.16.840.1.604345.3.579.2. 593 1967 Unknown [id number] 2.16.840.1.269508.3.579.2. 727 1967 Unknown [id number] 2.16.840.1.208728.3.579.2. 1259 1967 Unknown [id number] 2.16.840.1.882978.3.579.2. 1259 1967 Unknown [id number] 2.16.840.1.533885.3.579.2. 1259 1967 Unknown [id number] [id number]. 1286 1959 Unknown [id number] 1959 Unknown [id number] Social History Date Type Detail Facility Start: 12-10-2023 Tobacco smoking stat [facility] Never smoked tobacco [facility] Start: 12-10-2023 Tobacco use and exposure Smokeless t obacco non-user [facility] Start: 12-10-2023 End: 12-30-2024 History of Social function [facility] Start: 12-10-2023 End: 12-30-2024 Tobacco use panel [facility] Start: 1965 Sex assigned at Not on file [facility] Medical Equipment Procedure Code Equipment Code Equipment Origin al Text Equipment Identifier Dates 1 each by In Vit ro route Daily [id number] Start: 06-16-2024 1 each Daily [id number] Start: 06-16-2024 History of Present illness Narrative 12-30-2024 Jorge Luis Herndon MD - 12/30/2024 1:51 PM Nancy Herndon MD - 12/30/2024 1:51 PM Nancy Herndon MD - 12/30/2024 1:51 PM EDNikia Herndon MD - 12/30/2024 1:51 PM EDT Note Date & Type Note Facility 12-30-2024 History of Presen t illness Narrative Associated Problem(s): Type 2 diabetes mellitus with hyperglycemia, without long-term current use of insulin (CMS/HCC) Reports BS stable and due for A1C. Stick to ADA diet and limit carbs. Associated Problem(s): Primary insomnia Sleeping well with trazodone and continue. Associated Problem(s): Major depressive disorder, recurrent episode, mild (HCC) (CMS/HCC) Occasional symptoms but tolerable and continue zoloft. Associated Problem(s): Generalized anxiety disorder (CMS/HCC) Occasional symptoms but tolerable and continue zoloft. Associated Problem(s): Class 3 severe obesity due to excess calories with serious comorbidity and body mass index (BMI) of 40.0 to 44.9 in adult Weight loss indicated. Associated Problem(s): Cervical spondylosis Increased pain and check x-ray. Start relafen for pain and robaxin for spasms. Use heat and massage PRN. If worsens will need PT. Associated Problem(s): Benign essential hypertension (CMS/HCC) BP controlled and monitor PRN. Images from the original note were not included. Subjective Patient ID: Talya Ojeda is a 59 y.o. female who presents for Follow-up (3m). Follow up DM, elevated BP, depression, anxiety, and insomnia. Reports BS stable around 130-170. Tries to eat well and stick to ADA diet. Denies signs of elevated BS such as polyuria, polyphagia or polydipsia. Not checking BP away from office but normal today. Taking medication daily and tolerating without side effects. Mood controlled with zoloft. Not as down or sad and happier. Able to interact well with others. Anxiety stable. Not as stressed out or overwhelmed. Not as nervous or worry as much. Not as grey or irritable. Sleeping well with trazodone. Able to fall asleep and stay asleep. Wakes up more rested in am. C/o neck pain. Pain in base neck and top shoulders. Decreased ROM and hard to turn head. Severe tightness in shoulders. No radiation into arms or hands. Using OTC and not much relief. Review of Systems Respiratory: Negative for cough, [...] There is no guarding or rebound. Musculoskeletal: Cervical back: Neck supple. Right lower leg: No edema. Left lower leg: No edema. Neurological: Mental Status: She is alert. Assessment/Plan Problem List Items Addressed This Visit Cervical spondylosis Increased pain and check x-ray. Start relafen for pain and robaxin for spasms. Use heat and massage PRN. If worsens will need PT. Relevant Medications nabumetone (Relafen) 500 MG tablet methocarbamol (Robaxin) 750 MG tablet Generalized anxiety disorder (CMS/HCC) Occasional symptoms but tolerable and continue zoloft. Irritable bowel syndrome with diarrhea Relevant Medications rifAXIMin (Xifaxan) 200 MG tablet Major depressive disorder, recurrent episode, mild (HCC) (CMS/HCC) Occasional symptoms but tolerable and continue zoloft. Type 2 diabetes mellitus with hyperglycemia, without long-term current use of insulin (CMS/HCC) - Primary Reports BS stable and due for A1C. Stick to ADA diet and limit carbs. Relevant Orders Microalbumin / creatinine, urine ratio Hemoglobin A1c Primary insomnia Sleeping well with trazodone and continue. Class 3 severe obesity due to excess calories with serious comorbidity and body mass index (BMI) of 40.0 to 44.9 in adult Weight loss indicated. Benign essential hypertension (CMS/HCC) BP controlled and monitor PRN. documented in this encounter [facility] History of Present illness Narrative 09-16-2024 Jorge Luis Herndon MD - 09/16/2024 2:08 PM Tasha Herndon MD - 09/16/2024 2:07 PM Tasha Herndon MD - 09/16/2024 2:05 PM Tasha Herndon MD - 09/16/2024 2:05 PM EST Note Date & Type Note Facility 09-16-2024 History of Presen t illness Narrative Associated Problem(s): Diabetic polyneuropathy associated with type 2 diabetes mellitus ([facility]) Symptoms stable and continue neurontin. Associated Problem(s): Class 3 severe obesity due to excess calories with serious comorbidity and body mass index (BMI) of 40.0 to 44.9 in adult (CMS/HCC) Weight loss indicated. Associated Problem(s): Type 2 diabetes mellitus with hyperglycemia, without long-term current use of insulin ([facility]) Reports BS stable and last A1C 6.3. Stick to ADA diet and limit carbs. Associated Problem(s): Primary insomnia Sleeping well with trazodone and continue. Associated Problem(s): Major depressive disorder, recurrent episode, mild (HCC) ([facility]) Occasional symptoms but tolerable and continue zoloft. Associated Problem(s): Generalized anxiety disorder (CMS/HCC) Occasional symptoms but tolerable and continue zoloft. Associated Problem(s): Benign essential hypertension (CMS/HCC) BP elevated again and start treatment of HTN with losartan. Monitor PRN. Discussed DASH diet. Images from the original note were not included. Subjective Patient ID: Talya Ojeda is a 59 y.o. female who presents for No chief complaint on file.. Follow up DM, elevated BP, depression, anxiety, and insomnia. Reports BS elevated around 160-170. Tries to eat well and stick to ADA diet. Denies signs of elevated BS such as polyuria, polyphagia or polydipsia. Not checking BP away from office but elevated again today. Mood controlled with zoloft. Not as down or sad and happier. Able to interact well with others. Anxiety stable. Not as stressed out or overwhelmed. Not as nervous or worry as much. Not as grey or irritable. Sleeping well with trazodone. Able to fall asleep and stay asleep. Wakes up more rested in am. Review of Systems Respiratory: Negative for cough, [...] There is no guarding or rebound. Musculoskeletal: Cervical back: Neck supple. Right lower leg: No edema. Left lower leg: No edema. Neurological: Mental Status: She is alert. Assessment/Plan Problem List Items Addressed This Visit Generalized anxiety disorder (CMS/HCC) Occasional symptoms but tolerable and continue zoloft. Major depressive disorder, recurrent episode, mild (HCC) (CMS/HCC) Occasional symptoms but tolerable and continue zoloft. Type 2 diabetes mellitus with hyperglycemia, without long-term current use of insulin (CMS/HCC) - Primary Reports BS stable and last A1C 6.3. Stick to ADA diet and limit carbs. Relevant Medications semaglutide (Ozempic, 0.25 or 0.5 MG/DOSE,) 2 MG/1.5ML solution pen-injector Primary insomnia Sleeping well with trazodone and continue. Class 3 severe obesity due to excess calories with serious comorbidity and body mass index (BMI) of 40.0 to 44.9 in adult (CMS/HCC) Weight loss indicated. Benign essential hypertension (CMS/HCC) BP elevated again and start treatment of HTN with losartan. Monitor PRN. Discussed DASH diet. Relevant Medications losartan (Cozaar) 25 MG tablet documented in this encounter [facility] History of Present illness Narrative 06-16-2024 Jorge Luis Herndon MD - 06/16/2024 2:30 PM EDTMantonina Herndon MD - 06/16/2024 1:55 PM Nancy Herndon MD - 06/16/2024 1:55 PM EDNikia Herndon MD - 06/16/2024 1:52 PM EDT Note Date & Type Note Facility 06-16-2024 History of Presen t illness Narrative Associated Problem(s): Morbid obesity due to excess calories (CMS/HCC) Weight loss indicated. Associated Problem(s): Type 2 diabetes mellitus with hyperglycemia, without long-term current use of insulin (CMS/HCC) Not checking BS and due for A1C. Stick to ADA diet and limit carbs. Associated Problem(s): Obstructive sleep apnea Over 5 years since last sleep study and machine not working properly. Refer for CPAP titration study. Associated Problem(s): Diabetic polyneuropathy associated with type 2 diabetes mellitus ([facility]) Increased symptoms and start neurontin. Associated Problem(s): [...] without long-term current use of insulin (CMS/HCC) Not checking BS and due for A1C. [...] Bilateral screening mammogram documented in this encounter [facility] Clinical Note 12-23-2022 Note Date [...] by: EUFEMIA GARBER Date: 2022-12-23 14:47 [facility] Evaluation note Note Date & Type [...] 40.0-44.9, adult (CMS/HCC) documented in this encounter [facility] Evaluation note Note Date & Type Note Facility Evaluation note Diagnosis Type 2 diabetes mellitus with hyperglycemia, without long-term current use of insulin (CMS/HCC)- Primary Elevated blood-pressure reading without diagnosis of hypertension Elevated blood pressure reading without diagnosis of hypertension Generalized anxiety disorder (CMS/HCC) Generalized anxiety disorder Major depressive disorder, recurrent episode, mild (HCC) (CMS/HCC) Major depressive disorder, recurrent episode, mild Primary insomnia Persistent disorder of initiating or maintaining sleep Irritable bowel syndrome with diarrhea Irritable bowel syndrome Adult hypothyroidism (CMS/HCC) Unspecified hypothyroidism Colon cancer screening Special screening for malignant neoplasms, colon Annual physical exam- Primary Routine general medical [...] Body mass index (BMI) 40.0-44.9, adult (CMS/HCC) Type 2 diabetes mellitus with hyperglycemia, without long-term current use of insulin (CMS/HCC)- Primary Benign essential hypertension (CMS/HCC) Essential hypertension, benign Major depressive disorder, recurrent episode, mild (HCC) (CMS/HCC) Major depressive disorder, recurrent episode, mild Generalized anxiety disorder (CMS/HCC) Generalized anxiety disorder Primary insomnia Persistent disorder of initiating or maintaining sleep Class 3 severe obesity due to excess calories with serious comorbidity and body mass index (BMI) of 40.0 to 44.9 in adult (CMS/HCC) Diabetic polyneuropathy associated with type 2 diabetes mellitus (CMS/HCC) documented in this encounter [facility] Evaluation note Note Date & Type Note Facility Evaluation note Diagnosis Type 2 diabetes mellitus with hyperglycemia, without long-term current use of insulin (CMS/HCC)- Primary Elevated blood-pressure reading without diagnosis of hypertension Elevated blood pressure reading without diagnosis of hypertension Generalized anxiety disorder (CMS/HCC) Generalized anxiety disorder Major depressive disorder, recurrent episode, mild (HCC) (CMS/HCC) Major depressive disorder, recurrent episode, mild Primary insomnia Persistent disorder of initiating or maintaining sleep Irritable bowel syndrome with diarrhea Irritable bowel syndrome Adult hypothyroidism (CMS/HCC) Unspecified hypothyroidism Colon cancer screening Special screening for malignant neoplasms, colon Annual physical exam- Primary Routine general medical [...] Body mass index (BMI) 40.0-44.9, adult (CMS/HCC) Type 2 diabetes mellitus with hyperglycemia, without long-term current use of insulin (CMS/HCC)- Primary Benign essential hypertension (CMS/HCC) Essential hypertension, benign Major depressive disorder, recurrent episode, mild (HCC) (CMS/HCC) Major depressive disorder, recurrent episode, mild Generalized anxiety disorder (CMS/HCC) Generalized anxiety disorder Primary insomnia Persistent disorder of initiating or maintaining sleep Class 3 severe obesity due to excess calories with serious comorbidity and body mass index (BMI) of 40.0 to 44.9 in adult Diabetic polyneuropathy associated with type 2 diabetes mellitus (CMS/HCC) Type 2 diabetes mellitus with hyperglycemia, without long-term current use of insulin (CMS/HCC)- Primary Benign essential hypertension (CMS/HCC) Essential hypertension, benign Major depressive disorder, recurrent episode, mild (HCC) (CMS/HCC) Major depressive disorder, recurrent episode, mild Generalized anxiety disorder (CMS/HCC) Generalized anxiety disorder Primary insomnia Persistent disorder of initiating or maintaining sleep Cervical spondylosis Cervical spondylosis without myelopathy Class 3 severe obesity due to excess calories with serious comorbidity and body mass index (BMI) of 40.0 to 44.9 in adult Irritable bowel syndrome with diarrhea Irritable bowel syndrome documented in this encounter [facility] Summary [...] and content) DATE CREATED AUTHOR 02/24/2018 Darlene bruce DATE CREATED AUTHOR AUTHOR'S ORGANIZ ATION 02/25/2018 [facility] DATE CREATED AUTHOR AUTHOR'S ORGANIZ ATION 01/24/2020 [facility] DATE CREATED AUTHOR AUTHOR'S ORGANIZ ATION 12/25/2022 [facility] DATE CREATED AUTHOR AUTHOR'S ORGANIZ ATION 11/30/[address] [facility] DATE CREATED AUTHOR AUTHOR'S ORGANIZ ATION 12/31/2024 [facility] EPIC DATE CREATED AUTHOR AUTHOR'S ORGANIZ ATION 04/12/2025 [facility] Care Teams (unrecognized sec tion and content) Senior Director Creative Services Relationship Specialty Start Date End Date Jorge Luis Herndon MD [address] [place] [address] PCP - General Family Medicine 10/30/23 Jorge Luis Herndon MD [address] [place] [address] PCP - [facility] [employer] 02/07/24 Senior Director Creative Services Relationship Specialty Start Date End Date Jorge Luis Herndon MD [address] [place] [phone] PCP - General Family Medicine 10/30/23 Jorge Luis Herndon MD [address] [place] [address] PCP - [employer] 02/07/24 Senior Director Creative Services Relationship Specialty Start Date End Date Jorge Luis Herndon MD [address] [place] [phone] PCP - General Family Medicine 10/30/23 Jorge Luis Herndon MD [address] [place] [address] PCP - [employer] 02/07/24 Senior Director Creative Services Relationship Specialty Start Date End Date Jorge Luis Herndon MD [address] [place] [address] PCP - General Family Medicine 10/30/23 Jorge Luis Herndon MD [address] [place] [phone] PCP [facility] 02/07/24 Senior Director Creative Services Relationship Specialty Start Date End Date Jorge Luis Herndon MD [address] [place] [phone] PCP - [facility] 10/30/23 Senior Director Creative Services Relationship Specialty Start Date End Date Jorge Luis Herndon MD [address] [place] [address] PCP - [facility] 10/30/23 Senior Director Creative Services Relationship Specialty Start Date End Date Jorge Luis Herndon MD [address] [place] [address] PCP - [facility] 10/30/23 Reason for Visit (unrecogniz ed section and content) Reason Comments Follow-up 6m Leg Pain Numbness/ tingling Reason Comments Follow-up 3m FOR RECORDS PERTAINING TO PATIENTS WHO ARE [...] BE BASED ON THE PRIMARY CLINICAL RECORDS. [employer] provides no warranty or guarantee of the accuracy or completeness of information in this document.
--- NOTE | 2025-05-04 19:07 | XR_ITS ---
The [address] [address] Patient Name: SHIRAZ HENSON MRN: [id number] date: 1965 Sex: F Assigned Patient Location: ER Current Patient Location: ER Accession/Order Number: [id number] Exam Date: 05/04/2025 19:32 Report Date: 05/04/2025 20:01 At the request of: ARIELLE GRAVES Procedure: XR chest 1V Plain film chest Single view HISTORY: Cough and sore throat COMPARISON: 12/23/2022 FINDINGS: SUPPORT DEVICES: None POSTSURGICAL CHANGES: None HEART: Within normal limits PULMONARY JETHRO: Within normal limits MEDIASTINUM: Unremarkable LUNGS AND PLEURA: No acute lung process, pleural effusion or pneumothorax identified. BONY STRUCTURES: Intact ADDITIONAL FINDINGS None XR/XR chest 1V IMPRESSION: No acute process. Impression dictated by: Jimmy López M.D. 05/04/2025 8:01 PM Dictation Location: [employer] Electronically authenticated by: [id number] Y Date: 05/04/2025 20:01
[2025-05-04 19:33] VITALS: PULSE 86; O2SAT 96
[2025-05-04] MEDS: IPRATROPIUM/ALBUTEROL SULFATE 3 ML AMPUL.NEB IH (19:33)
--- NOTE | 2025-05-04 19:33 | ED.GENADUL1 ---
HPI HPI - General Adult General Chief complaint: Upper Respiratory Infection Stated complaint: SORE THROAT, COUGH, HEADACHE Time Seen by Provider: 05/04/25 18:48 Source: patient Mode of arrival: walk-in History of Present Illness HPI narrative: Patient is a 60-year-old female with a PMH of HTN, YVONNE, and anxiety that presented to the emergency department with complaints of 1 day of sore throat, cough, and diarrhea. 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 She was unable to go to work today as she felt ill and is here requesting evaluation and a work note. She denies chest pain, shortness of breath, abdominal pain, nausea. She has vomited after coughing hard a few times. Related Data Previous Rx's ?Medication ?Instructions ?Recorded prednisone 20 mg tablet 20 mg PO BID 5 days #10 tabs 05/04/25 Allergies Allergy/AdvReac Type Severity Reaction Status Date / Time No Known Drug Allergies Allergy Verified 02/23/23 15:13 Opioid HPI Opioid Management Most Recent Opioid Data: Last Pain Scale 7 02/23/23, 15:26 Review of Systems ROS Status of ROS 10 or more systems reviewed and unremarkable except as noted in history and below PFSH PFSH Social History Smoking status: Never smoker Little interest or pleasure in doing things: not at all Feeling down, depressed, or hopeless: not at all Exam Narrative Exam Narrative: General: No distress, age-appropriate, laying on the ED cart, follows commands, moves with ease Skin: Warm, dry, no pallor. No rash. Head: Normocephalic, atraumatic. Neck: Supple, non-tender. Eye: Pupils are equal, round and EOMI. No scleral icterus. Ears, Nose, Mouth, and Throat: No nasal mucosal hypertrophy. Oral mucosa is moist, no posterior oropharynx erythema, uvula is mid-line Cardiovascular: Regular Rate and Rhythm without murmur, gallop or rub. Respiratory: No accessory muscle use or respiratory distress. Breath sounds present bilaterally, but decreased, no wheezing, rales or rhonchi Chest Wall: no tenderness Musculoskeletal: Full ROM of all extremities, no calf or popliteal tenderness GI: Abdomen is soft, non-distended, non tender to palpation. No masses appreciated. No rebound, guarding, or rigidity noted. Neurological: A&O x4. No cranial nerve dysfunction observed. No truncal ataxia. Moves all extremities. Sensation intact. Psychiatric: Cooperative and interactive. Normal mood and affect. Constitutional Vital Signs, click to edit/add: Last Vital Signs Temp 98.4 F 05/04/25 18:42 Pulse 86 05/04/25 19:33 Resp 16 05/04/25 22:03 BP 132/88 05/04/25 22:03 Pulse Ox 92 L 05/04/25 22:03 O2 Del Method Room Air 05/04/25 22:03 O2 Flow Rate 3 05/04/25 19:33 Course Reevaluation(s) Reevaluation #1: Lab called for critical, D-Dimer elevated. In the setting of her hypoxia, I discussed results with her and am going to order a CTA Chest. She does feel a bit better after the Duo-Neb, on re-examination breath sounds have increased bilateral and now expiratory wheezing is auscultated. Time: 20:26 Reevaluation #2: CTA read and negative for pulmonary embolism. Solu-Medrol 125 mg IV ordered. Will attempt to wean down O2. Discussed plan with patient who agrees. Will likely be discharging her with a Medrol Dosepak. We did discuss multiple times following up with her PCP to discuss her hypoxia at this visit and during her colonoscopy. Time: 21:12 Reevaluation #3: O2 weaned down to room air, patient holding steady in the 90s. Improved breath sounds bilaterally after Solu-Medrol. Time: 22:04 Vital Signs Vital signs: Vital Signs Temperature 98.4 F 05/04/25 18:42 Pulse Rate 97 H 05/04/25 18:42 Respiratory Rate 18 05/04/25 18:42 Blood Pressure 135/101 H 05/04/25 18:42 Pulse Oximetry 88 L 05/04/25 18:42 Oxygen Delivery Method Room Air 05/04/25 18:42 Temperature 98.4 F 05/04/25 18:42 Pulse Rate 86 05/04/25 19:33 Respiratory Rate 16 05/04/25 22:03 Blood Pressure 132/88 05/04/25 22:03 Pulse Oximetry 92 L 05/04/25 22:03 Oxygen Delivery Method Room Air 05/04/25 22:03 Oxygen Delivery Flow Rate 3 05/04/25 19:33 Medical Decision Making MDM Narrative Medical decision making narrative: 60-year-old female presented to the emergency department for evaluation of her URI symptoms, cough, sore throat, diarrhea, that have been present for a day after exposure to someone with bronchitis. On arrival blood pressure and heart rate stable but patient O2 saturations in the 80s on room air, patient in no respiratory distress. 3 L applied to bring patient back up above 90% O2 saturation. I discussed this with patient and she denies any lung disease other than sleep apnea, she does use a CPAP. She notes she did have a colonoscopy at some point and they had to cut the procedure short secondary to being unable to maintain her oxygen saturations. She never mention this to her primary care physician. CBC, BMP, D-dimer, COVID-19 labs ordered. Chest x-ray ordered. DuoNeb ordered. Chest x-ray negative for acute pathology, D-dimer positive and CTA ordered. Patient feeling improved after DuoNeb, breath sounds improved, expiratory wheezing heard now. CTA negative for pulmonary embolism. COVID-negative, Lytes WNL. 125 mg Solu-Medrol given. Patient was weaned down from 3 L O2 to room air after steroid given. O2 saturations held steady above 90 prior to discharge. Patient continued denies chest pain and shortness of breath. I gave patient a work note to be off today and tomorrow. I did send her home with prednisone 40 mg twice daily x 5 days. Patient will follow-up with her primary care provider for ER follow-up care. Patient was discharged in good condition from the ER. Vitals were stable. Differential Diagnosis Differential Diagnosis: URI, viral pneumonia, COPD exacerbation Lab Data Lab results reviewed: Yes I reviewed the patient's lab results Labs: Lab Results 05/04/25 05/04/25 05/04/25 Range/Units 19:12 19:18 19:52 WBC 7.1 (4.0-11.0) 10^3/uL RBC 4.68 (4.20-5.40) 10^6/uL Hgb 14.0 (12.0-16.0) g/dL Hct 42.8 (36.0-48.0) % MCV 91.5 (81.0-99.0) fL MCH 29.9 (26.7-34.0) pg MCHC 32.7 (29.9-35.2) g/dL RDW 13.5 (11.0-15.0) % Plt Count 168 (150-450) 10^3/uL MPV 12.5 (9.5-13.5) fL Neut % (Auto) 76.4 H (43.0-75.0) % Lymph % (Auto) 10.7 L (20.5-60.0) % [place] % (Auto) 8.5 (1.7-12.0) % Eos % (Auto) 3.7 (0.9-7.0) % Baso % (Auto) 0.4 (0.2-2.0) % Neut # (Auto) 5.4 (1.4-6.5) 10^3/uL Lymph # (Auto) 0.8 L (1.2-3.8) 10^3/uL [place] # (Auto) 0.6 (0.3-0.8) 10^3/uL Eos # (Auto) 0.3 (0.0-0.7) 10^3/uL Baso # (Auto) 0.0 (0.0-0.1) 10^3/uL Abs Immat Gran (auto) 0.02 (0.00-0.03) 10^3/uL Imm/Tot Granulo (auto) 0.3 (0.0-0.5) % D-Dimer 0.73 H* (<=0.59) mg/L FEU Sodium 143 (136-145) mmol/L Potassium 4.1 (3.5-5.1) mmol/L Chloride 106 (98-107) mmol/L Carbon Dioxide 31.5 (21.0-32.0) mmol/L Anion Gap 9.6 BUN 11.0 (7.0-18.0) mg/dL Creatinine 0.64 (0.55-1.02) mg/dL Est GFR ( Amer) >60 (>=60 mL/min/1.73m^2) Est GFR (Non-Af Amer) >60 (>=60 mL/min/1.73m^2) BUN/Creatinine Ratio 17.2 Glucose 153 H (74-106) mg/dL Calcium 9.1 (8.5-10.1) mg/dL SARS-CoV-2 Ag (CV2AG) Negative (NEGATIVE) Imaging Data CT scan - chest: Attestation: I have reviewed the pertinent imaging results. Radiologist's impression: ITS Impressions Chest X-Ray 05/04/25 19:07 IMPRESSION: No acute process. Impression dictated by: Jimmy López M.D. 05/04/2025 8:01 PM Dictation Location: [employer] Electronically authenticated by: [id number] Y Date: 05/04/2025 20:01 Chest CTA 05/04/25 20:19 IMPRESSION: No acute pulmonary embolus. Impression dictated by: Jimmy López M.D. 05/04/2025 8:56 PM Dictation Location: [id number] Electronically authenticated by: [id number] Y Date: 05/04/2025 20:56 Discharge Plan Discharge Chief Complaint: Upper Respiratory Infection Clinical Impression: Viral infection, Hypoxia Patient Disposition: Home, Self-Care Time of Disposition Decision: 21:51 Condition: Good Mode of Transportation: Private Vehicle Prescriptions / Home Meds: New prednisone 20 mg tablet 20 mg PO BID 5 Days Qty: 10 0RF Print Language: Yoruba Instructions: Viral Syndrome (ED), Hypoxia (ED) Additional Instructions: Please follow-up with your primary care physician after your emergency department visit. If you have any new or worsening symptoms return to the emergency department for evaluation. Referrals: Jorge Luis Jarvis MD [Primary Care Provider, Family Practice] - 1 week Discharge Date/Time: 05/04/25 22:05
[2025-05-04 19:37] LABS: Hematocrit 42.8 % (36.0-48.0); Hemoglobin 14.0 g/dL (12.0-16.0); Immature Granulocytes Abs Auto 0.02 10^3/uL (0.00-0.03); Immature Granulocytes Pct Auto 0.3 % (0.0-0.5); Lymphocytes Absolute Auto 0.8 10^3/uL (1.2-3.8); Mean Corpuscular HGB Conc 32.7 g/dL (29.9-35.2); Mean Corpuscular Hemoglobin 29.9 pg (26.7-34.0); Mean Corpuscular Volume 91.5 fL (81.0-99.0); Platelet Count 168 10^3/uL (150-450); Red Blood Count 4.68 10^6/uL (4.20-5.40); White Blood Count 7.1 10^3/uL (4.0-11.0)
[2025-05-04 19:49] LABS: SARS-CoV-2 Ag NEGATIVE (NEGATIVE)
[2025-05-04 20:09] LABS: Anion Gap 9.6; Blood Urea Nitrogen 11.0 mg/dL (7.0-18.0); Calcium 9.1 mg/dL (8.5-10.1); Carbon Dioxide 31.5 mmol/L (21.0-32.0); Chloride 106 mmol/L (98-107); Estimated GFR (African America >60 (>=60 mL/min/1.73m^2); Estimated GFR (Non-African Ame >60 (>=60 mL/min/1.73m^2); Glucose 153 mg/dL (74-106); Potassium 4.1 mmol/L (3.5-5.1); Sodium 143 mmol/L (136-145)
--- NOTE | 2025-05-04 20:19 | CT_ITS ---
The [address] [address] Patient Name: SHIRAZ HENSON MRN: [id number] date: 1965 Sex: F Assigned Patient Location: ER Current Patient Location: ER Accession/Order Number: [id number] Exam Date: 05/04/2025 20:33 Report Date: 05/04/2025 20:56 At the request of: ARIELLE GRAVES Procedure: CT angio chest CTA Chest with PE protocol TECHNIQUE: Axial imaging with 2-D and 3-D reconstruction. 100 Cc of Omnipaque [address] exam was performed using one or more the following dose reduction techniques: Automated exposure control, adjustment of the MA and/or Kv according to patient size, or use of the iterative reconstruction technique. History: Hypoxia. Cough. Elevated d-dimer COMPARISON: None THYROID: Unremarkable TRACHEA AND BRONCHI: Patent ESOPHAGUS: Unremarkable. HEART: Within normal limits PERICARDIAL EFFUSION: None CORONARY ARTERY CALCIFICATION: None MEDIASTINUM: No adenopathy. No pneumoperitoneum. No mediastinal hematoma. PULMONARY JETHRO: No hilar mass or adenopathy is seen. THORACIC AORTA Unremarkable PULMONARY EMBOLUS: None LUNG NODULE None LUNGS: The lingular atelectasis. PLEURAL EFFUSION: None PNEUMOTHORAX: No pneumothorax seen. CHEST WALL: No abnormality AXILLA: Unremarkable BONY STRUCTURES thoracic hyperostosis UPPER ABDOMEN: Images of the upper abdomen are noncontributory. CT/CT angio chest IMPRESSION: No acute pulmonary embolus. Impression dictated by: Jimmy López M.D. 05/04/2025 8:56 PM Dictation Location: [employer] Electronically authenticated by: [id number] Y Date: 05/04/2025 20:56
[2025-05-04] MEDS: METHYLPREDNISOLONE SOD SUCC PF 125 MG/2 ML VIAL IVP (21:27)
[2025-05-04 22:03] VITALS: BP 132/88; O2SAT 92
== END 2025-05-04 22:05 | disposition home or self-care (01) ==
PROVIDERS: Physician Assistant; Emergency Provider Emergency Medicine; PCP Family Medicine
DX: B34.9 Viral infection, unspecified (principal); R09.02 Hypoxemia; I10 Essential (primary) hypertension; G47.33 Obstructive sleep apnea (adult) (pediatric); F41.9 Anxiety disorder, unspecified; R79.89 Other specified abnormal findings of blood chemistry
CPT/HCPCS: 36415; 71045; 71275; 80048; 85025; 85378; 87811; 94640; 96374; 99285; J2919; Q9967

== ENCOUNTER 2025-06-20 14:23 | Outpatient (OUT) | payer OTHER, SELFPAY ==
--- OUTSIDE RECORDS SUMMARY | 2025-06-20 14:31 | XMS_ITS | Encounter Summary ---
Author Organization [facility] Address [address] [place] [address] Care Team Providers Care Independent Living Advisor Name Role Phone Jorge Luis Jarvis MD Primary Care Provider [phone] Jorge Luis Jarvis MD Unavailable Encounter Details Date Type Department Care Team (Late st Contact Info) Description 06/17/2024 Orders Only [facility] [address] [place] [phone] Jorge Luis Jarvis MD [address] [place] [address] Social History Tobacco Use Types Packs/Day Years Used Date Smoking Tobacco: Never Smokeless Tobacco: Never PHQ-2 Answer Date Recorded Patient Health Questionnaire-2 Score 0 12/10/2023 Comments Unknown Sex and Gender Information Value Date Recorded Sex Assigned at Not on file Legal Sex Female 7:02 PM EDT Gender Identity Not on file Sexual Orientation Not on file documented as of this encounter Plan of Treatment Not on file documented as of this encounter Visit Diagnoses Not on filedocumented in this encounter Care Teams Independent Living Advisor Relationship Specialty Start Date End Date Jorge Luis Jarvis MD PCP - General Family Medicine 10/30/23 Jorge Luis Jarvis MD [address] [place] [address] PCP - [employer] 02/07/2409/07 documented as of this encounter
--- OUTSIDE RECORDS SUMMARY | 2025-06-20 14:31 | XMS_ITS | Encounter Summary ---
Author Organization [facility] Address [address] [place] [address] Care Team Providers Care Communications Engineering Technician Name Role Phone Jorge Luis Jarvis MD Primary Care Provider [phone] Encounter Details Date Type Department Care Team (Late st Contact Info) Description 01/04/2025 Results [facility] [address] [facility] [address] Jorge Luis Jarvis MD [address] [place] [address] XR CERVICAL SPINE 2-3V Social History Tobacco Use Types Packs/Day Years [...] on filedocumented in this encounter Care Teams Communications Engineering Technician Relationship Specialty Start Date End Date Jorge Luis Jarvis MD PCP - General Family Medicine 10/30/23 documented as of this encounter
--- OUTSIDE RECORDS SUMMARY | 2025-06-20 14:31 | XMS_ITS | Clinical Summary ---
Author Organization [facility] Address [address], [address] [place] [address] Care Team Providers Care Cider Press Operator Name Role Phone Madison Grossman Primary Care Provider [phone] Allergies No known active allergies Medications aspirin-acetami nophen-caffeine (EXCEDRIN MIGRAINE) 250-250-65 MG per tablet Take 2 tablets by mouth every 6 hours as needed for Headaches or Pain Active acetaminophen (TYLENOL) 325 MG tablet Take 2 tablets by mouth every 6 hours as needed for Pain 120 tablet 3 7 Active allopurinol (ZYLOPRIM) 100 MG tablet Take 1 tablet by mouth daily 30 tablet 5 7 Active ibuprofen (ADVIL;MOTRIN) 200 MG tablet Take 800 mg by mouth every 6 hours as needed for Pain Active naproxen (EC-NAPROSYN) 500 MG EC tablet Take 1 tablet by mouth 2 times daily as needed for Pain 60 tablet 3 8 Active ranitidine (ZANTAC) 150 MG tablet Take 1 tablet by mouth 2 times daily as needed for Heartburn 60 tablet 3 8 Active Active Problems Problem Noted Date Diagnosed Date Gouty arthritis 02/09/2018 Social History Tobacco Use Types Packs/Day Years Used Date Smoking Tobacco: Never Smokeless Tobacco: Never Alcohol Use Standard Drinks/Week Comments Yes 0 (1 standard drink = 0.6 oz pur e alcohol) rare PHQ-2 Answer Date Recorded PHQ-2 Score 0 12/09/2018 Comments No Sex and Gender Information Value Date Recorded Sex Assigned at Not on file Legal Sex Female 9:52 AM EST Gender Identity Not on file Sexual Orientation Not on file Last Filed Vital Signs Vital Sign Reading Time Taken Comments Blood Pressure 120/80 02/09/2018 1:23 PM EDT Pulse 70 09/29/2017 6:42 PM EST Temperature 36.7 C (98 F) 09/29/2017 6:42 PM EST Respiratory Rate 20 09/29/2017 6:42 PM EST Oxygen Saturation 96% 09/29/2017 6:42 PM EST Inhaled Oxygen Concentration - - Weight 100.2 kg (221 lb) 02/09/2018 1:23 PM EDT Height 157.5 cm (5' 2 ) 02/09/2018 1:23 PM EDT Body Mass Index 40.42 02/09/2018 1:23 PM EDT Plan of Treatment Not on file Insurance [employer] Care Teams Cider Press Operator Relationship Specialty Start Date End Date Madison Grossman DO [address] [place] [address] PCP - General Family Medicine 02/09/18
--- OUTSIDE RECORDS SUMMARY | 2025-06-20 14:31 | XMS_ITS | Encounter Summary ---
Author Organization [facility] Address [address] [place] [address] Care Team Providers Care Honing Machine Operator Production Name Role Phone Jorge Luis Jarvis MD Primary Care Provider [phone] Encounter Details Date Type Department Care Team (Late st Contact Info) Description 01/04/2025 Results [facility] [address] [place] [address] Jorge Luis Jarvis MD [address] [place] [address] [facility] MICROALB CREAT RATIO RANDOM, MLR HEMOGLOBIN A1C Social History Tobacco Use Types Packs/Day Years [...] on filedocumented in this encounter Care Teams Honing Machine Operator Production Relationship Specialty Start Date End Date Jorge Luis Jarvis MD PCP - General Family Medicine 10/30/23 documented as of this encounter
--- OUTSIDE RECORDS SUMMARY | 2025-06-20 14:32 | XMS_ITS | Patient Health Record ---
Author Organization [facility] Address [address] [place] [address] Support Name Relationship Address Phone Booker Ojeda Emergency Contact Unknown Talya Ojeda Guarantor Unknown [phone] Reason For Referral No Information Medications Medication SIG (Take, Route, Frequency, Duration) Notes Start Date End Date Status Prevacid Active Plan Of Treatment No Information Insurance Providers Payer Name Payer Address Payer Phone Subscriber Number Group Number Insured Name Patient Relationship to Insured Coverage Start Date Coverage End Date SELF PAY ON PATIENT [employer]OGR[employer] Talya Ojeda Self - patient is the insured 1
--- OUTSIDE RECORDS SUMMARY | 2025-06-20 14:32 | XMS_ITS | Clinical Summary ---
Author Organization [employer] s tem Address [id number] [address] [place] [address] Care Team Providers Care Flow Nurse Name Role Phone Jorge Luis Jarvis MD Primary Care Provider [phone] Allergies Active Allergy Reactions Criticality Noted Date Comments Bee Venom Protein (Honey Bee) 2022 Medications sertraline (ZOLOFT) 50 mg tablet Take 1 tablet (50 mg total) by mouth in the morning. 03/03/2023 Active omeprazole (PriLOSEC) 40 mg capsule Take 1 capsule (40 mg total) by mouth in the morning. 03/10/2023 Active levothyroxine (SYNTHROID, LEVOTHROID) 50 MCG tablet Take 1 tablet (50 mcg total) by mouth in the morning. 01/31/2023 Active atorvastatin (LIPITOR) 20 mg tablet Take 1 tablet (20 mg total) by mouth. 07/29/2024 Active gabapentin (NEURONTIN) 300 mg capsule 1 PO at bedtime on day #1, then 1 PO BID on day #2, then 1 PO TID 06/16/2024 Active losartan (COZAAR) 25 mg tablet Take 1 tablet (25 mg total) by mouth in the morning. 09/16/2024 Active methocarbamoL (ROBAXIN) 750 mg tablet Take 1 tablet (750 mg total) by mouth 4 (four) times a day as needed. 12/30/2024 Active nabumetone (RELAFEN) 500 mg tablet Take 1 tablet (500 mg total) by mouth 2 (two) times a day as needed. 12/30/2024 Active ibuprofen (MOTRIN) 800 mg tablet Take 1 tablet (800 mg total) by mouth every 8 (eight) hours as needed for pain. 30 tablet 04/10/2025 Active Active Problems No known active problems Encounters Date Type Department Care Team Description 04/10/2025 5:46 PM EDT - 04/10/2025 9:35 PM EDT Emergency [facility] Emergency [address] [place] [address] Nadja Rome, Right-sided chest wall pain (Primary Dx) Discharge Disposition: Home 04/10/2025 Travel from Last 3 Months Family History Medical History Relation Name Comments Hypertension Father Breast cancer Maternal Aunt Diabetes Maternal Aunt Colon cancer Neg Hx Ovarian cancer Neg Hx Relation Name Status Comments Father Maternal Aunt Social History Tobacco Use Types Packs/Day Years Used Date Smoking Tobacco: Never Smokeless Tobacco: Never Tobacco Cessation:Counseling Given: Not Answered Comments:Tried smoking as teenager Alcohol Use Standard Drinks/Week Comments Yes 0 (1 standard drink = 0.6 oz pur e alcohol) 1 to 2 times per years PHQ-2 Answer Date Recorded Total Score 6 04/23/2023 Childcare Answer Date Recorded Childcare Unknown 02/17/2019 Employment Answer Date Recorded Employment Unknown 02/17/2019 Hunger Screening Answer Date Recorded Within the past 12 months we worried whether our food would run out before we got money to buy more. Never True 04/10/2025 Within the past 12 months th e food we bought just didn't last and we didn't have money to get more. Never True 04/10/2025 Comments No Sex and Gender Information Value Date Recorded Sex Assigned at Not on file Legal Sex Female 11:22 AM EDT Gender Identity Not on file Sexual Orientation Not on file Last Filed Vital Signs Vital Sign Reading Time Taken Comments Blood Pressure 138/62 04/10/2025 9:00 PM EDT Pulse 66 04/10/2025 9:15 PM EDT Temperature 36.8 C (98.2 F) 04/10/2025 5:54 PM EDT Respiratory Rate 15 04/10/2025 9:15 PM EDT Oxygen Saturation 94% 04/10/2025 9:15 PM EDT Inhaled Oxygen Concentration - - Weight 108.9 kg (240 lb) 04/10/2025 5:54 PM EDT Height 157.5 cm (5' 2 ) 04/10/2025 5:54 PM EDT Body Mass Index 43.9 04/10/2025 5:54 PM EDT Plan of Treatment Health Maintenance Due Date Last Done Comments Adult BMI Follow Up Plan 1985 DTaP,Tdap and Td Vaccines (1 - Tdap) 1986 Zoster (Shingles) Vaccine (1 of 2) 2017 Depression Screening 04/23/2024 04/23/2023 COVID-19 Vaccine (3 - season) 2025, 01/31/2021 Influenza Vaccine 05/09/2025 Adult BMI Screening 04/10/2026 04/10/2025 Tobacco Screening 04/10/2026 04/10/2025 Pap Smear 04/23/2026 04/23/2023, 04/23/2023 Medical Devices Not on file Procedures Procedure Name Priority Date/Time Associated Diagnosis Comments CT CHEST W CONT STAT 04/10/2025 7:32 PM EDT TROP I, HIGH SENSITIVITY 1 HOUR STAT 04/10/2025 7:07 PM EDT XR CHEST 2 VWS STAT 04/10/2025 6:43 PM EDT TROPONIN I, HIGH SENSITIVITY 0 HOUR STAT 04/10/2025 6:02 PM EDT TROPONIN I, HIGH SENSITIVITY 0 HOUR STAT 04/10/2025 6:02 PM EDT D-DIMER STAT 04/10/2025 6:02 PM EDT BASIC METABOLIC PANEL STAT 04/10/2025 6:02 PM EDT CBC WITH AUTO DIFFERENTIAL STAT 04/10/2025 6:02 PM EDT ECG 12-LEAD STAT 04/10/2025 5:52 PM EDT HIGH RISK HPV W/NGOZI Routine 04/23/2023 6:42 AM EDT Screening for cervical cancer from Last 3 Months or Most Recently Relevant to Health Maintenance Results * CT chest with contrast (04/10/2025 7:32 PM EDT) Anatomical Region Laterality Modality Body, Lung, Chest, Body Covera N/A C omputed Tomography 04/10/2025 8:28 PM EDT Narrative 04/10/2025 8:[address] CHEST W CONT HISTORY: Right-sided chest [...] prior chest radiograph finding. Minimal bibasilar atelectasis. HEART/VESSELS/MEDIASTINUM: No cardiomegaly or pericardial effusion. The thoracic [...] Payton Way MD on 04/10/2025 8:41 PM Procedure Note Payton Way MD - 04/10/2025 CT CHEST W CONT HISTORY: Right-sided chest pain, elevation of the right hemidiaphragm,follow-up airspace opacity identified on prior chest x-ray. COMPARISON: Chest radiograph 04/10/2025. TECHNIQUE: Multidetector axial CT Chest performed with 100 mL of [id number] IV contrast. Sagittal and coronal 2-D reconstructed images were alsoobtained. Automated exposure control was utilized. All CT scans at [facility] use dose modulation, iterative reconstruction, and/or weightbased dosing when appropriate to reduce radiation dose to as low as reasonablyachievable. FINDINGS: LUNGS/PLEURA: The airways are patent. No pneumothorax or pleural effusion. No focalconsolidation or other air space process correlating to prior chestradiograph finding. Minimal bibasilar atelectasis. HEART/VESSELS/MEDIASTINUM: No cardiomegaly or pericardial effusion. The thoracic aorta isnonaneurysmal. Mild dilatation of the pulmonary trunk up to 3.3 cm. Nopulmonary embolus visualized in large branches, within limits ofnon-dedicated study. Mild coronary artery calcifications. No enlargedmediastinal or hilar lymph nodes. LOWER NECK AND UPPER ABDOMEN: The visualized thyroid is unremarkable. Diffuse hepatic steatosis. Hepaticcalcifications, likely sequela of prior granulomatous disease. MUSCULOSKELETAL: No acute osseous abnormality. Multilevel degenerative changes of thethoracic spine. DISH. IMPRESSION: * No air space process corresponding to prior chest radiograph finding orother acute intrathoracic abnormality. * Hepatic steatosis. Approved by Resident Zaid Giraldo MD on 04/10/2025 8:28 PM Payton Good MD have personally reviewed the image(s) and agree withand/or edited the report Finalized by Payton Way MD on 04/10/2025 8:41 PM us Nadja Rome DO IMG CT ORDERABLES Final Resu lt * Troponin I, High Sensitivity 1 Hour (04/10/2025 7:07 PM EDT) TROPONIN I, HIGH SENSITIVITY 3 <16 ng/L 04/10/2025 7:38 PM EDT [facility] Blood Venous blood / Unknown Venipuncture / Unknown 04/10/2025 7:07 PM EDT 04/10/2025 7:09 PM EDT us Nadja Rome DO LAB BLOOD ORDERABLES Final R esult [facility] [address] [place] [address], [place] * X-ray chest 2 views (04/10/2025 6:43 PM EDT) Anatomical Region Laterality Modality Body, Chest N/A Computed Radiogr aphy 04/10/2025 6:46 PM EDT Narrative 04/10/2025 6:49 PM EDT PA and lateral chest, 2 views, dated [...] Payton Way MD on 04/10/2025 6:49 PM Procedure Note Payton Way MD - 04/10/2025 PA and lateral chest, 2 views, dated 04/10/2025 at 6:35 PM INDICATION: Chest pain, right-sided. FINDINGS: No comparisons available. Mild elevation of the righthemidiaphragm. Subtle linear opacity in the right midlung, the rest of thelungs are clear. No effusions. No pneumothorax. Cardiac silhouette is atthe upper limits of normal. IMPRESSION: 1. Subtle linear opacity in the right midlung, and mild elevation of theright hemidiaphragm. Short-term follow-up recommended. 2. No other abnormality seen. Finalized by Payton Way MD on 04/10/2025 6:49 PM us Nadja Rome DO IMG DIAGNOSTIC IMAGING ORDER SEBAS Final Result * Troponin I, High Sensitivity 0 Hour (04/10/2025 6:02 PM EDT) Pathologist [facility] TROPONIN I, HIGH SENSITIVITY 3 <16 ng/L 04/10/2025 6:34 PM EDT [facility] Blood Venous blood / Unknown Venipuncture / Unknown 04/10/2025 6:02 PM EDT 04/10/2025 6:04 PM EDT us Nadja Rome DO LAB BLOOD ORDERABLES Final R esult [facility] [address] [place] [address], * CBC auto differential (04/10/2025 6:02 PM EDT) Pathologist [facility] WBC 6.9 4 - 11 x10E9/L 04/10/2025 6:10 PM EDT [facility] RBC Count 4.70 3.8 - 5.2 X10E12/L 04/10/2025 6:10 PM EDT [facility] Hemoglobin 13.7 11.7 - 15.5 g/dL 04/10/2025 6:10 PM EDT [facility] Hematocrit 40.6 35 - 47 % 04/10/2025 6:10 PM EDT [facility] MCV 86 80 - 100 fL 04/10/2025 6:10 PM EDT [facility] MCH 29.1 27 - 34 pg 04/10/2025 6:10 PM EDT [facility] MCHC 33.7 32 - 36 g/dL 04/10/2025 6:10 PM EDT [facility] RDW 13.5 11.5 - 15 % 04/10/2025 6:10 PM EDT [facility] Platelet Count 165 150 - 450 X10E9/L 04/10/2025 6:10 PM EDT [facility] MPV 10.5 7 - 12 fL 04/10/2025 6:10 PM EDT [facility] Neutrophils % 67.5 % 04/10/2025 6:10 PM EDT [facility] Lymphocytes % 21.6 % 04/10/2025 6:10 PM EDT [facility] Monocytes % 8.5 % 04/10/2025 6:10 PM EDT [facility] Eosinophils % 2.2 % 04/10/2025 6:10 PM EDT [facility] Basophils % 0.2 % 04/10/2025 6:10 PM EDT [facility] Neutrophils Absolute (A) 4.7 1.5 - 6.6 10*3/uL 04/10/2025 6:10 PM EDT [facility] Lymphocytes Absolute 1.5 1.0 - 3.5 10*3/uL 04/10/2025 6:10 PM EDT [facility] Monocytes Absolute 0.6 0.0 - 0.9 10*3/uL 04/10/2025 6:10 PM EDT [facility] Eosinophils Absolute 0.2 0.0 - 0.4 10*3/uL 04/10/2025 6:10 PM EDT [facility] Basophils Absolute 0.0 0.0 - 0.2 10*3/uL 04/10/2025 6:10 PM EDT [facility] Differential Type AUTOMATED DIFFERENTIAL 04/10/2025 6:10 PM EDT [facility] Blood Venous blood / Unknown Venipuncture / Unknown 04/10/2025 6:02 PM EDT 04/10/2025 6:04 PM EDT us Nadja Rome DO LAB BLOOD ORDERABLES Final R esult [facility] [address] [place] [address], [place] * D-Dimer (04/10/2025 6:02 PM EDT) Pathologist [facility] D DIMER <150 1 - 255 ug/mL 04/10/2025 6:23 PM EDT [facility] Comment:Results <255 ng/mL D DU: The presensence of a VTE can safely be excluded with a negative D-Dimer result and Wells score. A negative result doesn't exclude the possibility of DIC. The test should be repeated along with other diagnostic tests if the patient's symptoms persist or worsen. Blood Venous blood / Unknown Venipuncture / Unknown 04/10/2025 6:02 PM EDT 04/10/2025 6:04 PM EDT us Nadja Rome DO LAB BLOOD ORDERABLES Final R esult [address] [place] [address], [place] * (ABNORMAL) Basic Metabolic Panel (04/10/2025 6:02 PM EDT) Pathologist [facility] SODIUM 138 134 - 146 mmol/L 04/10/2025 6:22 PM EDT [facility] POTASSIUM 3.9 3.5 - 5.0 mmol/L 04/10/2025 6:22 PM EDT [facility] CHLORIDE 105 98 - 109 mmol/L 04/10/2025 6:22 PM EDT [facility] CARBON DIOXIDE 27 22 - 32 mmol/L 04/10/2025 6:22 PM EDT [facility] ANION GAP 6 5 - 15 mmol/L 04/10/2025 6:22 PM EDT [facility] BLOOD UREA NITROGEN 20 5 - 23 mg/dL 04/10/2025 6:22 PM EDT [facility] CREATININE 0.46 0.40 - 1.00 mg/dL 04/10/2025 6:22 PM EDT [facility] Comment:METHOD TRACEABLE TO IDMS STANDARD GLUCOSE 161(H) 65 - 99 mg/dL 04/10/2025 6:22 PM EDT [facility] CALCIUM 8.5 8.5 - 10.5 mg/dL 04/10/2025 6:22 PM EDT [facility] EGFR Non-Race Dependent >90 >=60 ml/min/1.7 3sq.m 04/10/2025 6:22 PM EDT [facility] Comment: eGFR not reported due to non-numeric value for Creatinine. Reported eGFR is based on the CKD-EPI 2020 equation that does not use a race coefficient. Blood Venous blood / Unknown Venipuncture / Unknown 04/10/2025 6:02 PM EDT 04/10/2025 6:04 PM EDT us Nadja Rome DO LAB BLOOD ORDERABLES Final R esult Performing Organization Address City/[facility]/ZIP Co de Phone Number [facility] [address] [place] [address], * ECG 12 lead (04/10/2025 5:52 PM EDT) 04/10/2025 5:52 PM EDT us Nadja Rome DO ECG ORDERABLES Final Result Performing Organization Address City/[facility]/ZIP Co de Phone Number [email or web address] * High risk HPV w/ngozi (04/23/2023 6:42 AM EDT) Hpv specimen type ThinPrep 04/24/2023 6:42 AM EDT [facility] Hpv 16 Negative Negative^N egative 04/24/2023 1:44 PM EDT [facility] Hpv 18 Negative Negative^N egative 04/24/2023 1:44 PM EDT [facility] Other high risk hpv Negative Negative^N egative 04/24/2023 1:44 PM EDT [facility] Comment: HPV types 31,33,35,39,45,52,56,58,59,66 and 68 DNA were undetectable. THINP 04/23/2023 6:42 AM EDT 04/24/2023 6:43 AM EDT us Berenice Marr [employer] LAB BLOOD ORDERABLES Fi nal Result [facility] [address] [place] [address] [facility] [address] [place] [address], [address] [place] [address] from Last 3 Months or Most Recently Relevant to Health Maintenance Insurance [id number] Care Teams Flow Nurse Relationship Specialty Start Date End Date Jorge Luis Jarvis MD [address] [place] [address] PCP - General Family Medicine 04/10/25
--- OUTSIDE RECORDS SUMMARY | 2025-06-20 14:33 | XMS_ITS | CCD ---
Author Organization [facility]iniSys[facility] Care Team Providers Care Transportation Attendant Name Role Phone JAMARI MICHELLE Belkys Unavailable Unavailable BRENNAN, ALISHA Unavailable Unavailable BRENNAN, ALISHA Unavailable Unavailable BRENNAN, ALISHA Unavailable Unavailable BRENNAN, ALISHA Unavailable Unavailable BRENNAN, ALISHA Unavailable Unavailable VIMAL SCHULTZ Unavailable Unavaila ble BRENNAN, ALISHA Unavailable Unavailable BRENNAN, ALISHA Unavailable Unavailable BRENNAN, ALISHA Unavailable Unavailable SHANTELLE, VESELIN Unavailable Unavailable JOSE, KAREN D Unavailable Unavailable BRENNAN, ALISHA Unavailable Unavailable SITA JERRY Unavailable Unavailable YORACHEL RASCON Unavailable Unavailable HAY ., DR PAIGE Admitting Unavailable NADERER, DR JORGE LUIS Rizvi Primary Care Unavailable HAY ., DR PAIGE Attending Unavailable HAY ., DR PAIGE Consulting Unavailable NADERER, DR JORGE LUIS Rizvi Primary Care Unavailable NICOLE JOSEPH Consulting Unavailable KATTODD CLARKE Admitting Unavailable KATKOTODD Attending Unavailable EUFEMIA GARBER Consulting Unavailable NADERER, [...] DR MARIA DE JESUS Christensen Consulting Unavailable NADERER, DR JORGE LUIS Rizvi Consulting Unavailable WEST, [...] PRECIADO Consulting Unavailable ROX APARICIO Consulting Unavailable INES, DR DON Berry Admitting Unavailable NADERER, DR JORGE LUIS Rizvi Primary Care Unavailable NICOLE [place]SEPH Consulting Unavailable INES, DR DON Berry Attending Unavailable KATRINA, DR JORGE LUIS Rizvi Primary Care Unavailable GABRIELLA DELANEY Admitting Unavailable GABRIELLA DELANEY Attending Unavailable GABRIELLA DELANEY Consulting Unavailable Jimmy VELASCO Attending Unavailable Jorge Luis Herndon MD Primary Care Provider Jorge Luis Herndon MD Unavailable JORGE LUIS HERNDON Attending Unavailable JORGE LUIS HERNDON Attending Unavailable JORGE LUIS HERNDON Attending Unavailable JORGE LUIS HERNDON Primary Care Unavailable MARTY CARTER Attending Unavailable Jorge Luis Herndon MD Attending Provider Jorge Luis Herndon MD Primary Care Provider Allergies Allergy Classification Reported Allergen(s) Allergy Type Date of Onset Reaction(s) Facility (1 source) BEE VENOM PROTEIN (HONEY BEE); Translations: [BEE VENOM PROTEIN (HONEY BEE)] Propensity to adverse reactions to drug (disorder) 3 [facility] Medications Current Medications Medication Drug Class(es) Dates Sig (Normalized) Sig (Original) atorvastatin 20 mg oral tablet (14 sources) HMG-CoA Reductase Inhibitor Start: 05-17-2025 End: 05-17-2025 take 1 tablet by mouth once daily at bedtime Atorvastatin 20 mg tablet Active 20 MG PO Daily at bedtime May 17, 2025 7:56am Complies with drug therapy Start: 07-29-2024 take 1 tablet by laura th at bedtime atorvastatin (Lipitor) 20 MG tablet Indications: Type 2 diabetes mellitus with hyperglycemia, without long-term current use of insulin ([facility]) TAKE 1 TABLET BY MOUTH AT BEDTIME 30 tablet 5 07/29/2024 Active Start: 12-10-2023 take 1 tablet by laura th at bedtime atorvastatin (Lipitor) 20 MG tablet Indications: Type 2 diabetes mellitus with hyperglycemia, without long-term current use of insulin ([facility]) Take 1 tablet (20 mg) by mouth at bedtime 30 tablet 5 12/10/2023 Active Blood Glucose Monitoring Suppl (Blood Glucose Monitor System) w/Device kit (11 sources) Start: 06-16-2024 Blood Glucose Monitoring Suppl (Blood Glucose Monitor System) w/Device kit Indications: Type 2 diabetes mellitus with hyperglycemia, without long-term current use of insulin ([facility]) 1 each Daily 1 kit 06/16/2024 Active gabapentin 300 mg oral capsule (12 sources) Anti-epilepti c Agent Start: 06-15-2025 take 1 capsule by mouth three times daily Gabapentin 300 mg capsule Active 300 MG PO Three times daily June 15, 2025 12:00am Complies with drug therapy Start: 06-16-2024 take 1 capsule by mo uth once at bedtime gabapentin (Neurontin) 300 MG capsule Indications: Diabetic polyneuropathy associated with type 2 diabetes mellitus (CMS/HCC) 1 PO at bedtime on day #1, then 1 PO BID on day #2, then 1 PO TID 90 capsule 2 06/16/2024 Active levothyroxine sodium 0.05 mg oral tablet (13 sources) l-Thyroxine Start: 06-15-2025 take 1 tablet by mouth once daily Levothyroxine 50 mcg tablet Active 50 MCG PO Daily June 15, 2025 12:00am Complies with drug therapy Start: 08-18-2024 take 1 tablet by laura th in [...] Active losartan potassium 25 mg oral tablet (8 sources) Angiotensin 2 Receptor Ayush Start: 06-15-2025 take 1 tablet by mouth once daily Losartan 25 mg tablet Active 25 MG PO Daily June 15, 2025 12:00am Complies with drug therapy Start: 09-16-2024 take 1 tablet by laura th once daily losartan (Cozaar) 25 MG tablet Indications: Benign essential hypertension (CMS/HCC) Take 1 tablet (25 mg) by mouth Daily 30 tablet 5 09/16/2024 Active methocarbamol 750 mg oral tablet (5 sources) Muscle Relaxant Start: 06-15-2025 take 1 tablet by mouth four times daily as needed Methocarbamol 750 mg tablet Active 750 MG PO Four times daily as needed June 15, 2025 12:00am Complies with drug therapy Start: 12-30-2024 take 1 tablet by laura th four times daily as needed for muscle spasms methocarbamol (Robaxin) 750 MG tablet Indications: Cervical spondylosis Take 1 tablet (750 mg) by mouth 4 (four) times a day as needed for muscle spasms 60 tablet 2 12/30/2024 Active nabumetone 500 mg oral tablet (5 sources) Nonsteroidal Anti-inflammatory Drug Start: 06-15-2025 take 1 tablet by mouth twice daily Nabumetone 500 mg tablet Active 500 MG PO Twice daily June 15, 2025 12:00am Complies with drug therapy Start: 12-30-2024 take 1 tablet by laura th twice daily as needed for pain nabumetone (Relafen) 500 MG tablet Indications: Cervical spondylosis Take 1 tablet (500 mg) by mouth 2 (two) times a day as needed for moderate pain 60 tablet 3 12/30/2024 Active omeprazole 40 mg delayed release oral capsule (13 sources) Proton Pump Inhibitor Start: 06-15-2025 take 1 capsule by mouth once daily Omeprazole 40 mg capsule,delayed release(DR/EC) Active 40 MG PO Daily June 15, 2025 12:00am Complies with drug therapy Start: 11-22-2024 take 1 capsule by mo uth once daily omeprazole (PriLOSEC) [address] capsule Indications: Gastro-esophageal reflux disease without esophagitis Take 1 capsule (40 mg) by mouth Daily 30 capsule 5 11/22/2024 Active Start: 03-29-2024 take 1 capsule by mo uth once daily omeprazole (PriLOSEC) [address] [...] 06/16/2024 Active sertraline 50 mg oral tablet (13 sources) Serotonin Reuptake Inhibitor Start: 06-15-2025 take 1 tablet by mouth once daily Sertraline 50 mg tablet Active 50 MG PO Daily June 15, 2025 12:00am Complies with drug therapy Start: 10-21-2024 take 1 tablet by laura th once [...] Active traZODone hydrochloride 50 mg oral tablet (13 sources) Serotonin Reuptake Inhibitor Start: 06-15-2025 take 1 tablet by mouth once daily at bedtime as needed Trazodone 50 mg tablet Active 50 MG PO Daily at bedtime as needed June 15, 2025 12:00am Complies with drug therapy Start: 12-10-2023 take 1 tablet by laura th at bedtime traZODone (Desyrel) 50 MG tablet Indications: Primary insomnia Take 1 tablet (50 mg) by mouth at bedtime 30 tablet 5 12/10/2023 Active Completed/Discontinued Medications Medication Drug Class(es) Dates Sig (Normalized) Sig (Original) cholecalciferol 0.025 mg oral tablet (13 sources) Vitamin D Start: 06-15-2025 End: 06-16-2025 take 1 tablet by mouth once daily Cholecalciferol (Vitamin D3) 25 mcg (1,000 unit) tablet Discontinued 25 MCG PO Daily June 15, 2025 12:00am June 16, 2025 11:38am Start: 08-23-2024 End: 08-23-2025 take 2 tablets by mouth once daily cholecalciferol (Vitamin D-3) 25 MCG (1000 UT) tablet Indications: Vitamin D deficiency Take 2 tablets (50 mcg) by mouth Daily 60 tablet 11 08/23/2024 08/23/2025 Active take 1 tablet by laura th once daily cholecalciferol 25 MCG (1000 UT) tablet Take 50 mcg by mouth Daily Active Ozempic, 0.25 or 0.5 MG/DOSE, 2 MG/3ML [...] Date Documented Da te Episodic/Chronic Anxiety disorders (17 sources) Generalized anxiety disorder; Translations: [Generalized anxiety disorder] Onset: 4 12-10-2023 Chronic Diabetes mellitus with complications (20 sources) Hyperglycemia due to type 2 diabetes mellitus; Translations: [Type 2 diabetes mellitus with hyperglycemia] Onset: 4 12-10-2023 Chronic Diabetes mellitus without complication (1 source) Type 2 diabetes mellitus without complications; Translations: [TYPE 2 DM WITHOUT COMPLICATIONS] Onset: 2 Chronic Esophageal disorders (13 sources) Gastroesophageal reflux disease; Translations: [Gastro-esophageal reflux disease without esophagitis] Onset: 4 12-10-2023 Chronic Essential hypertension (12 sources) Benign essential hypertension; Translations: [Essential (primary) hypertension] Onset: 4 09-16-2024 Chronic Gout and other crystal arthropathies (1 source) Gout, unspecified; Translations: [Gout, unspecified] Onset: 7 Chronic Menstrual disorders (3 sources) Irregular menstruation, unspecified; Translations: [Irregular menstruation, unspecified] Onset: 8 Chronic Miscellaneous mental health disorders (17 sources) Primary insomnia; Translations: [Primary insomnia] Onset: 4 12-10-2023 Chronic Mood disorders (17 sources) Recurrent major depressive episodes, mild ; Translations: [Major depressive disorder, recurrent, mild] Onset: 4 12-10-2023 Chronic Nonspecific chest pain (8 sources) Chest pain, unspecified; Translations: [Other chest pain] Onset: 3 Episodic Nutritional deficiencies (14 sources) Vitamin D deficiency, unspecified; Translations: [Vitamin D deficiency] Onset: 2 12-10-2023 Chronic Osteoarthritis (13 sources) Primary gonarthrosis, bilateral; Translations: [Bilateral primary osteoarthritis of knee] Onset: 4 12-10-2023 Chronic Other aftercare (1 source) Other penitentiary (current) drug therapy; Translations: [OTH LONGTERM CURRENT DRUG THERAPY] Onset: 3 Episodic Other ear and sense organ disorders (1 source) Unspecified otitis externa, right ear; Translations: [UNS OTITIS EXTERNA RT EAR] Onset: 3 Chronic Other ear and sense organ disorders (3 sources) Otalgia, right ear; Translations: [OTALGIA RIGHT EAR] Onset: 3 Episodic Other gastrointestinal disorders (17 sources) Irritable bowel syndrome with diarrhea; Translations: [Irritable bowel syndrome with diarrhea] Onset: 4 12-10-2023 Chronic Other lower respiratory disease (2 sources) Dyspnea on exertion; Translations: [Shortness of breath] 06-16-2025 Episodic Other nutritional; endocrine; and metabolic disorders (7 sources) Morbid obesity; Translations: [Morbid (severe) obesity due to excess calories] Onset: 4 12-10-2023 Chronic Other nutritional; endocrine; and metabolic disorders (2 sources) Body mass index 40+ - severely obese; Translations: [Body mass index (BMI) 40.0-44.9, adult] 06-16-2024 Chronic Other nutritional; endocrine; and metabolic disorders (12 sources) Severe obesity; Translations: [Class 3 severe obesity due to excess calories with serious comorbidity and body mass index (BMI) of 40.0 to 44.9 in adult (CMS/[facility])] Onset: 4 09-16-2024 Chronic Residual codes; unclassified (15 sources) Obstructive sleep apnea syndrome; Translations: [Obstructive sleep apnea (adult) (pediatric)] Onset: 4 12-10-2023 Chronic Residual codes; unclassified (13 sources) Bilateral lower limb edema; Translations: [Localized edema] Onset: 4 12-10-2023 Episodic Spondylosis; intervertebral disc disorders; other back problems (20 sources) Spondylosis without myelopathy or radiculopathy, cervical region; Translations: [Cervical spondylosis] Onset: 3 12-10-2023 Chronic Spondylosis; intervertebral disc disorders; other back problems (1 source) Cervicalgia; Translations: [CERVICALGIA] Onset: 3 Episodic Thyroid disorders (19 sources) Hypothyroidism, unspecified; Translations: [Hypothyroidism] Onset: 3 [...] COUGH, UNSPECIFIED; Translations: [COUGH, UNSPECIFIED] Onset: 2 Varicose veins of lower extremity (17 sources) Varicose veins of bilateral lower extremities with pain; Translations: [Varicose veins of lower extremity] Onset: 3 Episodic Past or Other Problems Problem Classification [...] sources) Diarrhea, unspecified; Translations: [DIARRHEA UNSPECIFIED] Onset: 12-06-2022 Episodic Other skin disorders (3 sources) Localized [...] Anion gap [Moles/Vol] 6 mmol/L Normal 5-15 [facility] Comment on above: Performed By: #### B MP #### [facility] ([facility]) [address] [place] [address] VIR Calcium [Mass/Vol] 8.5 mg/dL Normal 8.5-10.5 [facility] Comment on above: Performed By: #### B MP #### [facility] ([facility]) [address] [place] [address] VIR Chloride [Moles/Vol] 105 mmol/L Normal 98-109 [facility] Comment on above: Performed By: #### B MP #### [facility] ([address] [place] [address] VIR CO2 [Moles/Vol] 27 mmol/L Normal 22-32 [facility] Comment on above: Performed By: #### B MP #### [facility] ([address] [place] [address] VIR Creatinine [Mass/Vol] 0.46 mg/dL Normal 0.40-1.00 [facility] Comment on above: Result Comment: METH OD TRACEABLE TO IDMS STANDARD Performed By: #### B MP #### [facility] ([address] [place] [address] VIR EGFR (CKD-EPI) NON-RACE DEPENDENT >^90 Normal >=60 [facility] Comment on above: Result Comment: eGFR not reported due to non-numeric value for Creatinine. Reported eGFR is based on the CKD-EPI 2021 equation that does not use a race coefficient. Performed By: #### B MP #### [facility] ([address] [place] [address] VIR Glucose [Mass/Vol] 161 mg/dL High 65-99 [facility] Comment on above: Performed By: #### B MP #### [facility] ([address] [place] [address] VIR Potassium [Moles/Vol] 3.9 mmol/L Normal 3.5-5.0 [facility] Comment on above: Performed By: #### B MP #### [facility] ([address] [place] [address] VIR Sodium [Moles/Vol] 138 mmol/L Normal 134-146 [facility] Comment on above: Performed By: #### B MP #### [facility] ([address] [place] [address] VIR Urea nitrogen [Mass/Vol] 20 mg/dL Normal 5-23 [facility] Comment on above: Performed By: #### B MP #### [facility] ([address] [address] VIR CBC WITH AUTO DIFFERENTIALon 04-10-2025 BASOPHILS ABSOLUTE COUNT (10*3/UL) BY AUTOMATED COUNT 0.0 10*3/uL Normal 0.0-0.2 [facility] Comment on above: Performed By: #### C BCA #### [facility] ([address] [address] VIR BASOPHILS RELATIVE PERCENT BY AUTOMATED COUNT 0.2 % Normal [facility] Comment on above: Performed By: #### C BCA #### [facility] ([address] [address] VIR CELLAVISION DIFFERENTIAL TYPE AUTOMATED DIFFERENTIAL Normal [facility] Comment on above: Performed By: #### C BCA #### [facility] ([address] [address] VIR Eosinophils (Bld) [#/Vol] 0.2 10*3/uL Normal 0.0-0.4 [facility] Comment on above: Performed By: #### C BCA #### [facility] ([address] [place] [address] VIR EOSINOPHILS RELATIVE PERCENT BY AUTOMATED COUNT 2.2 % Normal [facility] Comment on above: Performed By: #### C BCA #### [facility] ([address] [address] VIR Erythrocyte distribution width (RBC) [Ratio] 13.5 % Normal 11.5-15 [facility] Comment on above: Performed By: #### C BCA #### [facility] ([address] [address] VIR Hematocrit (Bld) [Volume fraction] 40.6 % Normal 35-47 [facility] Comment on above: Performed By: #### C BCA #### [facility] ([address] [address] VIR Hemoglobin (Bld) [Mass/Vol] 13.7 g/dL Normal 11.7-15.5 [facility] Comment on above: Performed By: #### C BCA #### [facility] ([address] [address] VIR LYMPHOCYTES ABSOLUTE COUNT (10*3/UL) BY AUTOMATED COUNT 1.5 10*3/uL Normal 1.0-3.5 [facility] Comment on above: Performed By: #### C BCA #### [facility] ([address] [address] VIR LYMPHOCYTES RELATIVE PERCENT BY AUTOMATED COUNT 21.6 % Normal [facility] Comment on above: Performed By: #### C BCA #### [facility] ([address] [address] VIR MCH (RBC) [Entitic mass] 29.1 pg Normal 27-34 [facility] Comment on above: Performed By: #### C BCA #### [facility] ([address] [address] VIR MCHC (RBC) [Mass/Vol] 33.7 g/dL Normal 32-36 [facility] Comment on above: Performed By: #### C BCA #### [facility] ([address] [address] VIR MCV (RBC) [Entitic vol] 86 fL Normal 80-100 [facility] Comment on above: Performed By: #### C BCA #### [facility] ([address] [address] VIR MONOCYTES ABSOLUTE COUNT (10*3/UL) BY AUTOMATED COUNT 0.6 10*3/uL Normal 0.0-0.9 [facility] Comment on above: Performed By: #### C BCA #### [facility] ([address] [address] VIR MONOCYTES RELATIVE PERCENT BY AUTOMATED COUNT 8.5 % Normal [facility] Comment on above: Performed By: #### C BCA #### [facility] ([address] [address] VIR NEUTROPHILS ABSOLUTE COUNT BY AUTOMATED COUNT 4.7 10*3/uL Normal 1.5-6.6 [facility] Comment on above: Performed By: #### C BCA #### [facility] ([address] [address] VIR NEUTROPHILS RELATIVE PERCENT BY AUTOMATED COUNT 67.5 % Normal [facility] Comment on above: Performed By: #### C BCA #### [facility] ([address] [address] VIR Platelet mean volume (Bld) [Entitic vol] 10.5 fL Normal 7-12 [facility] Comment on above: Performed By: #### C BCA #### [facility] ([address] [address] VIR Platelets (Bld) [#/Vol] 165 10*3/uL Normal 150-450 [facility] Comment on above: Performed By: #### C BCA #### [facility] ([address] [address] VIR RBC COUNT 4.70 X10E12/L Normal 3.8-5.2 [facility] Comment on above: Performed By: #### C BCA #### [facility] ([address] [address] VIR WBC (Bld) [#/Vol] 6.9 10*3/uL Normal 4-11 [facility] Comment on above: Performed By: #### C BCA #### [facility] ([facility]) [address] [place] [address] CHEST W CONTon 04-10-2025 CT [...] Zaid Giraldo MD on 04/10/2025 8:28 PM IPayton MD have personally reviewed the image(s) and agree with and/or edited the report Finalized by Payton Way MD on 04/10/2025 8:41 PM Normal [facility] D-DIMERon 04-10-2025 D DIMER <^150 Normal 1-255 [facility] Comment on above: Result Comment: Resu lts <255 ng/mL DDU: The presensence of a VTE can safely be excluded with a negative D-Dimer result and Wells score. A negative result doesn't exclude the possibility of DIC. The test should be repeated along with other diagnostic tests if the patient's symptoms persist or worsen. Performed By: #### D DMR #### [facility] ([address] [place] [address] VIR TROP I, HIGH SENSITIVITY 1 H OURon 04-10-2025 TROPONIN I, HIGH SENSITIVITY 3 ng/L Normal <16 [facility] Comment on above: Performed By: #### T [email or web address] #### [facility] ([address] [place] [address] VIR TROPONIN I, HIGH SENSITIVITY 0 HOURon 04-10-2025 TROPONIN I, HIGH SENSITIVITY 3 ng/L Normal <16 [facility] Comment on above: Performed By: #### T NIHS0 #### [facility] ([address] [place] [address] VIR XR CHEST 2 VWSon 04-10-2025 XR [...] Way MD on 04/10/2025 6:49 PM Normal [facility] MICROALB CREAT RATIO RAN DOMon 01-03-2025 CREATININE URINE RANDOM 235.31 mg/dL 20.00 - 300.00 mg/dL [facility] MICROALBUM CREATININE RATIO UR 22.5 mg/g 0.0 - 29.9 mg/g [facility] Comment on above: NO MICROALBUMINURIA 0-29 MG/G CLINICAL MICROALBUMINURIA 30-300 MG/G MACROALBUMINURIA >300 MG/G MICROALBUMIN URINE RANDOM 5.3 mg/dL NINF - 30.0 mg/dL [facility] XR CERVICAL SPINE 2-3Von [address] [address] XRay Report Signed Patient: TALYA OJEDA MR#: [id number] : 1965 Acct:[id number] Age/Sex: 59 / F ADM Date: 01/03/25 Loc: LAB Attending Dr: Jorge Luis Herndon M.D. Ordering Physician: Jorge Luis Herndon M.D. Date of Service: 01/03/25 Procedure(s): XR cervical spine 2-3V Accession Number(s): [id number] cc: Jorge Luis Herndon M.D. [place] [address] Patient Name: TALYA OJEDA MRN: [facility]:[id number] date: 1965 Sex: F Assigned Patient Location: LAB Current Patient Location: LAB Accession/Order Number: [id number] Exam Date: 01/03/2025 16:01 Report Date: 01/03/2025 [...] Jr., D.O. 01/03/2025 4:02 PM Dictation Location: [place] [address] Electronically authenticated by: [id number] Y Date: 01/03/2025 16:02 Dictated By: Jamari Pagan M.D. Signed By: 01/03/25 1604 DD/ 160 TD/TT: Stable Hand: [facility] Radiology, Radiologist, MD - 01/03/[address] [address] XRay Report Signed Patient: TALYA OJEDA MR#: [id number] : 1965 Acct:[id number] Age/Sex: 59 / F ADM Date: 01/03/25 Loc: LAB Attending Dr: Jorge Luis Herndon M.D. Ordering Physician: Jorge Luis Herndon M.D. Date of Service: 01/03/25 Procedure(s): XR cervical spine 2-3V Accession Number(s): [id number] cc: Jorge Luis Herndon M.D. The [place] [address] Patient Name: TALYA OJEDA MRN: [id number] date: 1965 Sex: F Assigned Patient Location: LAB Current Patient Location: LAB Accession/Order Number: [id number] Exam Date: 01/03/2025 16:01 Report Date: 01/03/2025 16:02 At the request of: JORGE LUIS HERNDON MD Procedure: XR cervical spine 2-3V CERVICAL SPINE 5 views: CLINICAL HISTORY: Chronic Neck Pain COMPARISON: Cervical spine 10/16/2022 FINDINGS: Vertebral body heights appear maintained. Moderate spondylosis C4-C7. No prevertebral soft tissue swelling. XR/XR cervical spine 2-3V IMPRESSION: MODERATE SPONDYLOSIS C4-C7. Impression dictated by: Jamari Pagan Jr., D.OSusie 01/03/2025 4:02 PM Dictation Location: [place] [address] Electronically authenticated by: [id number] Y Date: 01/03/2025 16:02 Dictated By: Jamari Pagan M.D. Signed By: 01/03/25 160 DD/ 01 TD/TT: Stable Hand: [facility] Radiology Study observation (narrative) [facility] XR CERVICAL SPINE 2-3VOrdere d By: Radiologist Radiology on 01-03-2025 [facility] Work Phone: ALL CBC WITH AUTO DIFFon BASOPHILS ABSOLUTE AUTO 0.0 [facility] Basophils/100 WBC (Bld) 0.8 % 0.2 - 2.0 % [facility] Eosinophils/100 WBC (Bld) 2.9 % 0.9 - 7.0 % [facility] Erythrocyte distribution width (RBC) [Ratio] 13.3 % 11.0 - 15.0 % [facility] Hematocrit (Bld) [Volume fraction] 43.1 % 36.0 - 48.0 % [facility] Hemoglobin (Bld) [Mass/Vol] 13.9 g/dL 12.0 - 16.0 g/dL [facility] IMMATURE GRANULOCYTES ABS AUTO 0.02 [facility] Immature granulocytes/100 WBC (Bld) 0.4 % 0.0 - 0.5 % [facility] Interpretation and review of laboratory results Abnormal [facility] LYMPHOCYTES ABSOLUTE AUTO 1.0 Low [facility] Lymphocytes/100 WBC (Bld) 19.5 % Low 20.5 - 60.0 % [facility] MCH (RBC) [Entitic mass] 29.3 pg 26.7 - 34.0 pg [facility] MCHC (RBC) [Mass/Vol] 32.3 g/dL 29.9 - 35.2 g/dL [facility] MCV (RBC) [Entitic vol] 90.7 fL 81.0 - 99.0 fL [facility] MONOCYTES ABSOLUTE AUTO 0.4 [facility] Monocytes/100 WBC (Bld) 6.9 % 1.7 - 12.0 % [facility] NEUTROPHILS ABSOLUTE AUTO 3.7 [facility] Neutrophils/100 WBC (Bld) 69.5 % 43.0 - 75.0 % [facility] Platelet mean volume (Bld) [Entitic vol] 12.1 fL 9.5 - 13.5 fL [facility] EO # 0.2 [facility] PLT 172 [facility] RBC 4.75 [facility] WBC 5.2 [facility] Consenton 11-28-2023 Consent [id number] .[id number] [facility] Registrationon 11-28-2023 Registration [id number] 30 [id number] .[id number] Normal [facility] CBC AUTO DIFFon 12-23-2022 BASO # 0.0 103/ul Normal 0.0-0.1 [facility] Comment on above: Performed By: #### L IPA, CMP #### [facility] [address] [place] [address] Dr. Chantel Rand Basophils/100 WBC (Bld) 0.5 % Normal 0.2-2.0 [facility] Comment on above: Performed By: #### L IPA, CMP #### [facility] [address] [place] [address] Dr. Chantel Rand EO # 0.2 103/ul Normal 0.0-0.7 [facility] Comment on above: Performed By: #### L IPA, CMP #### [facility] [address] [place] [address] Dr. Chantel Rand Eosinophils/100 WBC (Bld) 3.5 % Normal 0.9-7.0 [facility] Comment on above: Performed By: #### L IPA, CMP #### [facility] [address] [place] [address] Dr. Chantel Rand Erythrocyte distribution width (RBC) [Ratio] 13.1 % Normal 11.0-15.0 [facility] Comment on above: Performed By: #### L IPA, CMP #### [facility] [address] [place] [address] Dr. Chantel Rand Hematocrit (Bld) [Volume fraction] 42.6 % Normal 36.0-48.0 [facility] Comment on above: Performed By: #### L IPA, CMP #### [facility] [address] [place] [address] Dr. Chantel Rand Hemoglobin (Bld) [Mass/Vol] 14.0 g/dL Normal 12.0-16.0 [facility] Comment on above: Performed By: #### L IPA, CMP #### [facility] [address] [place] [address] Dr. Chantel Rand IG # 0.02 10e3/ul Normal 0.00-0.03 [facility] Comment on above: Performed By: #### L IPA, CMP #### [facility] [address] [address] [address] Chantel Rand IG % 0.4 % Normal 0.0-0.5 [facility] Comment on above: Performed By: #### L IPA, CMP #### [facility] [address] [place] [address] Dr. Chantel Rand LYMPH # 1.4 103/ul Normal 1.2-3.8 [facility] Comment on above: Performed By: #### L IPA, CMP #### [facility] [address] [place] [address] Dr. Chantel Rand Lymphocytes/100 WBC (Bld) 23.7 % Normal 20.5-60.0 [facility] Comment on above: Performed By: #### L IPA, CMP #### [facility] [address] [place] [address] Dr. Chantel Rand MANUAL DIFF REQ NO Normal [facility] Comment on above: Performed By: #### L IPA, CMP #### [facility] [address] [place] [address] Dr. Chantel Rand MCH (RBC) [Entitic mass] 28.6 pg Normal 26.7-34.0 [facility] Comment on above: Performed By: #### L IPA, CMP #### [facility] [address] [place] [address] Dr. Chantel Rand MCHC (RBC) [Mass/Vol] 32.9 g/dL Normal 29.9-35.2 [facility] Comment on above: Performed By: #### L IPA, CMP #### [facility] [address] [place] [address] Dr. Chantel Rand MCV (RBC) [Entitic vol] 86.9 fL Normal 81.0-99.0 [facility] Comment on above: Performed By: #### L IPA, CMP #### [facility] [address] [place] [address] Dr. Chantel Rand MONO # 0.5 103/ul Normal 0.3-0.8 [facility] Comment on above: Performed By: #### L IPA, CMP #### [facility] [address] [place] [address] Dr. Chantel Rand Monocytes/100 WBC (Bld) 7.9 % Normal 1.7-12.0 [facility] Comment on above: Performed By: #### L IPA, CMP #### [facility] [address] [place] [address] Dr. Chantel Rand NEUT # 3.6 103/ul Normal 1.4-6.5 [facility] Comment on above: Performed By: #### L IPA, CMP #### [facility] [address] [place] [address] Dr. Chantel Rand Neutrophils/100 WBC (Bld) 64.0 % Normal 43.0-75.0 [facility] Comment on above: Performed By: #### L IPA, CMP #### [facility] [address] [place] [address] Dr. Chantel Rand Platelet mean volume (Bld) [Entitic vol] 11.5 fL Normal 9.5-13.5 [facility] Comment on above: Performed By: #### L IPA, CMP #### [facility] [address] [place] [address] Dr. Chantel Rand PLT 179 103/ul Normal 150-450 [facility] Comment on above: Performed By: #### L IPA, CMP #### [facility] [address] [place] [address] Dr. Chantel Rand RBC 4.90 106/ul Normal 4.20-5.40 [facility] Comment on above: Performed By: #### L IPA, CMP #### [facility] [address] [place] [address] Dr. Chantel Rand WBC 5.7 103/ul Normal 4.0-11.0 [facility] Comment on above: Performed By: #### L IPA, CMP #### [facility] [address] [place] [address] Dr. Chantel Rand LIPASEon 12-23-2022 Lipase [Catalytic activity/Vol] 150.0 U/L Normal 73.0-393.0 [facility] Comment on above: Performed By: #### L IPA, LIVER, HSTROPN, BMP #### [facility] [address] [address] [address] Chantel Rand LIVER PROFILEon 12-23-2022 Albumin [Mass/Vol] 3.8 g/dL Normal 3.4-5.0 [facility] Comment on above: Performed By: #### L IPA, CMP #### [facility] [address] [address] [address] Chantel Rand Albumin/Globulin [Mass ratio] 0.9 {ratio} Normal [facility] Comment on above: Performed By: #### L IPA, CMP #### [facility] [address] [address] [address] Chantel Rand ALP [Catalytic activity/Vol] 76 U/L Normal 46-116 [facility] Comment on above: Performed By: #### L IPA, CMP #### [facility] [address] [place] [address] Dr. Chantel Rand ALT [Catalytic activity/Vol] 31 U/L Normal 14-59 [facility] Comment on above: Performed By: #### L IPA, CMP #### [facility] [address] [address] [address] Chantel Rand AST [Catalytic activity/Vol] 17 U/L Normal 15-37 [facility] Comment on above: Performed By: #### L IPA, CMP #### [facility] [address] [address] [address] Chantel Rand BILI, CONJUGATED 0.1 mg/dL Normal 0.0-0.2 [facility] Comment on above: Performed By: #### L IPA, CMP #### [facility] [address] [address] [address] Chantel Rand Bilirubin [Mass/Vol] 0.4 mg/dL Normal 0.2-1.0 [facility] Comment on above: Performed By: #### L IPA, CMP #### [facility] [address] [address] [address] Chantel Rand Globulin (S) [Mass/Vol] 4.0 g/dL Normal [facility] Comment on above: Performed By: #### L IPA, CMP #### [facility] [address] [address] [address] Chantel Rand Protein [Mass/Vol] 7.8 g/dL Normal 6.4-8.2 [facility] Comment on above: Performed By: #### L IPA, CMP #### [facility] [address] [place] [address] Dr. Chantel Rand PROF CHEM 8 (BAS METB)on Anion gap [Moles/Vol] 13.1 mmol/L Normal [facility] Comment on above: Performed By: #### L IPA, CMP #### [facility] [address] [place] [address] Dr. Chantel Rand Calcium [Mass/Vol] 9.3 mg/dL Normal 8.5-10.1 [facility] Comment on above: Performed By: #### L IPA, CMP #### [facility] [address] [place] [address] Dr. Chantel Rand Chloride [Moles/Vol] 104 mmol/L Normal 98-107 [facility] Comment on above: Performed By: #### L IPA, CMP #### [facility] [address] [place] [address] Dr. Chantel Rand CO2 [Moles/Vol] 28.9 mmol/L Normal 21.0-32.0 [facility] Comment on above: Performed By: #### L IPA, CMP #### [facility] [address] [place] [address] Dr. Chantel Rand Creatinine [Mass/Vol] 0.70 mg/dL Normal 0.55-1.02 [facility] Comment on above: Performed By: #### L IPA, CMP #### [facility] [address] [place] [address] Dr. Chantel Rand EGFR-AF NEW ZEALANDER >60 Normal >=60 [facility] Comment on above: Performed By: #### L IPA, CMP #### [facility] [address] [place] [address] Dr. Chantel Rand EGFR-NON AF NEW ZEALANDER >60 Normal >=60 [facility] Comment on above: Performed By: #### L IPA, CMP #### [facility] [address] [address] [address] Chantel Rand Glucose [Mass/Vol] 148 mg/dL Critically high 74-106 [facility] Comment on above: Performed By: #### L IPA, CMP #### [facility] [address] [address] [address] Chantel Rand Potassium [Moles/Vol] 4.0 mmol/L Normal 3.5-5.1 [facility] Comment on above: Performed By: #### L IPA, CMP #### [facility] [address] [address] [address] Chantel Rand Sodium [Moles/Vol] 142 mmol/L Normal 136-145 [facility] Comment on above: Performed By: #### L IPA, CMP #### [facility] [address] [address] [address] Chantel Rand Urea nitrogen [Mass/Vol] 17.0 mg/dL Normal 7.0-18.0 [facility] Comment on above: Performed By: #### L IPA, CMP #### [facility] [address] [address] [address] Chantel Rand Urea nitrogen/Creatinine [Mass ratio] 24.3 mg/mg Normal [facility] Comment on above: Performed By: #### L IPA, CMP #### [facility] [address] [address] [address] Chantel Rand TROPONIN, HIGH SENSITIVITYon 12-23-2022 HSTROP 6.6 pg/mL Normal 4.0-51.3 [facility] Comment on above: Result Comment: CUT- OFF POINTS HAVE BEEN ESTABLISHED BASED ON THE FOURTH UNIVERSAL DEFINITIONS OF MYOCARDIAL INFARCTION. THE UPPER REFERENCE LIMIT (URL) OF TROPONIN, DEFINED THE 99TH PERCENTILE OF cTnI DISTRIBUTION IN A REFERENCE POPULATION, HAS BEEN CONFIRMED THE DECISION THRESHOLD FOR CT DIAGNOSIS. Performed By: #### L IPA, CMP #### [facility] [address] [address] [address] Chantel Rand XR CSPINE 2_3 VIEWSon 2022 XR CSPINE 2_3 VIEWS EXAMINATION: XR CSPI NE 2_3 VIEWS HISTORY: Neck pain COMPARISON: No relevant comparison available. FINDINGS: BONES: Normal alignment with no acute fracture or spondylolisthesis. Moderate to severe degenerative spondylosis. [id number] facet osteoarthropathy. DISC SPACES: Normal. No significant disc height narrowing, subluxation, or endplate abnormality. PARASPINOUS: Negative. No paraspinous abnormality is seen. OTHER: C7 is not visualized on the lateral projection IMPRESSION: Moderate to severe degenerative spondylosis Electronically authenticated by: MARIA DE JESUS MARSH Date: 2022-10-17 07:42 Normal [facility] XR LSPINE 2_3 VIEWSon 2022 XR LSPINE [...] DE JESUS MARSH Date: 2022-10-17 07:49 Normal [facility] FREE T3on 10-16-2022 FREE T3 3.25 pg/mlL Normal 2.18-3.98 [facility] Comment on above: Performed By: #### L IPA, CMP #### [facility] [address] [address] [address] Chantel Rand FREE T4on 10-16-2022 Free T4 [Mass/Vol] 0.96 ng/dL Normal 0.76-1.46 [facility] Comment on above: Performed By: #### F T4 #### [facility] [address] [address] [address] Chantel Rand TSHon 10-16-2022 TSH 2.190 uIU/mL Normal 0.358-3.740 [facility] Comment on above: Performed By: #### L IPA, CMP #### [facility] [address] [address] [address] Chantel Rand CULTURE URINEon 08-16-2022 CULTURE [...] Trimethoprim/Sulfameth oxazole <=20 S F Normal [facility] Comment on above: Performed By: #### L IPA, CMP #### [facility] [address] [place] [address] Dr. Chantel Rand CBC W MANUAL DIFFon 08-13-20 22 ATYPICAL LYMPH # 0.07 103/ul Normal [facility] Comment on above: Performed By: #### L IPA, CMP #### [facility] [address] [place] [address] Dr. Chantel Rand ATYPICAL LYMPH % 1 % Normal [facility] Comment on above: Performed By: #### L IPA, CMP #### [facility] [address] [place] [address] Dr. Chantel Rand BAND # 0.0 103/ul Normal 0.0-0.3 [facility] Comment on above: Performed By: #### L IPA, CMP #### [facility] [address] [place] [address] Dr. Chantel Rand BAND % 0 % Normal 0-5 [facility] Comment on above: Performed By: #### L IPA, CMP #### [facility] [address] [place] [address] Dr. Chantel Rand BASOM # 0.00 103/ul Normal 0.00-0.10 [facility] Comment on above: Performed By: #### L IPA, CMP #### [facility] [address] [place] [address] Dr. Chantel Rand BASOM % 0.0 % Critically low 0.2-2.0 [facility] Comment on above: Performed By: #### L IPA, CMP #### [facility] [address] [address] [address] Chantel Rand BLAST # Normal [facility] Comment on above: Performed By: #### L IPA, CMP #### [facility] [address] [place] [address] Dr. Chantel Rand BLAST % Normal [facility] Comment on above: Performed By: #### L IPA, CMP #### [facility] [address] [place] [address] Dr. Chantel Rand CORRECTED WBC Normal 4.0-11.0 [facility] Comment on above: Performed By: #### L IPA, CMP #### [facility] [address] [place] [address] Dr. Chantel Rand EOS # 0.00 103/ul Normal 0.00-0.70 [facility] Comment on above: Performed By: #### L IPA, CMP #### [facility] [address] [place] [address] Dr. Chantel Rand EOS% 0.0 % Critically low 0.9-7.0 [facility] Comment on above: Performed By: #### L IPA, CMP #### [facility] [address] [place] [address] Dr. Chantel Rand HCT 43.5 % Normal 36.0-48.0 [facility] Comment on above: Performed By: #### L IPA, CMP #### [facility] [address] [place] [address] Dr. Chantel Rand HGB 14.0 g/dl Normal 12.0-16.0 [facility] Comment on above: Performed By: #### L IPA, CMP #### [facility] [address] [place] [address] Dr. Chantel Rand LYMPHM # 0.47 103/ul Critically low 1.20-3.80 [facility] Comment on above: Performed By: #### L IPA, CMP #### [facility] [address] [place] [address] Dr. Chantel Rand LYMPHM% 7.0 % Critically low 20.5-60.0 [facility] Comment on above: Performed By: #### L IPA, CMP #### [facility] [address] [place] [address] Dr. Chantel Rand MCH 28.5 pg Normal 26.7-34.0 [facility] Comment on above: Performed By: #### L IPA, CMP #### [facility] [address] [place] [address] Dr. Chantel Rand MCHC 32.2 g/dl Normal 29.9-35.2 [facility] Comment on above: Performed By: #### L IPA, CMP #### [facility] [address] [place] [address] Dr. Chantel Rand MCV 88.4 fL Normal 81.0-99.0 [facility] Comment on above: Performed By: #### L IPA, CMP #### [facility] [address] [place] [address] Dr. Chantel Rand METAMYELOCYTE # Normal [facility] Comment on above: Performed By: #### L IPA, CMP #### [facility] [address] [place] [address] Dr. Chantel Rand METAMYELOCYTE % Normal [facility] Comment on above: Performed By: #### L IPA, CMP #### [facility] [address] [place] [address] Dr. Chantel Rand MONOM# 0.67 103/ul Normal 0.30-0.80 [facility] Comment on above: Performed By: #### L IPA, CMP #### [facility] [address] [place] [address] Dr. Chantel Rand MONOM% 10.0 % Normal 1.7-12.0 [facility] Comment on above: Performed By: #### L IPA, CMP #### [facility] [address] [place] [address] Dr. Chantel Rand MPV 11.4 fL Normal 9.5-13.5 [facility] Comment on above: Performed By: #### L IPA, CMP #### [facility] [address] [address] [address] Chantel Rand MYELOCYTE # Normal [facility] Comment on above: Performed By: #### L IPA, CMP #### [facility] [address] [address] [address] Chantel Rand MYELOCYTE % Normal [facility] Comment on above: Performed By: #### L IPA, CMP #### [facility] [address] [address] [address] Chantel Rand NRBC Normal [facility] Comment on above: Performed By: #### L IPA, CMP #### [facility] [address] [address] [address] Chantel Rand PLT 142 103/ul Critically low 150-450 [facility] Comment on above: Performed By: #### L IPA, CMP #### [facility] [address] [address] [address] Chantel Rand RBC 4.92 106/ul Normal 4.20-5.40 [facility] Comment on above: Performed By: #### L IPA, CMP #### [facility] [address] [address] [address] Chantel Rand RDW 12.9 % Normal 11.0-15.0 [facility] Comment on above: Performed By: #### L IPA, CMP #### [facility] [address] [address] [address] Chantel Rand SEG # 5.49 103/ul Normal 1.40-6.50 [facility] Comment on above: Performed By: #### L IPA, CMP #### [facility] [address] [address] [address] Chantel Rand SEG % 82.0 % Critically high 43.0-75.0 [facility] Comment on above: Performed By: #### L IPA, CMP #### [facility] [address] [address] [address] Chantel Rand WBC 6.7 103/ul Normal 4.0-11.0 [facility] Comment on above: Performed By: #### L IPA, CMP #### [facility] [address] [place] [address] Dr. Chantel Rand Covid-19 PCR (CVDTB)on SARS-CoV-2 (COVID-19) RNA ROMANA+probe Ql (Unsp spec) Not detected Normal NOT DETECTED [facility] Comment on above: Result Comment: When diagnostic [...] for this test is supported by the [employer] Consultant of Health and Human Service's declaration that [...] Performed By: #### L IPA, CMP #### [facility] [address] [place] [address] Dr. Chnatel Rand ER URINE PROFILEon 2 Bilirubin Ql (U) SMALL Abnormal NEGATIVE [facility] Comment on above: Performed By: #### L IPA, CMP #### [facility] [address] [place] [address] Dr. Chantel Rand Clarity (U) CLEAR Normal CLEAR [facility] Comment on above: Performed By: #### L IPA, CMP #### [facility] [address] [place] [address] Dr. Chantel Rand Color (U) DK. YELLOW Normal YELLOW [facility] Comment on above: Performed By: #### L IPA, CMP #### [facility] [address] [place] [address] Dr. Chantel Rand ERUAHD A micrscopic examination will be performed if indicated. Normal [facility] Comment on above: Performed By: #### L IPA, CMP #### [facility] [address] [address] [address] Chantel Rand Glucose Ql (U) Negative Normal NEGATIVE [facility] Comment on above: Performed By: #### L IPA, CMP #### [facility] [address] [address] [address] Chantel Rand Hemoglobin Ql (U) Negative Normal NEGATIVE [facility] Comment on above: Performed By: #### L IPA, CMP #### [facility] [address] [place] [address] Dr. Chantel Rand Ketones Ql (U) TRACE Abnormal NEGATIVE [facility] Comment on above: Performed By: #### L IPA, CMP #### [facility] [address] [place] [address] Dr. Chantel Rand LEUKOCYTES Negative Normal NEGATIVE [facility] Comment on above: Performed By: #### L IPA, CMP #### [facility] [address] [address] [address] Chantel Rand Nitrite Ql (U) Negative Normal NEGATIVE [facility] Comment on above: Performed By: #### L IPA, CMP #### [facility] [address] [place] [address] Dr. Chantel Rand pH (U) 5.0 [pH] Normal 5-9 [facility] Comment on above: Performed By: #### L IPA, CMP #### [facility] [address] [place] [address] Dr. Chantel Rand Protein (U) [Mass/Vol] 30 mg/dL Abnormal NEGATIVE/ TRACE [facility] Comment on above: Performed By: #### L IPA, CMP #### [facility] [address] [place] [address] Dr. Chantel Rand SPEC GRAVITY >=1.030 Abnormal 1.005-<=1.025 [facility] Comment on above: Performed By: #### L IPA, CMP #### [facility] [address] [place] [address] Dr. Chantel Rand UR MICRO IND INDICATED Normal [facility] Comment on above: Performed By: #### L IPA, CMP #### [facility] [address] [place] [address] Dr. Chantel Rand Urobilinogen Qn (U) 1.0 {Nahun'U}/dL Normal 0.2 - 1. 0 [facility] Comment on above: Performed By: #### L IPA, CMP #### [facility] [address] [place] [address] Dr. Chantel Rand INFLUENZA A AND B AGon 08-13 INFLUANEGH SEE BELOW Normal [facility] Comment on above: Result Comment: Nega tive for Flu A protein angiten. Infection due to Flu A cannot be ruled out. Flu A angiten in the sample may be below the detection limit of the test. Performed By: #### L IPA, CMP #### [facility] [address] [place] [address] Dr. Chantel Rand INFLUBNEGH SEE BELOW Normal [facility] Comment on above: Result Comment: Nega tive for Flu B protein antigen. Infection due to Flu B cannot be ruled out. Flu B antigen in the sample may be below the detection limit of the test. Performed By: #### L IPA, CMP #### [facility] [address] [place] [address] Dr. Chantel Rand INFLUENZA A AG Negative Normal NEGATIVE SEE COMMENT [facility] Comment on above: Performed By: #### L IPA, CMP #### [facility] [address] [place] [address] Dr. Chantel Rand INFLUENZA B AG Negative Normal NEGATIVE SEE COMMENT [facility] Comment on above: Performed By: #### L IPA, CMP #### [facility] [address] [place] [address] Dr. Chantel Rand INTERNAL CONTROLS Within Normal Limits Normal Wi thin Normal Limits [facility] Comment on above: Performed By: #### L IPA, CMP #### [facility] [address] [place] [address] Dr. Chantel Rand LACTATE/LACTIC ACIDon 2021 Lactate [Moles/Vol] 0.9 mmol/L Normal 0.4-1.9 [facility] Comment on above: Performed By: #### L ACT #### [facility] [address] [place] [address] Dr. Chantel Rand LIPASEon 08-13-2022 Lipase [Catalytic activity/Vol] 294.0 U/L Normal 73.0-393.0 [facility] Comment on above: Performed By: #### L IPA, CMP #### [facility] [address] [place] [address] Dr. Chantel Rand PROF 14(COMP METB)on 022 Albumin [Mass/Vol] 3.5 g/dL Normal 3.4-5.0 [facility] Comment on above: Performed By: #### L IPA, CMP #### [facility] [address] [place] [address] Dr. Chantel Rand Albumin/Globulin [Mass ratio] 0.8 {ratio} Normal [facility] Comment on above: Performed By: #### L IPA, CMP #### [facility] [address] [place] [address] Dr. Chantel Rand ALP [Catalytic activity/Vol] 89 U/L Normal 46-116 [facility] Comment on above: Performed By: #### L IPA, CMP #### [facility] [address] [place] [address] Dr. Chantel Rand ALT [Catalytic activity/Vol] 54 U/L Normal 14-59 [facility] Comment on above: Performed By: #### L IPA, CMP #### [facility] [address] [place] [address] Dr. Chantel Rand Anion gap [Moles/Vol] 8.1 mmol/L Normal [facility] Comment on above: Performed By: #### L IPA, CMP #### [facility] [address] [place] [address] Dr. Chantel Rand AST [Catalytic activity/Vol] 64 U/L Critically high 15-37 [facility] Comment on above: Performed By: #### L IPA, CMP #### [facility] [address] [place] [address] Dr. Chantel Rand Bilirubin [Mass/Vol] 0.6 mg/dL Normal 0.2-1.0 [facility] Comment on above: Performed By: #### L IPA, CMP #### [facility] [address] [place] [address] Dr. Chantel Rand Calcium [Mass/Vol] 8.7 mg/dL Normal 8.5-10.1 [facility] Comment on above: Performed By: #### L IPA, CMP #### [facility] [address] [place] [address] Dr. Chantel Rand Chloride [Moles/Vol] 102 mmol/L Normal 98-107 [facility] Comment on above: Performed By: #### L IPA, CMP #### [facility] [address] [place] [address] Dr. Chantel Rand CO2 [Moles/Vol] 31.6 mmol/L Normal 21.0-32.0 [facility] Comment on above: Performed By: #### L IPA, CMP #### [facility] [address] [place] [address] Dr. Chantel Rand Creatinine [Mass/Vol] 0.71 mg/dL Normal 0.55-1.02 [facility] Comment on above: Performed By: #### L IPA, CMP #### [facility] [address] [place] [address] Dr. Chantel Rand EGFR-AF NEW ZEALANDER >60 Normal >=60 [facility] Comment on above: Performed By: #### L IPA, CMP #### [facility] [address] [place] [address] Dr. Chantel Rand EGFR-NON AF NEW ZEALANDER >60 Normal >=60 [facility] Comment on above: Performed By: #### L IPA, CMP #### [facility] [address] [place] [address] Dr. Chantel Rand Globulin (S) [Mass/Vol] 4.2 g/dL Normal [facility] Comment on above: Performed By: #### L IPA, CMP #### [facility] [address] [place] [address] Dr. Chantel Rand Glucose [Mass/Vol] 165 mg/dL Critically high 74-106 [facility] Comment on above: Performed By: #### L IPA, CMP #### [facility] [address] [place] [address] Dr. Chantel Rand Potassium [Moles/Vol] 3.7 mmol/L Normal 3.5-5.1 [facility] Comment on above: Performed By: #### L IPA, CMP #### [facility] [address] [place] [address] Dr. Chantel Rand Protein [Mass/Vol] 7.7 g/dL Normal 6.4-8.2 [facility] Comment on above: Performed By: #### L IPA, CMP #### [facility] [address] [place] [address] Dr. Chantel Rand Sodium [Moles/Vol] 138 mmol/L Normal 136-145 [facility] Comment on above: Performed By: #### L IPA, CMP #### [facility] [address] [place] [address] Dr. Chantel Radn Urea nitrogen [Mass/Vol] 26.0 mg/dL Critically high 7.0-18.0 [facility] Comment on above: Performed By: #### L IPA, CMP #### [facility] [address] [place] [address] Dr. Chantel Rand Urea nitrogen/Creatinine [Mass ratio] 36.6 mg/mg Normal [facility] Comment on above: Performed By: #### L IPA, CMP #### [facility] [address] [place] [address] Dr. Chantel Rand URINE MICROSCOPIC ONLYon BACTERIA MODERATE Abnormal NONE SEEN [facility] Comment on above: Performed By: #### L IPA, CMP #### [facility] [address] [place] [address] Dr. Chantel Rand Bacteria identified Cx Nom (U) INDICATED Normal [facility] Comment on above: Performed By: #### L IPA, CMP #### [facility] [address] [place] [address] Dr. Chantel Rand CA OX CRYSTALS MANY Normal [facility] Comment on above: Performed By: #### L IPA, CMP #### [facility] [address] [place] [address] Dr. Chantel Rand CAST NONE SEEN Normal NONE SEEN [facility] Comment on above: Performed By: #### L IPA, CMP #### [facility] [address] [place] [address] Dr. Chantel Rand Crystals LM Nom (Urine sed) SEEN Abnormal NONE SEEN [facility] Comment on above: Performed By: #### L IPA, CMP #### [facility] [address] [place] [address] Dr. Chantel Rand Epithelial cells LM Ql (Urine sed) MODERATE Abnormal NONE SEEN /RARE [facility] Comment on above: Performed By: #### L IPA, CMP #### [facility] [address] [place] [address] Dr. Chantel Rand MUCOUS NONE SEEN Normal NONE SEEN [facility] Comment on above: Performed By: #### L IPA, CMP #### [facility] [address] [place] [address] Dr. Chantel Rand RBC 0-2 Normal 0-2 [facility] Comment on above: Performed By: #### L IPA, CMP #### [facility] [address] [place] [address] Dr. Chantel Rand WBC 5-10 Abnormal NONE SEEN [facility] Comment on above: Performed By: #### L IPA, CMP #### [facility] [address] [place] [address] Dr. Chantel Rand XR ABD FLAT UP_PA [...] ROX APARICIO Date: 2022-08-13 19:54 Normal [facility] CBC AUTO DIFFon 08-07-2022 BASO # 0.0 103/ul Normal 0.0-0.1 [facility] Comment on above: Performed By: #### L IPA, CMP #### [facility] [address] [place] [address] Dr. Chantel Rand Basophils/100 WBC (Bld) 0.4 % Normal 0.2-2.0 [facility] Comment on above: Performed By: #### L IPA, CMP #### [facility] [address] [place] [address] Dr. Chantel Rand EO # 0.2 103/ul Normal 0.0-0.7 [facility] Comment on above: Performed By: #### L IPA, CMP #### [facility] [address] [place] [address] Dr. Chantel Rand Eosinophils/100 WBC (Bld) 3.0 % Normal 0.9-7.0 [facility] Comment on above: Performed By: #### L IPA, CMP #### [facility] [address] [place] [address] Dr. Chantel Rand Erythrocyte distribution width (RBC) [Ratio] 12.9 % Normal 11.0-15.0 [facility] Comment on above: Performed By: #### L IPA, CMP #### [facility] [address] [place] [address] Dr. Chantel Rand Hematocrit (Bld) [Volume fraction] 44.4 % Normal 36.0-48.0 [facility] Comment on above: Performed By: #### L IPA, CMP #### [facility] [address] [place] [address] Dr. Chantel Rand Hemoglobin (Bld) [Mass/Vol] 14.0 g/dL Normal 12.0-16.0 [facility] Comment on above: Performed By: #### L IPA, CMP #### [facility] [address] [address] [address] Chantel Rand IG # 0.02 10e3/ul Normal 0.00-0.03 [facility] Comment on above: Performed By: #### L IPA, CMP #### [facility] [address] [address] [address] Chantel Rand IG % 0.3 % Normal 0.0-0.5 [facility] Comment on above: Performed By: #### L IPA, CMP #### [facility] [address] [address] [address] Chantel Rand LYMPH # 1.9 103/ul Normal 1.2-3.8 [facility] Comment on above: Performed By: #### L IPA, CMP #### [facility] [address] [place] [address] Dr. Chantel Rand Lymphocytes/100 WBC (Bld) 25.8 % Normal 20.5-60.0 [facility] Comment on above: Performed By: #### L IPA, CMP #### [facility] [address] [place] [address] Dr. Chantel Rand MANUAL DIFF REQ NO Normal [facility] Comment on above: Performed By: #### L IPA, CMP #### [facility] [address] [place] [address] Dr. Chantel Rand MCH (RBC) [Entitic mass] 28.2 pg Normal 26.7-34.0 [facility] Comment on above: Performed By: #### L IPA, CMP #### [facility] [address] [address] [address] Chantel Rand MCHC (RBC) [Mass/Vol] 31.5 g/dL Normal 29.9-35.2 [facility] Comment on above: Performed By: #### L IPA, CMP #### [facility] [address] [place] [address] Dr. Chantel Rand MCV (RBC) [Entitic vol] 89.3 fL Normal 81.0-99.0 [facility] Comment on above: Performed By: #### L IPA, CMP #### [facility] [address] [address] [address] Chantel Rand MONO # 0.6 103/ul Normal 0.3-0.8 [facility] Comment on above: Performed By: #### L IPA, CMP #### [facility] [address] [place] [address] Dr. Chantel Rand Monocytes/100 WBC (Bld) 7.7 % Normal 1.7-12.0 [facility] Comment on above: Performed By: #### L IPA, CMP #### [facility] [address] [place] [address] Dr. Chantel Rand NEUT # 4.6 103/ul Normal 1.4-6.5 [facility] Comment on above: Performed By: #### L IPA, CMP #### [facility] [address] [place] [address] Dr. Chantel Rand Neutrophils/100 WBC (Bld) 62.8 % Normal 43.0-75.0 [facility] Comment on above: Performed By: #### L IPA, CMP #### [facility] [address] [place] [address] Dr. Chantel Rand Platelet mean volume (Bld) [Entitic vol] 13.0 fL Normal 9.5-13.5 [facility] Comment on above: Performed By: #### L IPA, CMP #### [facility] [address] [place] [address] Dr. Chantel Rand PLT 190 103/ul Normal 150-450 [facility] Comment on above: Performed By: #### L IPA, CMP #### [facility] [address] [place] [address] Dr. Chantel Rand RBC 4.97 106/ul Normal 4.20-5.40 [facility] Comment on above: Performed By: #### L IPA, CMP #### [facility] [address] [place] [address] Dr. Chantel Rand WBC 7.4 103/ul Normal 4.0-11.0 [facility] Comment on above: Performed By: #### L IPA, CMP #### [facility] [address] [address] [address] Chantel Rand GLYCOHEMOGLOBIN A1Con 2021 ADA RECOMMENDATION SEE BELOW Normal [facility] Comment on above: Result Comment: ADA RECOMMENDED LIMIT 4.0 - 6.0 ADA THERAPEUTIC TARGET < 7.0 ACTION SUGGESTED > 7.0 Performed By: #### A 1C #### [facility] [address] [address] [address] Chantel Rand Glucose [Mass/Vol] 123 mg/dL Normal [facility] Comment on above: Performed By: #### A 1C #### [facility] [address] [address] [address] Chantel Rand HbA1c (Bld) [Mass fraction] 5.9 % Normal 4.5-6.2 [facility] Comment on above: Performed By: #### A 1C #### [facility] [address] [place] [address] Dr. Chantel Rand LIPID PROFILEon 08-07-2022 CHOL-HDL RATIO NORM SEE BELOW Normal [facility] Comment on above: Result Comment: 3.3 - 4.4 LOW RISK 4.4 - 7.1 AVERAGE RISK 7.1 - 11.0 MODERATE RISK >11.0 HIGH RISK Performed By: #### B MP, LIVER, TSH, LIPID #### [facility] [address] [place] [address] Dr. Chantel Rand Cholesterol [Mass/Vol] 161 mg/dL Normal <=200 [facility] Comment on above: Performed By: #### B MP, LIVER, TSH, LIPID #### [facility] [address] [place] [address] Dr. Chantel Rand Cholesterol in HDL [Mass/Vol] 52 mg/dL Normal 40-60 [facility] Comment on above: Performed By: #### B MP, LIVER, TSH, LIPID #### [facility] [address] [place] [address] Dr. Chantel Rand Cholesterol in LDL [Mass/Vol] 92.8 mg/dL Normal [facility] Comment on above: Performed By: #### B MP, LIVER, TSH, LIPID #### [facility] [address] [address] [address] Chantel Rand Cholesterol.total/Ch olesterol in HDL [Mass ratio] 3.1 {ratio} Normal [facility] Comment on above: Performed By: #### B MP, LIVER, TSH, LIPID #### [facility] [address] [address] [address] Chantel Rand HDL NORMAL > or = 60 mg/dl - LO W CARDIOVASCULAR RISK <40 mg/dl - HIGH CARDIOVASCULAR RISK Normal [facility] Comment on above: Performed By: #### B MP, LIVER, TSH, LIPID #### [facility] [address] [address] [address] Chantel Rand LDL CALC NORMAL SEE BELOW Normal [facility] Comment on above: Result Comment: <100 mg/dl OPTIMAL 100 - 129 mg/dl NEAR OR ABOVE OPTIMAL 130 - 159 mg/dl BORDERLINE HIGH 160 - 189 mg/dl HIGH >190 mg/dl VERY HIGH Performed By: #### B MP, LIVER, TSH, LIPID #### [facility] [address] [address] [address] Chantel Rand Triglyceride [Mass/Vol] 81 mg/dL Normal <=150 [facility] Comment on above: Performed By: #### B MP, LIVER, TSH, LIPID #### [facility] [address] [address] [address] Chantel Rand VLDL CALC 16.2 mg/dL Normal [facility] Comment on above: Performed By: #### B MP, LIVER, TSH, LIPID #### [facility] [address] [address] [address] Chantel Rand LIVER PROFILEon 08-07-2022 Albumin [Mass/Vol] 4.0 g/dL Normal 3.4-5.0 [facility] Comment on above: Performed By: #### B MP, LIVER, TSH, LIPID #### [facility] [address] [address] [address] Chantel Rand Albumin/Globulin [Mass ratio] 0.9 {ratio} Normal [facility] Comment on above: Performed By: #### B MP, LIVER, TSH, LIPID #### [facility] [address] [address] [address] Chantel Rand ALP [Catalytic activity/Vol] 65 U/L Normal 46-116 [facility] Comment on above: Performed By: #### B MP, LIVER, TSH, LIPID #### [facility] [address] [address] [address] Chantel Rand ALT [Catalytic activity/Vol] 23 U/L Normal 14-59 [facility] Comment on above: Performed By: #### B MP, LIVER, TSH, LIPID #### [facility] [address] [address] [address] Chantel Rand AST [Catalytic activity/Vol] 12 U/L Critically low 15-37 [facility] Comment on above: Performed By: #### B MP, LIVER, TSH, LIPID #### [facility] [address] [address] [address] Chantel Rand BILI, CONJUGATED 0.1 mg/dL Normal 0.0-0.2 [facility] Comment on above: Performed By: #### B MP, LIVER, TSH, LIPID #### [facility] [address] [address] [address] Chantel Rand Bilirubin [Mass/Vol] 0.4 mg/dL Normal 0.2-1.0 [facility] Comment on above: Performed By: #### B MP, LIVER, TSH, LIPID #### [facility] [address] [address] [address] Chantel Rand Globulin (S) [Mass/Vol] 4.3 g/dL Normal [facility] Comment on above: Performed By: #### B MP, LIVER, TSH, LIPID #### [facility] [address] [address] [address] Chantel Rand Protein [Mass/Vol] 8.3 g/dL Critically high 6.4-8.2 [facility] Comment on above: Performed By: #### B MP, LIVER, TSH, LIPID #### [facility] [address] [address] [address] Chantel Rand MICROALBUMIN, RAND URon 11-3 0-2021 mALB 3.5 mg/L Normal <=30.0 [facility] Comment on above: Performed By: #### L IPA, CMP #### [facility] [address] [place] [address] Dr. Chantel Rand PROF CHEM 8 (BAS METB)on Anion gap [Moles/Vol] 12.7 mmol/L Normal [facility] Comment on above: Performed By: #### B MP, LIVER, TSH, LIPID #### [facility] [address] [place] [address] Dr. Chantel Rand Calcium [Mass/Vol] 9.7 mg/dL Normal 8.5-10.1 [facility] Comment on above: Performed By: #### B MP, LIVER, TSH, LIPID #### [facility] [address] [place] [address] Dr. Chantel Rand Chloride [Moles/Vol] 103 mmol/L Normal 98-107 [facility] Comment on above: Performed By: #### B MP, LIVER, TSH, LIPID #### [facility] [address] [place] [address] Dr. Chantel Rand CO2 [Moles/Vol] 29.7 mmol/L Normal 21.0-32.0 [facility] Comment on above: Performed By: #### B MP, LIVER, TSH, LIPID #### [facility] [address] [place] [address] Dr. Chantel Rand Creatinine [Mass/Vol] 0.64 mg/dL Normal 0.55-1.02 [facility] Comment on above: Performed By: #### B MP, LIVER, TSH, LIPID #### [facility] [address] [place] [address] Dr. Chantel Rand EGFR-AF NEW ZEALANDER >60 Normal >=60 [facility] Comment on above: Performed By: #### B MP, LIVER, TSH, LIPID #### [facility] [address] [place] [address] Dr. Chantel Rand EGFR-NON AF NEW ZEALANDER >60 Normal >=60 [facility] Comment on above: Performed By: #### B MP, LIVER, TSH, LIPID #### [facility] [address] [place] [address] Dr. Chantel Rand Glucose [Mass/Vol] 165 mg/dL Critically high 74-106 [facility] Comment on above: Performed By: #### B MP, LIVER, TSH, LIPID #### [facility] [address] [place] [address] Dr. Chantel Rand Potassium [Moles/Vol] 4.4 mmol/L Normal 3.5-5.1 [facility] Comment on above: Performed By: #### B MP, LIVER, TSH, LIPID #### [facility] [address] [place] [address] Dr. Chantel Rand Sodium [Moles/Vol] 141 mmol/L Normal 136-145 [facility] Comment on above: Performed By: #### B MP, LIVER, TSH, LIPID #### [facility] [address] [place] [address] Dr. Chantel Rand Urea nitrogen [Mass/Vol] 27.0 mg/dL Critically high 7.0-18.0 [facility] Comment on above: Performed By: #### B MP, LIVER, TSH, LIPID #### [facility] [address] [place] [address] Dr. Chantel Rand Urea nitrogen/Creatinine [Mass ratio] 42.2 mg/mg Normal [facility] Comment on above: Performed By: #### B MP, LIVER, TSH, LIPID #### [facility] [address] [place] [address] Dr. Chantel Rand TSHon 08-07-2022 TSH 4.404 uIU/mL Critically high 0.358-3.740 [facility] Comment on above: Performed By: #### B MP, LIVER, TSH, LIPID #### [facility] [address] [place] [address] Dr. Chantel Rand VITAMIN D 25 OHon 08-07-2022 VIT D 25-OH 27.0 ng/mL Normal [facility] Comment on above: Performed By: #### L IPA, CMP #### [facility] [address] [place] [address] Dr. Chantel Rand VIT D RANGES SEE BELOW [facility] Comment on above: Result Comment: <20 ng/mL Vit D deficient 20 - <30 ng/mL Vit D insufficient 30 - 100 ng/mL Vit D sufficient >100 ng/mL Potential Toxicity Performed By: #### L IPA, CMP #### [facility] [address] [address] [address] Chantel Rand Coding Summaryon 01-24-2020 Coding Summary CODING DATE: 01/24/2020 [facility] STATUS: Home PAYOR: Workers Compensation ADMIT [...] Geovanny Whitlock' Date Saved: 01/24/2020 02:36 pm [facility] Coding Summary CODING DATE: 01/24/2020 [facility] STATUS: Home PAYOR: Workers Compensation APC [...] Coded By: Geovanny Whitlock' Date Saved: 01/24/2020 02:35 pm [facility] Consent Formson 01-24-2020 Consent Forms [id number] 0[facility] Discharge Instructionson Discharge Instructions [id number] Summary [facility] - Emergency Department [address] [place], [place] [id number] ED Clinical Summary PERSON INFORMATION Name: TALYA OJEDA Age: 54 Years Sex: FEMALE : 1965 MRN: Acct#: Visit Reason: Arm pain-swelling; Elbow injury - Minor; LEFT ARM PAIN Arrival: 01/22/2020 00:18:40 Discharge: 01/22/2020 02:19:00 LOS: 000 02:01 Check In: 01/22/2020 00:18:40 Checkout:01/22/2020 02:19:00 Address: [address] [place], [place] [id number] PCP: Provider, None PROVIDER INFORMATION Provider Role [...] Impression and Plan Diagnosis Arm pain-swelling (PNED [id number], Reason For Visit, Emergency medicine, Medical) Strain of left elbow ([id number] S46.912A, Discharge, Medical) Radial head fracture (QAP51-ZL S52.123A, Discharge, Medical) Complaint of Elbow injury - Minor (PNED [id number], Reason For Visit, Medical) Plan Condition: Improved. [...] Sprain Follow-Up: With: Address: When: Karen Sibley [address] [place] [address], [place], [place] Business (2) In 3 days 01/25/2020 [...] anytime. Wiley DEWITT< ER PHYSICIAN< H Kaur [facility] DIAGNOSIS: Radial head fracture; Strain of left elbow Patient Understands: Yes - Patient/family/caregiv er verbalizes understanding of instructions given Comment: [facility] ED Note - Physicianon 2019 ED Note [...] Impression and Plan Diagnosis Arm pain-swelling (PNED [id number], Reason For Visit, Emergency medicine, Medical) Strain of left elbow ([id number] S46.912A, Discharge, Medical) Radial head fracture ([id number] S52.123A, Discharge, Medical) Complaint of Elbow injury - Minor (PNED [id number], Reason For Visit, Medical) Plan Condition: Improved. [...] on: 01/22/2020 01:57 EDT] Vimal Dewitt DO [facility] ED Note-Nursingon 01-22-2020 ED Note-Nursing Patient presents for left elbow pain after she tripped and fell on a bed post while working. States it happened around 1530 today. 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 Pain worsens with movement. MSP intact [facility] ED Patient Education Noteon 01-22-2020 ED Patient [...] 08/25/2006 Document Revised: 12/29/2018 Document Reviewed: 05/19/2016 [employer] Patient Education ? 2019 [employer] Elbow Sprain An elbow sprain is [...] by your health care provider. ? Take qtrb-xye-iydafpo and prescription medicines only as told by [...] 04/08/2019 Document Revised: 04/08/2019 Document Reviewed: 04/08/2019 [employer] Patient Education ? 2019 [employer]. Normal [facility] ED Patient Summaryon 020 ED Patient Summary [facility] - Emergency Department [address] [place] [address] PATIENT DISCHARGE INSTRUCTIONS Patient Information Name: TALYA OJEDA Age: 54 Years Date of : 1965 Reason For Visit: Arm pain-swelling; Elbow injury - Minor; LEFT ARM PAIN Arrival Time: 01/22/2020 00:18:40 Primary Care Physician: Provider, None Attending Physician: Vimal Dewitt DO Comment: Visit Diagnosis: Diagnoses This Visit Arm pain-swelling ([id number]) Elbow injury - Minor ([id number]) Radial head fracture (S52.123A) Strain of left elbow (S46.912A) Prescription Information: If you have been given a prescription for narcotics, seek immediate medical attention if you have any difficulty breathing or any sudden status changes such as confusion and sleepiness. If you or anyone you know is experiencing suicidal thoughts, mental health, alcohol and/or drug addiction problems; contact the [facility] 31/03 Crisis Hotline -Text 4HLCV to 972559. If you received any narcotics, sedation, or [...] legal documents With: Address: When: Karen Sibley [address] [place] [address], [address] [place], [place] Business (2) In 3 days 01/25/2020 [...] anytime. Wiley DEWITT< ER PHYSICIAN< H Kaur Keshawn Medication Information: The exam and treatment you received today in the [facility] Emergency Department were for an urgent problem and are not intended as complete care. It is important for you to follow up with a doctor, nurse practitioner, or physician?s mail handler assistant for ongoing care. If your symptoms [...] so we can reach you if necessary. [facility] Emergency Department has provided you with a complete list of medications post discharge. Please inform your outside sales representative/provider of your visit and for further instruction [...] 08/25/2006 Document Revised: 12/29/2018 Document Reviewed: 05/19/2016 [employer] Patient Education ? 2019 [employer] Elbow Sprain An elbow sprain is [...] by your health care provider. ? Take [id number] and prescription medicines only as told by [...] 04/08/2019 Document Revised: 04/08/2019 Document Reviewed: 04/08/2019 [employer] Patient Education ? 2019 [employer] Viruses or Bacteria What?s got you [...] for Disease Control and Prevention May 2014 [facility] XR Elbow Complete Lefton XR Elbow Complete [...] Gabe Oswald 01/22/20 1:34 am Technologist: GUERA [facility] US NON OB TRANSVAGINALon US NON OB [...] fibroid.Interpreted by:MATILDA Aguilar Jr.igned by:Shun Rojas Jr., MD02/13/18inal result Normal [facility] US PELVIS COMPLETEon 018 US [...] Rojas Jr., MD02/13/18Edited Result - FINAL Normal [facility] Progress Noteon 02-09-2018 HIM IP Note OR Crew Attendant Normal [facility] Follicle Stim. Hormon 2017 Follicle Stim. Horm 48.9 U/L High 1.7-21.[address] [facility] Comment on above: Result Comment: Refe rence Range:Male: 1.5-12.4Ovulating Female: Follicular Phase 3.5-12.5 Ovulation Phase 4.7-21.5 Luteal Phase 1.7-7.7Postmenopausal Female: 25.8-134.8Performed at [address] [id number] ([phone] Performed By: #### Z FAST, GLU, LIPR, FT4, TSH ####[facility] [place] [address] #### FSH, LH ####[id number] [place], [place] [id number] Glucoseon 10-02-2017 Glucose mass conc 106 mg/dL High 70-99 [facility] Comment on above: Result Comment: Perf ormed at [facility] [address] [facility] [place] [address] ([phone] Performed By: #### Z FAST, GLU, LIPR, FT4, TSH ####[facility] [place] [address] #### FSH, LH ####[facility] [place] [address] Lipid Profileon 10-02-2017 Cholesterol 167 mg/dL Normal <[address] [facility] Comment on above: Result Comment: Chol esterol Guidelines: <200 Desirable 200-240 Borderline >240 Undesirable Performed By: #### Z FAST, GLU, LIPR, FT4, TSH ####[address] [place] [address] #### FSH, LH ####[facility] [address] [place] [address] Cholesterol to HDL Ratio 3.2 {ratio} Normal <[address] [facility] Comment on above: Performed By: #### Z FAST, GLU, LIPR, FT4, TSH ####[address] [place] [address] #### FSH, LH ####[facility] [address] [place] [address] HDL Cholesterol 53 mg/dL Normal >40 [facility] Comment on above: Result Comment: HDL Guidelines: <40 Undesirable 40-59 Borderline >59 Desirable Performed By: #### Z FAST, GLU, LIPR, FT4, TSH ####[address] [address] #### FSH, LH ####[facility] [address] [place] [address] LDL Cholesterol 103 mg/dL Normal 0-130 [facility] Comment on above: Result Comment: LDL Guidelines: <100 Desirable 100-129 Near to/above Desirable 130-159 Borderline >159 UndesirableDirect (measured) LDL and calculated LDL are not interchangeable tests. Performed By: #### Z FAST, GLU, LIPR, FT4, TSH ####[address] [place] [address] #### FSH, LH ####[facility] [address] [place] [address] Triglyceride 53 mg/dL Normal <150 [facility] Comment on above: Result Comment: Trig lyceride Guidelines: <150 Desirable 150- 199 Borderline 200-499 High >499 Very high Based on AHA Guidelines for fasting triglyceride, June 2012.Performed at [facility] [address] [place] [address] Performed By: #### Z FAST, GLU, LIPR, FT4, TSH ####[address] [place] [address] #### FSH, LH ####[facility] [address] [place] [address] Cholesterol in VLDL mass conc NOT REPORTED Normal 1-[address] [facility] Comment on above: Performed By: #### Z FAST, GLU, LIPR, FT4, TSH ####[address] [place] [address] #### FSH, LH ####[facility] [place] [address] Luteinizing Hormoneon 2017 Luteinizing Hormone 40.8 U/L Normal 1.0-95.[address] [facility] Comment on above: Result Comment: Refe rence Range:Male: 1.7-8.6Ovulating Female: Follicular Phase 2.4-12.6 Ovulation Phase 14.0-95.6 Luteal Phase 1.0-11.4Postmenopausal Female: 7.7-58.5Performed at [address] [address] Performed By: #### Z FAST, GLU, LIPR, FT4, TSH ####[address] [address] #### FSH, LH ####[address] [address] Patient fasting?on 8 Patient fasting? YES Normal [facility] Comment on above: Result Comment: Perf ormed at [facility] [address] [place] [address] Performed By: #### Z FAST, GLU, LIPR, FT4, TSH ####[address] [address] #### FSH, LH ####[address] [address] Thyroid Stim. Horm.on 2017 Thyroid stimulating hormone (TSH) 2.42 m[IU]/L Normal 0.30-5.[address] [facility] Comment on above: Result Comment: Perf ormed at [facility] [address] [place], [place] [phone] ([phone]) Performed By: #### Z FAST, GLU, LIPR, FT4, TSH ####[address] [address] #### FSH, LH ####[address] [address] Thyroxine, Freeon 10-02-2017 Thyroxine, Free 1.01 ng/dL Normal 0.93-1.70 [facility] Comment on above: Result Comment: Perf ormed at [facility] [address] [place] [address] Performed By: #### Z FAST, GLU, LIPR, FT4, TSH ####[facility] [facility] [place] [address] #### FSH, LH ####[address] [address] XR FOOT RIGHT STANDARDon XR FOOT RIGHT [...] by:MATILDA Dennisigned by:Chad Malave MD09/30/17inal result Normal [facility] ED Provider Noteon 8 HIM IP Note OR Crew Attendant Normal [facility] Uric Acidon 05-26-2017 Urate 5.9 mg/dL High 2.4-5.[address] [facility] Comment on above: Result Comment: Perf ormed at [facility] [address] [facility] [place] [address] ([phone] Performed By: #### U RI ####[address] [facility] [place] [address] Group A Strep DNAon 05-09-20 17 Group A Strep DNA Specimen Description .THROAT SWAB Performed at [facility] [address] [facility]. [place], [place] [phone] ([phone] Special Requests NOT REPORTEDDirect Exam Negative: Specimen negative for Streptococcus pyogenes by DNA amplification. Performed at [address] [place] [address] Report Status FINAL 05/09/2017 [facility] Comment on above: Performed By: #### G ASDNA ####[address] [address] [facility] [facility] [place] [address] ED Noteon 05-08-2017 HIM IP Note OR Crew Attendant Normal [facility] ED Provider Noteon 7 HIM IP Note OR Crew Attendant Normal [facility] Strep Gr A Direct Agon 05-08 Rapid strep test Specimen Description .THROATSpecial Requests NOT REPORTEDDirect Exam Rapid Strep A negative. A negative Rapid Group A Strep Screen result does not rule out the possibility of Group A Streptococci in the specimen. A Group A strep DNA test will be performed. Performed at [facility] [address] [place], [place] [id number] ([phone] Report Status FINAL 05/08/2017 [facility] Comment on above: Performed By: #### S GPA ####[facility], [place] [address] XR FINGER RIGHT STANDARDon 0 04-30-2017 INR [...] by:MATILDA Mckeonigned by:Kwasi Cantu MD04/30/17Final result Normal [facility] ED Provider Noteon 7 HIM IP Note OR Crew Attendant Normal [facility] Vital Signs Date Time Vital Sign Value Performing Clinician Facility 06-16-2025 11:37-0400 Body height 157.48 cm Jorge Luis Herndon MD Work Phone: [facility] 06-16-2025 11:37-0400 Body mass index (BMI) [Ratio] 44.2 kg/m2 Jorge Luis Herndon MD Work Phone: [facility] 06-16-2025 11:37-0400 Body temperature 97.3 [degF] Jorge Luis Herndon MD Work Phone: [facility] 06-16-2025 11:37-0400 Body weight 109.76 kg Jorge Luis Herndon MD Work Phone: [facility] 06-16-2025 11:37-0400 Diastolic blood pressure 84 mm[Hg] Jorge Luis Herndon MD Work Phone: [facility] 06-16-2025 11:37-0400 Heart rate 99 /min Jorge Luis Herndon MD Work Phone: [facility] 06-16-2025 11:37-0400 Respiratory rate 22 /min Jorge Luis Herndon MD Work Phone: [facility] 06-16-2025 11:37-0400 SaO2% (BldA) [Mass fraction] 94 % Jorge Luis Herndon MD Work Phone: [facility] 06-16-2025 11:37-0400 Systolic blood pressure 176 mm[Hg] Jorge Luis Herndon MD Work Phone: [facility] 12-30-2024 13:22-0400 Body height 157.5 cm Jorge Luis Herndon MD Work Phone: [facility] 12-30-2024 13:22-0400 Body mass index (BMI) [Ratio] 43.71 kg/m2 Jorge Luis Herndon MD Work Phone: [facility] 12-30-2024 13:22-0400 Body temperature 97.5 [degF] Jorge Luis Herndon MD Work Phone: [facility] 12-30-2024 13:22-0400 Body weight 108.41 kg Jorge Luis Herndon MD Work Phone: [facility] 12-30-2024 13:22-0400 Diastolic blood pressure 70 mm[Hg] Jorge Luis Herndon MD Work Phone: [facility] 12-30-2024 13:22-0400 Heart rate 98 /min Jorge Luis Herndon MD Work Phone: [facility] 12-30-2024 13:22-0400 Respiratory rate 22 /min Jorge Luis Herndon MD Work Phone: [facility] 12-30-2024 13:22-0400 SaO2% (BldA) [Mass fraction] 94 % Jorge Luis Herndon MD Work Phone: [facility] 12-30-2024 13:22-0400 Systolic blood pressure 130 mm[Hg] Jorge Luis Herndon MD Work Phone: [facility] 09-16-2024 13:44-0500 Body mass index (BMI) [Ratio] 44.15 kg/m2 Jorge Luis Herndon MD Work Phone: [facility] 09-16-2024 13:44-0500 Body temperature 97.3 [degF] Jorge Luis Herndon MD Work Phone: [facility] 09-16-2024 13:44-0500 Body weight 109.5 kg Jorge Luis Herndon MD Work Phone: [facility] 09-16-2024 13:44-0500 Diastolic blood pressure 88 mm[Hg] Jorge Luis Herndon MD Work Phone: [facility] 09-16-2024 13:44-0500 Heart rate 74 /min Jorge Luis Herndon MD Work Phone: [facility] 09-16-2024 13:44-0500 SaO2% (BldA) [Mass fraction] 95 % Jorge Luis Herndon MD Work Phone: [facility] 09-16-2024 13:44-0500 Systolic blood pressure 172 mm[Hg] Jorge Luis Herndon MD Work Phone: [facility] 06-16-2024 13:27-0400 Body height 157.5 cm Jorge Luis Herndon MD Work Phone: [facility] 06-16-2024 13:27-0400 Body mass index (BMI) [Ratio] 43.35 kg/m2 Jorge Luis Herndon MD Work Phone: [facility] 06-16-2024 13:27-0400 Body temperature 97.81 [degF] Jorge Luis Herndon MD Work Phone: [facility] 06-16-2024 13:27-0400 Body weight 107.5 kg Jorge Luis Herndon MD Work Phone: [facility] 06-16-2024 13:27-0400 Diastolic blood pressure 68 mm[Hg] Jorge Luis Herndon MD Work Phone: [facility] 06-16-2024 13:27-0400 Heart rate 90 /min Jorge Luis Herndon MD Work Phone: [facility] 06-16-2024 13:27-0400 Respiratory rate 22 /min Jorge Luis Herndon MD Work Phone: [facility] 06-16-2024 13:27-0400 SaO2% (BldA) [Mass fraction] 98 % Jorge Luis Herndon MD Work Phone: [facility] 06-16-2024 13:27-0400 Systolic blood pressure 132 mm[Hg] Jorge Luis Herndon MD Work Phone: [facility] Encounters Encounter Date Encounter Type Care Provider Facility Start: 06-16-2025 End: 06-16-2025 ambulatory Jorge Luis Herndon MD Work Phone: [facility] Work Phone: Start: 06-16-2025 End: 06-16-2025 Patient encounter procedure [facility] Work Phone: Start: 05-16-2025 Non-patient / Non-visit Jorge Luis [facility] Work Phone: Start: 04-10-2025 End: 04-10-2025 Emergency department patient visit JORGE LUIS HERNDON [facility] Start: 01-03-2025 End: 01-03-2025 Clinisync Result Encounter Jorge Luis Herndon MD Work Phone: [facility] Unsolicited Start: 01-03-2025 End: 01-03-2025 Clinisync Result Encounter Jorge Luis Herndon MD Work Phone: [facility] Unsolicited Start: 12-30-2024 End: 12-30-2024 Bamboo flowsheet Jorge Luis Herndon MD Work Phone: [facility] Start: 12-30-2024 End: 12-30-2024 Bamboo flowsheet Jorge Luis Herndon MD Work Phone: [facility] Start: 12-30-2024 End: 12-30-2024 Office outpatient visit 25 minutes Jorge Luis Herndon MD Work Phone: [facility] Comment on above: Type 2 diabetes santiago [...] flowsheet Jorge Luis Herndon MD Work Phone: [facility] Start: 09-16-2024 End: 09-16-2024 Bamboo flowsheet Jorge Luis Herndon MD Work Phone: [facility] Start: 09-16-2024 End: 09-16-2024 Office outpatient visit 25 minutes Jorge Luis Herndon MD Work Phone: [facility] Comment on above: Type 2 diabetes santiago itus with hyperglycemia, without long-term current use of insulin (CMS/HCC) (Primary Dx); Benign essential hypertension (CMS/HCC); Major depressive disorder, recurrent episode, mild (HCC) (CMS/HCC); Generalized anxiety disorder (CMS/HCC); Primary insomnia; Class 3 severe obesity due to excess calories with serious comorbidity and body mass index (BMI) of 40.0 to 44.9 in adult (CMS/HCC); Diabetic polyneuropathy associated with type 2 diabetes mellitus (CMS/HCC) Start: 09-16-2024 End: 09-16-2024 ambulatory JORGE LUIS HERNDON Not Available Start: 06-16-2024 End: 06-16-2024 Bamboo flowsheet Jorge Luis Herndon MD Work Phone: [facility] Start: 06-16-2024 End: 06-16-2024 [employer]heet Jorge Luis Herndon MD Work Phone: [facility] Start: 06-16-2024 End: 06-16-2024 Clinisync Result Encounter Jorge Luis Herndon MD Work Phone: [facility] External Department Unsolicited Start: 06-16-2024 End: 06-16-2024 Patient encounter procedure Jorge Luis Herndon MD Work Phone: [facility] Start: 06-16-2024 End: 06-16-2024 Periodic preventive med est patient 40-64yrs Jorge Luis Herndon MD Work Phone: [facility] Comment on above: Annual physical exam [...] Not Available Start: 11-28-2023 End: 11-29-2023 ambulatory [facility] Facility:[facility] Start: 12-23-2022 End: 12-23-[address] [...] without abnormal findings DR JORGE LUIS HERNDON [facility] Start: 08-07-2022 End: 08-08-[address] JORGE LUIS HERNDON Facility:[facility] Start: 08-07-2022 End: 08-08-2022 Encounter for general adult medical examination without abnormal findings DR JORGE LUIS HERNDON Facility:[facility] Start: 05-13-2022 End: 05-13-[address] JORGE LUIS HERNDON Facility:[facility] Start: 04-18-2022 End: 04-18-[address] DON CHACON Facility:[facility] Start: 02-13-2018 End: 02-16-2018 Ambulatory SITA JERRY [facility] Start: 10-02-2017 End: 10-03-2017 Ambulatory KAREN JIMENEZTEN [facility] Start: 09-29-2017 End: 09-29-2017 Emergency department patient visit [facility] Start: 05-26-2017 End: 05-27-2017 Ambulatory [facility] Start: 05-08-2017 End: 05-08-2017 Emergency department patient visit [facility] Start: 04-30-2017 End: 05-01-2017 [facility] Start: 04-26-2017 End: 04-26-2017 Emergency department [facility] Procedures Date Procedure Procedure Detail Performing Clinician Start: 01-03-2025 XR CERVICAL SPINE 2-3V Jorge Luis Herndon MD Work Phone: Start: 01-03-2025 [facility] MICROALB CREAT R ATIO RANDOM Jorge Luis [...] panel JAMARI HITCHCOCK Start: 10-02-2017 LUTEINIZING HORMONE THORSachin MICHELLE Start: 10-02-2017 PATIENT FASTING? JAMARI MICHELLE Start: 10-02-2017 T4, FREE JAMARI HITCHCOCK Start: 10-02-2017 TSH WITHOUT REFLEX MISTI IVORY VIVIANA Start: 09-29-2017 BANDAGE ALFREDO 4 JAMARI [...] Screening for malign ant neoplasm of colon [facility] Start: 04-23-2028 Screening for malign ant neoplasm of cervix [facility] Start: 12-18-2026 Screening for malign ant neoplasm of colon FIT-DNA [facility] Start: 05-09-2025 Influenza vaccination Influenz a Vaccine (Season Ended) [facility] Start: 03-31-2025 End: 03-31-2025 Patient encounter procedure 03/31/2025 1:30 PM EDT Office Visit [facility] [address] [place] [id number] Jorge Luis Herndon MD [address] [place] [address] [facility] Start: 12-30-2024 End: 12-30-2025 Hemoglobin A1c/Hemoglobin.total in Blood Hemoglobin A1c Lab Routine Type 2 diabetes mellitus with hyperglycemia, without long-term current use of insulin ([facility]) Expected: 12/30/2024 (Approximate), Expires: 12/30/2025 [facility] Comment on above: Expected: 12/30/2024 (Approximate), Expires: 12/30/2025 Start: 12-30-2024 End: 12-30-2025 Microalbumin/Creatinine panel in random Urine Microalbumin / creatinine, urine ratio Lab Routine Type 2 diabetes mellitus with hyperglycemia, without long-term current use of insulin ([facility]) Expected: 12/30/2024 (Approximate), Expires: 12/30/2025 [facility] Work Phone: Comment on above: Expected: 12/30/2024 (Approximate), Expires: 12/30/2025 Start: 12-30-2024 End: 12-30-2024 Patient encounter procedure [facility] Comment on above: Arrived Start: 12-15-2024 Hemoglobin A1c measurement Bridget betes: Hemoglobin A1C [facility] Start: 12-09-2024 Urine screening for protein Diabetes: Urine Protein Screening [facility] Start: 09-16-2024 End: 09-16-2024 Patient encounter procedure [facility] Comment on above: Arrived Start: 06-16-2024 End: 06-16-2025 Basic metabolic 1998 panel - Serum or Plasma Basic metabolic panel Lab Routine Annual physical exam Expected: 06/16/2024 (Approximate), Expires: 06/16/2025 [facility] Comment on above: Expected: 06/16/2024 (Approximate), Expires: 06/16/2025 Start: 06-16-2024 End: 06-16-2025 CBC W Auto Differential panel - Blood CBC and differential Lab Routine Annual physical exam Expected: 06/16/2024 (Approximate), Expires: 06/16/2025 [facility] Comment on above: Expected: 06/16/2024 (Approximate), Expires: 06/16/2025 Start: 06-16-2024 End: 06-16-2025 Hemoglobin A1c/Hemoglobin.total in Blood Hemoglobin A1c Lab Routine Annual physical exam Expected: 06/16/2024 (Approximate), Expires: 06/16/2025 [facility] Work Phone: Comment on above: Expected: 06/16/2024 (Approximate), Expires: 06/16/2025 Start: 06-16-2024 End: 06-16-2025 Hepatic function 2000 panel - Serum or Plasma Hepatic function panel Lab Routine Annual physical exam Expected: 06/16/2024 (Approximate), Expires: 06/16/2025 [facility] Comment on above: Expected: 06/16/2024 (Approximate), Expires: 06/16/2025 Start: 06-16-2024 End: 06-16-2025 Lipid 1996 panel - Serum or Plasma Lipid panel Lab Routine Annual physical exam Expected: 06/16/2024 (Approximate), Expires: 06/16/2025 [facility] Comment on above: Expected: 06/16/2024 (Approximate), Expires: 06/16/2025 Start: 06-16-2024 End: 08-16-2025 MG Breast - bilateral Screening Bilateral screening mammogram Imaging Routine Breast cancer screening by mammogram Expected: 06/16/2024, Expires: 08/16/2025 [facility] Comment on above: Expected: 06/16/2024 , Expires: 08/16/2025 Start: 06-16-2024 End: 06-16-2025 Thyrotropin [Units/volume] in Serum or Plasma TSH Lab Routine Adult hypothyroidism (CMS/HCC) Expected: 06/16/2024 (Approximate), Expires: 06/16/2025 [facility] Comment on above: Expected: 06/16/2024 (Approximate), Expires: 06/16/2025 Start: 06-16-2024 End: 06-16-2025 Thyroxine (T4) free [Mass/volume] in Serum or Plasma T4, free Lab Routine Adult hypothyroidism (CMS/HCC) Expected: 06/16/2024 (Approximate), Expires: 06/16/2025 [facility] Comment on above: Expected: 06/16/2024 (Approximate), Expires: 06/16/2025 Start: 06-16-2024 End: 06-16-2025 Triiodothyronine (T3) Free [Mass/volume] in Serum or Plasma T3, free Lab Routine Adult hypothyroidism (CMS/HCC) Expected: 06/16/2024 (Approximate), Expires: 06/16/2025 [facility] Comment on above: Expected: 06/16/2024 (Approximate), Expires: 06/16/2025 Start: 06-16-2024 End: 06-16-2024 Patient encounter procedure 06/16/2024 1:30 PM EDT Office Visit [facility] [address] [place] [phone] Jorge Luis Herndon MD [address] [place] [phone] Arrived [facility] Comment on above: Arrived Start: 06-10-2024 Hemoglobin A1c measurement Bridget betes: Hemoglobin A1C [facility] Start: 05-09-2024 Influenza vaccination Influenza Vacc ine (#1) [facility] Start: 04-30-2024 Screening for malign ant neoplasm of breast Mammogram [facility] Start: 1988 Screening for malign ant neoplasm of cervix Pap Smear [facility] Start: 1986 Urine screening for protein Diabetes: Urine Protein Screening [facility] Start: 1977 Glaucoma screening Diabetes: R etinopathy Screening [facility] Start: 1967 Hemoglobin A1c measurement Bridget betes: Hemoglobin A1C [facility] Start: 1967 Screening for malign ant neoplasm of colon [facility] Payers Date Payer Category Payer Unknown [id number] 2024 Private Health Insurance [employer] [id number] 2024 Unknown [id number] 2023 Unknown BCBS BCBS xxxxxx [id number] 2023-Present [phone] [address] [place] [address] [id number] 2023 Unknown [id number] 2017 Unknown [id number] 2017 Self-pay 2014 Unknown [id number] 1967 Unknown [id number] 2.16840.1.623114.3.579.2. 593 1967 Unknown [id number] 2.16840.1.029020.3.579.2. 593 1967 Unknown [id number] 2.16.840.1.609173.3.579.2. 593 1967 Unknown [id number] 2.16840.1.353416.3.579.2. 593 1967 Unknown [id number] 2.16840.1.995225.3.579.2. 593 1967 Unknown [id number] 2.16840.1.431249.3.579.2. 593 1967 Unknown [id number] 2.16.840.1.621419.3.579.2. 593 1967 Unknown [id number] 2.16.840.1.376600.3.579.2. 593 1967 Unknown [id number] 2.16.840.1.720053.3.579.2. 727 1967 Unknown [id number] 2.16840.1.814823.3.579.2. 1259 1967 Unknown [id number] 2.16.840.1.214937.3.579.2. 1259 1967 Unknown [id number] 2.16.840.1.724942.3.579.2. 1259 1967 Unknown [id number] 2.16.840.1.299889.3.579.2. 1286 1959 Unknown [id number] 1959 Unknown [id number] Social History Date Type Detail Facility Start: 12-10-2023 End: 06-16-2025 Tobacco smoking status NHIS Never smoked tobacco [facility] Start: 12-10-2023 Tobacco use and exposure Smokeless tobacco non-user [facility] Start: 12-10-2023 End: 12-30-2024 History of Social function [facility] Start: 12-10-2023 End: 12-30-2024 Tobacco use panel [facility] Start: 1965 Sex assigned at Not on file [facility] Sex Female (finding) [facility] Start: 1965 Sex Assigned At Female F [facility] Medical Equipment Procedure Code Equipment Code Equipment Origin al Text Equipment Identifier Dates 1 each by In Vit ro route Daily [id number] Start: 06-16-2024 1 each Daily [id number] Start: 06-16-2024 History of Present illness Narrative 12-30-2024 Jorge Luis Herndon MD - 12/30/2024 1:51 PM EDNikia Herndon MD - 12/30/2024 1:51 PM Nancy Herndon MD - 12/30/2024 1:51 PM Nancy Herndon MD - 12/30/2024 1:51 PM EDT Note Date & Type Note Facility 12-30-2024 History of Presen t illness Narrative Associated Problem(s): Type 2 diabetes mellitus with hyperglycemia, without long-term current use of insulin ([facility]) Reports BS stable and due for A1C. [...] Major depressive disorder, recurrent episode, mild (HCC) ([facility]) Occasional symptoms but tolerable and continue zoloft. Type 2 diabetes mellitus with hyperglycemia, without long-term current use of insulin ([facility]) - Primary Reports BS stable and due for A1C. Stick to ADA diet and limit carbs. Relevant Orders Microalbumin / creatinine, urine ratio Hemoglobin A1c Primary insomnia Sleeping well with trazodone and continue. Class 3 severe obesity due to excess calories with serious comorbidity and body mass index (BMI) of 40.0 to 44.9 in adult Weight loss indicated. Benign essential hypertension ([facility]) BP controlled and monitor PRN. documented in [...] polyneuropathy associated with type 2 diabetes mellitus ([facility]) Symptoms stable and continue neurontin. Associated Problem(s): Class 3 severe obesity due to excess calories with serious comorbidity and body mass index (BMI) of 40.0 to 44.9 in adult ([facility]) Weight loss indicated. Associated Problem(s): Type 2 diabetes mellitus with hyperglycemia, without long-term current use of insulin ([facility]) Reports BS stable and last A1C 6.3. [...] mellitus (CMS/HCC) Increased symptoms and start neurontin. Associated Problem(s): [...] Strips 333) strip [facility] Morbid obesity due to excess calories (CMS/HCC) [...] Bilateral screening mammogram documented in this encounter [facility] Clinical Note 12-23-2022 Note Date & [...] by: EUFEMIA GARBER Date: 2022-12-23 14:47 [facility] Evaluation note Note Date & Type Note [...] (CMS/HCC) documented in this encounter [facility] Evaluation note Note Date & Type [...] diabetes mellitus (CMS/HCC) documented in this encounter [facility] Evaluation note Note Date & Type [...] hyperglycemia, without long-term current use of insulin ([facility]) Irritable bowel syndrome with diarrhea Irritable bowel syndrome Diabetic polyneuropathy associated with type 2 diabetes mellitus ([facility]) Adult hypothyroidism ([facility]) Unspecified hypothyroidism Obstructive sleep apnea Obstructive sleep apnea (adult) (pediatric) Breast cancer screening by mammogram Morbid obesity due to excess calories ([facility]) Body mass index (BMI) 40.0-44.9, adult ([facility]) Type 2 diabetes mellitus with hyperglycemia, without long-term current use of insulin ([facility])- Primary Benign essential hypertension ([facility]) Essential hypertension, benign Major depressive disorder, recurrent episode, mild (HCC) ([facility]) Major depressive disorder, recurrent episode, mild Generalized anxiety disorder ([facility]) Generalized anxiety disorder Primary insomnia Persistent disorder of initiating or maintaining sleep Class 3 severe obesity due to excess calories with serious comorbidity and body mass index (BMI) of 40.0 to 44.9 in adult Diabetic polyneuropathy associated with type 2 diabetes mellitus ([facility]/HCC) Type 2 diabetes mellitus with hyperglycemia, without long-term current use of insulin (CMS/HCC)- Primary Benign essential hypertension ([facility]) Essential hypertension, benign Major depressive disorder, recurrent episode, mild (HCC) ([facility]) Major depressive disorder, recurrent episode, mild Generalized anxiety disorder ([facility]) Generalized anxiety disorder Primary insomnia Persistent disorder of initiating or maintaining sleep Cervical spondylosis Cervical spondylosis without myelopathy Class 3 severe obesity due to excess calories with serious comorbidity and body mass index (BMI) of 40.0 to 44.9 in adult Irritable bowel syndrome with diarrhea Irritable bowel syndrome documented in this encounter [facility] Evaluation note Note Date & Type Note Facility Evaluation note Diagnosis Onset Date Resolution SOB (shortness of breath) on exertion acute June 16, 2025 10:44am [facility] Work Phone: Reason for referral (narrative) Note Date & Type Note Facility Reason for referral (narrative) No reason for referral information available [facility] Work Phone: Summary Purpose Family History No Family History Records FoundNo Family History Records FoundNo Family History Records FoundNo Family History Records FoundNo Family History Records FoundNo Family History Records FoundNo Family History Records Found Advance Directives Advance Directive Response Recorded Date/ Time Advance Directives No May 1:03pm Chief Complaint and Reason for Visit Chief Complaint Admit Date check for copd June 16, 2025 10 :44am Reason for Visit Admit Date SOB (shortness of breath) on exertion Oc tober 2024 10:44am Additional Source Comments INFORMATION SOURCE (unrecogn ized section and content) DATE CREATED AUTHOR 02/24/[address] [facility] DATE CREATED AUTHOR AUTHOR'S ORGANIZ ATION 02/25/[address] [facility] DATE CREATED AUTHOR AUTHOR'S ORGANIZ ATION 01/24/2020 [facility] DATE CREATED AUTHOR AUTHOR'S ORGANIZ ATION 12/25/2022 [facility] DATE CREATED AUTHOR AUTHOR'S ORGANIZ ATION 11/30/2023 [facility] DATE CREATED AUTHOR AUTHOR'S ORGANIZ ATION 12/31/2024 [facility] EPIC DATE CREATED AUTHOR AUTHOR'S ORGANIZ ATION 04/12/2025 [facility] Care Teams (unrecognized sec tion and content) Transportation Attendant Relationship Specialty Start Date End Date Jorge Luis Herndon MD [address] [place] [phone] PCP - General Family Medicine 10/30/23 Jorge Luis Herndon MD [address] [place] [phone] PCP [facility] 02/07/24 Transportation Attendant Relationship Specialty Start Date End Date Jorge Luis Herndon MD [address] [place] [address] PCP - General Family Medicine 10/30/23 Jorge Luis Herndon MD [address] [place] [phone] PCP - [facility] 02/07/24 Transportation Attendant Relationship Specialty Start Date End Date Jorge Luis Herndon MD [address] [place] [phone] PCP - General Family Medicine 10/30/23 Jorge Luis Herndon MD [address] [place] [phone] PCP - [facility] 02/07/24 Transportation Attendant Relationship Specialty Start Date End Date Jorge Luis Herndon MD [address] [place] [phone] PCP - General [facility] 10/30/23 Jorge Luis Herndon MD [address] [place] [phone] PCP - [facility] 02/07/24 Transportation Attendant Relationship Specialty Start Date End Date Jorge Luis Herndon MD [address] [place] [phone] PCP - General [facility] 10/30/23 Transportation Attendant Relationship Specialty Start Date End Date Jorge Luis Herndon MD [address] [place] [phone] PCP - General [facility] 10/30/23 Transportation Attendant Relationship Specialty Start Date End Date Jorge Luis Herndon MD [address] [place] [phone] PCP - [facility] 10/30/23 Team Status: Active Member Role Status Dates Jorge Luis Herndon MD Primary Care Provider Active Team Status: Active Member Role Status Dates Jorge Luis Herndon MD Attending Provider Active Star t: May 16, 2025 Team Status: Inactive Member Role Status Dates Jorge Luis Herndon MD Primary Care Provider Active S tart: June 16, 2025 End: June 16, 2025 Jorge Luis Herndon MD Attending Provider Active Star t: June 16, 2025 End: June 16, 2025 Reason for Visit (unrecogniz ed section and content) Reason Comments Follow-up 6m Leg Pain Numbness/ tingling Reason Comments Follow-up 3m Goals (unrecognized section and content) Goals may be documented in a n alternate section FOR RECORDS PERTAINING TO PATIENTS WHO ARE [...] BE BASED ON THE PRIMARY CLINICAL RECORDS. [facility] [employer] provides no warranty or guarantee of the accuracy or completeness of information in this document.
[2025-06-20 14:54] LABS: Hematocrit 45.6 % (36.0-48.0); Hemoglobin 15.0 g/dL (12.0-16.0); Immature Granulocytes Abs Auto 0.01 10^3/uL (0.00-0.03); Immature Granulocytes Pct Auto 0.1 % (0.0-0.5); Lymphocytes Absolute Auto 1.4 10^3/uL (1.2-3.8); Mean Corpuscular HGB Conc 32.9 g/dL (29.9-35.2); Mean Corpuscular Hemoglobin 29.6 pg (26.7-34.0); Mean Corpuscular Volume 89.9 fL (81.0-99.0); Platelet Count 178 10^3/uL (150-450); Red Blood Count 5.07 10^6/uL (4.20-5.40); White Blood Count 7.0 10^3/uL (4.0-11.0)
[2025-06-20 15:58] LABS: Alanine Aminotransferase 41 U/L (14-59); Albumin Globulin Ratio 0.9; Albumin Level 3.8 g/dL (3.4-5.0); Alkaline Phosphatase 78 U/L (46-116); Anion Gap 11.9; Aspartate Amino Transferase 17 U/L (15-37); Blood Urea Nitrogen 15.0 mg/dL (7.0-18.0); Calcium 9.2 mg/dL (8.5-10.1); Carbon Dioxide 29.1 mmol/L (21.0-32.0); Chloride 107 mmol/L (98-107); Cholesterol 136 mg/dL (<=200); Estimated GFR (African America >60 (>=60 mL/min/1.73m^2); Estimated GFR (Non-African Ame >60 (>=60 mL/min/1.73m^2); Globulin 4.1 g/dL; Glucose 234 mg/dL (74-106); HDL Cholesterol 40 mg/dL (40-60); Potassium 4.0 mmol/L (3.5-5.1); Sodium 144 mmol/L (136-145); Thyroid Stimulating Hormone 1.365 uIU/mL (0.358-3.740); Total Protein 7.9 g/dL (6.4-8.2); Triglycerides 118 mg/dL (<=150); VLDL CHOLESTEROL 23.6 mg/dL
== END 2025-06-20 14:24 | disposition home or self-care (01) ==
LOC: LAB 14:29
PROVIDERS: PCP Family Medicine; Visit Provider Family Medicine
DX: Z00.00 Encounter for general adult medical examination without abnormal findings (principal)
CPT/HCPCS: 36415; 80053; 80061; 83036; 84439; 84443; 85025